=== PATIENT | male | born 1965 ===

== ENCOUNTER 2019-12-10 13:00 | Outpatient (REF) | payer MEDICARE, MEDICAID, SELFPAY | END 2019-12-10 13:01 | disposition home or self-care (01) | LOC: HO.LAB 13:00 | PROVIDERS: PCP Internal Medicine; Visit Provider Internal Medicine | DX: Z20.828 Contact with and (suspected) exposure to other viral communicable diseases (principal) | CPT/HCPCS: 87635 ==

== ENCOUNTER 2020-02-25 08:18 | Inpatient (IN) | payer MEDICARE, MEDICAID, SELFPAY ==
[2020-02-25] VITALS (10 sets, daily range): BP systolic 101–143; BP diastolic 62–92; PULSE 76–97; RESP 16–22; TEMP 36.7–36.9; O2SAT 96–99; BMI 34.9
--- NOTE | 2020-02-25 08:23 | PC.NURSE ---
call made for ekg upon pt arrival
--- NOTE | 2020-02-25 09:14 | ECG_ITS ---
Test Reason : CP Blood Pressure : / mmHG Vent. Rate : 087 BPM Atrial Rate : 087 BPM P-R Int : 140 ms QRS Dur : 096 ms QT Int : 420 ms P-R-T Axes : -05 045 019 degrees QTc Int : 505 ms Normal sinus rhythm Prolonged QT Abnormal ECG When compared to the previous EKG of QT has lengthened Referred By: Linda Knight Electronically Signed By:Richie Aldridge
--- NOTE | 2020-02-25 09:14 | XR_ITS ---
EXAMINATION: XR CHEST CLINICAL INFORMATION: Chest pain COMPARISON: 04/15/2017 and priors TECHNIQUE: 2 views of the chest were obtained. FINDINGS: ECG leads project over the thorax. Stable heart and mediastinum. No pulmonary edema. Clear lungs. No consolidation effusion or pneumothorax. Lung volumes improved compared with prior. Chronic bronchial wall thickening. Nonobstructive gas pattern. No acute osseous finding. Minor degenerative spine disease. XR/XR chest 2V IMPRESSION: Chronic bronchial wall thickening.
--- NOTE | 2020-02-25 09:17 | ED_ITS ---
HPI - Chest Pain General Chief Complaint: Chest Pain Stated Complaint: chest pain Time Seen by Provider: 02/25/20 08:55 Source: patient Mode of arrival: ambulatory Limitations: no limitations History of Present Illness HPI narrative: 55-year-old male with a past medical history of diabetes, hypertension, hyperlipidemia, anxiety here with complaints of left-sided chest tightness since 0400. Began at rest, woke him from his sleep. Constant since. Some associated anxiety, shortness of breath, nausea. Patient denies any diaphoresis, vomiting, dizziness. Does report some epigastric pain. No recent travel. No leg swelling or pain. No fevers, chills, body aches complaint: chest discomfort Onset (ago): day(s) Timing of current episode: constant Prior episodes: No Onset: during rest Pain location: left chest Pain radiation: none Severity: mild Quality: tightness Relieving factors: nothing Exacerbating factors: nothing Associated symptoms: dyspnea Treatment prior to arrival: none Related Data Allergies Allergy/AdvReac Type Severity Reaction Status Date / Time No Known Allergies Allergy Unverified 11/02/19 15:06 Review of Systems Review of Systems: Yes all other systems are reviewed and are negative Constitutional: Constitutional: Reports no additional constitutional complaints, Denies body ache(s), Denies chills, Denies fever(s), Denies headache (s) and Denies weakness Eyes: Eyes: Reports no additional eye complaints and Denies change in vision ENT: Reports system reviewed and no additional complaints, except as documented, Denies dizziness, Denies headache(s), Denies nasal congestion, Denies nasal discharge and Denies neck pain Cardiovascular: Cardiovascular: Reports no additional cardiovascular complaints, Reports chest pain, Denies leg edema and Reports dyspnea Respiratory: Respiratory: Reports no additional respiratory complaints, Denies cough and Reports dyspnea Gastrointestinal: Gastrointestinal: Reports no additional gastrointestinal complaints, Denies abdominal pain, Denies diarrhea, Denies nausea and Denies vomiting Genitourinary: Genitourinary: Denies urinary incontinence Musculoskeletal: Musculoskeletal: Reports no additional musculoskeletal complaints, Denies back pain, Denies arthralgias, Denies joint swelling, Denies neck pain, Denies numbness and Denies tingling Integumentary/Breasts: Skin/Breast: Reports system reviewed and no additional complaints, except as docu and Denies rash Neurologic: Reports system reviewed and no additional complaints, except as documented, Denies Abnormal speech present, Denies dizziness, Denies headac he(s), Denies numbness, Denies tingling and Denies weakness Psychiatric: Psychiatric: Reports anxiety PMFSH Past Medical History Attestation statement: The following information was validated with the patient. Source: old records reviewed and nursing notes reviewed Medical History (Updated 02/25/20 @ 13:46 by Nichelle Aguilar NP) Anxiety Diabetes High cholesterol HTN (hypertension) Surgical History (Updated 02/25/20 @ 14:54 by NISHI Poon) H/O hernia repair History of appendectomy Family History Family History (Updated 02/25/20 @ 14:55 by NISHI Poon) Mother Heart attack Social History Social History (Updated 02/25/20 @ 14:55 by NISHI Poon) Alcohol intake: current Alcohol intake frequency: a few times a week Smoking Status: Current every day smoker Packs Per Day: 1 Use of substances other than those prescribed or required for medical reasons: No Advance Directives: No Advance Directives Information Provided: No Physical Exam Vital Signs: Vital Signs: Last Vital Signs Temp 98.0 F 02/25/20 08:19 Pulse 84 02/25/20 14:00 Resp 16 02/25/20 14:00 BP 101/62 02/25/20 14:00 Pulse Ox 99 02/25/20 14:00 Body Mass Index 34.9 Const: General: cooperative, healthy appearing, comfortable and no acute distress Orientation/consciousness: patient oriented x3 Limitations: no limitations HENMT: Head: Yes normal to inspection Ears: hearing grossly normal bilaterally General nose exam: Normal external nose present Face and sinus: Yes normal facial exam Mouth: Normal oral and palatal mucosa present Throat: Yes posterior oropharynx normal Eyes: General: appearance normal, both eyes and all related structures Pupils: Equal, round and reactive pupils present Neck: Neck: Yes normal visual inspection Chest: Other: Left chest tender to palpate, worsened with deep breathing and movement Chest palpation & inspection: normal inspection of the chest Resp: Effort & Inspection: normal respiratory effort Auscultation: clear to auscultation bilaterally Cardio: Rate: regular rate Rhythm: regular rhythm Peripheral pulses: Peripheral pulses 2+ throughout GI: Inspection: Yes normal to inspection Palpation (GI): Soft to palpation and Tenderness to palpation present (GI) (Mild epigastric tenderness. No rebound or guarding) Auscultation: normal bowel sounds Back/Spine/Pelvis: Thoracic/Lumbar Spine: thoracic and lumbar spine normal to inspection Skin: General skin exam: no rashes or lesions noted Neuro: General: patient oriented x3, no focal motor deficits and normal sensation to monofilament Cranial nerves: Yes Equal, round and reactive pupils present Cognition (Neuro): normal cognition Speech: No Abnormal speech present Gait exam (Neuro): Normal gait present Motor exam (neuro): 5/5 motor strength present throughout Extrem: General: Yes normal to inspection, Yes no pedal edema and Yes no calf tenderness Course Course Course Narrative: 55-year-old male here with chest tightness since 0400 which is constant with some associated anxiety, nausea and shortness of breath. No other complaints. Has had some chronic epigastric pain which is unchanged from baseline. On exam pain is more musculoskeletal. Patient appears very anxious. Will check labs, EKG, chest x-ray. Will give dose of Ativan. Patient also having some mild epigastric tenderness which is likely secondary to GERD vs ACS. Will give GI cocktail and reassess. 1040- troponin elevated. Serial EKG repeated unchanged from previous. Continued symptoms of chest pain, epigastric pain. Will give aspirin 324 mg. Trial nitroglycerin to see if this affects the patient's pain. Added on a D- dimer to rule out underlying PE, inflammatory markers to r/o alivia/pericarditis. Message sent to cardiology to discuss. 1150-Cardiology called back. Will come in to see patient. 1250-patient seen at the bedside by Dr. Bryan His pain is resolved with 2 doses of nitroglycerin here in the emergency department. Bedside echo with good LV function. Plan for repeat troponin. If troponin is unchanged recommend admit for stress test in the morning. If troponin is increased plan for heparin IV and admission. 1325-2nd troponin shows increase from 673.1 to 955.8. Cardiology updated and recommended heparin infusion and admission. 1345-discussed with Olga ALMODOVAR who accepted admission MDM - Chest Pain MDM Narrative Medical decision making narrative: Gastritis, GERD, ACS, PE, musculoskeletal pain Medical Records Data Attestation: I reviewed the patient's medical records. Lab Data Attestation: I reviewed the patient's lab results. Result diagrams: 02/25/20 09:18 02/25/20 09:18 Labs: Lab Results 02/25/20 02/25/20 02/25/20 Range/Units 09:18 09:18 09:18 WBC 9.7 (4.8-10.8) X10*3/uL RBC 4.95 (4.60-5.80) X10*6/uL Hgb 14.5 (14.0-18.0) g/dl Hct 44.2 (42-52) % MCV 89.3 (80-98) fL MCH 29.3 (27.0-33.0) pg MCHC 32.8 (31.0-36.0) g/dl RDW 13.8 (11.0-16.0) % Plt Count 155 L (160-400) X10*3/uL MPV 10.7 (9.4-12.4) fL Immature Gran % (Auto) 0.2 (0.0-0.4) % Neut % (Auto) 67.8 (45-73) % Lymph % (Auto) 22.3 (20-40) % [place] % (Auto) 9.0 (2-11) % Eos % (Auto) 0.2 (0-4) % Baso % (Auto) 0.5 (0-2) % Lymph # (Auto) 2.2 (1.2-4.9) X10*3/uL [place] # (Auto) 0.9 (0.1-1.2) X10*3/uL Eos # (Auto) 0.0 (0.0-0.4) X10*3/uL Baso # (Auto) 0.1 (0.0-0.2) X10*3/uL Abs Immat Gran (auto) 0.02 (0.00-0.03) X10*3/uL Absolute Neuts (auto) 6.5 (2.0-8.3) X10*3/uL Absolute Nucleated RBC 0.000 (0.0-0.012) X10*3/uL Nucleated RBC % (auto) 0.0 (0.0-0.2) /100WBC ESR (0-15) MM/HR PT 13.3 H (10.8-13.0) SEC INR 1.1 (0.9-1.1) APTT 31.2 (24.1-38.0) SEC D-Dimer 215 NG/ML Sodium 138 (135-145) mmol/L Potassium 4.0 (3.3-5.1) mmol/l Chloride 103 (96-108) mmol/L Carbon Dioxide 19 L (22-29) mmol/L Anion Gap 20 (12-20) BUN 11 (9-16) mg/dL Creatinine 0.89 (0.5-1.4) mg/dL Estim Creat Clear Calc 108.5 Estimated GFR > 60 Random Glucose 177 H (60-115) mg/dL Calcium 9.1 (8.4-10.2) mg/dL Magnesium 1.9 (1.6-2.6) mg/dL Total Bilirubin 0.7 (0.0-1.0) mg/dL Direct Bilirubin 0.3 (0.0-0.5) mg/dL AST 77 H (5-37) U/L ALT 117 H (0-40) U/L Alkaline Phosphatase 70 (39-117) U/L Troponin I High Sens (<3.5-35.0) ng/L C-Reactive Protein 0.35 (< or = 0.50) mg/dL Total Protein 7.7 (6.5-8.0) g/dL Albumin 4.5 (3.5-5.0) g/dL Lipase (8-78) U/L COVID-19 ([facility]) (Negative) COVID-19 Clin Com 02/25/20 02/25/20 02/25/20 Range/Units 09:18 09:18 09:18 WBC (4.8-10.8) X10*3/uL RBC (4.60-5.80) X10*6/uL Hgb (14.0-18.0) g/dl Hct (42-52) % MCV (80-98) fL MCH (27.0-33.0) pg MCHC (31.0-36.0) g/dl RDW (11.0-16.0) % Plt Count (160-400) X10*3/uL MPV (9.4-12.4) fL Immature Gran % (Auto) (0.0-0.4) % Neut % (Auto) (45-73) % Lymph % (Auto) (20-40) % [place] % (Auto) (2-11) % Eos % (Auto) (0-4) % Baso % (Auto) (0-2) % Lymph # (Auto) (1.2-4.9) X10*3/uL [place] # (Auto) (0.1-1.2) X10*3/uL Eos # (Auto) (0.0-0.4) X10*3/uL Baso # (Auto) (0.0-0.2) X10*3/uL Abs Immat Gran (auto) (0.00-0.03) X10*3/uL Absolute Neuts (auto) (2.0-8.3) X10*3/uL Absolute Nucleated RBC (0.0-0.012) X10*3/uL Nucleated RBC % (auto) (0.0-0.2) /100WBC ESR 4 (0-15) MM/HR PT (10.8-13.0) SEC INR (0.9-1.1) APTT (24.1-38.0) SEC D-Dimer NG/ML Sodium (135-145) mmol/L Potassium (3.3-5.1) mmol/l Chloride (96-108) mmol/L Carbon Dioxide (22-29) mmol/L Anion Gap (12-20) BUN (9-16) mg/dL Creatinine (0.5-1.4) mg/dL Estim Creat Clear Calc Estimated GFR Random Glucose (60-115) mg/dL Calcium (8.4-10.2) mg/dL Magnesium (1.6-2.6) mg/dL Total Bilirubin (0.0-1.0) mg/dL Direct Bilirubin (0.0-0.5) mg/dL AST (5-37) U/L ALT (0-40) U/L Alkaline Phosphatase (39-117) U/L Troponin I High Sens 673.1 H (<3.5-35.0) ng/L C-Reactive Protein (< or = 0.50) mg/dL Total Protein (6.5-8.0) g/dL Albumin (3.5-5.0) g/dL Lipase 16 (8-78) U/L COVID-19 ([facility]ILIA) (Negative) COVID-19 Clin Com 02/25/20 02/25/20 Range/Units 11:32 12:37 WBC (4.8-10.8) X10*3/uL RBC (4.60-5.80) X10*6/uL Hgb (14.0-18.0) g/dl Hct (42-52) % MCV (80-98) fL MCH (27.0-33.0) pg MCHC (31.0-36.0) g/dl RDW (11.0-16.0) % Plt Count (160-400) X10*3/uL MPV (9.4-12.4) fL Immature Gran % (Auto) (0.0-0.4) % Neut % (Auto) (45-73) % Lymph % (Auto) (20-40) % [place] % (Auto) (2-11) % Eos % (Auto) (0-4) % Baso % (Auto) (0-2) % Lymph # (Auto) (1.2-4.9) X10*3/uL [place] # (Auto) (0.1-1.2) X10*3/uL Eos # (Auto) (0.0-0.4) X10*3/uL Baso # (Auto) (0.0-0.2) X10*3/uL Abs Immat Gran (auto) (0.00-0.03) X10*3/uL Absolute Neuts (auto) (2.0-8.3) X10*3/uL Absolute Nucleated RBC (0.0-0.012) X10*3/uL Nucleated RBC % (auto) (0.0-0.2) /100WBC ESR (0-15) MM/HR PT (10.8-13.0) SEC INR (0.9-1.1) APTT (24.1-38.0) SEC D-Dimer NG/ML Sodium (135-145) mmol/L Potassium (3.3-5.1) mmol/l Chloride (96-108) mmol/L Carbon Dioxide (22-29) mmol/L Anion Gap (12-20) BUN (9-16) mg/dL Creatinine (0.5-1.4) mg/dL Estim Creat Clear Calc Estimated GFR Random Glucose (60-115) mg/dL Calcium (8.4-10.2) mg/dL Magnesium (1.6-2.6) mg/dL Total Bilirubin (0.0-1.0) mg/dL Direct Bilirubin (0.0-0.5) mg/dL AST (5-37) U/L ALT (0-40) U/L Alkaline Phosphatase (39-117) U/L Troponin I High Sens 955.8 H (<3.5-35.0) ng/L C-Reactive Protein (< or = 0.50) mg/dL Total Protein (6.5-8.0) g/dL Albumin (3.5-5.0) g/dL Lipase (8-78) U/L COVID-19 ([facility]ILIA) Negative (Negative) COVID-19 Clin Com See Note Imaging Data Chest x-ray: Attestation: I personally reviewed and interpreted this imaging study as follows: Radiologist's impression: [place] [id number] XRay Report Signed Patient: Willis Peterson#: [id number] : 1965Acct:[id number] Age/Sex: 55 / MADM Date: 02/25/20 Loc: .ED Attending Dr: Ordering Physician: NICHELLE AGUILAR NP Date of Service: 02/25/20 Procedure(s): XR chest 2V Accession Number(s): [id number] cc: NICHELLE AGUILAR NP~ EXAMINATION: XR CHEST CLINICAL INFORMATION: Chest pain COMPARISON: 04/15/2017 and priors TECHNIQUE: 2 views of the chest were obtained. FINDINGS: ECG leads project over the thorax. Stable heart and mediastinum. No pulmonary edema. Clear lungs. No consolidation effusion or pneumothorax. Lung volumes improved compared with prior. Chronic bronchial wall thickening. Nonobstructive gas pattern. No acute osseous finding. Minor degenerative spine disease. XR/XR chest 2V IMPRESSION: Chronic bronchial wall thickening. ECG Data ECG #1: Attestation: I personally reviewed and interpreted this ECG as follows: ECG interpretation date: 02/25/20 ECG interpretation time: 09:34 Interpretation: Normal sinus rhythm with a rate of 87, normal NH, normal QRS, prolonged QTC 505. No ST changes EKG #2 1040-normal sinus rhythm with a rate of 84. Normal NH normal QRS prolonged QTC [address] changes Critical Care Time Critical Care Time Critical Care Time: Yes Total Critical Care Time: 30 Attestation: Discussion with cardiology, repeat labs, multiple re-assessments for chest pain Discharge Plan Discharge Clinical Impression: Non-ST elevation ID (NSTEMI) Patient Disposition: Admitted As Inpatient
[2020-02-25 09:27] LABS: Basophils Absolute Auto 0.1 X10*3/uL (0.0-0.2); Basophils Percent Auto 0.5 % (0-2); Eosinophils Percent Auto 0.2 % (0-4); Hematocrit 44.2 % (42-52); Hemoglobin 14.5 g/dl (14.0-18.0); Imm Gran Abs Auto 0.02 X10*3/uL (0.00-0.03); Imm Gran Pct Auto 0.2 % (0.0-0.4); Lymphocytes Absolute Auto 2.2 X10*3/uL (1.2-4.9); Lymphocytes Percent Auto 22.3 % (20-40); MANUAL DIFF FLAG NO; Mean Corpuscular HGB Conc 32.8 g/dl (31.0-36.0); Mean Corpuscular Hemoglobin 29.3 pg (27.0-33.0); Mean Corpuscular Volume 89.3 fL (80-98); Mean Platelet Volume 10.7 fL (9.4-12.4); Monocytes Absolute Auto 0.9 X10*3/uL (0.1-1.2); Neutrophils Absolute Auto 6.5 X10*3/uL (2.0-8.3); Neutrophils Percent Auto 67.8 % (45-73); Platelet Count 155 X10*3/uL (160-400); Red Blood Count 4.95 X10*6/uL (4.60-5.80); Red Cell Distribution Width 13.8 % (11.0-16.0); White Blood Count 9.7 X10*3/uL (4.8-10.8)
[2020-02-25 09:32] LABS: INTERNATIONAL NORM RATIO 1.1 (0.9-1.1); Prothrombin Time 13.3 SEC (10.8-13.0)
[2020-02-25 09:51] LABS: Lipase 16 U/L (8-78)
[2020-02-25 10:28] LABS: Alanine Aminotransferase 117 U/L (0-40); Albumin Level 4.5 g/dL (3.5-5.0); Alkaline Phosphatase 70 U/L (39-117); Anion Gap 20 (12-20); Aspartate Amino Transferase 77 U/L (5-37); Bilirubin Direct 0.3 mg/dL (0.0-0.5); Bilirubin Total 0.7 mg/dL (0.0-1.0); Blood Urea Nitrogen 11 mg/dL (9-16); Calcium 9.1 mg/dL (8.4-10.2); Carbon Dioxide 19 mmol/L (22-29); Chloride 103 mmol/L (96-108); Creatinine Clr Calc Pharmacy 108.5; Estimated Glomerular Filt Rate > 60; Glucose Random 177 mg/dL (60-115); Magnesium 1.9 mg/dL (1.6-2.6); Sodium 138 mmol/L (135-145); Total Protein 7.7 g/dL (6.5-8.0)
[2020-02-25] MEDS: Lidocaine HCl Viscous 2 % 15 ML SOLUTION MUCOUS MEM (10:30)
[2020-02-25] MEDS: Magnesium Hydrox/Alum Hydrox 30 ML ORAL.SUSP PO (10:30)
[2020-02-25 10:31] LABS: Troponin-I High Sensitivity 673.1 ng/L (<3.5-35.0)
[2020-02-25] MEDS: LORazepam 2 MG/ML VIAL 1 MG IVPUSH (10:31)
--- NOTE | 2020-02-25 10:37 | ECG_ITS ---
Test Reason : CHEST PAIN Blood Pressure : / mmHG Vent. Rate : 084 BPM Atrial Rate : 084 BPM P-R Int : 160 ms QRS Dur : 096 ms QT Int : 420 ms P-R-T Axes : 009 041 020 degrees QTc Int : 496 ms Normal sinus rhythm Prolonged QT Abnormal ECG When compared with ECG of 08-MAR-2017 17:41, No significant change was found Referred By: Linda Knight Electronically Signed By:Richie Aldridge
[2020-02-25 10:58] LABS: D Dimer 215 NG/ML
[2020-02-25 11:00] LABS: C Reactive Protein 0.35 mg/dL (< or = 0.50)
[2020-02-25] MEDS: Aspirin 81 MG TAB.CHEW 324 MG PO (11:18)
[2020-02-25] MEDS: Nitroglycerin 0.4 MG TAB.SUBL SUBLINGUAL ×2 (11:24→12:18)
--- NOTE | 2020-02-25 11:26 | CT_ITS ---
EXAMINATION: CT CHEST WITH CONTRAST CLINICAL INFORMATION: Rule out aortic dissection. Chest pain and abdominal pain. COMPARISON: None TECHNIQUE: Multidetector volumetric CT imaging of the chest and abdomen was obtained after the administration of 85 mL of Omnipaque 350 intravenous contrast without immediate adverse reactions. Axial MIP volume rendering provided. Sagittal and coronal reformatted images were obtained. This CT examination was performed using dose optimization techniques as appropriate, variously including the following: *Automated exposure control *Adjustment of mA and/or kV according to patient size (this includes techniques or standardized protocols for targeted exams where dose is matched to indication/reason for exam; i.e. extremities or head) *Use of iterative reconstruction technique DLP: 584.28 mGy-cm FINDINGS: LUNGS: The central airways are patent. No bronchial wall thickening. No bronchiectasis. No confluent parenchymal disease. No emphysematous changes appreciated. No suspicious lung nodules. MEDIASTINUM: No thoracic aortic aneurysm or dissection is appreciated. Heart normal size. Mild coronary artery calcification. No mediastinal or hilar lymphadenopathy. No pericardial effusion. PLEURA: There is no pleural effusion. No pleural mass or thickening. AXILLA: No lymphadenopathy. UPPER ABDOMEN: There is fatty infiltration of the liver. No intrahepatic bile duct dilatation. No focal hepatic masses identified. Gallbladder appears unremarkable. The spleen, pancreas, and adrenal glands appear unremarkable. There are a few small cysts seen within the kidneys bilaterally without evidence of hydronephrosis or focal renal masses. No abdominal aortic aneurysm or dissection is identified. The visceral vessels are patent without evidence of margin dissection. OSSEOUS STRUCTURES: No suspicious destructive bony lesion identified. There is a grade 2 spondylolisthesis L5-S1 with bilateral L5 pars defects. CT/CT chest w con IMPRESSION: No evidence of thoracic aortic aneurysm or dissection. No evidence of abdominal aortic aneurysm or dissection. Fatty infiltration of the liver.
[2020-02-25 11:32] LABS: Erythrocyte Sedimentation Rate 4 MM/HR (0-15)
[2020-02-25] MEDS: iohexoL 350 MG/ML 100 ML INFUS..BTL 85 ML IV (12:01)
[2020-02-25 12:05] LABS: COVID-19 Test Negative (Negative)
[2020-02-25 12:10] LABS: Partial Thromboplastin Time 31.2 SEC (24.1-38.0)
[2020-02-25 13:23] LABS: Troponin-I High Sensitivity 955.8 ng/L (<3.5-35.0)
[2020-02-25] MEDS: 0.9 % Sodium Chloride 500 ML 999 ML IV (14:42)
--- NOTE | 2020-02-25 14:50 | PM.IMHP ---
History of Present Illness Date of Service: 02/25/20 Chief Complaint: Chest pain This is a 55-year-old male who presents to the emergency department with chest pain. Patient states he was watching TV when he began having chest tightness around 12:30 this morning. This pain was located in the center of his chest and was associated with nausea and mild difficulty breathing. This pain was constant in nature, and not changed by increased inspiration. He denies any associated cough. The pain is somewhat reproducible on exam. Initially his pain was 10/10 in severity however this resolved with 2 sublingual nitro. His initial highly sensitive troponin was 673 and his repeat increased to 955. I would he was evaluated by the elevator service technician in the emergency department and had bedside echo. Cardiology recommended starting anticoagulation with heparin and admitting for further management of NSTEMI. Review of Systems Review of Systems: Yes all other systems are reviewed and are negative Cardiovascular: Cardiovascular: Denies chest pain Respiratory: Respiratory: Denies cough Gastrointestinal: Gastrointestinal: Denies abdominal pain PMFSH Medical History (Updated 02/25/20 @ 17:23 by Richie Aldridge MD) Anxiety Diabetes High cholesterol HTN (hypertension) Family History (Updated 02/25/20 @ 14:55 by NISHI Poon) Mother Heart attack Surgical History (Updated 02/25/20 @ 14:54 by NISHI Poon) H/O hernia repair History of appendectomy Social History (Updated 02/25/20 @ 14:55 by NISHI Poon) Alcohol intake: current Alcohol intake frequency: a few times a week Smoking Status: Current every day smoker Packs Per Day: 1 Use of substances other than those prescribed or required for medical reasons: No Advance Directives: No Advance Directives Information Provided: No Meds Allergies Allergy/AdvReac Type Severity Reaction Status Date / Time No Known Allergies Allergy Unverified 11/02/19 15:06 Physical Exam Vital Signs and Narrative: Vital Signs: Last Vital Signs Temp 98.0 F 02/25/20 08:19 Pulse 84 02/25/20 14:00 Resp 16 02/25/20 14:00 BP 101/62 02/25/20 14:00 Pulse Ox 99 02/25/20 14:00 Body Mass Index 34.9 Const: Nutritional Appearance: well nourished Orientation/consciousness: patient oriented x3 HENMT: Head: Yes normocephalic and Yes atraumatic Eyes: Sclerae: sclerae normal Chest: Chest palpation & inspection: normal inspection of the chest Resp: Effort & Inspection: normal respiratory effort and no respiratory distress Auscultation: clear to auscultation bilaterally Cardio: Rate: regular rate Rhythm: regular rhythm GI: Palpation (GI): Soft to palpation and nontender Skin: General skin exam: no rashes or lesions noted Neuro: General: patient oriented x3 Cranial nerves: Yes CN's II-XII intact bilaterally and Yes Bilaterally intact EOM present Extrem: General: Yes normal to inspection Results Labs CBC and Chem 7: 02/25/20 09:18 02/25/20 09:18 Labs: Laboratory Results - last 24 hr 02/25/20 02/25/20 02/25/20 09:18 09:18 09:18 MCV 89.3 MCH 29.3 MCHC 32.8 RDW 13.8 Plt Count 155 L MPV 10.7 Immature Gran % (Auto) 0.2 Neut % (Auto) 67.8 Lymph % (Auto) 22.3 [place] % (Auto) 9.0 Eos % (Auto) 0.2 Baso % (Auto) 0.5 Lymph # (Auto) 2.2 [place] # (Auto) 0.9 Eos # (Auto) 0.0 Baso # (Auto) 0.1 Abs Immat Gran (auto) 0.02 Absolute Neuts (auto) 6.5 Absolute Nucleated RBC 0.000 Nucleated RBC % (auto) 0.0 ESR PT 13.3 H INR 1.1 APTT 31.2 D-Dimer 215 Anion Gap 20 Estim Creat Clear Calc 108.5 Estimated GFR > 60 Random Glucose 177 H Calcium 9.1 Magnesium 1.9 Total Bilirubin 0.7 Direct Bilirubin 0.3 AST 77 H ALT 117 H Alkaline Phosphatase 70 Troponin I High Sens C-Reactive Protein 0.35 Total Protein 7.7 Albumin 4.5 Lipase COVID-19 ([facility]IA) COVID-19 Clin Com 02/25/20 02/25/20 02/25/20 09:18 09:18 09:18 MCV MCH MCHC RDW Plt Count MPV Immature Gran % (Auto) Neut % (Auto) Lymph % (Auto) [place] % (Auto) Eos % (Auto) Baso % (Auto) Lymph # (Auto) [place] # (Auto) Eos # (Auto) Baso # (Auto) Abs Immat Gran (auto) Absolute Neuts (auto) Absolute Nucleated RBC Nucleated RBC % (auto) ESR 4 PT INR APTT D-Dimer Anion Gap Estim Creat Clear Calc Estimated GFR Random Glucose Calcium Magnesium Total Bilirubin Direct Bilirubin AST ALT Alkaline Phosphatase Troponin I High Sens 673.1 H C-Reactive Protein Total Protein Albumin Lipase 16 COVID-19 (LILIA) COVID-19 Clin Com 02/25/20 02/25/20 11:32 12:37 MCV MCH MCHC RDW Plt Count MPV Immature Gran % (Auto) Neut % (Auto) Lymph % (Auto) [place] % (Auto) Eos % (Auto) Baso % (Auto) Lymph # (Auto) [place] # (Auto) Eos # (Auto) Baso # (Auto) Abs Immat Gran (auto) Absolute Neuts (auto) Absolute Nucleated RBC Nucleated RBC % (auto) ESR PT INR APTT D-Dimer Anion Gap Estim Creat Clear Calc Estimated GFR Random Glucose Calcium Magnesium Total Bilirubin Direct Bilirubin AST ALT Alkaline Phosphatase Troponin I High Sens 955.8 H C-Reactive Protein Total Protein Albumin Lipase COVID-19 (LILIA) Negative COVID-19 Clin Com See Note Imaging Radiologist's Impressions: Impressions Chest X-Ray 02/25/20 09:14 IMPRESSION: Chronic bronchial wall thickening. Chest CT 02/25/20 11:26 IMPRESSION: No evidence of thoracic aortic aneurysm or dissection. No evidence of abdominal aortic aneurysm or dissection. Fatty infiltration of the liver. Assessment and Plan (1) Non-ST elevation [place] (NSTEMI): Status: Acute This is a 55-year-old male with a history of diabetes hypertension dyslipidemia anxiety presents to the emergency department with chest pain found to have NSTEMI NSTEMI Anticoagulation with heparin Aspirin, statin Lipid profile Echocardiogram, cardiology consult Plan for stress test versus cardiac catheterization to be determined by Cardiology Diabetes SSI, POCs Tobacco dependence smoking cessation advised NRT Home medications for chronic conditions such as HTN, HLD, DM, will be continued once med rec is completed. DVT prophylaxis-heparin Code status-full code This case was discussed with Dr. Evans
[2020-02-25] MEDS: Heparin Sodium,Porcine 5,000 UNIT/ML VIAL 4000 UNIT IVPUSH (15:47)
[2020-02-25] MEDS: Heparin Sodium,Porcine/1/2NS 25,000 UNIT/250 ML IV.SOLN 14.61 UNIT IVCONT (15:48)
[2020-02-25] MEDS: Nicotine 14 MG PATCH.TD24 TRANSDERMA (15:58)
--- NOTE | 2020-02-25 15:58 | PC.NURSE ---
4000u heparin administered iv push per emar, per supervisor evaporator denis do not admin other 2 orders of iv push heparin.
--- NOTE | 2020-02-25 16:01 | P.EN_ITS ---
Event Note Date of Service: 02/25/20 Event Note: I interviewed and examined the patient. I discussed their present ation and management with the mid-level provider. I reviewed the history and physical and agree with the documentation, with the following additions and corrections: 55yo M with DM2, HTN, HLD, tobacco abuse, FHx of CAD [mother with CT @ age 59yo] p/w midsternal chest pressure assoc with dyspnea and nausea that began just pats midnight while watching TV Relieved by NTG but also somewhat provoked by palpation on his chest Currently denies pain hs-Tn-I 673->955 EKG TW flattening inferiorly plan admit to [facility], heparin gtt per Cardiology, statin, ASA, TTE, likely eventual transfer to [facility] for cath, tobacco cessation, correction-dose lispro
[2020-02-25] MEDS: 0.9 % Sodium Chloride Flush 3 ML SYRINGE IVFLUSH (17:10)
--- NOTE | 2020-02-25 17:21 | P.CONCA_ITS ---
History of Present Illness History of Present Illness Date of Service: 02/25/20 Requesting physician: Linda Knight Chief complaint: chest pain Narrative: 55-year-old gentleman with background history of tobacco abuse and family history of coronary artery disease who is presenting with chest discomfort. He said approximately 04:00 o'clock in the morning he woke up with pressure-like feeling in his chest. He has had this was continues pressure-like feeling and he also experienced some sharp chest discomfort. These symptoms he presented to [facility]. His initial troponin was positive. Subsequent troponin level was higher. He is heme nitroglycerin which improved his symptoms. He has no bleeding issues. He does have associated reflux dis ease and significant epigastric discomfort/burning. He said he had similar chest discomfort in the past but no testing was done in the past. Review of Systems Constitutional: Constitutional: Denies headache(s) and Denies weakness ENT: Denies dizziness and Denies headache(s) Musculoskeletal: Musculoskeletal: Denies numbness and Denies tingling Neurologic: Reports system reviewed and no additional complaints, except as documented, Denies dizziness, Denies headache(s), Denies numbness, Denies tingling and Denies weakness PMFSH Past Medical History Medical History (Updated 02/25/20 @ 17:23 by Richie Aldridge MD) Anxiety Diabetes High cholesterol HTN (hypertension) Family History Family History (Updated 02/25/20 @ 14:55 by NISHI Poon) Mother Heart attack Surgical History Surgical History (Updated 02/25/20 @ 14:54 by NISHI Poon) H/O hernia repair History of appendectomy Social History Social History (Updated 02/25/20 @ 14:55 by NISHI Poon) Alcohol intake: current Alcohol intake frequency: a few times a week Smoking Status: Current every day smoker Packs Per Day: 1 Use of substances other than those prescribed or required for medical reasons: No Advance Directives: No Advance Directives Information Provided: No Meds Allergies Allergy/AdvReac Type Severity Reaction Status Date / Time No Known Allergies Allergy Unverified 11/02/19 15:06 Physical Exam Vital Signs: Vital Signs: Last Vital Signs Temp 98.5 F 02/25/20 15:55 Pulse 86 01/10/21 16:14 Resp 22 H 02/25/20 16:14 BP 107/69 02/25/20 16:14 Pulse Ox 99 02/25/20 16:14 Body Mass Index 34.9 GENERAL APPEARANCE: in no acute distress, well developed, well nourished. HEENT: unremarkable. HEAD: normocephalic, atraumatic. NECK/THYROID: no carotid bruit, no jugular venous distention. SKIN: no suspicious lesions, warm and dry. HEART: no murmurs, regular rate and rhythm, S1, S2 normal. LUNGS: clear to auscultation bilaterally. ABDOMEN: normal, bowel sounds present, soft, nontender, nondistended. EXTREMITIES: no clubbing, cyanosis, or edema. PERIPHERAL PULSES: equal. NEUROLOGIC: nonfocal, alert and oriented. PSYCH: mood/affect full range. Results Labs and Meds Result diagrams: 02/25/20 09:18 02/25/20 09:18 Lab results: Laboratory Results - last 24 hr 02/25/20 02/25/20 02/25/20 09:18 09:18 09:18 WBC 9.7 RBC 4.95 Hgb 14.5 Hct 44.2 MCV 89.3 MCH 29.3 MCHC 32.8 RDW 13.8 Plt Count 155 L MPV 10.7 Immature Gran % (Auto) 0.2 Neut % (Auto) 67.8 Lymph % (Auto) 22.3 Bond % (Auto) 9.0 Eos % (Auto) 0.2 Baso % (Auto) 0.5 Lymph # (Auto) 2.2 Bond # (Auto) 0.9 Eos # (Auto) 0.0 Baso # (Auto) 0.1 Abs Immat Gran (auto) 0.02 Absolute Neuts (auto) 6.5 Absolute Nucleated RBC 0.000 Nucleated RBC % (auto) 0.0 ESR PT 13.3 H INR 1.1 APTT 31.2 D-Dimer 215 Sodium 138 Potassium 4.0 Chloride 103 Carbon Dioxide 19 L Anion Gap 20 BUN 11 Creatinine 0.89 Estim Creat Clear Calc 108.5 Estimated GFR > 60 Random Glucose 177 H Calcium 9.1 Magnesium 1.9 Total Bilirubin 0.7 Direct Bilirubin 0.3 AST 77 H ALT 117 H Alkaline Phosphatase 70 Troponin I High Sens C-Reactive Protein 0.35 Total Protein 7.7 Albumin 4.5 Lipase COVID-19 (LILIA) COVID-19 Clin Com 02/25/20 02/25/20 02/25/20 09:18 09:18 09:18 WBC RBC Hgb Hct MCV MCH MCHC RDW Plt Count MPV Immature Gran % (Auto) Neut % (Auto) Lymph % (Auto) Bond % (Auto) Eos % (Auto) Baso % (Auto) Lymph # (Auto) Bond # (Auto) Eos # (Auto) Baso # (Auto) Abs Immat Gran (auto) Absolute Neuts (auto) Absolute Nucleated RBC Nucleated RBC % (auto) ESR 4 PT INR APTT D-Dimer Sodium Potassium Chloride Carbon Dioxide Anion Gap BUN Creatinine Estim Creat Clear Calc Estimated GFR Random Glucose Calcium Magnesium Total Bilirubin Direct Bilirubin AST ALT Alkaline Phosphatase Troponin I High Sens 673.1 H C-Reactive Protein Total Protein Albumin Lipase 16 COVID-19 (LILIA) COVID-19 Clin Com 02/25/20 02/25/20 11:32 12:37 WBC RBC Hgb Hct MCV MCH MCHC RDW Plt Count MPV Immature Gran % (Auto) Neut % (Auto) Lymph % (Auto) Bond % (Auto) Eos % (Auto) Baso % (Auto) Lymph # (Auto) Bond # (Auto) Eos # (Auto) Baso # (Auto) Abs Immat Gran (auto) Absolute Neuts (auto) Absolute Nucleated RBC Nucleated RBC % (auto) ESR PT INR APTT D-Dimer Sodium Potassium Chloride Carbon Dioxide Anion Gap BUN Creatinine Estim Creat Clear Calc Estimated GFR Random Glucose Calcium Magnesium Total Bilirubin Direct Bilirubin AST ALT Alkaline Phosphatase Troponin I High Sens 955.8 H C-Reactive Protein Total Protein Albumin Lipase COVID-19 (LILIA) Negative COVID-19 Clin Com See Note Imaging Radiologist's impression: Impressions Chest X-Ray 02/25/20 09:14 IMPRESSION: Chronic bronchial wall thickening. Chest CT 02/25/20 11:26 IMPRESSION: No evidence of thoracic aortic aneurysm or dissection. No evidence of abdominal aortic aneurysm or dissection. Fatty infiltration of the liver. Assessment and Plan (1) Non-ST elevation [place] (NSTEMI): Status: Acute (2) HTN (hypertension): Status: Acute Pleasant 55-year-old gentleman here for chest discomfort and ruled in for non ST elevation myocardial function. His EKG is not showing any significant changes. I did a bedside echo on him in the ER because he was still complaining of 1/10 chest discomfort but his wall motion was normal. His pain has improved significantly with nitroglycerin. He has risk factors for coronary disease and has family history of myocardial infarction in her 50s. We will start him on heparin drip. We will check echocardiogram tomorrow. Potentially transfer him to [facility] tomorrow with plan to cath him on Wednesday. Adding low-dose metoprolol. Please start him on a proton pump inhibitor. Thank you for allowing me to participate in the care of your patient. Please feel free to contact me if you have any questions.
[2020-02-25 18:12] LABS: Glucose, Whole Blood 190 mg/dL (60-115)
[2020-02-25] MEDS: Omeprazole 40 MG CAPSULE.DR PO (19:04)
--- NOTE | 2020-02-25 19:21 | PC.NURSE ---
pt upright in bed on cellphone, reports resolution of cp. pt's glucose checked, pt refusing insulin coverage, hospitalist advised, awaiting plan of care.
[2020-02-25 19:23] LABS: Glucose, Whole Blood 223 mg/dL (60-115)
[2020-02-25] MEDS: Atorvastatin Calcium 80 MG TABLET PO (21:09)
[2020-02-25] MEDS: Metoprolol Tartrate 12.5 MG HALFTAB PO (21:09)
[2020-02-25] MEDS: hydrOXYzine HCL 25 MG TABLET PO (21:15)
[2020-02-25 21:16] LABS: Troponin-I High Sensitivity 767.6 ng/L (<3.5-35.0)
[2020-02-25 22:22] LABS: Hemoglobin 13.2 g/dl (14.0-18.0); Mean Corpuscular HGB Conc 32.8 g/dl (31.0-36.0); PLT CLUMP 1; Red Cell Distribution Width 13.7 % (11.0-16.0)
[2020-02-25 22:24] LABS: Hematocrit 40.2 % (42-52); Mean Corpuscular Hemoglobin 29.7 pg (27.0-33.0); Mean Corpuscular Volume 90.3 fL (80-98); Mean Platelet Volume 10.7 fL (9.4-12.4); Platelet Count 119 X10*3/uL (160-400); Red Blood Count 4.45 X10*6/uL (4.60-5.80); White Blood Count 6.3 X10*3/uL (4.8-10.8)
[2020-02-25 22:27] LABS: INTERNATIONAL NORM RATIO 1.1 (0.9-1.1)
[2020-02-25 22:30] LABS: PTT Heparin Drip 73.9 SEC (53-77.9)
[2020-02-26] VITALS (13 sets, daily range): BP systolic 96–126; BP diastolic 44–78; PULSE 72–82; RESP 14–20; O2SAT 95–99
--- NOTE | 2020-02-26 | ECG_ITS ---
Test Reason : REPEAT Blood Pressure : / mmHG Vent. Rate : 074 BPM Atrial Rate : 074 BPM P-R Int : 154 ms QRS Dur : 094 ms QT Int : 484 ms P-R-T Axes : 005 066 007 degrees QTc Int : 537 ms Normal sinus rhythm Prolonged QT Abnormal ECG When compared with ECG of 25-FEB-2020 10:40, No significant change was found Referred By: Josi Copeland Electronically Signed By:FROILAN RICKS MD
--- NOTE | 2020-02-26 00:34 | PC.NURSE ---
REPORT FROM ANA ROSA ROTH AT 23:00.
--- NOTE | 2020-02-26 04:05 | PC.NURSE ---
PT REPORTS HE IS PAIN FREE, BUT HAS BEEN ASKING FOR FOOD AND JUICE ALL NIGHT. ORDERS ARE BOTH FOR NPO AND DIABETIC DIET, WILL CHECK WITH HOSPITALIST IN MORNING ABOUT BREAKFAST. PT WAS GIVEN ICE WATER, MILK AND SANDWICH AT 1PM, PT INSISTED. PT NOT HAPPY WITH RN FOR RESTRICTING P.O. INTAKE.
[2020-02-26 06:26] LABS: PLT CLUMP 1
[2020-02-26 06:28] LABS: Hematocrit 39.4 % (42-52); Hemoglobin 12.9 g/dl (14.0-18.0); Mean Corpuscular HGB Conc 32.7 g/dl (31.0-36.0); Mean Corpuscular Hemoglobin 29.7 pg (27.0-33.0); Mean Corpuscular Volume 90.6 fL (80-98); Mean Platelet Volume 10.6 fL (9.4-12.4); Platelet Count 111 X10*3/uL (160-400); Red Blood Count 4.35 X10*6/uL (4.60-5.80); Red Cell Distribution Width 13.6 % (11.0-16.0); White Blood Count 5.9 X10*3/uL (4.8-10.8)
[2020-02-26 06:43] LABS: Prothrombin Time 12.3 SEC (10.8-13.0)
[2020-02-26 07:00] LABS: PTT Heparin Drip 88.1 SEC (53-77.9)
[2020-02-26] MEDS: Omeprazole 40 MG CAPSULE.DR PO (07:37)
[2020-02-26 07:41] LABS: Anion Gap 11 (12-20); Blood Urea Nitrogen 14 mg/dL (9-16); Calcium 8.3 mg/dL (8.4-10.2); Carbon Dioxide 24 mmol/L (22-29); Chloride 109 mmol/L (96-108); Cholesterol 162 mg/dL; Creatinine Clr Calc Pharmacy 117.7; Estimated Glomerular Filt Rate > 60; Glucose Random 154 mg/dL (60-115); HDL Cholesterol 37 mg/dL; LDL Cholesterol Calculated 102 mg/dl; Potassium 3.8 mmol/l (3.3-5.1); Sodium 140 mmol/L (135-145); Triglycerides 119 mg/dL
[2020-02-26] MEDS: Heparin Sodium,Porcine/1/2NS 25,000 UNIT/250 ML IV.SOLN 14.61 UNIT IVCONT (07:43)
[2020-02-26 07:49] LABS: Glucose, Whole Blood 149 mg/dL (60-115)
--- NOTE | 2020-02-26 07:53 | PC.NURSE ---
Pt resting on stretcher, denies any chest pain at this time. No visible distress. Heparin gtt adjusted per protocol, new dose 12/units/kg/h. POC 149 Speaking full sentences, no SOB. Maintaining clear liquid diet prior to stress test NSR on tele, rate 70s
[2020-02-26] MEDS: Aspirin Enteric Coated 81 MG TABLET.DR PO (08:53)
[2020-02-26] MEDS: Metoprolol Tartrate 12.5 MG HALFTAB PO (08:53)
[2020-02-26] MEDS: 0.9 % Sodium Chloride Flush 3 ML SYRINGE IVFLUSH (09:03)
--- NOTE | 2020-02-26 09:48 | PM.PNCARD ---
Subjective Subjective Date of Service: 02/26/20 Principal diagnosis: CP, NSTEMI Interval history: Cardiology follow up for NSTEMI. Seen at 0930. Today he reports reproducible pain left chest region worse with palpation and deep inspiration. This is different than pain that he had on hospital arrival. No sob, no palpitation. Aware of plan for transfer to [facility]. He is agreeable. Review of Systems Review of Systems as above Yes all other systems are reviewed and are negative Physical Exam Vital Signs: Last Vital Signs Temp 98.2 F 02/25/20 20:23 Pulse 78 02/26/20 08:53 Resp 16 02/26/20 07:52 BP 112/74 02/26/20 08:53 Pulse Ox 97 02/26/20 07:52 Body Mass Index 34.9 Const General: cooperative, healthy appearing, no acute distress, alert and awake Orientation/consciousness: patient oriented x3 Neck Neck: Yes normal visual inspection and Yes no JVD Resp Effort & Inspection: normal respiratory effort, able to speak in complete sentences and not labored Auscultation: clear to auscultation bilaterally, no crackles, no rales, no rhonchi and no wheezes Cardio Palpation: normal PMI Rate: regular rate Rhythm: regular rhythm Heart sounds: S1 normal heart sound present and S2 normal heart sound present Peripheral pulses: Peripheral pulses 2+ throughout GI Inspection: Yes normal to inspection Neuro General: patient oriented x3 Extrem General: Yes normal to inspection and No edema Results Labs and Meds Result diagrams: 02/26/20 06:13 02/26/20 06:13 Lab results: Laboratory Results - last 24 hr 02/25/20 02/25/20 02/25/20 09:18 09:18 09:18 WBC RBC Hgb Hct MCV MCH MCHC RDW Plt Count MPV Absolute Nucleated RBC Nucleated RBC % (auto) ESR PT INR APTT 31.2 PTT (Heparin Protocol) D-Dimer 215 Sodium 138 Potassium 4.0 Chloride 103 Carbon Dioxide 19 L Anion Gap 20 BUN 11 Creatinine 0.89 Estim Creat Clear Calc 108.5 Estimated GFR > 60 POC Glucose Random Glucose 177 H Calcium 9.1 Magnesium 1.9 Total Bilirubin 0.7 Direct Bilirubin 0.3 AST 77 H ALT 117 H Alkaline Phosphatase 70 Troponin I High Sens 673.1 H C-Reactive Protein 0.35 Total Protein 7.7 Albumin 4.5 Triglycerides Cholesterol LDL Cholesterol, Calc HDL Cholesterol Lipase COVID-19 (LILIA) COVID-19 Clin Com 02/25/20 02/25/20 02/25/20 09:18 09:18 11:32 WBC RBC Hgb Hct MCV MCH MCHC RDW Plt Count MPV Absolute Nucleated RBC Nucleated RBC % (auto) ESR 4 PT INR APTT PTT (Heparin Protocol) D-Dimer Sodium Potassium Chloride Carbon Dioxide Anion Gap BUN Creatinine Estim Creat Clear Calc Estimated GFR POC Glucose Random Glucose Calcium Magnesium Total Bilirubin Direct Bilirubin AST ALT Alkaline Phosphatase Troponin I High Sens C-Reactive Protein Total Protein Albumin Triglycerides Cholesterol LDL Cholesterol, Calc HDL Cholesterol Lipase 16 COVID-19 (LILIA) Negative COVID-19 Clin Com See Note 02/25/20 02/25/20 02/25/20 12:37 17:56 19:19 WBC RBC Hgb Hct MCV MCH MCHC RDW Plt Count MPV Absolute Nucleated RBC Nucleated RBC % (auto) ESR PT INR APTT PTT (Heparin Protocol) D-Dimer Sodium Potassium Chloride Carbon Dioxide Anion Gap BUN Creatinine Estim Creat Clear Calc Estimated GFR POC Glucose 190 H 223 H Random Glucose Calcium Magnesium Total Bilirubin Direct Bilirubin AST ALT Alkaline Phosphatase Troponin I High Sens 955.8 H C-Reactive Protein Total Protein Albumin Triglycerides Cholesterol LDL Cholesterol, Calc HDL Cholesterol Lipase COVID-19 (LILIA) COVID-19 Clin Com 02/25/20 02/25/20 02/25/20 20:36 22:17 22:17 WBC 6.3 RBC 4.45 L Hgb 13.2 L Hct 40.2 L MCV 90.3 MCH 29.7 MCHC 32.8 RDW 13.7 Plt Count 119 L MPV 10.7 Absolute Nucleated RBC 0.000 Nucleated RBC % (auto) 0.0 ESR PT 13.0 INR 1.1 APTT PTT (Heparin Protocol) 73.9 D-Dimer Sodium Potassium Chloride Carbon Dioxide Anion Gap BUN Creatinine Estim Creat Clear Calc Estimated GFR POC Glucose Random Glucose Calcium Magnesium Total Bilirubin Direct Bilirubin AST ALT Alkaline Phosphatase Troponin I High Sens 767.6 H C-Reactive Protein Total Protein Albumin Triglycerides Cholesterol LDL Cholesterol, Calc HDL Cholesterol Lipase COVID-19 (LILIA) COVID-19 Clin Com 02/26/20 02/26/20 02/26/20 06:13 06:13 06:13 WBC 5.9 RBC 4.35 L Hgb 12.9 L Hct 39.4 L MCV 90.6 MCH 29.7 MCHC 32.7 RDW 13.6 Plt Count 111 L MPV 10.6 Absolute Nucleated RBC 0.000 Nucleated RBC % (auto) 0.0 ESR PT 12.3 INR 1.0 APTT PTT (Heparin Protocol) D-Dimer Sodium 140 Potassium 3.8 Chloride 109 H Carbon Dioxide 24 Anion Gap 11 L BUN 14 Creatinine 0.82 Estim Creat Clear Calc 117.7 Estimated GFR > 60 POC Glucose Random Glucose 154 H Calcium 8.3 L D Magnesium Total Bilirubin Direct Bilirubin AST ALT Alkaline Phosphatase Troponin I High Sens C-Reactive Protein Total Protein Albumin Triglycerides 119 Cholesterol 162 LDL Cholesterol, Calc 102 HDL Cholesterol 37 Lipase COVID-19 (LILIA) COVID-19 Clin Com 02/26/20 02/26/20 06:13 07:33 WBC RBC Hgb Hct MCV MCH MCHC RDW Plt Count MPV Absolute Nucleated RBC Nucleated RBC % (auto) ESR PT INR APTT PTT (Heparin Protocol) 88.1 H D-Dimer Sodium Potassium Chloride Carbon Dioxide Anion Gap BUN Creatinine Estim Creat Clear Calc Estimated GFR POC Glucose 149 H Random Glucose Calcium Magnesium Total Bilirubin Direct Bilirubin AST ALT Alkaline Phosphatase Troponin I High Sens C-Reactive Protein Total Protein Albumin Triglycerides Cholesterol LDL Cholesterol, Calc HDL Cholesterol Lipase COVID-19 (LILIA) COVID-19 Clin Com Imaging Radiologist's impression: Impressions Chest CT 02/25/20 11:26 IMPRESSION: No evidence of thoracic aortic aneurysm or dissection. No evidence of abdominal aortic aneurysm or dissection. Fatty infiltration of the liver. Progress Note: A&P Assessment and plan (1) Non-ST elevation [place] (NSTEMI): Status: Acute Assessment and Plan: Report of CP that started while at rest, up to 10/10. Need with nitroglycerin in the emergency room. EKG without acute ST or T-wave abnormalities. Troponin level elevated up to 955. Consistent with NSTEMI. Bedside echo showed no wall motion abnormality. Has multiple cardiac risk factors including hypertension, hyperlipidemia, diabetes, smoking, family history. Complete echocardiogram ordered for today. No recurrent pain like what he had on arrival. He does report left chest wall tenderness to palpation and with deep inspiration. No clinical signs of heart failure. Continues on heparin drip for anticoagulation. Continues on aspirin, atorvastatin, low-dose metoprolol. Will transfer to [facility] with plan for cardiac catheterization tomorrow. Creatinine normal, no allergies noted. All the above reviewed with him and he is agreeable to this plan. Will plan for outpatient Cardiology follow-up in about 2 weeks, sooner if needed. (2) HTN (hypertension): Status: Acute Assessment and Plan: Controlled at present (3) High cholesterol: Status: Acute Assessment and Plan: Continue on atorvastatin 80 mg daily (4) Smoking: Status: Acute (5) Diabetes: Status: Acute Assessment and Plan: Followed by his PCP Fall Risk Details Current Medications: Current Medications Generic Name Dose Route Start Last Admin Trade Name Freq PRN Reason Stop Dose Admin Acetaminophen 650 mg 02/25/20 14:45 Acetaminophen 325 Mg Tablet PO Q6H PRN Pain, Mild (Pain Scale 1-3) Albuterol Sulfate 2 puff 02/25/20 20:31 Albuterol Sulfate 90 Mcg 8 Gm Inhaler INHALE Q4H PRN wheezing Aspirin 81 mg 02/26/20 09:00 02/26/20 08:53 Aspirin Enteric Coated 81 Mg Tablet.Dr PO 81 mg DAILY TIFFANI Administration Atorvastatin Calcium 80 mg 02/25/20 21:00 02/25/20 21:09 Atorvastatin Calcium 80 Mg Tablet PO 80 mg BEDTIME TIFFANI Administration Docusate Sodium 100 mg 02/25/20 14:45 Docusate Sodium 100 Mg Capsule PO DAILY PRN Constipation Heparin Sodium (Porcine) 8,346.08 unit 02/25/20 13:29 Heparin Sodium,Porcine 5,000 Unit/Ml Vial 80 unit/kg (8346.08 unit) IVPUSH BOLUS PRN 80 unit/kg - Heparin Protocol Heparin Sodium (Porcine) 4,173.04 unit 02/25/20 13:29 Heparin Sodium,Porcine 5,000 Unit/Ml Vial 40 unit/kg (4173.04 unit) IVPUSH BOLUS PRN HEPARINPRO Heparin Sodium (Porcine) 4,000 unit 02/25/20 13:29 02/25/20 15:47 Heparin Sodium,Porcine 5,000 Unit/Ml Vial IVPUSH 4,000 unit BOLUS PRN Administration 40 unit/kg - Heparin Protocol Hydroxyzine HCl 25 mg 02/25/20 20:31 02/25/20 21:15 Hydroxyzine Hcl 25 Mg Tablet PO 25 mg QID PRN Administration anxiety attack Heparin Sodium/Sodium Chloride 25,000 unit in 250 mls @ 0 mls/hr 02/25/20 13:30 02/26/20 07:43 IVCONT 14 units/kg/hr .Q0M TIFFANI 14.61 mls/hr Administration Protocol Per Protocol Insulin Human Lispro 0 unit 02/25/20 16:30 02/26/20 07:39 Insulin Lispro 100 Unit/Ml 3 Ml Vial SUBCUT Not Given QIDACHS [facility] Protocol Metoprolol Tartrate 12.5 mg 02/25/20 21:00 02/26/20 08:53 Metoprolol Tartrate 12.5 Mg Halftab PO 12.5 mg BID [facility] Administration Protocol Nicotine 14 mg 02/26/20 15:00 Nicotine 14 Mg Patch.Td24 TRANSDERMA DAILY@1500 [facility] Nitroglycerin 0.4 mg 02/25/20 10:37 02/25/20 12:18 Nitroglycerin 0.4 Mg Tab.Subl SUBLINGUAL 0.4 mg Q5MX3 PRN Administration cp Omeprazole 40 mg 02/25/20 17:30 02/26/20 07:37 Omeprazole 40 Mg Capsule.Dr PO 40 mg DAILY@0630 [facility] Administration Sodium Chloride 3 ml 02/25/20 16:00 02/26/20 09:03 0.9 % Sodium Chloride Flush 3 Ml Syringe IVFLUSH 3 ml QSHIFT [facility] Administration Time Spent With Patient Time: Total time spent is greater than 50% in coordination of care (as documented) at patient's floor/unit and/or counseling patient: 20 Time with patient: 15 - 24 minutes
--- NOTE | 2020-02-26 09:55 | HO.PM.IMPN ---
Subjective Subjective Date of Service: 02/26/20 Interval History: seen and examined this AM intermittent CP over night this AM some pain and does worsen at times with movement reports epigastric pain as well ROS General - no fevers or chills Cardiovascular - intermittent cp / epigastric pain Respiratory - no shortness of breath or cough Abdominal- no abdominal pain, nausea, vomiting, diarrhea Physical Exam Vital Signs: Vital Signs: Last Vital Signs Temp 98.2 F 02/25/20 20:23 Pulse 78 02/26/20 08:53 Resp 16 02/26/20 07:52 BP 112/74 02/26/20 08:53 Pulse Ox 97 02/26/20 07:52 Body Mass Index 34.9 Const: Other: General - no acute distress, appears comfortable Cardiovascular - regular rate and rhythm, S1-S2 Lungs - normal respiratory effort, clear to auscultation bilaterally, no wheezing Abdomen - soft, nontender, no rebound or guarding Extremities - no edema bilaterally Neuro - awake and alert, no focal deficits Objective Data Current Medications Generic Name Dose Route Start Last Admin Trade Name Daniq PRN Reason Stop Dose Admin Acetaminophen 650 mg 02/25/20 14:45 Acetaminophen 325 Mg Tablet PO Q6H PRN Pain, Mild (Pain Scale 1-3) Albuterol Sulfate 2 puff 02/25/20 20:31 Albuterol Sulfate 90 Mcg 8 Gm Inhaler INHALE Q4H PRN wheezing Aspirin 81 mg 02/26/20 09:00 02/26/20 08:53 Aspirin Enteric Coated 81 Mg Tablet.Dr PO 81 mg DAILY TIFFANI Administration Atorvastatin Calcium 80 mg 02/25/20 21:00 02/25/20 21:09 Atorvastatin Calcium 80 Mg Tablet PO 80 mg BEDTIME TIFFANI Administration Docusate Sodium 100 mg 02/25/20 14:45 Docusate Sodium 100 Mg Capsule PO DAILY PRN Constipation Heparin Sodium (Porcine) 8,346.08 unit 02/25/20 13:29 Heparin Sodium,Porcine 5,000 Unit/Ml Vial 80 unit/kg (8346.08 unit) IVPUSH BOLUS PRN 80 unit/kg - Heparin Protocol Heparin Sodium (Porcine) 4,173.04 unit 02/25/20 13:29 Heparin Sodium,Porcine 5,000 Unit/Ml Vial 40 unit/kg (4173.04 unit) IVPUSH BOLUS PRN HEPARINPRO Heparin Sodium (Porcine) 4,000 unit 02/25/20 13:29 02/25/20 15:47 Heparin Sodium,Porcine 5,000 Unit/Ml Vial IVPUSH 4,000 unit BOLUS PRN Administration 40 unit/kg - Heparin Protocol Hydroxyzine HCl 25 mg 02/25/20 20:31 02/25/20 21:15 Hydroxyzine Hcl 25 Mg Tablet PO 25 mg QID PRN Administration anxiety attack Heparin Sodium/Sodium Chloride 25,000 unit in 250 mls @ 0 mls/hr 02/25/20 13:30 02/26/20 07:43 IVCONT 14 units/kg/hr .Q0M TIFFANI 14.61 mls/hr Administration Protocol Per Protocol Insulin Human Lispro 0 unit 02/25/20 16:30 02/26/20 07:39 Insulin Lispro 100 Unit/Ml 3 Ml Vial SUBCUT Not Given QIDACHS [facility] Protocol Metoprolol Tartrate 12.5 mg 02/25/20 21:00 02/26/20 08:53 Metoprolol Tartrate 12.5 Mg Halftab PO 12.5 mg BID [facility] Administration Protocol Nicotine 14 mg 02/26/20 15:00 Nicotine 14 Mg Patch.Td24 TRANSDERMA DAILY@1500 [facility] Nitroglycerin 0.4 mg 02/25/20 10:37 02/25/20 12:18 Nitroglycerin 0.4 Mg Tab.Subl SUBLINGUAL 0.4 mg Q5MX3 PRN Administration cp Omeprazole 40 mg 02/25/20 17:30 02/26/20 07:37 Omeprazole 40 Mg Capsule.Dr PO 40 mg DAILY@0630 [facility] Administration Sodium Chloride 3 ml 02/25/20 16:00 02/26/20 09:03 0.9 % Sodium Chloride Flush 3 Ml Syringe IVFLUSH 3 ml QSHIFT [facility] Administration Labs CBC & Chem 7: 02/26/20 06:13 02/26/20 06:13 Assessment and Plan (1) Non-ST elevation [place] (NSTEMI): Status: Acute Assessment and Plan: This is a 55-year-old male with a history of diabetes hypertension dyslipidemia anxiety presents to the emergency department with chest pain found to have NSTEMI 1. NSTEMI iv heparin drip, asa, statin, bb, pain control formal echo today cardiology on board suspect, will need [facility] transfer for cath 2. Diabetes POC+ ISS QIDAC 3. Tobacco dependence smoking cessation advised NRT continue home medications once med. rec is completed Full Code DVT pptx, IV heparin
--- NOTE | 2020-02-26 10:16 | PC.NURSE ---
Per Chelsea from Cardiology, plan for pt to be transferred to [facility] today for cardiac cath tomorrow, awaiting call from [facility] for bed assgn. Addidional IV access obtained, 20g to right forearm.
[2020-02-26] MEDS: Nitroglycerin 0.4 MG TAB.SUBL SUBLINGUAL ×2 (11:38→15:54)
--- NOTE | 2020-02-26 11:54 | PC.NURSE ---
Increasing chest pain nitro given per order, no change at this time. sbp 96. Awaiting bed assgn for [facility]
[2020-02-26 12:58] LABS: Glucose, Whole Blood 242 mg/dL (60-115)
--- NOTE | 2020-02-26 13:27 | P.DS_ITS ---
DS: Providers Provider Date of Service: 02/26/20 Primary care physician: Kristine Valdivia MD Consults: 02/25/20 12:36 Consult to Cardiology Stat Consulting Provider: Richie Aldridge Reason for consultation: elevated troponin DS: Diagnosis Discharge Diagnosis (1) Non-ST elevation KS (NSTEMI): Status: Acute (2) HTN (hypertension): Status: Acute (3) High cholesterol: Status: Acute (4) Smoking: Status: Acute (5) Diabetes: Status: Acute DS: Medications Discharge Medications Home Medications: Home Medications Medication Instructions Recorded Confirmed albuterol sulfate 2 puff PO Q4H PRN 02/25/20 02/25/20 aspirin 1 tab PO DAILY 02/25/20 02/25/20 empagliflozin [Jardiance] 1 tab PO QAM 02/25/20 02/25/20 hydrochlorothiazide 1 tab PO DAILY 02/25/20 02/25/20 hydroxyzine HCl 1 tab PO QID PRN 02/25/20 02/25/20 losartan 1 tab PO DAILY 02/25/20 02/25/20 metformin 2 tab PO BID 02/25/20 02/25/20 sitagliptin [Januvia] 1 tab PO DAILY 02/25/20 02/25/20 DS: Summary Hospital Course Hospital Course: HPI: This is a 55-year-old male who presents to the emergency department with chest pain. Patient states he was watching TV when he began having chest tightness around 12:30 this morning. This pain was located in the center of his chest and was associated with nausea and mild difficulty breathing. This pain was constant in nature, and not changed by increased inspiration. He denies any associated cough. The pain is somewhat reproducible on exam. Initially his pain was 10/10 in severity however this resolved with 2 sublingual nitro. His initial highly sensitive troponin was 673 and his repeat increased to 955. I would he was evaluated by the extension supervisor in the emergency department and had bedside echo. Cardiology recommended starting anticoagulation with heparin and admitting for further management of NSTEMI. Hospital Course: Patient was started on medical treatment for NSTEMI. Patient was evaluated by Cardiology and underwent a bedside 2D echo which reportedly did not show any wall motion. He was continued on heparin drip and was evaluated by cardiology in the next morning decision was made to transfer him to [facility] for further management. Patient was informed and agreeable for transfer. Time Spent with Patient Time attestation: Total time spent providing and/or coordinating discharge services: Discharge coordination time: Greater than 30 minutes Physical Exam Vital Signs: Vital Signs: Last Vital Signs Temp 98.2 F 02/25/20 20:23 Pulse 73 02/26/20 13:15 Resp 14 02/26/20 13:15 BP 104/67 02/26/20 13:15 Pulse Ox 98 02/26/20 13:15 Body Mass Index 34.9 Const: Other: General - no acute distress, appears comfortable Cardiovascular - regular rate and rhythm, S1-S2 Lungs - normal respiratory effort, clear to auscultation bilaterally, no wheezing Abdomen - soft, nontender, no rebound or guarding Extremities - no edema bilaterally Neuro - awake and alert, no focal deficits DS: Data Data Completed and Pending Labs on day of discharge: Laboratory Tests 02/25/20 02/25/20 02/25/20 09:18 09:18 09:18 WBC 9.7 RBC 4.95 Hgb 14.5 Hct 44.2 MCV 89.3 MCH 29.3 MCHC 32.8 RDW 13.8 Plt Count 155 L MPV 10.7 Immature Gran % (Auto) 0.2 Neut % (Auto) 67.8 Lymph % (Auto) 22.3 [place] % (Auto) 9.0 Eos % (Auto) 0.2 Baso % (Auto) 0.5 Lymph # (Auto) 2.2 [place] # (Auto) 0.9 Eos # (Auto) 0.0 Baso # (Auto) 0.1 Abs Immat Gran (auto) 0.02 Absolute Neuts (auto) 6.5 Absolute Nucleated RBC 0.000 Nucleated RBC % (auto) 0.0 ESR PT 13.3 H INR 1.1 APTT 31.2 PTT (Heparin Protocol) D-Dimer 215 Sodium 138 Potassium 4.0 Chloride 103 Carbon Dioxide 19 L Anion Gap 20 BUN 11 Creatinine 0.89 Estim Creat Clear Calc 108.5 Estimated GFR > 60 POC Glucose Random Glucose 177 H Calcium 9.1 Magnesium 1.9 Total Bilirubin 0.7 Direct Bilirubin 0.3 AST 77 H ALT 117 H Alkaline Phosphatase 70 Troponin I High Sens C-Reactive Protein 0.35 Total Protein 7.7 Albumin 4.5 Triglycerides Cholesterol LDL Cholesterol, Calc HDL Cholesterol Lipase COVID-19 (LILIA) COVID-19 [employer] Com 02/25/20 02/25/20 02/25/20 09:18 09:18 09:18 WBC RBC Hgb Hct MCV MCH MCHC RDW Plt Count MPV Immature Gran % (Auto) Neut % (Auto) Lymph % (Auto) [place] % (Auto) Eos % (Auto) Baso % (Auto) Lymph # (Auto) [place] # (Auto) Eos # (Auto) Baso # (Auto) Abs Immat Gran (auto) Absolute Neuts (auto) Absolute Nucleated RBC Nucleated RBC % (auto) ESR 4 PT INR APTT PTT (Heparin Protocol) D-Dimer Sodium Potassium Chloride Carbon Dioxide Anion Gap BUN Creatinine Estim Creat Clear Calc Estimated GFR POC Glucose Random Glucose Calcium Magnesium Total Bilirubin Direct Bilirubin AST ALT Alkaline Phosphatase Troponin I High Sens 673.1 H C-Reactive Protein Total Protein Albumin Triglycerides Cholesterol LDL Cholesterol, Calc HDL Cholesterol Lipase 16 COVID-19 (LILIA) COVID-19 Universal Ad 02/25/20 02/25/20 02/25/20 11:32 12:37 17:56 WBC RBC Hgb Hct MCV MCH MCHC RDW Plt Count MPV Immature Gran % (Auto) Neut % (Auto) Lymph % (Auto) [place] % (Auto) Eos % (Auto) Baso % (Auto) Lymph # (Auto) [place] # (Auto) Eos # (Auto) Baso # (Auto) Abs Immat Gran (auto) Absolute Neuts (auto) Absolute Nucleated RBC Nucleated RBC % (auto) ESR PT INR APTT PTT (Heparin Protocol) D-Dimer Sodium Potassium Chloride Carbon Dioxide Anion Gap BUN Creatinine Estim Creat Clear Calc Estimated GFR POC Glucose 190 H Random Glucose Calcium Magnesium Total Bilirubin Direct Bilirubin AST ALT Alkaline Phosphatase Troponin I High Sens 955.8 H C-Reactive Protein Total Protein Albumin Triglycerides Cholesterol LDL Cholesterol, Calc HDL Cholesterol Lipase COVID-19 (LILIA) Negative COVIDEvolv See Note 02/25/20 02/25/20 02/25/20 19:19 20:36 22:17 WBC 6.3 RBC 4.45 L Hgb 13.2 L Hct 40.2 L MCV 90.3 MCH 29.7 MCHC 32.8 RDW 13.7 Plt Count 119 L MPV 10.7 Immature Gran % (Auto) Neut % (Auto) Lymph % (Auto) [place] % (Auto) Eos % (Auto) Baso % (Auto) Lymph # (Auto) [place] # (Auto) Eos # (Auto) Baso # (Auto) Abs Immat Gran (auto) Absolute Neuts (auto) Absolute Nucleated RBC 0.000 Nucleated RBC % (auto) 0.0 ESR PT INR APTT PTT (Heparin Protocol) D-Dimer Sodium Potassium Chloride Carbon Dioxide Anion Gap BUN Creatinine Estim Creat Clear Calc Estimated GFR POC Glucose 223 H Random Glucose Calcium Magnesium Total Bilirubin Direct Bilirubin AST ALT Alkaline Phosphatase Troponin I High Sens 767.6 H C-Reactive Protein Total Protein Albumin Triglycerides Cholesterol LDL Cholesterol, Calc HDL Cholesterol Lipase COVID-19 (LILIA) COVID-19 Universal Ad 02/25/20 02/26/20 02/26/20 22:17 06:13 06:13 WBC 5.9 RBC 4.35 L Hgb 12.9 L Hct 39.4 L MCV 90.6 MCH 29.7 MCHC 32.7 RDW 13.6 Plt Count 111 L MPV 10.6 Immature Gran % (Auto) Neut % (Auto) Lymph % (Auto) [place] % (Auto) Eos % (Auto) Baso % (Auto) Lymph # (Auto) [place] # (Auto) Eos # (Auto) Baso # (Auto) Abs Immat Gran (auto) Absolute Neuts (auto) Absolute Nucleated RBC 0.000 Nucleated RBC % (auto) 0.0 ESR PT 13.0 INR 1.1 APTT PTT (Heparin Protocol) 73.9 D-Dimer Sodium 140 Potassium 3.8 Chloride 109 H Carbon Dioxide 24 Anion Gap 11 L BUN 14 Creatinine 0.82 Estim Creat Clear Calc 117.7 Estimated GFR > 60 POC Glucose Random Glucose 154 H Calcium 8.3 L D Magnesium Total Bilirubin Direct Bilirubin AST ALT Alkaline Phosphatase Troponin I High Sens C-Reactive Protein Total Protein Albumin Triglycerides 119 Cholesterol 162 LDL Cholesterol, Calc 102 HDL Cholesterol 37 Lipase COVID-19 (LILIA) COVID-19 Universal Ad 02/26/20 02/26/20 02/26/20 06:13 06:13 07:33 WBC RBC Hgb Hct MCV MCH MCHC RDW Plt Count MPV Immature Gran % (Auto) Neut % (Auto) Lymph % (Auto) [place] % (Auto) Eos % (Auto) Baso % (Auto) Lymph # (Auto) [place] # (Auto) Eos # (Auto) Baso # (Auto) Abs Immat Gran (auto) Absolute Neuts (auto) Absolute Nucleated RBC Nucleated RBC % (auto) ESR PT 12.3 INR 1.0 APTT PTT (Heparin Protocol) 88.1 H D-Dimer Sodium Potassium Chloride Carbon Dioxide Anion Gap BUN Creatinine Estim Creat Clear Calc Estimated GFR POC Glucose 149 H Random Glucose Calcium Magnesium Total Bilirubin Direct Bilirubin AST ALT Alkaline Phosphatase Troponin I High Sens C-Reactive Protein Total Protein Albumin Triglycerides Cholesterol LDL Cholesterol, Calc HDL Cholesterol Lipase COVID-19 (LILIA) COVID-19 Clin Com 02/26/20 12:52 WBC RBC Hgb Hct MCV MCH MCHC RDW Plt Count MPV Immature Gran % (Auto) Neut % (Auto) Lymph % (Auto) [place] % (Auto) Eos % (Auto) Baso % (Auto) Lymph # (Auto) [place] # (Auto) Eos # (Auto) Baso # (Auto) Abs Immat Gran (auto) Absolute Neuts (auto) Absolute Nucleated RBC Nucleated RBC % (auto) ESR PT INR APTT PTT (Heparin Protocol) D-Dimer Sodium Potassium Chloride Carbon Dioxide Anion Gap BUN Creatinine Estim Creat Clear Calc Estimated GFR POC Glucose 242 H Random Glucose Calcium Magnesium Total Bilirubin Direct Bilirubin AST ALT Alkaline Phosphatase Troponin I High Sens C-Reactive Protein Total Protein Albumin Triglycerides Cholesterol LDL Cholesterol, Calc HDL Cholesterol Lipase COVID-19 (LILIA) COVID-19 Clin Com Discharge Plan Discharge Clinical Impression: Non-ST elevation KS (NSTEMI) Patient Disposition: Admitted As Inpatient
[2020-02-26 14:25] LABS: PTT Heparin Drip 101.8 SEC (53-77.9)
--- NOTE | 2020-02-26 14:40 | PC.NURSE ---
Heparin gtt held per protocol, vss
--- NOTE | 2020-02-26 16:14 | PC.NURSE ---
Heparin gtt restarted at 9units/kg/h per protocol. Pt reporting stronger 6/10 chest pain, nitro given with relief to pain level at 3/10, Dr Winn aware. No bed assgn from [facility], Dr Winn to reach out to cardiology. NSR on tele.
[2020-02-26 16:58] LABS: Glucose, Whole Blood 189 mg/dL (60-115)
--- NOTE | 2020-02-26 19:22 | PC.NURSE ---
Pt found ambulating to the bathroom with a agudelo/steady gait. Pt is CAOx4, speaking full sentences, denies pain at present time. VSS. Pt aware of plan to transfer to [facility], awaiting EMS. Continue to monitor.
--- NOTE | 2020-02-26 19:52 | PC.NURSE ---
CALL FROM [facility] PT TX LINE @ THIS TIME ROOM ASSIGNMENT MASS MUTUAL 5 ROOM 102 RN TO RN [phone] DR COTTO ACCEPTING TRANSFER
--- NOTE | 2020-02-26 20:37 | PC.NURSE ---
Order for PTT-HD placed for 2152, 6 hours after last PTT-HD resulted @ 0273. janitorial tech aware.
--- NOTE | 2020-02-26 21:06 | PC.NURSE ---
[facility] M5 unable to take report at this time. Plan to call back [phone], Gilda ROTH.
[2020-02-26] MEDS: hydrOXYzine HCL 25 MG TABLET PO (21:30)
--- NOTE | 2020-02-26 21:34 | PC.NURSE ---
Pt ambulating to the bathroom with a agudelo/steady gait. Pt reporting reproducible chest tenderness which he states has been constant since his arrival. EMS at bedside to transfer pt to [facility]. This RN again calling M5 but have been unable to give report on pt.
--- NOTE | 2020-02-26 21:35 | PC.NURSE ---
Pt requesting to be medicated for anxiety. Pt medicated with PRN Hydroxyzine per request.
== END 2020-02-26 23:00 | disposition short-term general hospital (02) | DRG 282 ==
LOC: HO.ED 13:46 → HO.IMC 02-26 13:38
PROVIDERS: Internal Medicine; Nurse Practitioner Family; Physician Assistant Medical; Admitting Provider Family Medicine; Emergency Provider Emergency Medicine; PCP Internal Medicine; Visit Provider Family Medicine
DX: I21.4 Non-ST elevation (NSTEMI) myocardial infarction (principal); E11.9 Type 2 diabetes mellitus without complications; I10 Essential (primary) hypertension; E78.5 Hyperlipidemia, unspecified; F17.210 Nicotine dependence, cigarettes, uncomplicated; Z20.828 Contact with and (suspected) exposure to other viral communicable diseases; Z71.6 Tobacco abuse counseling; Z79.82 Long term (current) use of aspirin; Z79.4 Long term (current) use of insulin; Z79.899 Other long term (current) drug therapy
CPT/HCPCS: 36415; 71046; 71260; 80048; 80061; 80076; 82947; 83690; 83735; 84484; 85025; 85027; 85379; 85610; 85652; 85730; 86140; 87635; 93005; 96365; 96375; 99285; 99291; J2060; Q9967

== ENCOUNTER → 2020-03-11 14:22 | Outpatient (BNVA) | payer MEDICARE, MEDICAID, SELFPAY | PROVIDERS: PCP Internal Medicine; Visit Provider Internal Medicine Cardiovascular Disease | DX: I10 Essential (primary) hypertension (principal); F17.200 Nicotine dependence, unspecified, uncomplicated; E78.00 Pure hypercholesterolemia, unspecified; I21.4 Non-ST elevation (NSTEMI) myocardial infarction; Z98.61 Coronary angioplasty status | CPT/HCPCS: 99212 ==

== ENCOUNTER → 2020-05-23 15:20 | Outpatient (BNVA) | payer OTHER, SELFPAY | PROVIDERS: PCP Internal Medicine; Visit Provider Internal Medicine Cardiovascular Disease | DX: I25.10 Atherosclerotic heart disease of native coronary artery without angina pectoris (principal); I10 Essential (primary) hypertension; Z98.61 Coronary angioplasty status | CPT/HCPCS: 99212 ==

== ENCOUNTER → 2021-02-06 13:59 | Outpatient (BNVA) | payer OTHER, SELFPAY | PROVIDERS: PCP Internal Medicine; Visit Provider Nurse Practitioner Family | DX: I25.10 Atherosclerotic heart disease of native coronary artery without angina pectoris (principal); I10 Essential (primary) hypertension; E78.00 Pure hypercholesterolemia, unspecified; E11.9 Type 2 diabetes mellitus without complications; Z98.61 Coronary angioplasty status; Z98.890 Other specified postprocedural states | CPT/HCPCS: 93005; 99212 ==

== ENCOUNTER 2021-02-27 14:09 | Emergency (ER) | payer OTHER, SELFPAY ==
[2021-02-27 15:29] VITALS: BP 130/86; PULSE 90; RESP 18; TEMP 36.8; O2SAT 96; BMI 32.3
--- NOTE | 2021-02-27 15:34 | ECG_ITS ---
Test Reason : l arm pain, hx of cardiac stent Blood Pressure : / mmHG Vent. Rate : 088 BPM Atrial Rate : 088 BPM P-R Int : 156 ms QRS Dur : 086 ms QT Int : 400 ms P-R-T Axes : -07 056 050 degrees QTc Int : 484 ms Normal sinus rhythm Prolonged QT Abnormal ECG When compared with ECG of 26-FEB-2020 11:59, Nonspecific T wave abnormality now evident in Lateral leads QT has shortened Referred By: Generic ED Physician Electronically Signed By:HENRI MAGAÑA
[2021-02-27 15:56] LABS: Glucose, Whole Blood 201 mg/dL (60-115)
--- NOTE | 2021-02-27 21:16 | ED.ALCOHOL ---
HPI - Alcohol General Chief Complaint: ETOH/Substance Use Stated Complaint: CRISIS Time Seen by Provider: 02/27/21 15:48 Source: patient Mode of arrival: ambulatory Limitations: no limitations History of Present Illness HPI narrative: Dropped off by son because he wants to get detox for alcohol and crack cocaine. complaint: alcohol intoxication Last drink: Hours (ago) Chronic alcohol use: Yes Previous visits for alcohol intoxication: Yes Recent trauma: No Associated symptoms: denies other symptoms Related Data Home Medications Medication Instructions Recorded Confirmed albuterol sulfate 90 mcg/actuation 2 puff PO Q4H PRN 02/25/20 02/06/21 aerosol inhaler aspirin 81 mg chewable tablet 1 tab PO DAILY 02/25/20 02/06/21 empagliflozin 10 mg tablet 1 tab PO QAM 02/25/20 02/06/21 (Jardiance) hydrochlorothiazide 25 mg tablet 1 tab PO DAILY 02/25/20 02/06/21 hydroxyzine HCl 25 mg tablet 1 tab PO QID PRN 02/25/20 02/06/21 losartan 100 mg tablet 1 tab PO DAILY 02/25/20 02/06/21 metformin 500 mg tablet,extended 2 tab PO BID 02/25/20 02/06/21 release 24 hr sitagliptin 50 mg tablet (Januvia) 1 tab PO DAILY 02/25/20 02/06/21 Previous Rx's Medication Instructions Recorded insulin lispro 100 unit/mL See Protocol SUBCUT QIDACHS 1 Days 02/26/20 subcutaneous solution (Humalog ml U-100 Insulin) nicotine 14 mg/24 hr daily 14 mg TRANSDERMAL DAILY@1500 1 02/26/20 transdermal patch Days ea omeprazole 40 mg capsule,delayed 40 mg PO DAILY@0630 #30 cap 02/26/20 release metoprolol succinate 50 mg 50 mg PO DAILY #90 tab 03/27/20 tablet,extended release 24 hr atorvastatin 80 mg tablet 80 mg PO BEDTIME 90 Days #90 tab 09/18/20 ticagrelor 90 mg tablet 90 mg PO BID #180 tab 01/15/21 Allergies Allergy/AdvReac Type Severity Reaction Status Date / Time No Known Allergies Allergy Verified 02/06/21 14:00 Review of Systems Constitutional: Constitutional: Reports no additional constitutional complaints Eyes: Eyes: Reports no additional eye complaints ENT: Denies dizziness Cardiovascular: Cardiovascular: Reports no additional cardiovascular complaints Respiratory: Respiratory: Reports as per HPI Gastrointestinal: Gastrointestinal: Reports no additional gastrointestinal complaints Musculoskeletal: Musculoskeletal: Reports no additional musculoskeletal complaints Integumentary/Breasts: Skin/Breast: Denies rash Neurologic: Reports system reviewed and no additional complaints, except as documented, Denies dizziness and Denies Sensory deficit (Neuro) Psychiatric: Psychiatric: Denies anxiety [facility] Past Medical History Medical History Anxiety Diabetes Family history of coronary arteriosclerosis High cholesterol HTN (hypertension) Smoking Surgical History H/O hernia repair History of appendectomy S/P cardiac catheterization Family History Family History Mother Heart attack Social History Social History Alcohol intake: current Alcohol intake frequency: a few times a week Cigarette Packs Per Day: 0.5 Cigarettes Per Day: 10 Advance Directives: No Advance Directives Information Provided: No Physical Exam Vital Signs: Vital Signs: Last Vital Signs Temp 98.2 F 02/27/21 15:29 Pulse 90 02/27/21 15:29 Resp 18 02/27/21 15:29 BP 130/86 02/27/21 15:29 Pulse Ox 96 02/27/21 15:29 BMI result Body Mass Index 32.3 Const: Other: tired appearing Nutritional Appearance: average body habitus Orientation/consciousness: oriented to person and patient oriented x3 Limitations: no limitations HENMT: Head: Yes normal to inspection Ears: external ears normal General nose exam: Normal external nose present Mouth: Normal oral and palatal mucosa present and oropharynx normal Throat: Yes posterior oropharynx normal Eyes: General: appearance normal, both eyes and all related structures Neck: Other: supple Neck: Yes normal visual inspection Chest: Chest palpation & inspection: normal inspection of the chest Resp: Auscultation: clear to auscultation bilaterally Cardio: Jugular venous distension: no JVD Rate: regular rate Rhythm: regular rhythm Heart sounds: S1 normal heart sound present and S2 normal heart sound present GI: Inspection: Yes normal to inspection Palpation (GI): Soft to palpation, nontender and No hepatosplenomegaly present Auscultation: normal bowel sounds : General: Yes no CVA tenderness Back/Spine/Pelvis: Back: no CVA tenderness Skin: General skin exam: no rashes or lesions noted Neuro: General: oriented to person and patient oriented x3 Cranial nerves: Yes CN's II-XII intact bilaterally Motor exam (neuro): 5/5 motor strength present throughout Sensory Exam: No Sensory deficit (Neuro) Extrem: General: Yes normal to inspection Psych: Other: flat affect MDM - Alcohol Lab Data Labs: Lab Results 02/27/21 Range/Units 15:51 POC Glucose 201 H (60-115) mg/dL ECG Data ECG #1: Attestation: I personally reviewed and interpreted this ECG as follows: Interpretation: sinus rate of [address] or twave changes Discharge Plan Discharge Clinical Impression: Substance use Prescriptions: No Action metoprolol succinate 50 mg tablet extended release 24 hr 50 mg PO DAILY Qty: 90 RF: 1 atorvastatin 80 mg tablet 80 mg PO BEDTIME 90 Days Qty: 90 RF: 3 ticagrelor 90 mg tablet 90 mg PO BID Qty: 180 RF: 1 aspirin 81 mg tablet,chewable 1 tab PO DAILY RF: 0 hydroxyzine HCl 25 mg tablet 1 tab PO QID PRN (Reason: anxiety attack) RF: 0 hydrochlorothiazide 25 mg tablet 1 tab PO DAILY RF: 0 Hold Instructions: Resume on 03/04/20. per [facility] providers albuterol sulfate 90 mcg/actuation HFA aerosol inhaler 2 puff PO Q4H PRN (Reason: wheezing) RF: 0 losartan 100 mg tablet 1 tab PO DAILY RF: 0 Hold Instructions: Resume on 03/04/20. hold pending [facility] providers metformin 500 mg tablet extended release 24 hr 2 tab PO BID RF: 0 Hold Instructions: Resume on 03/04/20. Hold pending instructions from [facility] providers Januvia 50 mg tablet 1 tab PO DAILY RF: 0 Hold Instructions: Resume on 03/04/20. Hold pending instructions from [facility] providers Jardiance 10 mg tablet 1 tab PO QAM RF: 0 Hold Instructions: Resume on 03/04/20. Hold pending instructions from [facility] providers nicotine 14 mg/24 hr Patch 24 Hour 14 mg transdermal DAILY@1500 1 Days RF: 0 omeprazole 40 mg Capsule,Delayed Release(Dr/Ec) 40 mg PO DAILY@0630 Qty: 30 RF: 0 insulin lispro [Humalog U-100 Insulin] 100 unit/mL Solution See Protocol unit subcut QIDACHS 1 Days RF: 0 Interventions: LWBS Worksheet Last Done: 02/27/21 18:59
[2021-02-27 23:56] LABS: MANUAL DIFF FLAG NO
[2021-02-27 23:57] LABS: Basophils Percent Auto 0.4 % (0-2); Eosinophils Absolute Auto 0.2 X10*3/uL (0.0-0.4); Eosinophils Percent Auto 2.5 % (0-4); Hematocrit 48.8 % (42.0-52.0); Hemoglobin 15.7 g/dl (14.0-18.0); Imm Gran Abs Auto 0.02 X10*3/uL (0.00-0.03); Imm Gran Pct Auto 0.3 % (0.0-0.4); Lymphocytes Absolute Auto 2.3 X10*3/uL (1.2-4.9); Lymphocytes Percent Auto 32.2 % (20-40); Mean Corpuscular HGB Conc 32.2 g/dl (31.0-36.0); Mean Corpuscular Hemoglobin 28.9 pg (27.0-33.0); Mean Corpuscular Volume 89.7 fL (80.0-98.0); Mean Platelet Volume 10.3 fL (9.4-12.4); Monocytes Absolute Auto 0.7 X10*3/uL (0.1-1.2); Monocytes Percent Auto 10.2 % (2-11); Neutrophils Absolute Auto 3.9 x10*3/uL (2.0-8.3); Neutrophils Percent Auto 54.4 % (45-73); Platelet Count 169 X10*3/uL (160-400); Red Blood Count 5.44 X10*6/uL (4.60-5.80); Red Cell Distribution Width 14.4 % (11.0-16.0); White Blood Count 7.2 X10*3/uL (4.8-10.8)
[2021-02-28 00:12] LABS: Ethanol < 10 mg/dL
[2021-02-28 00:14] LABS: Anion Gap 13 (12-20); Blood Urea Nitrogen 18 mg/dL (9-16); Calcium 9.4 mg/dL (8.4-10.2); Carbon Dioxide 27 mmol/L (22-29); Chloride 105 mmol/L (96-108); Creatinine Clr Calc Pharmacy 98.7; Estimated Glomerular Filt Rate > 60; Glucose Random 207 mg/dL (60-115); Potassium 3.9 mmol/L (3.3-5.1); Sodium 141 mmol/L (135-145)
[2021-02-28 00:16] LABS: Amphetamine Screen Urine Not Detected (Not Detect); Barbiturates, Urine Not Detected (Not Detect); Benzodiazepines Screen Urine POSITIVE (Not Detect); Cannabinoid Screen Urine POSITIVE (Not Detect); Cocaine Screen Urine POSITIVE (Not Detect); Fentanyl, urine Not Detected (Not Detect); Opiate Screen Urine Not Detected (Not Detect); Phencyclidine Screen Urine Not Detected (Not Detect)
[2021-02-28 00:21] LABS: Troponin-I High Sensitivity 8.8 ng/L (<3.5-35.0)
[2021-02-28 00:22] LABS: COVID-19 Test Negative (Negative); IDNOW Serial# 9DD0AD1C
[2021-02-28 00:31] VITALS: BP 114/77; PULSE 86; RESP 12; O2SAT 98
[2021-02-28 05:35] VITALS: BP 120/70; PULSE 88; RESP 14; TEMP 36.9; O2SAT 98
[2021-02-28 07:10] VITALS: BP 119/78; PULSE 75; RESP 12; TEMP 36.8; O2SAT 96
[2021-02-28 07:20] LABS: Glucose, Whole Blood 153 mg/dL (60-115)
--- NOTE | 2021-02-28 10:10 | MHC.RECOVSUP ---
Recovery Support note: Patient is a 56 year old Ghanaian speaking male who presented to [facility] ED seeking detox. Patient reports he was previously at [facility] and left AMA and would like to get back into treatment. Patient reports he has been drinking over the past two days however states not much in regards to quantity. Patient denies withdrawal symptoms and reports being tired. This proposal writer referred patient to [facility] ATS. They report patient is able to return to the facility however it is unclear at this time if any beds will be available today. Discussed case with patient's RN. This proposal writer awaits follow up from [facility].
--- NOTE | 2021-02-28 13:10 | PC.NURSE ---
[facility] SET UP OPERATOR VERTICAL UPDATED PATIENT ON PLAN. PT IS ON DETOX WAITLIST. PLAN IS FOR DC HOME AND [facility] WILL CALL IF BED BECOMES AVAILABLE. PT AWARE AND AGREEABLE TO PLAN. ALERT AND ORIENTED X 3. SKIN WARM AND DRY. RESP UNLABORED. DENIES N/V. NO C/O PAIN. DENIES SI/HI.
--- NOTE | 2021-02-28 13:14 | MHC.RECOVSUP ---
Recovery support note: Patient completed intake with [facility] and is on the waitlist. ATS bedsearch exhausted, no available beds at this time. [facility] reports that there was a review on the patient's file and upon review it was determined that he cannot return for 2-3 weeks. This song writer informed patient. Patient provided with list of ATS facilities and instructions to follow up with [facility] and [facility]. [facility] if [facility] bed becomes [facility]. Patient continues to deny withdrawal symptoms. Discussed case with patient's ED provider and credit charge authorizer
== END 2021-02-28 13:14 | disposition home or self-care (01) ==
PROVIDERS: Emergency Provider Emergency Medicine
DX: F10.920 Alcohol use, unspecified with intoxication, uncomplicated (principal); Y90.0 Blood alcohol level of less than 20 mg/100 ml; F12.90 Cannabis use, unspecified, uncomplicated; F14.90 Cocaine use, unspecified, uncomplicated; F19.90 Other psychoactive substance use, unspecified, uncomplicated; Z20.822 Contact with and (suspected) exposure to COVID-19; E11.9 Type 2 diabetes mellitus without complications; E78.5 Hyperlipidemia, unspecified; I10 Essential (primary) hypertension; F17.200 Nicotine dependence, unspecified, uncomplicated; Z79.82 Long term (current) use of aspirin; Z79.4 Long term (current) use of insulin; Z79.02 Long term (current) use of antithrombotics/antiplatelets; Z79.899 Other long term (current) drug therapy
CPT/HCPCS: 36415; 80048; 80307; 82077; 82947; 84484; 85025; 87635; 93005; 99284

== ENCOUNTER 2021-10-31 14:21 | Emergency (ER) | payer OTHER, SELFPAY | END 2021-10-31 17:18 | disposition left against medical advice (07) | PROVIDERS: Emergency Provider Emergency Medicine | DX: S61.219A Laceration without foreign body of unspecified finger without damage to nail, initial encounter (principal); X58.XXXA Exposure to other specified factors, initial encounter; Y93.9 Activity, unspecified; Y92.9 Unspecified place or not applicable; Y99.9 Unspecified external cause status ==

== ENCOUNTER 2021-12-08 03:20 | Emergency (ER) | payer MEDICARE, MEDICAID, SELFPAY ==
[2021-12-08 03:34] VITALS: BP 150/95; PULSE 99; RESP 20; TEMP 36.5; O2SAT 96; BMI 31.3
[2021-12-08 03:54] LABS: Glucose, Whole Blood 322 mg/dL (60-115)
[2021-12-08 04:06] LABS: COVID-19 Test Negative (Negative)
[2021-12-08 04:11] LABS: Basophils Absolute Auto 0.1 X10*3/uL (0.0-0.2); Basophils Percent Auto 0.6 % (0-2); Eosinophils Absolute Auto 0.1 X10*3/uL (0.0-0.4); Eosinophils Percent Auto 0.8 % (0-4); Hematocrit 43.5 % (42.0-52.0); Hemoglobin 14.5 g/dl (14.0-18.0); Imm Gran Abs Auto 0.03 X10*3/uL (0.00-0.03); Imm Gran Pct Auto 0.3 % (0.0-0.4); Lymphocytes Absolute Auto 1.8 X10*3/uL (1.2-4.9); Lymphocytes Percent Auto 20.5 % (20-40); MANUAL DIFF FLAG NO; Mean Corpuscular HGB Conc 33.3 g/dl (31.0-36.0); Mean Corpuscular Hemoglobin 28.9 pg (27.0-33.0); Mean Corpuscular Volume 86.7 fL (80.0-98.0); Mean Platelet Volume 10.4 fL (9.4-12.4); Monocytes Absolute Auto 0.6 X10*3/uL (0.1-1.2); Monocytes Percent Auto 7.1 % (2-11); Neutrophils Absolute Auto 6.1 x10*3/uL (2.0-8.3); Neutrophils Percent Auto 70.7 % (45-73); Platelet Count 161 X10*3/uL (160-400); Red Blood Count 5.02 X10*6/uL (4.60-5.80); Red Cell Distribution Width 13.2 % (11.0-16.0); White Blood Count 8.6 X10*3/uL (4.8-10.8)
[2021-12-08 04:20] LABS: Acetone, serum QL Negative (Negative)
--- NOTE | 2021-12-08 04:20 | ED.PSYCH ---
HPI - Psych General Chief Complaint: Psychiatric Symptoms Stated Complaint: SI, drug usage, depression Time Seen by Provider: 12/08/21 04:08 Source: patient Mode of arrival: ambulatory History of Present Illness HPI Narrative: 56-year-old male with significant past medical history of CAD with 2 stents and currently on Brilinta, diabetes, hypertension who presents with complaints of being soda press that he is considering harming himself but does not have a current plan at this time. Patient states that he is struggling with polysubstance use and is unable to recall when the last time is that he took his diabetic medication. He otherwise denies any shortness of breath, chest pain/palpitations, fevers, chills, GI or symptoms. Related Data Home Medications Medication Instructions Recorded Confirmed albuterol sulfate 90 mcg/actuation 2 puff inhalation Q4H PRN wheezing 12/08/21 12/08/21 aerosol inhaler atorvastatin 10 mg tablet 1 tab PO DAILY 12/08/21 12/08/21 dulaglutide 3 mg/0.5 mL 0.5 ml subcut QWEEK 12/08/21 12/08/21 subcutaneous pen injector (Trulicity) hydroxyzine HCl 25 mg tablet 1 tab PO QID PRN anxiety 12/08/21 12/08/21 losartan 25 mg tablet 1 tab PO DAILY 12/08/21 12/08/21 metformin 500 mg tablet,extended 1 tab PO BID 12/08/21 12/08/21 release 24 hr pantoprazole 20 mg tablet,delayed 1 tab PO DAILY 12/08/21 12/08/21 release quetiapine 25 mg tablet 2 tab PO TID PRN anxiety 12/08/21 12/08/21 simvastatin 20 mg tablet 1 tab PO QPM 12/08/21 12/08/21 ticagrelor 90 mg tablet (Brilinta) 1 tab PO BID 12/08/21 12/08/21 trazodone 50 mg tablet 1 tab PO BEDTIME PRN insomnia 12/08/21 12/08/21 Previous Rx's Medication Instructions Recorded nicotine 14 mg/24 hr daily 14 mg transdermal DAILY@1500 1 day 02/26/20 transdermal patch Allergies Allergy/AdvReac Type Severity Reaction Status Date / Time No Known Allergies Allergy Verified 02/06/21 14:00 Review of Systems Review of Systems: Pertinent positives and negatives as stated in HPI 10 point review of systems is otherwise negative. [facility] Past Medical History Source: nursing notes reviewed Medical History Anxiety Diabetes Family history of coronary arteriosclerosis High cholesterol HTN (hypertension) Smoking Surgical History H/O hernia repair History of appendectomy S/P cardiac catheterization Family History Family History Mother Heart attack Social History Social History Alcohol intake: current Alcohol intake frequency: a few times a week Cigarette Packs Per Day: 0.5 Cigarettes Per Day: 10 Advance Directives: No Advance Directives Information Provided: No Physical Exam Vital Signs: Vital Signs: Last Vital Signs Temp 97.7 F 12/08/21 03:34 Pulse 99 12/08/21 03:34 Resp 20 12/08/21 03:34 BP 150/95 H 12/08/21 03:34 Pulse Ox 96 12/08/21 03:34 O2 Del Method 12/08/21 03:34 BMI result Body Mass Index 31.3 VITAL SIGNS: Reviewed. GENERAL: Well developed, well nourished, in no acute distress. HEAD: Normocephalic/atraumatic EYES: PERRLA, EOMI EARS: Ext canals without abnormality OROPHARYNX: no oral lesions noted, posterior pharynx clear LUNGS: Normal breath sounds. No adventitious sounds or accessory muscle use. SpO2<96> CARDIOVASCULAR: Regular rate and rhythm without noted murmurs, no JVD or lower extremity edema. ABDOMEN: Soft, non-tender, non-distended with bowel sounds. MUSCULOSKELETAL: No tenderness, deformities, or effusions noted on gross inspection. EXTREMITIES: No cyanosis, clubbing or edema. SKIN: Inspection of the skin reveals no rashes NEUROLOGIC: Alert and oriented x 4. Strength and sensation to light touch were grossly intact x 4, cranial nerves 2-12 are grossly intact.. Course Course Course Narrative: 56-year-old male with history and clinical presentation polysubstance use and depression which is causing him to feel like he wants to harm his self but he does not have a plan. Patient suffers from polysubstance use and on review of all investigations he is otherwise medically cleared for further evaluation by the behavioral team. Reevaluation(s) Reevaluation #1: Patient placed in physician observation because the patient needed more time for evaluation by both the care team as well as the behavioral team.. At the time observation was started the patient's vital signs were stable, patient is alert and oriented, neuro: Nonfocal, CV RRR, lungs clear Time: 04:23 MDM - Psych Lab Data Result diagrams: 12/08/21 04:03 12/08/21 04:03 Labs: Lab Results 12/08/21 12/08/21 12/08/21 Range/Units 03:45 03:49 04:03 WBC 8.6 (4.8-10.8) X10*3/uL RBC 5.02 (4.60-5.80) X10*6/uL Hgb 14.5 (14.0-18.0) g/dl Hct 43.5 (42.0-52.0) % MCV 86.7 (80.0-98.0) fL MCH 28.9 (27.0-33.0) pg MCHC 33.3 (31.0-36.0) g/dl RDW 13.2 (11.0-16.0) % Plt Count 161 (160-400) X10*3/uL MPV 10.4 (9.4-12.4) fL Immature Gran % (Auto) 0.3 (0.0-0.4) % Neut % (Auto) 70.7 (45-73) % Lymph % (Auto) 20.5 (20-40) % [place] % (Auto) 7.1 (2-11) % Eos % (Auto) 0.8 (0-4) % Baso % (Auto) 0.6 (0-2) % Lymph # (Auto) 1.8 (1.2-4.9) X10*3/uL [place] # (Auto) 0.6 (0.1-1.2) X10*3/uL Eos # (Auto) 0.1 (0.0-0.4) X10*3/uL Baso # (Auto) 0.1 (0.0-0.2) X10*3/uL Abs Immat Gran (auto) 0.03 (0.00-0.03) X10*3/uL Absolute Neuts (auto) 6.1 (2.0-8.3) x10*3/uL Absolute Nucleated RBC 0.000 (0.0-0.012) X10*3/uL Nucleated RBC % (auto) 0.0 (0.0-0.2) /100WBC POC Glucose 322 H (60-115) mg/dL COVID-19 (LILIA) Negative (Negative) COVID-19 Clin Com See Note Discharge Plan Discharge Clinical Impression: Suicidal ideation, Polysubstance use disorder, Diabetes, CAD (coronary artery disease), HTN (hypertension), Depression Patient Disposition: Still a Patient Prescriptions: No Action nicotine 14 mg/24 hr Patch 24 Hour 14 mg transdermal DAILY@1500 1 Days 0RF quetiapine 25 mg tablet 2 tab PO TID PRN (Reason: anxiety) trazodone 50 mg tablet 1 tab PO BEDTIME PRN (Reason: insomnia) atorvastatin 10 mg tablet 1 tab PO DAILY pantoprazole 20 mg tablet,delayed release (DR/EC) 1 tab PO DAILY simvastatin 20 mg tablet 1 tab PO QPM losartan 25 mg tablet 1 tab PO DAILY hydroxyzine HCl 25 mg tablet 1 tab PO QID PRN (Reason: anxiety) albuterol sulfate 90 mcg/actuation HFA aerosol inhaler 2 puff INHALATION Q4H PRN (Reason: wheezing) metformin 500 mg tablet extended release 24 hr 1 tab PO BID Brilinta 90 mg tablet 1 tab PO BID Trulicity 3 mg/0.5 mL pen injector 0.5 ml subcut QWEEK
[2021-12-08 04:27] LABS: Ethanol < 10 mg/dL
[2021-12-08 04:28] LABS: INTERNATIONAL NORM RATIO 1.1 (0.9-1.1); Prothrombin Time 12.2 SEC (10.0-13.1)
[2021-12-08 04:31] LABS: Alanine Aminotransferase 120 U/L (0-40); Albumin Level 4.4 g/dL (3.5-5.0); Alkaline Phosphatase 92 U/L (39-117); Anion Gap 18 (12-20); Aspartate Amino Transferase 59 U/L (5-37); Bilirubin Total 0.5 mg/dL (0.0-1.0); Blood Urea Nitrogen 14 mg/dL (9-16); Calcium 9.5 mg/dL (8.4-10.2); Carbon Dioxide 23 mmol/L (22-29); Chloride 100 mmol/L (96-108); Creatinine Clr Calc Pharmacy 86.9; Estimated Glomerular Filt Rate > 60; Glucose Random 370 mg/dL (60-115); Sodium 137 mmol/L (135-145); Total Protein 7.3 g/dL (6.5-8.0)
[2021-12-08] MEDS: Insulin Lispro 100 UNIT/ML 3 ML VIAL SUBCUT ×2 (04:48→13:42)
--- NOTE | 2021-12-08 06:48 | PC.NURSE ---
Patient slept through the night, no distress observed/reported, medication rec completed and approved, POC 370 @ 0403 covered with 5 units of Humalog, behavior non concerning, BHN referral completed/confirmed/pending ETA @ 2 pm, VSS, will continue to monitor.
[2021-12-08 07:21] LABS: Glucose, Whole Blood 276 mg/dL (60-115)
[2021-12-08 07:39] LABS: Appearance Urine Clear; Color Urine Yellow; Glucose Urine UA >=1000 mg/dL (Negative); Leukocyte Esterase Urine Negative (Negative); Nitrite Urine Negative (Negative); PH 5.5 (5.0-9.0); Specific Gravity - Urine >= 1.030 (1.005-1.025); UMIC TRIGGER UACC YES; Urine Blood Negative (Negative); Urine Ketones Trace mg/dL (Negative); Urine Protein Negative (Neg-Trace)
[2021-12-08 07:46] LABS: Amphetamine Screen Urine Not Detected (Not Detect); Barbiturates, Urine Not Detected (Not Detect); Benzodiazepines Screen Urine Not Detected (Not Detect); Cannabinoid Screen Urine Not Detected (Not Detect); Cocaine Screen Urine POSITIVE (Not Detect); Fentanyl, urine Not Detected (Not Detect); Opiate Screen Urine Not Detected (Not Detect); Phencyclidine Screen Urine Not Detected (Not Detect)
[2021-12-08 07:53] LABS: Bacteria Urine None Seen (None Seen); Hyaline Casts Urine 0-2 /LPF (0-2); RBC Urine 0-2 /HPF (0-2); Squamous Epithelial Cell Urine 0-2 /HPF (0-2); WBC Urine 0-5 /HPF (0-5)
[2021-12-08 08:23] VITALS: BP 122/77; PULSE 80; RESP 20; TEMP 36.9; O2SAT 93
[2021-12-08] MEDS: metFORMIN HCl ER 500 MG TAB.ER.24H PO (09:25)
[2021-12-08] MEDS: Losartan Potassium 25 MG TABLET PO (09:25)
[2021-12-08] MEDS: Ticagrelor 90 MG TABLET PO (09:25)
[2021-12-08] MEDS: Atorvastatin Calcium 10 MG TABLET PO (09:26)
[2021-12-08] MEDS: Omeprazole 20 MG CAPSULE.DR PO (09:26)
[2021-12-08] MEDS: QUEtiapine Fumarate 50 MG TABLET PO (12:20)
--- NOTE | 2021-12-08 12:36 | MHC.RECOVRN ---
This card writer hand met w/ pt, pt alert, walking around unit. Pt requesting detox. Pt reports daily CRACK/BASHIR use, states I use as much as I could get daily . Pt reports daily ETOH use, 12 beers daily. Pt reports drank 6 beers before coming to hospital. Pt reports went to detox approximately one year ago at [facility]. Pt reports no history of ETOH induced seizures. CIWA=1, pt reporting mild anxiety. This card writer hand spoke w/ RN, aware of detox bedsearch.
--- NOTE | 2021-12-08 12:51 | MHC.CARE ---
Patient is a 56 year-old Northern Irish speaking, man who self-presented to [facility] early this morning with report of depression and seeking help for addiction. He is unknown to [facility], has not been hospitalized here for psychiatric reasons. Today CARE Team met with patient in BH 4, he was alert and oriented, did not exhibit any symptoms of psychosis, denied suicidal or homicidal ideation. He said that his anxiety and depression is related to substance use as he has unsuccessful in recovery. Stated that he does want help and is ready to stop using drugs and alcohol. Patient referred to the Recovery Team for possible detox placement.
[2021-12-08 13:24] LABS: Glucose, Whole Blood 347 mg/dL (60-115)
[2021-12-08 14:48] LABS: Glucose, Whole Blood 265 mg/dL (60-115)
--- NOTE | 2021-12-08 15:16 | PC.NURSE ---
pt asked a female pt who was pacing around to come into his room to hangout with him. informed pt that this was not acceptable and that other pts are not allowed in his room.
[2021-12-08] MEDS: Nicotine 14 MG PATCH.TD24 TRANSDERMA (16:23)
[2021-12-08 18:40] LABS: Glucose, Whole Blood 286 mg/dL (60-115)
--- NOTE | 2021-12-08 21:05 | MHC.RECOVSUP ---
? Reason for consult:Both o? Current location:[facility]? o? Identified substance use concern:? -? Seeking ATS (detox) -? Support ? Intervention: o? ATS bed search started/completed/in process o? Harm reduction discussion ? Plan: o? Bed search completed to [facility] ? Additional information:RC successfully got pt into a lyft to [facility] in [place].
== END 2021-12-08 20:06 | disposition home or self-care (01) ==
PROVIDERS: Emergency Provider Student in an Organized Health Care Education/Training Program
DX: R45.851 Suicidal ideations (principal); F19.10 Other psychoactive substance abuse, uncomplicated; Z20.822 Contact with and (suspected) exposure to COVID-19; F41.9 Anxiety disorder, unspecified; I10 Essential (primary) hypertension; E11.9 Type 2 diabetes mellitus without complications; E78.00 Pure hypercholesterolemia, unspecified; F17.210 Nicotine dependence, cigarettes, uncomplicated; Z98.61 Coronary angioplasty status; Z79.899 Other long term (current) drug therapy; Z79.02 Long term (current) use of antithrombotics/antiplatelets; Z79.84 Long term (current) use of oral hypoglycemic drugs
CPT/HCPCS: 36415; 80053; 80307; 81001; 82009; 82077; 82947; 85025; 85610; 87635; 99284

== ENCOUNTER 2022-01-02 | Emergency (ER) | payer OTHER, SELFPAY ==
[2022-01-02 00:25] VITALS: BP 117/72; PULSE 72; RESP 20; TEMP 36.3; O2SAT 94; BMI 31.9
--- NOTE | 2022-01-02 00:35 | ECG_ITS ---
Test Reason : cp Blood Pressure : / mmHG Vent. Rate : 103 BPM Atrial Rate : 103 BPM P-R Int : 154 ms QRS Dur : 084 ms QT Int : 374 ms P-R-T Axes : 047 057 055 degrees QTc Int : 489 ms Sinus tachycardia Nonspecific T wave abnormality Lateral leads Possible Left atrial enlargement Abnormal ECG When compared with ECG of 27-FEB-2021 15:44, No significant change was found Referred By: Generic ED Physician Electronically Signed By:BLANCA FLORES MD
--- NOTE | 2022-01-02 01:30 | ED.PSYCH ---
HPI - Psych General Chief Complaint: Psychiatric Symptoms Stated Complaint: Depression/Cant sleep Time Seen by Provider: 01/02/22 00:42 Source: patient Mode of arrival: ambulatory Limitations: no limitations History of Present Illness HPI Narrative: Patient comes to the emergency room complaining of suicidal ideation. Patient reports increasing depression and anxiety over the last 2 days. Patient lost his apartment and now is homeless. Patient has been sleeping in his car for the last 2 days. Currently denies suicidal homicidal ideation. Patient reports drinking beer, using drugs, patient interested in detox Related Data Home Medications Medication Instructions Recorded Confirmed albuterol sulfate 90 mcg/actuation 2 puff inhalation Q4H PRN wheezing 12/08/21 12/08/21 aerosol inhaler atorvastatin 10 mg tablet 1 tab PO DAILY 12/08/21 12/08/21 dulaglutide 3 mg/0.5 mL 0.5 ml subcut QWEEK 12/08/21 12/08/21 subcutaneous pen injector (Trulicity) hydroxyzine HCl 25 mg tablet 1 tab PO QID PRN anxiety 12/08/21 01/02/22 losartan 25 mg tablet 1 tab PO DAILY 12/08/21 12/08/21 metformin 500 mg tablet,extended 1 tab PO BID 12/08/21 12/08/21 release 24 hr pantoprazole 20 mg tablet,delayed 1 tab PO DAILY 12/08/21 01/02/22 release quetiapine 25 mg tablet 2 tab PO TID PRN anxiety 12/08/21 12/08/21 simvastatin 20 mg tablet 1 tab PO QPM 12/08/21 01/02/22 ticagrelor 90 mg tablet (Brilinta) 1 tab PO BID 12/08/21 12/08/21 trazodone 50 mg tablet 1 tab PO BEDTIME PRN insomnia 12/08/21 01/02/22 Previous Rx's Medication Instructions Recorded nicotine 14 mg/24 hr daily 14 mg transdermal DAILY@1500 1 day 02/26/20 transdermal patch albuterol sulfate 90 mcg/actuation 2 puff inhalation Q6H PRN wheezing 12/08/21 aerosol inhaler #8.5 grams atorvastatin 10 mg tablet 10 mg PO DAILY #14 tabs 12/08/21 dulaglutide 3 mg/0.5 mL 3 mg (0.5 mL) subcut QWEEK #2 mL 10/24/22 subcutaneous pen injector (Trulicity) losartan 25 mg tablet 25 mg PO DAILY #14 tabs 12/08/21 metformin 500 mg tablet,extended 500 mg PO DAILY #14 tabs 12/08/21 release 24hr omeprazole magnesium 20 mg 20 mg PO DAILY #14 tabs 12/08/21 tablet,delayed release (Prilosec OTC) quetiapine 50 mg tablet (Seroquel) 50 mg PO TID PRN anxiety #30 tabs 12/08/21 ticagrelor 90 mg tablet (Brilinta) 90 mg PO Q12H #30 tabs 12/08/21 Allergies Allergy/AdvReac Type Severity Reaction Status Date / Time No Known Allergies Allergy Verified 01/02/22 00:24 Review of Systems Review of Systems: Constitutional : No Weight loss, No Fever, No Chills, No Night Sweats, No Fatigue, No Malaise ENT/Mouth : No Hearing loss, No Ear Pain, No Nasal Congestion, No Sinus Pain, No Hoarseness, No sore throat, No Rhinorrhea, No Swallowing Difficulty Eyes: No Eye Pain, No Swelling, No Redness, No Foreign Body, No Discharge, No Vision Changes Cardiovascular : No Chest Pain, No SOB, No Dyspnea on Exertion, No Orthopnea, No Edema, No Palpitations Respiratory : No Cough, No Sputum, No Wheezing, No Smoke Exposure, No Dyspnea Gastrointestinal : No Nausea, No Vomiting, No Diarrhea, No Constipation, No abdominal Pain, No Hematochezia, No Melena Genitourinary : no irregular bleeding, No Dysuria, No Urinary Frequency, No Hematuria, No Urinary Incontinence, No Urgency, No Flank Pain, No Urinary Flow Changes, No Hesitancy Musculoskeletal : No joint pain, No Myalgias, No Joint Swelling Skin : No Skin Lesions, No rash Neuro : No Weakness, No Numbness, No Paresthesias, No Loss of Consciousness, No Dizziness, No Headache Psych : Worsening anxiety and depression, no SI or HI, admits to using drugs and is interested in stopping using drugs/detox Heme/Lymph: No Bruising, No Bleeding,No Lymphadenopathy Endocrine : No Polyuria, No Polydipsia, No Temperature Intolerance PMFSH Past Medical History Medical History Anxiety Diabetes Family history of coronary arteriosclerosis High cholesterol HTN (hypertension) Smoking Surgical History H/O hernia repair History of appendectomy S/P cardiac catheterization Family History Family History Mother Heart attack Social History Social History Alcohol intake: current Alcohol intake frequency: a few times a week Cigarette Packs Per Day: 0.5 Cigarettes Per Day: 10 Advance Directives: No Advance Directives Information Provided: Yes Physical Exam Vital Signs: Vital Signs: Last Vital Signs Temp 97.4 F 01/02/22 00:25 Pulse 72 01/02/22 00:25 Resp 20 01/02/22 00:25 BP 117/72 01/02/22 00:25 Pulse Ox 94 01/02/22 00:25 O2 Del Method 01/02/22 00:25 BMI result Body Mass Index 31.9 Const: Other: Appearance: Alert. Oriented X3. No acute distress. Eyes: Pupils equal, round and reactive to light. ENT: Pharynx normal. Neck: Normal inspection. Neck supple. No lymph nodes noted. No crepitus CVS: Normal heart rate and rhythm. Pulses normal. Normal S1 and S2 Respiratory: No respiratory distress. Breath sounds normal. No Wheezing. No rales Abdomen: Soft and nontender. No rigidity. No distention. Skin: Skin warm and dry. Normal skin color. Normal skin turgor. Extremities: No lower extremity edema. No Lacerations. No Rash Neuro: Oriented X 3. No motor deficit. No sensory deficit. Moving all extremities. No slurred speech. CN 2 through 12 grossly intact Psych: calm, cooperative, flat affect Course Course Course Narrative: Patient's labs including urine and U tox are pending. Behavioral Health network consult pending Physician ulceration started at 01:33. Discharge Plan Discharge Clinical Impression: Anxiety and depression Patient Disposition: Still a Patient Prescriptions: No Action nicotine 14 mg/24 hr Patch 24 Hour 14 mg transdermal DAILY@1500 1 Days 0RF quetiapine 25 mg tablet 2 tab PO TID PRN (Reason: anxiety) trazodone 50 mg tablet 1 tab PO BEDTIME PRN (Reason: insomnia) atorvastatin 10 mg tablet 1 tab PO DAILY pantoprazole 20 mg tablet,delayed release (DR/EC) 1 tab PO DAILY simvastatin 20 mg tablet 1 tab PO QPM losartan 25 mg tablet 1 tab PO DAILY hydroxyzine HCl 25 mg tablet 1 tab PO QID PRN (Reason: anxiety) albuterol sulfate 90 mcg/actuation HFA aerosol inhaler 2 puff INHALATION Q4H PRN (Reason: wheezing) metformin 500 mg tablet extended release 24 hr 1 tab PO BID Brilinta 90 mg tablet 1 tab PO BID Trulicity 3 mg/0.5 mL pen injector 0.5 ml subcut QWEEK Brilinta 90 mg tablet 90 mg PO Q12H Qty: 30 0RF omeprazole magnesium [Prilosec OTC] 20 mg tablet,delayed release (DR/EC) 20 mg PO DAILY Qty: 14 0RF quetiapine [Seroquel] 50 mg tablet 50 mg PO TID PRN (Reason: anxiety) Qty: 30 0RF metformin 500 mg tablet extended release 24hr 500 mg PO DAILY Qty: 14 0RF losartan 25 mg tablet 25 mg PO DAILY Qty: 14 0RF atorvastatin 10 mg tablet 10 mg PO DAILY Qty: 14 0RF albuterol sulfate 90 mcg/actuation HFA aerosol inhaler 2 puff inhalation Q6H PRN (Reason: wheezing) Qty: 8.5 0RF Trulicity 3 mg/0.5 mL pen injector 3 mg subcut QWEEK Qty: 2 0RF
[2022-01-02 01:38] LABS: MANUAL DIFF FLAG NO
[2022-01-02 01:42] LABS: Basophils Absolute Auto 0.1 X10*3/uL (0.0-0.2); Basophils Percent Auto 0.5 % (0-2); Eosinophils Absolute Auto 0.1 X10*3/uL (0.0-0.4); Eosinophils Percent Auto 0.7 % (0-4); Hematocrit 44.8 % (42.0-52.0); Hemoglobin 15.1 g/dl (14.0-18.0); Imm Gran Abs Auto 0.04 X10*3/uL (0.00-0.03); Imm Gran Pct Auto 0.4 % (0.0-0.4); Lymphocytes Absolute Auto 2.7 X10*3/uL (1.2-4.9); Lymphocytes Percent Auto 26.1 % (20-40); Mean Corpuscular HGB Conc 33.7 g/dl (31.0-36.0); Mean Corpuscular Volume 86.2 fL (80.0-98.0); Mean Platelet Volume 10.2 fL (9.4-12.4); Monocytes Absolute Auto 0.9 X10*3/uL (0.1-1.2); Monocytes Percent Auto 8.8 % (2-11); Neutrophils Absolute Auto 6.6 x10*3/uL (2.0-8.3); Neutrophils Percent Auto 63.5 % (45-73); Platelet Count 150 X10*3/uL (160-400); Red Cell Distribution Width 13.2 % (11.0-16.0); White Blood Count 10.4 X10*3/uL (4.8-10.8)
[2022-01-02 01:54] LABS: COVID-19 Test Negative (Negative); IDNOW Serial# BCCEAD1C
[2022-01-02 02:07] LABS: Anion Gap 17 (12-20); Blood Urea Nitrogen 16 mg/dL (9-16); Calcium 9.2 mg/dL (8.4-10.2); Carbon Dioxide 25 mmol/L (22-29); Chloride 96 mmol/L (96-108); Estimated Glomerular Filt Rate 55; Ethanol < 10 mg/dL; Glucose Random 395 mg/dL (60-115); Potassium 3.9 mmol/L (3.3-5.1); Sodium 134 mmol/L (135-145)
[2022-01-02 02:28] LABS: Amphetamine Screen Urine Not Detected (Not Detect); Barbiturates, Urine Not Detected (Not Detect); Benzodiazepines Screen Urine Not Detected (Not Detect); Cannabinoid Screen Urine POSITIVE (Not Detect); Cocaine Screen Urine POSITIVE (Not Detect); Fentanyl, urine Not Detected (Not Detect); Opiate Screen Urine Not Detected (Not Detect); Phencyclidine Screen Urine Not Detected (Not Detect)
--- NOTE | 2022-01-02 08:56 | MHC.CARE ---
Patient is a 56 year-old Chilean speaking, man who self-presented to [facility] early this morning with an initial complaint of SI, depression and seeking help for addiction. CARE Team met with pt for a risk assessment. Upon approach, pt verbalized his safety and is no longer experiencing SI. Pt reported to be seeking detoxification treatment due to his daily crack cocaine use and daily alcohol use. Pt states he uses crack daily ?as much as I can get my hands on? with no specified amount. Pt also states he drinks alcohol daily, approximately a 12 pack of beer per day.? Pt states, ?I don?t have a life anymore, I want to get clean.? Pt isn?t currently endorsing SI/HI/AVH. Pt has hx of presenting to the ED for similar presentations including polysubstance use and depression. Pt is advocating for recovery team services including detox.
--- NOTE | 2022-01-02 09:06 | MHC.RECOVRN ---
ATS referral sent to [facility].
[2022-01-02 09:32] LABS: Glucose, Whole Blood 297 mg/dL (60-115)
--- NOTE | 2022-01-02 10:20 | MHC.RECOVRN ---
Addendum entered by Mackenzie Angeles 01/02/22 10:34: [facility] to [facility] 12[facility]. Will be transported via Lyft. Original Note: Pt completing phone intake with [facility].
[2022-01-02] MEDS: metFORMIN HCl ER 500 MG TAB.ER.24H PO (10:47)
[2022-01-02 12:18] VITALS: BP 97/59; PULSE 92; RESP 18; TEMP 36.6; O2SAT 94
== END 2022-01-02 12:20 | disposition home or self-care (01) ==
PROVIDERS: Emergency Medicine; Emergency Provider Emergency Medicine Emergency Medical Services
DX: F33.1 Major depressive disorder, recurrent, moderate (principal); R45.851 Suicidal ideations; F41.1 Generalized anxiety disorder; R07.89 Other chest pain; F43.0 Acute stress reaction; Z20.822 Contact with and (suspected) exposure to COVID-19; Z79.899 Other long term (current) drug therapy
CPT/HCPCS: 36415; 80048; 80307; 82077; 82947; 85025; 87635; 93005; 99284

== ENCOUNTER 2022-05-30 19:38 | Emergency (ER) | payer OTHER, SELFPAY ==
--- NOTE | ~2022-05-30 | XR_ITS ---
EXAMINATION: XR SHOULDER, LEFT CLINICAL INFORMATION: Pain COMPARISON: None available. TECHNIQUE: AP external rotation, Grashey, scapular Y, and axillary views of the left shoulder. FINDINGS: Small calcification in the region of the insertion of the superior rotator cuff on the humeral head. Findings suggest calcific tendinosis. Mild degeneration in the inferior glenohumeral articulation. There is no evidence for an acute fracture or dislocation. XR/XR shoulder LT min 2V IMPRESSION: No acute finding. Findings suggest calcific tendinosis of the superior rotator cuff. Consider MRI if clinically indicated.
[2022-05-30 19:45] VITALS: BP 137/95; PULSE 84; RESP 16; TEMP 36.6; O2SAT 96; BMI 33.4
--- NOTE | 2022-05-30 19:45 | ED_ITS ---
HPI - Extremity Problem General Chief complaint: Extremity Injury, Upper <NISHI Callahan Last Filed: 05/30/22 19:45> Stated complaint: left shoulder pain <NISHI Callahan Last Filed: 05/30/22 19:45> Time Seen by Provider: 05/30/22 20:17 <NISHI Callahan Last Filed: 05/30/22 19:45> Source: patient <NISHI Delacruz Last Filed: 05/31/22 00:19> Mode of arrival: ambulatory <INSHI Delacruz Last Filed: 05/31/22 00:19> Limitations: no limitations <NISHI Delacruz Last Filed: 05/31/22 00:19> History of Present Illness HPI Narrative: Patient is a 57 year old assigned male at with a history of DM presenting to the emergency department today with left shoulder pain. Patient states that he has had left shoulder pain for over a week. Patient states that the left arm is difficult to lift and the pain is at the shoulder. Patient denies any dizziness, lightheadedness, abdominal pain, nausea, vomiting, fever, chills, blurry vision, double vision, loss of vision, chest pain, difficulty breathing, shortness of breath, back pain, night sweats, pain with urination, increased urinary frequency, increased urinary urgency, blood in his urine or stool, syncope or a near syncopal episode, recent trauma or falls, bowel incont inence, bladder incontinence, bowel retention, bladder retention, or any other complaints at this time. <NISHI Delacruz Last Filed: 05/31/22 00:19> MD Complaint: extremity pain <NISHI Delacruz Last Filed: 05/31/22 00:19> Onset (ago): week(s) (1) <NISHI Delacruz Last Filed: 05/31/22 00:19> Location: left and upper extremity <NISHI Delacruz Last Filed: 05/31/22 00:19> Radiation: none <NISHI Delacruz Last Filed: 05/31/22 00:19> Relieving factors: nothing <NISHI Delacruz Last Filed: 05/31/22 00:19> Exacerbating factors: nothing <NISHI Delacruz - Last Filed: 05/31/22 00:19> Associated symptoms: denies other symptoms <NISHI Delacruz - Last Filed: 05/31/22 00:19> Related Data Home medications: Home Medications Medication Instructions Recorded Confirmed hydroxyzine HCl 25 mg tablet 1 tab PO QID PRN anxiety 12/08/21 01/02/22 metformin 500 mg tablet,extended 1 tab PO BID 12/08/21 01/02/22 release 24 hr pantoprazole 20 mg tablet,delayed 1 tab PO DAILY 12/08/21 01/02/22 release quetiapine 25 mg tablet 2 tab PO TID PRN anxiety 12/08/21 01/02/22 simvastatin 20 mg tablet 1 tab PO QPM 12/08/21 01/02/22 ticagrelor 90 mg tablet (Brilinta) 1 tab PO BID 12/08/21 01/02/22 trazodone 50 mg tablet 1 tab PO BEDTIME PRN insomnia 12/08/21 01/02/22 Previous Rx's Medication Instructions Recorded nicotine 14 mg/24 hr daily 14 mg transdermal DAILY@1500 1 day 02/26/20 transdermal patch albuterol sulfate 90 mcg/actuation 2 puff inhalation Q6H PRN wheezing 12/08/21 aerosol inhaler #8.5 grams atorvastatin 10 mg tablet 10 mg PO DAILY #14 tabs 12/08/21 dulaglutide 3 mg/0.5 mL 3 mg (0.5 mL) subcut QWEEK #2 mL 12/08/21 subcutaneous pen injector (Trulicity) losartan 25 mg tablet 25 mg PO DAILY #14 tabs 12/08/21 prednisone 20 mg tablet 20 mg PO DAILY 7 days #7 tabs 05/30/22 <NISHI Callahan - Last Filed: 05/30/22 19:45> Allergies/Adverse reactions: Allergies Allergy/AdvReac Type Severity Reaction Status Date / Time No Known Allergies Allergy Verified 01/02/22 00:24 <NISHI Callahan - Last Filed: 05/30/22 19:45> Review of Systems Constitutional: Constitutional: Reports no additional constitutional complaints, Denies chills, Denies fever(s) and Denies night sweats <NISHI Delacruz - Last Filed: 05/31/22 00:19> Eyes: Eyes: Reports no additional eye complaints, Denies blurry vision, Denies change in vision, Denies diplopia, Denies eye discharge, Denies loss of vision and Denies eye pain <NISHI Delacruz Last Filed: 05/31/22 00:19> ENT: Denies dizziness <NISHI Delacruz Last Filed: 05/31/22 00:19> Cardiovascular: Cardiovascular: Reports no additional cardiovascular complaints, Denies chest pain, Denies lightheadedness, Denies Loss of Consciousness and Denies dyspnea <NISHI Delacruz Last Filed: 05/31/22 00:19> Respiratory: Respiratory: Reports no additional respiratory complaints and Denies dyspnea <NISHI Delacruz Last Filed: 05/31/22 00:19> Gastrointestinal: Gastrointestinal: Reports no additional gastrointestinal complaints, Denies abdominal pain, Denies melena, Denies hematochezia, Denies change in bowel habits and Denies change in stool character <NISHI Delacruz Last Filed: 05/31/22 00:19> Genitourinary: Genitourinary: Reports no additional male genitourinary complaints, Denies hematuria, Denies oliguria, Denies difficulty urinating, Denies dysuria, Denies urinary frequency, Denies urinary hesitancy, Denies urinary incontinence and Denies urinary urgency <NISHI Delacruz Last Filed: 05/31/22 00:19> Musculoskeletal: Musculoskeletal: Reports no additional musculoskeletal complaints, Denies numbness and Denies tingling <NISHI Delacruz Last Filed: 05/31/22 00:19> Comments: left shoulder pain <NISHI Delacruz Last Filed: 05/31/22 00:19> Neurologic: Denies dizziness, Denies loss of vision, Denies numbness and Denies tingling <NISHI Delacruz Last Filed: 05/31/22 00:19> Psychiatric: Psychiatric: Reports no additional psychiatric complaints <NISHI Delacruz Last Filed: 05/31/22 00:19> Endocrine: Endocrine: Reports no additional endocrine complaints <NISHI Delacruz Last Filed: 05/31/22 00:19> Hematologic/Lymphatic: Hematologic/Lymphatic: Reports no additional hematologic/lymphatic complaints <NISHI Delacruz - Last Filed: 05/31/22 00:19> Allergic/Immunologic: Allergic/Immunologic: Reports no additional allergic/immunologic complaints <NISHI Delacruz - Last Filed: 05/31/22 00:19> [facility] Past Medical History Attestation statement: The following information was validated with the patient. <NISHI Delacruz - Last Filed: 05/31/22 00:19> Source: old records reviewed and nursing notes reviewed <NISHI Delacruz - Last Filed: 05/31/22 00:19> Medical History: Medical History Anxiety Diabetes Family history of coronary arteriosclerosis High cholesterol HTN (hypertension) Smoking <NISHI Callahan - Last Filed: 05/30/22 19:45> Surgical History: Surgical History H/O hernia repair History of appendectomy S/P cardiac catheterization <NISHI Callahan - Last Filed: 05/30/22 19:45> Family History Family History: Family History Mother Heart attack <NISHI Callahan - Last Filed: 05/30/22 19:45> Social History Social History: Social History Alcohol intake: current Alcohol intake frequency: a few times a week Cigarette Packs Per Day: 0.5 Cigarettes Per Day: 10 Advance Directives: No Advance Directives Information Provided: No <NISHI Callahan - Last Filed: 05/30/22 19:45> Physical Exam Vital Signs: Vital Signs: Last Vital Signs Temp 98.4 F 05/30/22 20:33 Pulse 78 05/30/22 20:33 Resp 16 05/30/22 20:33 BP 126/82 05/30/22 20:33 Pulse Ox 98 05/30/22 20:33 O2 Del Method Room Air 05/30/22 20:33 BMI result Body Mass Index 33.4 <NISHI Callahan - Last Filed: 05/30/22 19:45> Vital Signs: Last Vital Signs Temp 98.4 F 05/30/22 20:33 Pulse 78 05/30/22 20:33 Resp 16 05/30/22 20:33 BP 126/82 05/30/22 20:33 Pulse Ox 98 05/30/22 20:33 O2 Del Method Room Air 05/30/22 20:33 BMI result Body Mass Index 33.4 <NISHI Delacruz - Last Filed: 05/31/22 00:19> Const: General: cooperative, no acute distress, alert and awake <NISHI Delacruz - Last Filed: 05/31/22 00:19> Nutritional Appearance: well nourished <NISHI Delacruz - Last Filed: 05/31/22 00:19> Orientation/consciousness: patient oriented x3 <NISHI Delacruz - Last Filed: 05/31/22 00:19> Limitations: no limitations <NISHI Delacruz Last Filed: 05/31/22 00:19> HEENT: Head: Yes normal to inspection and Yes atraumatic <NISHI Delacruz - Last Filed: 05/31/22 00:19> Ears: hearing grossly normal bilaterally and external ears normal <NISHI Delacruz - Last Filed: 05/31/22 00:19> General nose exam: Normal external nose present, no nasal discharge noted and no epistaxis <NISHI Delacruz - Last Filed: 05/31/22 00:19> Face and sinus: Yes normal facial exam, No abrasion and No laceration <NISHI Delacruz Last Filed: 05/31/22 00:19> Mouth: Normal oral and palatal mucosa present, no drooling and no muffled voice <NISHI Delacruz Last Filed: 05/31/22 00:19> Eyes: General: appearance normal, both eyes and all related structures <NISHI Delacruz - Last Filed: 05/31/22 00:19> Periorbital: periorbital findings normal <NISHI Delacruz - Last Filed: 05/31/22 00:19> Eyelids: Yes eyelids normal <NISHI Delacruz Last Filed: 05/31/22 00:19> Conjunctivae: conjunctivae normal <NISHI Delacruz - Last Filed: 05/31/22 00:19> Pupils: Equal, round and reactive pupils present <Myrna PhippsNISHI - Last Filed: 05/31/22 00:19> EOM: EOMs intact bilaterally <Myrna PhippsNISHI - Last Filed: 05/31/22 00:19> Neck: Neck: Yes normal visual inspection, Yes full ROM and Yes no lymphadenopathy <Myrna PhippsNISHI - Last Filed: 05/31/22 00:19> Chest: Chest palpation & inspection: normal inspection of the chest <Myrna Phipps PR - Last Filed: 05/31/22 00:19> Resp: Effort & Inspection: normal respiratory effort and able to speak in com plete sentences <Myrna Phipps PR - Last Filed: 05/31/22 00:19> GI: Inspection: Yes normal to inspection <Myrna PhippsNISHI - Last Filed: 05/31/22 00:19> Neuro: General: patient oriented x3 and moves all extremities <Myrna Rojaslexie PR - Last Filed: 05/31/22 00:19> Cranial nerves: Yes Equal, round and reactive pupils present <Myrna Phipps PR - Last Filed: 05/31/22 00:19> Cognition (Neuro): normal cognition <Myrna Phipps PR - Last Filed: 05/31/22 00:19> Motor exam (neuro): 5/5 motor strength present throughout <Myrna Phipps PR - Last Filed: 05/31/22 00:19> Sensory Exam: Normal double simultaneous stimulation for sensation <Myrna Rojaslexie PR - Last Filed: 05/31/22 00:19> Coordination: [id number] test normal <Myrna Phipps PR - Last Filed: 05/31/22 00:19> Extrem: Other: limited ROM of the left shoulder secondary to pain <Myrna Phipps PR - Last Filed: 05/31/22 00:19> General: Yes normal to inspection and Yes capillary refill normal <Myrna PhippsNISHI - Last Filed: 05/31/22 00:19> Psych: Appearance: grossly normal <Myrna RojasNISHI owen - Last Filed: 05/31/22 00:19> Mental Status: mental status grossly normal <Myrnajulianna Rojaslexie PR - Last Filed: 05/31/22 00:19> Affect: normal affect <NISHI Delacruz Last Filed: 05/31/22 00:19> Attitude: cooperative <NISHI Delacruz Last Filed: 05/31/22 00:19> Thought process: Normal thought process present <NISHI Delacruz Last Filed: 05/31/22 00:19> Thought content: Normal thought content present <NISHI Delacruz Last Filed: 05/31/22 00:19> Insight: Good insight present (Psych) <NISHI Delacruz Last Filed: 05/31/22 00:19> Course Course Course Narrative: rme triage- Patient complains of worsening left shoulder pain over the last week with no injury X-rays are ordered and will be evaluated in the department <NISHI Callahan - Last Filed: 05/30/22 19:45> Medical Decision Making Medical Decision Making MDM Narrative: Patient is a 57 year old assigned male at with a history of DM presenting to the emergency department today with left shoulder pain. Patient's physical exam showed limited ROM of the left shoulder secondary to pain. Patient's left shoulder x-ray showed no acute process. I explained my physical exam findings as well as all test results to the patient. I answered all questions asked by the patient. I stressed the importance of the patient taking his medication as prescribed. I stressed the importance of the patient following up with his primary care provider and an orthopedic provider. I stressed the importance of the patient returning to the emergency department immediately if his symptoms were to worsen or if he were to develop any dizziness, shortness of breath, difficulty breathing, chest pain, blurry vision, loss of vision, nausea, vomiting, abdominal pain, fever, chills, back pain, or any other complaints. Patient verbalized agreement and understanding with this treatment plan and discharge. <NISHI Delacruz Last Filed: 05/31/22 00:19> Differential Diagnosis Differential Diagnoses: The differential diagnosis associated with the presentation includes <NISHI Delacruz Last Filed: 05/31/22 00:19> rotator cuff injury, left shoulder pain <NISHI Delacruz Last Filed: 05/31/22 00:19> Independent Interpretation I performed an independent interpretation of an: Plain X-Ray <NISHI Delacruz Last Filed: 05/31/22 00:19> Interpretation: My interpretation is in agreement with the radiologist's impression of this imaging study. -- EXAMINATION: XR SHOULDER, LEFT CLINICAL INFORMATION: Pain? COMPARISON: None available.? TECHNIQUE: AP external rotation, Grashey, scapular Y, and axillary views of the left shoulder. FINDINGS: Small calcification in the region of the insertion of the superior rotator cuff on the humeral head. Findings suggest calcific tendinosis. Mild degeneration in the inferior glenohumeral articulation. There is no evidence for an acute fracture or dislocation. XR/XR shoulder LT min 2V IMPRESSION: No acute finding. Findings suggest calcific tendinosis of the superior rotator cuff.? Consider MRI if clinically indicated. Dictated By: Rick Machuca MD Signed By: Electronically signed by Rick Machuca MD 05/30/222012 <NISHI Delacruz - Last Filed: 05/31/22 00:19> Discharge Plan Discharge Clinical Impression: Rotator cuff injury <NISHI Callahan Last Filed: 05/30/22 19:45> Patient Disposition: Home, Self-Care <NISHI Callahan Last Filed: 05/30/22 19:45> Instructions: Rotator Cuff Injury (ED), Rotator Cuff Injury Exercises (DC) <NISHI Callahan Last Filed: 05/30/22 19:45> Additional Instructions: Follow up with your primary care provider and an orthopedic provider. Return to the emergency department immediately if your symptoms worsen or if you develop any dizziness, shortness of breath, difficulty breathing, chest pain, blurry vision, loss of vision, nausea, vomiting, abdominal pain, fever, chills, back pain, or any other complaints. <NISHI Callahan - Last Filed: 05/30/22 19:45> Prescriptions: New prednisone 20 mg tablet 20 mg PO DAILY 7 Days Qty: 7 0RF No Action nicotine 14 mg/24 hr Patch 24 Hour 14 mg transdermal DAILY@1500 1 Days 0RF quetiapine 25 mg tablet 2 tab PO TID PRN (Reason: anxiety) trazodone 50 mg tablet 1 tab PO BEDTIME PRN (Reason: insomnia) pantoprazole 20 mg tablet,delayed release (DR/EC) 1 tab PO DAILY simvastatin 20 mg tablet 1 tab PO QPM hydroxyzine HCl 25 mg tablet 1 tab PO QID PRN (Reason: anxiety) metformin 500 mg tablet extended release 24 hr 1 tab PO BID Brilinta 90 mg tablet 1 tab PO BID losartan 25 mg tablet 25 mg PO DAILY Qty: 14 0RF atorvastatin 10 mg tablet 10 mg PO DAILY Qty: 14 0RF albuterol sulfate 90 mcg/actuation HFA aerosol inhaler 2 puff inhalation Q6H PRN (Reason: wheezing) Qty: 8.5 0RF Trulicity 3 mg/0.5 mL pen injector 3 mg subcut QWEEK Qty: 2 0RF <NISHI Callahan - Last Filed: 05/30/22 19:45> [place]: [facility] [place] [facility] [place] (Call to establish and follow up with a primary care provider. If you already have a primary care provider, please follow up with them.) [facility] [place] [facility] [place]Provider Group] (Call to establish and follow up with a primary care provider. If you already have a primary care provider, please follow up with them.) [facility] [place] [facility]Provider Group] (Call to establish and follow up with a primary care provider. If you already have a primary care provider, please follow up with them.) [facility] [place] [facility] [Provider Group] (Call to establish and follow up with an orthopedic provider. ) <NISHI Callahan - Last Filed: 05/30/22 19:45> Interventions: ED Discharge Assessment Last Done: 05/30/22 20:48 <NISHI Callahan - Last Filed: 05/30/22 19:45> Discharge Date/Time: 05/30/22 20:50 <NISHI Callahan - Last Filed: 05/30/22 19:45> Print Language: Congolese <NISHI Callahan - Last Filed: 05/30/22 19:45>
[2022-05-30 20:33] VITALS: BP 126/82; PULSE 78; RESP 16; TEMP 36.9; O2SAT 98
== END 2022-05-30 20:50 | disposition home or self-care (01) ==
PROVIDERS: Emergency Provider Emergency Medicine; PCP Internal Medicine
DX: S46.002A Unspecified injury of muscle(s) and tendon(s) of the rotator cuff of left shoulder, initial encounter (principal); X58.XXXA Exposure to other specified factors, initial encounter; E11.9 Type 2 diabetes mellitus without complications; I10 Essential (primary) hypertension; E78.5 Hyperlipidemia, unspecified; F17.200 Nicotine dependence, unspecified, uncomplicated; Z79.84 Long term (current) use of oral hypoglycemic drugs; Z79.02 Long term (current) use of antithrombotics/antiplatelets; Z79.899 Other long term (current) drug therapy; Z79.85 Long-term (current) use of injectable non-insulin antidiabetic drugs; Y93.9 Activity, unspecified; Y92.9 Unspecified place or not applicable; Y99.9 Unspecified external cause status
CPT/HCPCS: 73030; 99283

== ENCOUNTER 2022-06-26 08:09 | Outpatient (REF) | payer OTHER, SELFPAY ==
[2022-06-26 08:28] LABS: MANUAL DIFF FLAG NO
[2022-06-26 08:48] LABS: Basophils Absolute Auto 0.1 X10*3/uL (0.0-0.2); Basophils Percent Auto 0.8 % (0-2); Eosinophils Absolute Auto 0.2 X10*3/uL (0.0-0.4); Eosinophils Percent Auto 2.9 % (0-4); Hemoglobin 16.1 g/dl (14.0-18.0); Imm Gran Abs Auto 0.03 X10*3/uL (0.00-0.03); Imm Gran Pct Auto 0.4 % (0.0-0.4); Lymphocytes Absolute Auto 2.8 X10*3/uL (1.2-4.9); Lymphocytes Percent Auto 34.4 % (20-40); Mean Corpuscular HGB Conc 32.9 g/dl (31.0-36.0); Mean Corpuscular Hemoglobin 28.8 pg (27.0-33.0); Mean Corpuscular Volume 87.5 fL (80.0-98.0); Mean Platelet Volume 10.1 fL (9.4-12.4); Monocytes Absolute Auto 0.7 X10*3/uL (0.1-1.2); Monocytes Percent Auto 8.5 % (2-11); Neutrophils Absolute Auto 4.2 x10*3/uL (2.0-8.3); Platelet Count 171 X10*3/uL (160-400); Red Cell Distribution Width 13.5 % (11.0-16.0)
[2022-06-26 09:01] LABS: Estimated Average Glucose 197 mg/dL; Hemoglobin A1c % 8.5 %
[2022-06-26 09:18] LABS: Alanine Aminotransferase 61 U/L (0-40); Albumin Level 4.3 g/dL (3.5-5.0); Alkaline Phosphatase 72 U/L (39-117); Anion Gap 12 (12-20); Aspartate Amino Transferase 35 U/L (5-37); Bilirubin Total 0.9 mg/dL (0.0-1.0); Blood Urea Nitrogen 16 mg/dL (9-16); Calcium 9.2 mg/dL (8.4-10.2); Carbon Dioxide 27 mmol/L (22-29); Chloride 105 mmol/L (96-108); Cholesterol 152 mg/dL; Estimated Glomerular Filt Rate > 60; Glucose Random 155 mg/dL (60-115); HDL Cholesterol 40 mg/dL; LDL Cholesterol Calculated 88 mg/dl; Potassium 4.3 mmol/L (3.3-5.1); Sodium 140 mmol/L (135-145); Triglycerides 121 mg/dL
[2022-06-26 09:31] LABS: PSA,Total (Free>4and<10) 0.56 ng/mL (0.00-4.00); TSH reflex Free T4 3.07 uIU/mL (0.32-4.0)
== END 2022-06-26 08:10 | disposition home or self-care (01) ==
LOC: HO.LAB 08:09
PROVIDERS: PCP Nurse Practitioner Family; Visit Provider Nurse Practitioner Family
DX: Z13.0 Encounter for screening for diseases of the blood and blood-forming organs and certain disorders involving the immune mechanism (principal); Z13.220 Encounter for screening for lipoid disorders; Z13.29 Encounter for screening for other suspected endocrine disorder; Z12.5 Encounter for screening for malignant neoplasm of prostate; E11.9 Type 2 diabetes mellitus without complications
CPT/HCPCS: 36415; 80053; 80061; 83036; 84153; 84443; 85025

== ENCOUNTER 2022-07-06 16:40 | Emergency (ER) | payer OTHER, SELFPAY ==
--- NOTE | ~2022-07-06 | XR_ITS ---
EXAMINATION: XR CHEST CLINICAL INFORMATION: Chest pain COMPARISON: Chest radiograph 02/25/2020 TECHNIQUE: 2 views of the chest were obtained. FINDINGS: No significant abnormality is noted involving the heart, lungs, mediastinum, bony thorax or soft tissues. XR/XR chest 2V IMPRESSION: Unremarkable examination.
--- NOTE | 2022-07-06 16:42 | ECG_ITS ---
Test Reason : chest pain Blood Pressure : / mmHG Vent. Rate : 086 BPM Atrial Rate : 086 BPM P-R Int : 170 ms QRS Dur : 094 ms QT Int : 372 ms P-R-T Axes : 005 034 024 degrees QTc Int : 445 ms Normal sinus rhythm Normal ECG When compared with ECG of 02-JAN-2022 00:34, No significant change was found Referred By: Generic ED Physician Electronically Signed By:HENRI MAGAÑA
--- NOTE | 2022-07-06 17:16 | ED_ITS ---
HPI - Chest Pain General Chief Complaint: Chest Pain Stated Complaint: chest pain Time Seen by Provider: 07/06/22 20:34 Source: patient Mode of arrival: ambulatory History of Present Illness HPI narrative: 57-year-old male who presents with left-sided chest pain that occurred while he was sitting in his recliner this morning he denies any associated headache/dizziness/nausea/diaphoresis and denies any radiation. Patient is highly concerned given the fact he has had a prior [place] and states that he is strictly on aspirin at this time but is also noted to have diabetes as well. Patient has left rotator cuff injury as well. Patient states that the pain lasted until he got here to the emergency room. He is currently asymptomatic. Related Data Home Medications Medication Instructions Recorded Confirmed hydroxyzine HCl 25 mg tablet 1 tab PO QID PRN anxiety 12/08/21 06/24/22 pantoprazole 20 mg tablet,delayed 1 tab PO DAILY 12/08/21 06/24/22 release simvastatin 20 mg tablet 1 tab PO QPM 12/08/21 06/24/22 aspirin 81 mg tablet,delayed 81 mg PO DAILY 06/24/22 06/24/22 release empagliflozin 10 mg tablet 10 mg PO DAILY 06/24/22 06/24/22 (Jardiance) Previous Rx's Medication Instructions Recorded albuterol sulfate 90 mcg/actuation 2 puff inhalation Q6H PRN wheezing 12/08/21 aerosol inhaler #8.5 grams dulaglutide 3 mg/0.5 mL 3 mg (0.5 mL) subcut QWEEK #2 mL 12/08/21 subcutaneous pen injector (Trulicity) losartan 25 mg tablet 25 mg PO DAILY #14 tabs 12/08/21 clotrimazole 1 % topical cream 1 appl topical BID #30 grams 06/24/22 metformin 1,000 mg tablet 1,000 mg PO BIDWMEAL #60 tabs 06/30/22 Allergies Allergy/AdvReac Type Severity Reaction Status Date / Time doxycycline Allergy Unknown Unknown Verified 06/24/22 10:59 Review of Systems Review of Systems: Pertinent positives and negatives as stated in HPI PMFSH Past Medical History Source: nursing notes reviewed Medical History Anxiety Diabetes Family history of coronary arteriosclerosis High cholesterol HTN (hypertension) Smoking Surgical History H/O hernia repair H/O lateral meniscus repair of left knee H/O vascular surgery History of appendectomy S/P cardiac catheterization Family History Family History Mother Heart attack Diabetes Social History Social History Household Members: Significant Other Housing: House Alcohol intake: never Patient Tobacco Use Status: Current everyday Tobacco user Tobacco use type: Cigarette Cigarette Packs Per Day: 0.5 Cigarettes Per Day: 10 Smoked in Last 30 Days: Yes e-Cigarette/Vaping Use: Never Used Use of substances other than those prescribed or required for medical reasons: No Advance Directives: No Advance Directives Information Provided: Yes service: No Current occupational status: employed Physical Exam Vital Signs: Vital Signs: Last Vital Signs Temp 98.4 F 07/06/22 20:40 Pulse 79 07/06/22 20:40 Resp 18 07/06/22 17:17 BP 148/98 H 07/06/22 20:40 Pulse Ox 97 07/06/22 20:40 O2 Del Method Room Air 07/06/22 20:40 BMI result Body Mass Index 33.4 VITAL SIGNS: Reviewed. GENERAL: Well developed, well nourished, in no acute distress. HEAD: Normocephalic/atraumatic EYES: PERRLA, EOMI EARS: Ext canals without abnormality LUNGS: Normal breath sounds. No adventitious sounds or accessory muscle use. SpO2<97> CARDIOVASCULAR: Regular rate and rhythm without noted murmurs, no JVD or lower e xtremity edema. ABDOMEN: Soft, non-tender, non-distended with bowel sounds. MUSCULOSKELETAL: No tenderness, deformities, or effusions noted on gross inspection. EXTREMITIES: No cyanosis, clubbing or edema. SKIN: Inspection of the skin reveals no rashes NEUROLOGIC: Alert and oriented x 4. Strength and sensation to light touch were grossly intact x 4. Course Course Course Narrative: This is a rapid medical exam. deferred additional HPI, ROS, PE to primary provider. 56-year-old male with significant past medical history of CAD with 2 stents, diabetes, hypertension?here with complaints of several days of intermittent chest pain. Will need labs, EKG, CXR VSS Medical Decision Making Medical Decision Making MDM Narrative: 57-year-old male who appears well, risk factors are significant although this is inconsistent with unstable angina, patient does reports significant stress will conduct serial troponins evaluate other lab work. If negative, will refer to Cardiology with recommendations for stress testing. HEART Score: 4 I reviewed all investigations, serial troponins are negative and EKG without acute changes when compared to prior on 01/02/2022. Will discharge patient and provide referral for follow-up with cardiology. Differential Diagnosis Please see the discussion above Lab Data Please see the discussion above 07/06/22 17:51 07/06/22 17:51 Labs: Lab Results 07/06/22 07/06/22 07/06/22 Range/Units 17:51 17:51 17:51 WBC 7.5 (4.8-10.8) X10*3/uL RBC 5.57 (4.60-5.80) X10*6/uL Hgb 16.1 (14.0-18.0) g/dl Hct 49.0 (42.0-52.0) % MCV 88.0 (80.0-98.0) fL MCH 28.9 (27.0-33.0) pg MCHC 32.9 (31.0-36.0) g/dl RDW 13.2 (11.0-16.0) % Plt Count 164 (160-400) X10*3/uL MPV 10.3 (9.4-12.4) fL Immature Gran % (Auto) 0.3 (0.0-0.4) % Neut % (Auto) 59.0 (45-73) % Lymph % (Auto) 29.4 (20-40) % [place] % (Auto) 8.9 (2-11) % Eos % (Auto) 1.7 (0-4) % Baso % (Auto) 0.7 (0-2) % Lymph # (Auto) 2.2 (1.2-4.9) X10*3/uL [place] # (Auto) 0.7 (0.1-1.2) X10*3/uL Eos # (Auto) 0.1 (0.0-0.4) X10*3/uL Baso # (Auto) 0.1 (0.0-0.2) X10*3/uL Abs Immat Gran (auto) 0.02 (0.00-0.03) X10*3/uL Absolute Neuts (auto) 4.5 (2.0-8.3) x10*3/uL Absolute Nucleated RBC 0.000 (0.0-0.012) X10*3/uL Nucleated RBC % (auto) 0.0 (0.0-0.2) /100WBC PT 12.2 (10.0-13.1) SEC INR 1.1 (0.9-1.1) Sodium 140 (135-145) mmol/L Potassium 4.3 (3.3-5.1) mmol/L Chloride 106 (96-108) mmol/L Carbon Dioxide 25 (22-29) mmol/L Anion Gap 13 (12-20) BUN 15 (9-16) mg/dL Creatinine 0.87 (0.5-1.4) mg/dL Estim Creat Clear Calc 105.9 Estimated GFR > 60 Random Glucose 132 H (60-115) mg/dL Calcium 9.4 (8.4-10.2) mg/dL Total Bilirubin 0.6 (0.0-1.0) mg/dL Direct Bilirubin 0.2 (0.0-0.5) mg/dL AST 37 (5-37) U/L ALT 51 H (0-40) U/L Alkaline Phosphatase 73 (39-117) U/L Troponin I High Sens (<3.5-35.0) ng/L Total Protein 7.2 (6.5-8.0) g/dL Albumin 4.4 (3.5-5.0) g/dL 07/06/22 07/06/22 Range/Units 17:51 20:54 WBC (4.8-10.8) X10*3/uL RBC (4.60-5.80) X10*6/uL Hgb (14.0-18.0) g/dl Hct (42.0-52.0) % MCV (80.0-98.0) fL MCH (27.0-33.0) pg MCHC (31.0-36.0) g/dl RDW (11.0-16.0) % Plt Count (160-400) X10*3/uL MPV (9.4-12.4) fL Immature Gran % (Auto) (0.0-0.4) % Neut % (Auto) (45-73) % Lymph % (Auto) (20-40) % [place] % (Auto) (2-11) % Eos % (Auto) (0-4) % Baso % (Auto) (0-2) % Lymph # (Auto) (1.2-4.9) X10*3/uL [place] # (Auto) (0.1-1.2) X10*3/uL Eos # (Auto) (0.0-0.4) X10*3/uL Baso # (Auto) (0.0-0.2) X10*3/uL Abs Immat Gran (auto) (0.00-0.03) X10*3/uL Absolute Neuts (auto) (2.0-8.3) x10*3/uL Absolute Nucleated RBC (0.0-0.012) X10*3/uL Nucleated RBC % (auto) (0.0-0.2) /100WBC PT (10.0-13.1) SEC INR (0.9-1.1) Sodium (135-145) mmol/L Potassium (3.3-5.1) mmol/L Chloride (96-108) mmol/L Carbon Dioxide (22-29) mmol/L Anion Gap (12-20) BUN (9-16) mg/dL Creatinine (0.5-1.4) mg/dL Estim Creat Clear Calc Estimated GFR Random Glucose (60-115) mg/dL Calcium (8.4-10.2) mg/dL Total Bilirubin (0.0-1.0) mg/dL Direct Bilirubin (0.0-0.5) mg/dL AST (5-37) U/L ALT (0-40) U/L Alkaline Phosphatase (39-117) U/L Troponin I High Sens < 2.7 < 2.7 (<3.5-35.0) ng/L Total Protein (6.5-8.0) g/dL Albumin (3.5-5.0) g/dL Independent Interpretation I performed an independent interpretation of an: EKG Interpretation: Normal sinus rhythm, HR-86, no STEMI, MT/QRS/QTC is within normal limits, no acute changes when compared to EKG from 12/2021 Radiology Impression Radiologist Impression: My interpretation is in agreement with radiology's impression External Record Review External record reviewed: Prior outpatient labs Chronic Conditions Patient?s care impacted by: Diabetes and Hypertension Discharge Plan Discharge Clinical Impression: Chest pain Patient Disposition: Home, Self-Care Instructions: Chest Pain (ED) Additional Instructions: 1. Resume all home medications as prescribed. 2. You have been given a referral to follow-up with cardiology and should call t he office in the morning to set up an appointment for re-evaluation further outpatient management. Return to the ER for any worsening symptoms. Prescriptions: No Action metformin 1,000 mg tablet 1,000 mg PO BIDWMEAL Qty: 60 3RF pantoprazole 20 mg tablet,delayed release (DR/EC) 1 tab PO DAILY simvastatin 20 mg tablet 1 tab PO QPM hydroxyzine HCl 25 mg tablet 1 tab PO QID PRN (Reason: anxiety) losartan 25 mg tablet 25 mg PO DAILY Qty: 14 0RF albuterol sulfate 90 mcg/actuation HFA aerosol inhaler 2 puff inhalation Q6H PRN (Reason: wheezing) Qty: 8.5 0RF Trulicity 3 mg/0.5 mL pen injector 3 mg subcut QWEEK Qty: 2 0RF Jardiance 10 mg tablet 10 mg PO DAILY aspirin 81 mg tablet,delayed release (DR/EC) 81 mg PO DAILY clotrimazole 1 % cream 1 appl topical BID Qty: 30 0RF Rx Instructions: apply twice daily for 14 days Referrals: Walt Hayes MD [Physician] -
[2022-07-06 17:17] VITALS: BP 164/99; PULSE 85; RESP 18; TEMP 36.8; O2SAT 97; BMI 33.4
[2022-07-06 17:57] LABS: MANUAL DIFF FLAG NO
[2022-07-06 18:03] LABS: Basophils Absolute Auto 0.1 X10*3/uL (0.0-0.2); Basophils Percent Auto 0.7 % (0-2); Eosinophils Absolute Auto 0.1 X10*3/uL (0.0-0.4); Eosinophils Percent Auto 1.7 % (0-4); Hemoglobin 16.1 g/dl (14.0-18.0); Imm Gran Abs Auto 0.02 X10*3/uL (0.00-0.03); Imm Gran Pct Auto 0.3 % (0.0-0.4); Lymphocytes Absolute Auto 2.2 X10*3/uL (1.2-4.9); Lymphocytes Percent Auto 29.4 % (20-40); Mean Corpuscular HGB Conc 32.9 g/dl (31.0-36.0); Mean Corpuscular Hemoglobin 28.9 pg (27.0-33.0); Mean Platelet Volume 10.3 fL (9.4-12.4); Monocytes Absolute Auto 0.7 X10*3/uL (0.1-1.2); Monocytes Percent Auto 8.9 % (2-11); Neutrophils Absolute Auto 4.5 x10*3/uL (2.0-8.3); Platelet Count 164 X10*3/uL (160-400); Red Blood Count 5.57 X10*6/uL (4.60-5.80); Red Cell Distribution Width 13.2 % (11.0-16.0); White Blood Count 7.5 X10*3/uL (4.8-10.8)
[2022-07-06 18:04] LABS: INTERNATIONAL NORM RATIO 1.1 (0.9-1.1); Prothrombin Time 12.2 SEC (10.0-13.1)
[2022-07-06 18:20] LABS: Alanine Aminotransferase 51 U/L (0-40); Albumin Level 4.4 g/dL (3.5-5.0); Alkaline Phosphatase 73 U/L (39-117); Anion Gap 13 (12-20); Aspartate Amino Transferase 37 U/L (5-37); Bilirubin Direct 0.2 mg/dL (0.0-0.5); Bilirubin Total 0.6 mg/dL (0.0-1.0); Blood Urea Nitrogen 15 mg/dL (9-16); Calcium 9.4 mg/dL (8.4-10.2); Carbon Dioxide 25 mmol/L (22-29); Chloride 106 mmol/L (96-108); Creatinine Clr Calc Pharmacy 105.9; Estimated Glomerular Filt Rate > 60; Glucose Random 132 mg/dL (60-115); Potassium 4.3 mmol/L (3.3-5.1); Sodium 140 mmol/L (135-145); Total Protein 7.2 g/dL (6.5-8.0)
[2022-07-06 18:29] LABS: Troponin-I High Sensitivity < 2.7 ng/L (<3.5-35.0)
[2022-07-06 20:40] VITALS: BP 148/98; PULSE 79; TEMP 36.9; O2SAT 97
--- NOTE | 2022-07-06 20:47 | MHC.EDTECH ---
This Tech assumed care of this Patient upon arrival. Vital signs done and patient placed on case monitor
[2022-07-06 21:05] VITALS: PULSE 81
[2022-07-06 21:29] LABS: Troponin-I High Sensitivity < 2.7 ng/L (<3.5-35.0)
[2022-07-06 21:37] LABS: Lipase 24 U/L (8-78)
== END 2022-07-06 21:46 | disposition home or self-care (01) ==
PROVIDERS: Nurse Practitioner Family; Emergency Provider Student in an Organized Health Care Education/Training Program
DX: R07.9 Chest pain, unspecified (principal); E11.9 Type 2 diabetes mellitus without complications; I10 Essential (primary) hypertension; E78.5 Hyperlipidemia, unspecified; F17.210 Nicotine dependence, cigarettes, uncomplicated; Z79.02 Long term (current) use of antithrombotics/antiplatelets; Z79.82 Long term (current) use of aspirin; Z79.899 Other long term (current) drug therapy; Z79.85 Long-term (current) use of injectable non-insulin antidiabetic drugs; Z79.84 Long term (current) use of oral hypoglycemic drugs
CPT/HCPCS: 36415; 71046; 80048; 80076; 83690; 84484; 85025; 85610; 93005; 99283; 99285

== ENCOUNTER → 2022-07-15 13:42 | Outpatient (BNVA) | payer OTHER, SELFPAY | PROVIDERS: PCP Internal Medicine; Visit Provider Internal Medicine Cardiovascular Disease | DX: R07.9 Chest pain, unspecified (principal); F17.210 Nicotine dependence, cigarettes, uncomplicated; I25.2 Old myocardial infarction; Z98.61 Coronary angioplasty status | CPT/HCPCS: 93005; 99212 ==

== ENCOUNTER → 2022-07-31 13:32 | Outpatient (BNVA) | payer OTHER, SELFPAY | PROVIDERS: PCP Internal Medicine; Visit Provider Physician Assistant | DX: M75.102 Unspecified rotator cuff tear or rupture of left shoulder, not specified as traumatic (principal); E11.9 Type 2 diabetes mellitus without complications | CPT/HCPCS: 20610; 99202; J1020 ==

== ENCOUNTER → 2022-08-07 08:11 | Outpatient (REF) | payer OTHER, SELFPAY ==
--- NOTE | ~2022-08-07 | NM_ITS ---
Exercise Myocardial perfusion study Indication: Chest pain with prior CAD to evaluate for ischemia Technique: The patient was brought in for an exercise perfusion study on 08/07/2022. Patient performed exercise as per Ketan protocol and was injected 35 mCi of sestamibi was given intravenously one target HR was achieved. Images were obtained using the SPECT gamma camera interlaced with the gating device. Images were obtained in supine position. Resting perfusion study was performed on 08/10/2022. Patient was administered 35 mCi of sestamibi intravenously at rest. Images were then obtained in supine position. Images obtained with and without CT attenuation total DLP 121 mGy-cm. Images were processed with the software and compared side to side in short axis, horizontal long axis and vertical long axis views. Findings: The stress perfusion study showed non attenuated images show moderately reduced uptake in the basal and mid inferior wall and mildly reduced uptake and inferoseptal of the LV myocardium. Remainder of the LV myocardium is normally perfused... Attenuated corrected images show mildly reduced uptake in the inferior wall of the LV myocardium. The gated study shows low normal LV systolic function with calculated LVEF of 51%. LV cavity is highly dilated in size. The gated study shows reduced wall thickening and contraction of basal and mid inferior wall segments. There is no transient ischemic dilation. Resting study shows non attenuated showed stress perfusion study. Gating at rest reveals basal and mid inferior wall motion abnormality with ejection fraction at 51%. The findings are consistent with no reversible defect suggestive of ischemia. Likely nontransmural infarct of the basal and mid anterior wall. NM/NM cardiolite stress test Impression: 1. Nontransmural infarct of the basal and mid inferior with no evidence of reversible ischemia 2. Gated LVEF is 51% 3. Transient ischemic dilatation not present Stress EKG is negative for ischemia
--- NOTE | 2022-08-07 08:32 | CA_ITS ---
Acquisition Time: 2022-08-07 08:44:04 Total Exercise Time: 00:08:21 Test Indications: CP Medications: SEE H Protocol: SUJATHA Max HR: 142 BPM 87% of Pred: 162 BPM Max BP: 150/074 mmHG Max Work Load: 10.1 METS Exercise stress test with exercise 8 min 21 sec of Sujatha protocol, achieving 87% MPHR, with mild sob, no chest discomfort, with isolated PACs and PVCs, with normotensive response to exercise, without EKG changes meeting criteria for ischemia. Nuclear images pending. Test reviewed with Dr Hayes Referred By: Richie Aldridge Overread By: JORGE RODRIGUEZ
== END ==
LOC: HO.CARD 08:11
PROVIDERS: Visit Provider Internal Medicine Cardiovascular Disease
DX: R07.9 Chest pain, unspecified (principal); Z98.61 Coronary angioplasty status
CPT/HCPCS: 78452; 93017; A9500

== ENCOUNTER 2022-09-09 09:11 | Outpatient (AMB) | payer OTHER, SELFPAY ==
--- OUTSIDE RECORDS SUMMARY | 2022-09-09 09:12 | XMS_ITS | Continuity of Care Document ---
Author Name Unknown Organization [facility] Address [address] [place] [address]- Care Team Providers Care Building Analyst/Supervisor Name Role Phone Kristine Valdivia MD Primary Care Physician [phone] Encounter [facility] Date(s): 03/16/22 - 04/15/22 [facility] [address]- Attending Physician: Admtr, Ar8 Allergies, Adverse Reactions, Alerts Substance Reaction Severity Status doxycycline rash Active Immunizations Given and Recorded Vaccine Date Status Refusal Reason SARS-CoV-2 mRNA (lsarizr-zryf-hewsv) vax 03/18/21 Given pneumococcal 23-valent vaccine 03/18/21 Given pneumococcal 23-valent vaccine 1 05/26/11 Given SARS-CoV-2 (COVID-19) mRNA-1273 vaccine 05/31/20 R ecorded SARS-CoV-2 (COVID-19) mRNA-1273 vaccine 05/03/20 R ecorded influenza virus vaccine, inactivated 04/14/17 Give n tetanus/diphtheria/pertussis, acel(Tdap) 01/16/14 Given tetanus-diphtheria toxoids (Td) 2 04/30/08 Given tetanus-diphtheria toxoids (Td) 05/19/96 Given 1Admin Note: VIS 11/20/08 GIVEN 2Admin Note: VIS 07/25/93 GIVEN Medications albuterol CFC free 90 mcg/inh inhalation aerosol 2, puffs, Inhalation, Every 4 hours, PRN, # 42.5 Gm, Refills 5, Tot. Refills 5, Soft Stop, :56:00 EDT, Route to Pharmacy Electronically, [id number], [facility] 3, 175, cm, 12/02/21 19:43:00 EDT, Height,... Start Date: 12/03/21 Status: Ordered ammonium lactate 12% topical cream 1 application, Topically, 2 times a day, apply and rub in well to soles of feet, # 280 Gm, 5 Refills, Maintenance, 03/16/22 14:40:00 EST, Cream, [facility], Partial fill upon patient request if the prescription is for a schedule II... Start Date: 03/16/22 Status: Ordered aspirin 81 mg oral tablet, chewable 1 tablet, By Mouth, Daily, for 90 days, CHEW., # 90 tablet, 3 Refills, Physician Stop 03/11/23 14:39:00 EST, 03/16/22 14:39:00 EST, [facility], 175, cm, 03/16/22 14:06:00 EST, Height, 72, kg, 11/26/21 18:42:00 EDT, Dry Weight Start Date: 03/16/22 Stop Date: 03/11/23 Status: Ordered atorvastatin 10 mg oral tablet 1 tablet = 10 mg, By Mouth, Daily, # 90 tablet, 3 Refills, Maintenance, 03/16/22 14:39:00 EST, [facility], Partial fill upon patient request if the prescription is for a schedule II opioid drug., 175, cm, 03/16/22 14:06:00 EST, Hei... Start Date: 03/16/22 Status: Ordered Freestyle Lite Lancets See Instructions, # 180 each, Refills 3, Tot. Refills 3, Maintenance, use as directed for Type 2 Diabetes Mellitus. Checking POC 1-2 times daily (fasting and two hours [id number]-[id number]-[id number] meal of day), 03/18/21 12:40:00 EST, Supply, 171, cm, ... Start Date: 03/18/21 Status: Ordered Freestyle Lite Test Strips See Instructions, # 180 each, Refills 3, Tot. Refills 3, Maintenance, use as directed for Type 2 Diabetes Mellitus. Checking POC 1-2 times daily (fasting and two hours pfnu-qbbwwxqg-sbxjycx meal of day), 03/18/21 12:38:00 EST, 3 month supply if cover... Start Date: 03/18/21 Stop Date: 07/16/21 Status: Ordered Jardiance 10 mg oral tablet 1 tablet, By Mouth, Daily in AM, for 90 days, # 90 tablet, 3 Refills, Physician Stop 03/11/23 14:39:00 EST, 03/16/22 14:39:00 EST, [facility], 175, cm, 03/16/22 14:06:00 EST, Height, 72, kg, 11/26/21 18:42:00 EDT, Dry Weight Start Date: 03/16/22 Stop Date: 03/11/23 Status: Ordered losartan 25 mg oral tablet 1 tablet, By Mouth, Daily, for 90 days, # 90 tablet, 3 Refills, Physician Stop 03/11/23 14:39:00 EST, 03/16/22 14:39:00 EST, [facility], 175, cm, 03/16/22 14:06:00 EST, Height, 72, kg, 11/26/21 18:42:00 EDT, Dry Weight Start Date: 03/16/22 Stop Date: 03/11/23 Status: Ordered metFORMIN 500 mg oral tablet, extended release 1 tablet = 500 mg, By Mouth, 2 times a day, for 90 days, # 180 tablet, 3 Refills, Hard Stop 11/28/22 8:56:00 EDT, 12/03/21 8:56:00 EDT, [facility] 3, 175, cm, 12/02/21 19:43:00 EDT, Height, 72, kg, 11/26/21 18:42:00 EDT, Dry Weight Start Date: 12/03/21 Stop Date: 11/28/22 Status: Ordered metoprolol 50 mg oral tablet, extended release 50 mg, 1, tablet, By Mouth, Daily, # 90 tablet, Refills 3, Tot. Refills 3, Maintenance, 03/16/22 14:39:00 EST, Route to Pharmacy Electronically, [facility], Partial fill upon patient request if the prescription is for a schedule II... Start Date: 03/16/22 Status: Ordered pantoprazole 20 mg oral delayed release tablet = 20 mg, By Mouth, Daily, # 90 each, 3 Refills, Maintenance, 11/28/22 8:56:00 EDT, EC Tablet, 175, cm, 03/16/22 14:06:00 EST, Height, 72, kg, 11/26/21 18:42:00 EDT, Dry Weight Start Date: 11/28/22 Status: Ordered Trulicity Pen 3 mg/0.5 mL subcutaneous solution 0.5 mL = 3 mg, Subcutaneous Injection, Every week, for 90 days, rotate injection sites. 3 month supply if covered by insurance, # 6.5 mL, 3 Refills, Hard Stop 12/17/22 16:20:00 EDT, 12/22/21 16:20:00EST, Solution, [facility], Part... Start Date: 12/22/21 Stop Date: 12/17/22 Status: Ordered Trulicity Pen 3 mg/0.5 mL subcutaneous solution 0.5 mL = 3 mg, Subcutaneous Injection, Every week, rotate injection sites. 3 month supply if covered by insurance, # 6.5 mL, 3 Refills, Maintenance, 12/17/22 16:20:00 EDT, Solution, [facility], Partial fill upon patient request if... Start Date: 12/17/22 Status: Ordered Problem List Condition Confirmation Course Effective Dates Status H ealth Status Informant Appendectomy with drainage 1 Confirmed 06/03/08 Active Asthma (PFTS confirm) Confirmed 12/25/16 Active Serrated adenoma of colon 2 Confirmed 05/15/13 Active Depression-moderate major-recurrent 3 Confirmed 11/14/13 Active Nummular dermatitis (lower leg) Confirmed 12/25/15 Active Elevated LFTs 4 Confirmed 02/17/06 Active Gastroesophageal reflux disease 5, 6 Confirmed Active Genital HSV Confirmed Active Hyperlipidemia 7 Confirmed 2006 Active Hypertension Confirmed 05/02/21 Active Impaired glucose tolerance in obese 8 Confirmed 09/08/08 Active Episodic mood disorder Confirmed 09/14/13 Active NSTEMI (non-ST elevated myocardial infarction) Confirmed 02/28/20 Active Non-alcoholic fatty liver disease Confirmed 01/09/19 Active Obesity Confirmed 09/02/08 Active JIE (moderate, 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 therapist Shravan Chester 4Hepatitis serology 2009-negative hep C, hep a and b immune 5EGD: 06/2017: normal 6NO hiatal hernia, but cannot find appropropriate listing in problem list 7Treatment started with statin 09/2009 8FBS 105, A1C 6.4 Social History Social History Type Response Smoking Status 10 or more cigarette s (1/2 pack or more)/day in last 30 days; Other: .5 ppd x 30 years; entered on: 05/28/20 Sex Note * Event Display: Cardiology Office Note, Non-BH Authored Date: * Event Display: Non BH Cardiovascular Results Authored Date: * Kristine Valdivia MD: REVIEW Event Display: Non BH Lab Results Authored Date: * Kristine Valdivia MD: REVIEW Event Display: Non BH Lab Results Authored Date: * Kristine Valdivia MD: REVIEW Event Display: Non BH Lab Results Authored Date: * Kristine Valdivia MD: REVIEW Event Display: Non BH Lab Results Authored Date: Patient Care team information Care Team Personnel Name: Basilia Holland RN Position: [facility] RN Member Role: Primary Care Nurse Name: Kristine Valdivia MD Position: [facility] Primary Care Physician Member Role: PCP Address: Address: [address] [place] [address]- Name: Maddison Avila RN Position: S RN Member Role: Primary Care Nurse Name: Mackenzie Salinas RN Position: S RN Member Role: Primary Care Nurse Name: Holley Negron RN Position: S RN Member Role: Primary Care Nurse Name: Vandana Ly RN Position: S RN Member Role: Primary Care Nurse Care Team Related Persons Name: CARLOS FLOYD Address: home [address] [place] [id number] Name: IAN WHITE Address: [address] [address] Name: JE KIRKPATRICK Name: EVE GOMEZ Address: home [address] [place] [id number]
--- OUTSIDE RECORDS SUMMARY | 2022-09-09 09:12 | XMS_ITS | Continuity of Care Document ---
Author Name Unknown Organization [facility] Address Unknown Care Team Providers Care Ticket Taker [place] Name Role Phone Kristine Valdivia MD Primary Care Physician [phone] Encounter [facility] [place] Date(s): 12/11/20 - 01/10/21 [facility] Attending Physician: AdmtrArron Allergies, Adverse Reactions, Alerts Substance Reaction Severity Status doxycycline rash Active Immunizations Given and Recorded Vaccine Date Status Refusal Reason SARS-CoV-2 (COVID-19) mRNA-1273 vaccine 05/31/20 R ecorded SARS-CoV-2 (COVID-19) mRNA-1273 vaccine 05/03/20 R ecorded influenza virus vaccine, inactivated 04/14/17 Give n tetanus/diphtheria/pertussis, acel(Tdap) 01/16/14 Given pneumococcal 23-valent vaccine 1 05/26/11 Given tetanus-diphtheria toxoids (Td) 2 04/30/08 Given tetanus-diphtheria toxoids (Td) 05/19/96 Given 1Admin Note: VIS 11/20/08 GIVEN 2Admin Note: VIS 07/25/93 GIVEN Medications albuterol CFC free 90 mcg/inh inhalation aerosol 2, puffs, Inhalation, Every 4 hours, PRN, # 42.5 Gm, Refills 5, Tot. Refills 5, Soft Stop, 02/21/2013:20:00 EST, Route to Pharmacy Electronically, [id number], [facility] #[id number], 175.26, cm, 01/09/19 14:57:00 EST, H... Start Date: 02/21/19 Status: Ordered aspirin 81 mg oral tablet, chewable 1 tablet, By Mouth, Daily, CHEW., # 90 tablet, 3 Refills, [facility] #[id number], 173, cm, 10/09/20 16:52:00 EDT, Height, 103.45, kg, 03/20/20 17:23:00 EST, Dry Weight Start Date: 01/07/21 Status: Ordered atorvastatin 40 mg oral tablet 1 tablet = 40 mg, By Mouth, Daily at bedtime, # 30 tablet, 0 Refills, Maintenance, 02/28/20 9:38:00EST, Tablet, [facility] #[id number], Partial fill upon patient request if the prescription is for a schedule II opioid drug., 173, cm, 02/28/20 7:... Start Date: 02/28/20 Status: Ordered clotrimazole 1% topical cream 1 application, Topically, 2 times a day, apply to rash on penis, # 30 Gm, 1 Refills, Maintenance, 10/09/20 17:27:00 EDT, Cream, [facility] #[id number], Partial fill upon patient request if the prescription is for a schedule II opioid drug., 1 erasmo... Start Date: 10/09/20 Status: Ordered hydrOXYzine hydrochloride 25 mg oral tablet 1 tablet, By Mouth, 4 times a day, PRN NEEDED FOR ACUTE ANXIETY, MAY CAUSE DROWSINESS, # 25 tablet, 1 Refills, Acute, 07/08/20 10:46:00 EDT, [facility] #[id number], 173, cm, 05/28/20 10:07:00EDT, Height, 103.45, kg, 03/20/20 17:23:00 EST, Dry... Start Date: 07/08/20 Status: Ordered Jardiance 10 mg oral tablet 1 tablet, By Mouth, Daily in AM, # 90 tablet, 0 Refills, [facility] #[id number], 173, cm, 10/09/20 16:52:00 EDT, Height, 103.45, kg, 03/20/20 17:23:00 EST, Dry Weight Start Date: 01/07/21 Status: Ordered metFORMIN 500 mg oral tablet, extended release 1 tablet = 500 mg, By Mouth, 2 times a day, # 180 tablet, 3 Refills, Maintenance, 05/16/20 13:07:00EDT, [facility] #[id number], 173, cm, 04/19/20 10:59:00 EST, Height, 103.45, kg, 03/20/20 17:23:00 EST, Dry Weight Start Date: 05/16/20 Stop Date: 07/06/21 Status: Ordered metoprolol 50 mg oral tablet, extended release 50 mg, 1, tablet, By Mouth, Daily, # 90 tablet, Refills 3, Tot. Refills 3, Maintenance, 03/27/20 13:28:00 EST, Route to Pharmacy Electronically, [facility] #[id number], Partial fill upon patientrequest if the prescription is for a schedule II op... Start Date: 03/27/20 Status: Ordered nicotine 21 mg/24 hr transdermal film, extended release 1 patch, Topically, Daily, plan to change to 14 mg patch after 2 months, # 30 patch, 1 Refills, Maintenance, 10/10/20 9:30:00 EDT, Patch, [facility] #[id number], Partial fill upon patient request if the prescription is for a schedule II opioid dr... Start Date: 10/10/20 Status: Ordered pantoprazole 20 mg oral delayed release tablet = 20 mg, By Mouth, Daily, # 90 tablet, 3 Refills, Maintenance, 03/29/20 9:39:00 EST, EC Tablet, 173, cm, 03/20/20 17:23:00 EST, Height, 103.45, kg, 03/20/20 17:23:00 EST, Dry Weight Start Date: 03/29/20 Stop Date: 03/24/21 Status: Ordered ticagrelor 90 mg oral tablet 1 tablet = 90 mg, By Mouth, 2 times a day, # 180 tablet, 1 Refills, Maintenance, 03/27/20 14:18:00 EST, Tablet, [facility] #[id number], Partial fill upon patient request if the prescription is for a schedule II opioid drug., 173, cm, 03/20/20 17:... Start Date: 03/27/20 Stop Date: 09/23/20 Status: Ordered Trulicity Pen 1.5 mg/0.5 mL subcutaneous solution 0.5 mL = 1.5 mg, Subcutaneous Injection, Every week, rotate injection sites. 3 month supply-to begin after completing 4 weeks of 0.75 mg dose, # 6 mL, 3 Refills, Maintenance, 10/10/20 9:31:00 EDT, [place], [facility] #[id number], Partial fill up... Start Date: 10/10/20 Status: Ordered Problem List Condition Effective Dates Status Health Status Inform ant Appendectomy with drainage(C onfirmed) 1 06/03/08 Active Asthma (PFTS confirm)(Confirmed) 12/25/16 Active Serrated adenoma of colon(Confirmed) 2 05/15/13 Active Depression-moderate major-recurrent(Confirmed) 3 11/14/13 Active Nummular dermatitis (lower leg)(Confirmed) 12/25/15 Active Elevated LFTs(Confirmed) 4 02/17/06 Active Gastroesophageal reflux disease(Confirmed) 5, 6 Active Genital HSV(Confirmed) Active Hyperlipidemia(Confirmed) 2006 Active Impaired glucose tolerance i n obese(Confirmed) 8 09/08/08 Active Episodic mood disorder(Confirmed) 09/14/13 Active NSTEMI (non-ST elevated myoc ardial infarction)(Confirmed) 02/28/20 Active Non-alcoholic fatty liver disease(Confirmed) 01/09/19 Active Obesity(Confirmed) 09/02/08 Active JIE (moderate, 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 therapist Shravan Chester 4Hepatitis serology 2008-negative hep C, hep a and b immune [...]
--- OUTSIDE RECORDS SUMMARY | 2022-09-09 09:12 | XMS_ITS | Continuity of Care Document ---
Author Name Unknown Organization [facility] Address Unknown Care Team Providers Care Fieldwork Coordinator Name Role Phone Kristine Valdivia MD Primary Care Physician [phone] [place] [facility] [place] 03/[place]21 - 05/11/21 [facility] Attending Physician: Kristine Valdivia MD Admitting Physician: Kristine Valdivia MD Allergies, Adverse Reactions, Alerts Substance Reaction Severity Status doxycycline rash Active Immunizations Given and Recorded Vaccine Date Status Refusal Reason SARS-CoV-2 mRNA (pxwiofz-pvjx-tgvus) vax 03/18/21 Given pneumococcal 23-valent vaccine 03/18/21 [...] Stop, 02/21/2013:20:00 EST, Route to Pharmacy Electronically, [id number], [facility] #[id number], 175.26, cm, 01/09/19 14:57:00 EST, H... Start Date: 02/21/19 Status: Ordered ammonium lactate 12% topical cream 1 application, Topically, 2 times a day, apply and rub in well to soles of feet, # 280 Gm, 5 Refills, Maintenance, 03/18/21 12:42:00 EST, Cream, [facility] #[id number], Partial fill upon patientrequest if the prescription is for a schedule II op... Start Date: 03/18/21 Status: Ordered aspirin 81 mg oral tablet, chewable 1 tablet, By Mouth, Daily, CHEW., # 90 tablet, 3 Refills, 03/18/21 12:33:00 EST, [facility] #[id number], 171, cm, 03/18/21 11:26:00 EST, Height, 95.6, kg, 03/05/21 17:48:00 EST, Dry Weight Start Date: 03/18/21 Status: Ordered atorvastatin 40 mg oral tablet 1 tablet, By Mouth, Daily at bedtime, # 90 tablet, 3 Refills, [facility] #[id number], 171, cm,03/18/21 11:26:00 EST, Height, 95.6, kg, 03/05/21 17:48:00 EST, Dry Weight Start Date: 03/19/21 Status: Ordered clotrimazole 1% topical cream 1 application, Topically, 2 times a day, apply to rash on penis, # 30 Gm, 1 Refills, Maintenance, 03/18/21 12:43:00 EST, Cream, [facility] #[id number], Partial fill upon patient request if the prescription is for a schedule II opioid drug., 1 erasmo... Start Date: 03/18/21 Status: Ordered Freestyle Lite Lancets See Instructions, # 180 each, Refills 3, Tot. Refills 3, Maintenance, use as directed for Type 2 Diabetes Mellitus. Checking POC 1-2 times daily (fasting and two hours chaf-roedrpdp-xkvjblw meal of day), 03/18/21 12:40:00 EST, Supply, 171, cm, ... Start Date: 03/18/21 Status: Ordered Freestyle Lite Test Strips See Instructions, # 180 each, Refills 3, Tot. Refills 3, Maintenance, use as directed for Type 2 Diabetes Mellitus. Checking POC 1-2 times daily (fasting and two hours mqgc-ryopakvr-hqxsesu meal of day), 03/18/21 12:38:00 EST, 3 month supply if cover... Start Date: 03/18/21 Stop Date: 07/16/21 Status: Ordered hydrOXYzine hydrochloride 25 mg oral tablet 1 tablet, By Mouth, 4 times a day, PRN NEEDED FOR ACUTE ANXIETY, MAY CAUSE DROWSINESS, # 25 tablet, 1 Refills, [email or web address] #[id number], 171, cm, 03/05/21 17:48:00 EST, Height, 95.6, kg, 03/05/21 17:48:00 EST, Dry Weight Start Date: 03/17/21 Status: Ordered Jardiance 10 mg oral tablet 1 tablet, By Mouth, Daily in AM, # 90 tablet, 0 Refills, 03/18/21 12:33:00 EST, [facility] #[id number], 171, cm, 03/18/21 11:26:00 EST, Height, 95.6, kg, 03/05/21 17:48:00 EST, Dry Weight Start Date: 03/18/21 Status: Ordered losartan 25 mg oral tablet 25 mg, 1, tablet, By Mouth, Daily, # 90 tablet, Refills 0, Tot. Refills 0, Maintenance, 03/20/21 14:40:00 EST, Route to Pharmacy Electronically, [facility] #[id number], Partial fill upon patientrequest if the prescription is for a schedule II op... Start Date: 03/20/21 Status: Ordered metFORMIN 500 mg oral tablet, extended release 1 tablet = 500 mg, By Mouth, 2 times a day, for 90 days, # 180 tablet, 3 Refills, Hard Stop 07/06/21 17:27:34 EDT, 05/16/20 13:07:00 EDT, [email or web address] #[id number], 173, cm, 04/19/20 10:59:00 EST, Height, 103.45, kg, 03/20/20 17:23:00 EST, Dry Weight Start Date: 05/16/20 Stop Date: 07/06/21 Status: Ordered metFORMIN 500 mg oral tablet, extended release 1 tablet = 500 mg, By Mouth, 2 times a day, # 180 tablet, 3 Refills, Maintenance, 07/06/21 17:27:00EDT, [email or web address] #[id number], 171, cm, 03/18/21 11:26:00 EST, Height, 95.6, kg, 03/05/21 17:48:00 EST, Dry Weight Start Date: 07/06/21 Stop Date: 07/01/22 Status: Ordered metoprolol 50 mg oral tablet, extended release 50 mg, 1, tablet, By Mouth, Daily, # 90 tablet, Refills 3, Tot. Refills 3, Maintenance, 03/18/21 12:33:00 EST, Route to Pharmacy Electronically, [email or web address] #[id number], Partial fill upon patientrequest if the prescription is for a schedule II op... Start Date: 03/18/21 Status: Ordered nicotine 21 mg/24 hr transdermal film, extended release 1 patch, Topically, Daily, plan to change to 14 mg patch after 2 months, # 30 patch, 1 Refills, Maintenance, 05/08/21 14:59:00 EDT, Patch, [facility] #[id number], Partial fill upon patient request if the prescription is for a schedule II opioid d... Start Date: 05/08/21 Status: Ordered pantoprazole 20 mg oral delayed release tablet = 20 mg, By Mouth, Daily, # 90 tablet, 3 Refills, Maintenance, 03/24/21 9:39:00 EST, EC Tablet, 171, cm, 03/18/21 11:26:00 EST, Height, 95.6, kg, 03/05/21 17:48:00 EST, Dry Weight Start Date: 03/24/21 Stop Date: 03/19/22 Status: Ordered ticagrelor 90 mg oral tablet 1 tablet = 90 mg, By Mouth, 2 times a day, # 180 tablet, 3 Refills, Maintenance, 03/18/21 12:33:00 EST, Tablet, [email or web address] #[id number], Partial fill upon patient request if the prescription is for a schedule II opioid drug., 171, cm, 03/18/21 11:... Start Date: 03/18/21 Stop Date: 03/13/22 Status: Ordered Trulicity Pen 3 mg/0.5 mL subcutaneous solution 0.5 mL = 3 mg, Subcutaneous Injection, Every week, rotate injection sites. 3 month supply if covered by insurance, # 6.5 mL, 3 Refills, Maintenance, 03/18/21 12:34:00 EST, Solution, [facility] #[id number], Partial fill upon patient request if the... Start Date: 03/18/21 Stop Date: 03/13/22 Status: Ordered Problem List Condition Effective Dates Status Health Status Inform ant Appendectomy with drainage(C onfirmed) 1 06/03/08 Active Asthma (PFTS confirm)(Confirmed) 12/25/16 Active Serrated adenoma of colon(Confirmed) 2 05/15/13 Active Depression-moderate major-recurrent(Confirmed) 3 11/14/13 Active Nummular dermatitis (lower leg)(Confirmed) 12/25/15 Active Elevated LFTs(Confirmed) 4 02/17/06 Active Gastroesophageal reflux disease(Confirmed) 5, 6 Active Genital HSV(Confirmed) Active Hyperlipidemia(Confirmed) 2006 Active Hypertension(Confirmed) 05/02/21 Active Impaired glucose tolerance i n obese(Confirmed) 8 09/08/08 Active Episodic mood disorder(Confirmed) 09/14/13 Active NSTEMI (non-ST elevated myoc ardial infarction)(Confirmed) 02/28/20 Active Non-alcoholic fatty liver disease(Confirmed) 01/09/19 Active Obese class I(Confirmed) Active Obesity(Confirmed) 09/02/08 Active JIE (moderate, 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 therapist Shravan [...]
[2022-09-09 09:13] VITALS: BP 122/84; PULSE 89; BMI 33.6
--- NOTE | 2022-09-09 09:13 | MHC.OFFVIS ---
Intake Vital Signs 09/09/22 09:13 Height 5 ft 8 in Weight 221 lb BMI 33.6 BP 122/84 Blood Pressure Location Lt brachial Position Sitting Pulse 89 Pulse Source Pulse Oximeter Intake Visit Reasons: 2 mth s/p stress Intake Note: 2 month follow up after stress test. Optimization Engineer Required: No Accompanied by: Self / Same As Patient Allergies doxycycline Allergy (Unknown, Verified 09/09/22 09:14) Unknown Medication List - Last Reconciled 09/09/22 by Richie Aldridge MD albuterol sulfate 90 mcg/actuation 2 puffs inhalation Q6H PRN aspirin 1 tab PO DAILY atorvastatin 20 mg PO DAILY clotrimazole 1% 1 appl topical BID dulaglutide (Trulicity) 3 mg (0.5 mL) subcut QWEEK empagliflozin (Jardiance) 10 mg PO DAILY hydroxyzine HCl 1 tab PO QID PRN losartan 50 mg PO DAILY metformin 1,000 mg PO BIDWMEAL pantoprazole 1 tab PO DAILY simvastatin 1 tab PO QPM HPI HPI Comments History of Present Illness Details Pleasant 57-year-old gentleman who is here for follow-up. He was taken for cardiac catheterization in 2020 for NSTEMI. He had mild disease in the LAD circumflex artery and severe proximal and mid RCA stenosis which was treated with drug-eluting stents. He did fine after that. He is an active smoker. On July 06 he was in the emergency department with chest discomfort. He said he had central chest tightness lasting for 15 minutes at rest. With these symptoms he came to emergency department. He was ruled out and discharged home. He is saying since then he has not had any significant discomfort in his chest. He is not physically active but does stretching exercises for his shoulders due to rotator cuff injury in the past. Does not exercise on treadmill or do any regular workup. He is smoking 10 cigarettes per day. 09/09/22: Returns for follow-up who your joint resume her been exercising regularly. He has no exertional symptoms. He underwent stress testing where he was able to exercise to 10.1 metabolic equivalents without any EKG changes or chest discomfort. Interestingly his nuclear perfusion imaging showed a nontransmural infarct of the basal and mid inferior wall with no reversible ischemia and gated LVEF was 51%. He has been doing well and has no exertional symptoms. He had chest tightness originally when he presented with NSTEMI in 2020. [facility] Medical History Anxiety Diabetes Family history of coronary arteriosclerosis High cholesterol HTN (hypertension) Smoking Surgical History H/O hernia repair H/O lateral meniscus repair of left knee H/O vascular surgery History of appendectomy S/P cardiac catheterization Family History Mother Heart attack Diabetes Social History Household Members: Significant Other Housing: House Alcohol intake: never Patient Tobacco Use Status: Current everyday Tobacco user Tobacco use type: Cigarette Cigarette Packs Per Day: 0.5 Cigarettes Per Day: 10 Years Smoked: 30 +/- e-Cigarette/Vaping Use: Never Used service: No Current occupational status: employed Review of Systems Const Denies weakness ENT Denies dizziness Card Denies chest pain, Denies chest pain with activity, Denies syncope, Denies rapid heart rate, Denies pedal edema, Denies edema, Denies leg edema, Denies lightheadedness, Denies palpitations, Denies dyspnea, Denies dyspnea on exertion and Denies orthopnea Resp Denies cough, Denies dyspnea and Denies dyspnea on exertion GI Denies hematochezia and Denies change in stool character Musc Denies abnormal gait, Denies muscle cramps, Denies muscle weakness, Denies numbness, Denies radiating pain into limb and Denies tingling Neuro Denies abnormal gait, Denies dizziness, Denies syncope, Denies numbness, Denies tingling and Denies weakness Endo Denies palpitations Physical Exam Vital Signs: Last Vital Signs Pulse 89 09/09/22 09:13 BP 122/84 09/09/22 09:13 BMI result Body Mass Index 33.6 GENERAL APPEARANCE: in no acute distress, pleasant. NECK: no carotid bruit, no jugular venous distention. SKIN: no suspicious lesions, warm and dry. HEART: no murmurs, regular rate and rhythm. LUNGS: clear to auscultation bilaterally. ABDOMEN: soft, nontender. EXTREMITIES: no edema. PERIPHERAL PULSES: equal. NEUROLOGIC: No gross deficits, AAO X 3 Assessment & Plan Assessment & Plan (1) Stable angina: Code(s): I20.8 - Other forms of angina pectoris (2) HTN (hypertension): Code(s): I10 - Essential (primary) hypertension (3) High cholesterol: Code(s): E78.00 - Pure hypercholesterolemia, unspecified Plan Pleasant 57-year-old gentleman here for follow-up. He has known history of coronary disease with previous RCA PCI in 2020. He had 1 episode of chest discomfort while he was under stress. He ruled out in the hospital and was discharged home. Subsequent to that he had exercise stress test where he was able to exercise for 10.1 metabolic equivalents without any EKG changes or chest discomfort. Nuclear perfusion imaging showed nontransmural infarct involving the basal to mid inferior wall. Gated LVEF was 51%. He has not had any echocardiography in the last 2 years. We will arrange an echocardiogram to assess wall motion and ejection fraction. Clinically he appears to be stable. He has been exercising regularly at a gym and has no exertional chest discomfort. I have advised him to stay active and continue the same medications for now. His last LDL was 88. Started is less than 70. As he is exercising regularly now I repeated LDL can be done in 6-8 weeks and if it is not improving then atorvastatin can be increased to 40 mg. If he developed any exertional symptoms and he will reach out to us and in that case we will consider further workup otherwise he is stable right now and should continue to stay active. Thank you for allowing me to participate in the care of your patient. Please feel free to contact me if you have any questions. Orders: Orders CA echo transthoracic complete Today I20.8 - Other forms of angina pectoris Coding Level of Care Code Est Pt Level 4 (57635) Diagnoses Stable angina I20.8 HTN (hypertension) I10 High cholesterol E78.00
--- OUTSIDE RECORDS SUMMARY | 2022-09-09 09:13 | XMS_ITS | Continuity of Care Document ---
Author Name Unknown Organization [facility] Address Unknown Care Team Providers Care Patient Service Representative Name Role Phone Kristine Valdivia MD Primary Care Physician Encounter [facility] [place] Date(s): 03/20/21 - 04/19/21 [facility] Allergies, Adverse Reactions, Alerts Substance Reaction Severity Status doxycycline rash Active Immunizations Given and Recorded Vaccine Date Status Refusal Reason SARS-CoV-2 mRNA (ecfynds-czwb-wrsud) vax 03/18/21 Given pneumococcal 23-valent vaccine 03/18/21 [...] Stop, 02/21/2013:20:00 EST, Route to Pharmacy Electronically, [id number], [facility] #[id number], 175.26, cm, 01/09/19 14:57:00 EST, H... Start Date: 02/21/19 Status: Ordered ammonium lactate 12% topical cream 1 application, Topically, 2 times a day, apply and rub in well to soles of feet, # 280 Gm, 5 Refills, Maintenance, 03/18/21 12:42:00 EST, Cream, [facility] #[id number], Partial fill upon patientrequest if the prescription is for a schedule II op... Start Date: 03/18/21 Status: Ordered aspirin 81 mg oral tablet, chewable 1 tablet, By Mouth, Daily, CHEW., # 90 tablet, 3 Refills, 03/18/21 12:33:00 EST, [facility] #[id number], 171, cm, 03/18/21 11:26:00 EST, Height, 95.6, kg, 03/05/21 17:48:00 EST, Dry Weight Start Date: 03/18/21 Status: Ordered atorvastatin 40 mg oral tablet 1 tablet, By Mouth, Daily at bedtime, # 90 tablet, 3 Refills, [facility] #[id number], 171, cm,03/18/21 11:26:00 EST, Height, 95.6, kg, 03/05/21 17:48:00 EST, Dry Weight Start Date: 03/19/21 Status: Ordered clotrimazole 1% topical cream 1 application, Topically, 2 times a day, apply to rash on penis, # 30 Gm, 1 Refills, Maintenance, 03/18/21 12:43:00 EST, Cream, [facility] #[id number], Partial fill upon patient request if the prescription is for a schedule II opioid drug., 1 erasmo... Start Date: 03/18/21 Status: Ordered Freestyle Lite Lancets See Instructions, # 180 each, Refills 3, Tot. Refills 3, Maintenance, use as directed for Type 2 Diabetes Mellitus. Checking POC 1-2 times daily (fasting and two hours jdto-rfhkskca-mjjlqwo meal of day), 03/18/21 12:40:00 EST, Supply, 171, cm, ... Start Date: 03/18/21 Status: Ordered Freestyle Lite Test Strips See Instructions, # 180 each, Refills 3, Tot. Refills 3, Maintenance, use as directed for Type 2 Diabetes Mellitus. Checking POC 1-2 times daily (fasting and two hours tfbk-hbvnyyhr-plqpnya meal of day), 03/18/21 12:38:00 EST, 3 month supply if cover... Start Date: 03/18/21 Stop Date: 07/16/21 Status: Ordered hydrOXYzine hydrochloride 25 mg oral tablet 1 tablet, By Mouth, 4 times a day, PRN NEEDED FOR ACUTE ANXIETY, MAY CAUSE DROWSINESS, # 25 tablet, 1 Refills, [facility] #[id number], 171, cm, 03/05/21 17:48:00 EST, Height, 95.6, kg, 03/05/21 17:48:00 EST, Dry Weight Start Date: 03/17/21 Status: Ordered Jardiance 10 mg oral tablet 1 tablet, By Mouth, Daily in AM, # 90 tablet, 0 Refills, 03/18/21 12:33:00 EST, [facility] #[id number], 171, cm, 03/18/21 11:26:00 EST, Height, 95.6, kg, 03/05/21 17:48:00 EST, Dry Weight Start Date: 03/18/21 Status: Ordered losartan 25 mg oral tablet 25 mg, 1, tablet, By Mouth, Daily, # 90 tablet, Refills 0, Tot. Refills 0, Maintenance, 03/20/21 14:40:00 EST, Route to Pharmacy Electronically, [facility] #[id number], Partial fill upon patientrequest if the prescription is for a schedule II op... Start Date: 03/20/21 Status: Ordered metFORMIN 500 mg oral tablet, extended release 1 tablet = 500 mg, By Mouth, 2 times a day, for 90 days, # 180 tablet, 3 Refills, Hard Stop 07/06/21 17:27:34 EDT, 05/16/20 13:07:00 EDT, [facility] #[id number], 173, cm, 04/19/20 10:59:00 EST, Height, 103.45, kg, 03/20/20 17:23:00 EST, Dry Weight Start Date: 05/16/20 Stop Date: 07/06/21 Status: Ordered metFORMIN 500 mg oral tablet, extended release 1 tablet = 500 mg, By Mouth, 2 times a day, # 180 tablet, 3 Refills, Maintenance, 07/06/21 17:27:00EDT, [facility] #[id number], 171, cm, 03/18/21 11:26:00 EST, Height, 95.6, kg, 03/05/21 17:48:00 EST, Dry Weight Start Date: 07/06/21 Stop Date: 07/01/22 Status: Ordered metoprolol 50 mg oral tablet, extended release 50 mg, 1, tablet, By Mouth, Daily, # 90 tablet, Refills 3, Tot. Refills 3, Maintenance, 03/18/21 12:33:00 EST, Route to Pharmacy Electronically, [facility] #[id number], Partial fill upon patientrequest if the prescription is for a schedule II op... Start Date: 03/18/21 Status: Ordered nicotine 21 mg/24 hr transdermal film, extended release 1 patch, Topically, Daily, plan to change to 14 mg patch after 2 months, # 30 patch, 1 Refills, Maintenance, 10/10/20 9:30:00 EDT, Patch, [facility] #[id number], Partial fill upon patient request if the prescription is for a schedule II opioid drMack. Start Date: 10/10/20 Status: Ordered pantoprazole 20 [...] 3 Refills, Maintenance, 03/18/21 12:33:00 EST, Tablet, [facility] #[id number], Partial fill upon patient request if the [...] 03/18/21 12:34:00 EST, Solution, [facility] #[id number], Partial fill upon patient request if the... 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 therapist Shravan [...]
--- OUTSIDE RECORDS SUMMARY | 2022-09-09 09:13 | XMS_ITS | Continuity of Care Document ---
Author Name Unknown Organization [facility] Address [address] [place] [address]- Care Team Providers Care Research Chemical Engineer Name Role Phone Kristine Valdivia MD Primary Care Physician Encounter [facility] [place] Date(s): 12/09/18 - 04/08/[address] [address]- [facility] Attending Physician: Sylvia Ybarra MD Admitting Physician: Sylvia Ybarra MD Referring Physician: Kristine Valdivia MD Allergies, Adverse Reactions, Alerts Substance Reaction Severity Status doxycycline rash Active Immunizations Given and Recorded Vaccine Date Status Refusal Reason influenza virus vaccine, inactivated 04/14/17 Give n tetanus/diphtheria/pertussis, acel(Tdap) 01/16/14 Given pneumococcal 23-valent vaccine 1 05/26/11 Given tetanus-diphtheria toxoids (Td) 2 04/30/08 Given tetanus-diphtheria toxoids (Td) 05/19/96 Given 1Admin Note: VIS 11/20/08 GIVEN 2Admin Note: VIS 07/25/93 GIVEN Medications Aerochamber See Instructions, # 1 units, Maintenance, Dx: asthma/reactive airways. For use with MDI, 10/23/16 12:03:53, Compound Start Date: 10/23/16 Status: Ordered albuterol CFC free 90 mcg/inh inhalation aerosol 2, puffs, Inhalation, Every 4 hours, PRN, # 42.5 Gm, Refills 5, Tot. Refills 5, Soft Stop, 02/21/2013:20:00 EST, Route to Pharmacy Electronically, [id number], [facility] #[id number], 175.26, cm, 01/09/19 14:57:00 EST, H... Start Date: 02/21/19 Status: Ordered Alcohol Pads See Instructions, # 1 box, Refills 11, Tot. Refills 11, Maintenance, use as directed for Type 2 Diabetes Mellitus., 05/08/15 17:37:09, Compound Start Date: 05/08/15 Stop Date: 05/02/16 Status: Ordered aspirin 81 mg oral tablet, chewable 81 mg, 1, tablet, By Mouth, Daily, # 90 tablet, Refills 3, Tot. Refills 3, Maintenance, 01/10/19 12:32:20 EST, Route to Pharmacy Electronically, [id number], [facility] #[id number] Start Date: 01/10/19 Status: Ordered Flovent HFA 220 mcg/inh inhalation aerosol 1 puffs, Inhalation, 2 times a day, use with spacer chamber rinse mouth and throat after use. Not for immediate relief of symptoms, # 12 Gm, 2 Refills, Maintenance, 01/19/19 12:26:32 EST, Aerosol, 175.26, cm, 01/09/19 14:57:44 EST, Height, 104.3, kg,... Start Date: 01/19/19 Status: Ordered Freestyle Lite Lancets See Instructions, # 30 each, Refills 11, Tot. Refills 11, Maintenance, use as directed for Type 2 Diabetes Mellitus. E11, 08/20/17 12:43:39 EDT, Compound Start Date: 08/20/17 Stop Date: 09/19/17 Status: Ordered Freestyle Lite Monitor See Instructions, # 1 units, Refills 1, Tot. Refills 1, Maintenance, dx. E11. type 2 dm, 07/24/16 12:54:34, Compound Start Date: 07/24/16 Status: Ordered Freestyle Lite Test Strips See Instructions, # 30 each, Refills 5, Tot. Refills 5, Maintenance, type 2 DM. E11.9, Check FBS daily. Bring record of readings to next visit. CAll if FBS consistently above 120, 09/20/18 15:22:08 EDT, Compound Start Date: 09/20/18 Status: Ordered Home Blood Pressure Monitor See Instructions, # 1 each, Maintenance, Dx: hypertension: I10. Goal SBP <130 and DBP <90, 07/12/15 8:28:24, Compound Start Date: 07/12/15 Status: Ordered Januvia 50 mg oral tablet 1 tablet = 50 mg, By Mouth, Daily, # 30 tablet, 2 Refills, Maintenance, 01/09/19 17:16:18 EST, Tablet Start Date: 01/09/19 Stop Date: 04/09/19 Status: Ordered losartan 100 mg oral tablet 1 tablet = 100 mg, By Mouth, Daily, # 30 tablet, 5 Refills, Maintenance, 04/07/19 21:41:00 EST, Tablet, [facility] #[id number], dose increase. Stop 50 mg dose, 175.26, cm, 01/09/19 14:57:00 EST,Height, 104.3, kg, 10/21/18 10:49:00 EDT, Dry Weight Start Date: 04/07/19 Status: Ordered metFORMIN 500 mg oral tablet, extended release 2 tablet = 1,000 mg, By Mouth, 2 times a day, # 360 tablet, 11 Refills, Maintenance, 01/20/19 15:25:46 EST, 175.26, cm, 01/09/19 14:57:44 EST, Height, 104.3, kg, 10/21/18 10:49:43 EDT, Dry Weight Start Date: 01/20/19 Status: Ordered nicotine 21 mg-14 mg-7 mg transdermal film, extended release 1 each, Topically, Daily, May dispense as follows: 21 mg for 6 weeks 14 mg for 2 week 7 mg for 2 weeks, # 1 kit, 0 Refills, Maintenance, 07/26/18 16:32:59 EDT, 1 each Topically Daily,Instr:May dispense as follows: 21 mg for 6 weeks; 14 mg for 2 wee... Start Date: 07/26/18 Status: Ordered omeprazole 20 mg oral enteric coated capsule 1 capsule = 20 mg, By Mouth, 2 times a day, before breakfast and dinner, # 60 capsule, 2 Refills, Maintenance, 11/15/17 16:11:49 EDT, EC Capsule Start Date: 11/15/17 Stop Date: 02/13/18 Status: Ordered Viagra 50 mg oral tablet 1 tablet = 50 mg, By Mouth, Daily, 1 hour before sexual activity, # 5 tablet, 5 Refills, Maintenance, 10/26/18 12:09:54 EDT, Tablet, even if not covered by insurance,please let pt know what would cost to buy Start Date: 10/26/18 Status: Ordered Problem List Condition Effective Dates [...] 09/08/08 Active Episodic mood disorder(Confirmed) 09/14/13 Active Non-alcoholic fatty liver disease(Confirmed) 01/09/19 Active Obesity(Confirmed) 09/02/08 Active JIE (moderate, 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 therapist Shravan Chester 4Hepatitis serology 2008-negative hep C, hep a and b immune 5EGD: 06/2017: normal 6NO hiatal hernia, but cannot find appropropriate listing in problem list 7Treatment started with statin 09/2009 8FBS 105, A1C 6.4 Social History Social History Type Response Smoking Status Current every day sm oker; Type: Cigarettes; Previous treatment: Counseling; Previous treatment: Medications; Previous treatment: Nicotine replacement; Interested in cessation: No; Other: 1 pack a day; entered on: 02/01/17 Sex
--- OUTSIDE RECORDS SUMMARY | 2022-09-09 09:13 | XMS_ITS | Continuity of Care Document ---
Author Name Unknown Organization [facility] Address [address] [place] [address]- Care Team Providers Care Switchboard Installer Name Role Phone Not on Staff, PCP Primary Care Physician Unavail able Encounter [facility] [place] Date(s): 12/18/21 - 12/18/[address] [address]- Encounter Diagnosis Diabetes mellitus(Final) - 12/18/21 Discharge Disposition: A-D/C Home Attending Physician: Rodolfo Perez MD Admitting Physician: Rodolfo Perez MD Referring Physician: Not on Staff, Referring MD Allergies, Adverse Reactions, Alerts Substance Reaction Severity Status doxycycline rash Active Immunizations Given and Recorded Vaccine Date Status Refusal Reason SARS-CoV-2 mRNA (vdmpsku-iruy-oneon) vax 03/18/21 Given pneumococcal 23-valent vaccine 03/18/21 [...] Stop, :56:00 EDT, Route to Pharmacy Electronically, [id number], [facility], 175, cm, 12/02/21 19:43:00 EDT, Height,... Start Date: 12/03/21 Status: Ordered ammonium lactate 12% topical cream 1 application, Topically, 2 times a day, apply and rub in well to soles of feet, # 280 Gm, 5 Refills, Maintenance, 03/18/21 12:42:00 EST, [id number], Partial fill upon patientrequest if the prescription is for a schedule II op... Start Date: 03/18/21 Status: Ordered aspirin 81 mg oral tablet, chewable 1 tablet, By Mouth, Daily, CHEW., # 90 tablet, 3 Refills, 12/03/21 8:56:00 EDT, [facility], 175, cm, 12/02/21 19:43:00 EDT, Height, 72, kg, 11/26/21 18:42:00 EDT, Dry Weight Start Date: 12/03/21 Status: Ordered atorvastatin 10 mg oral tablet 1 tablet = 10 mg, By Mouth, Daily, # 30 tablet, 0 Refills, Maintenance, 12/03/21 8:54:00 EDT, [facility], Partial fill upon patient request if the prescription is for a schedule II opioid drug., 175, cm, 12/02/21 19:43:00 EDT, Height, 72... Start Date: 12/03/21 Status: Ordered clotrimazole 1% topical cream 1 application, Topically, 2 times a day, apply to rash on penis, # 30 Gm, 1 Refills, Maintenance, 03/18/21 12:43:00 EST, Cream, [facility] #[id number], Partial fill upon patient request if the prescription is for a schedule II opioid drug., 1 erasmo... Start Date: 03/18/21 Status: Ordered Freestyle Lite Lancets See Instructions, # 180 each, Refills 3, Tot. Refills 3, Maintenance, use as directed for Type 2 Diabetes Mellitus. Checking POC 1-2 times daily (fasting and two hours kafo-qtnjciaj-tnxugid meal of day), 03/18/21 12:40:00 EST, Supply, 171, cm, ... Start Date: 03/18/21 Status: Ordered Freestyle Lite Test Strips See Instructions, # 180 each, Refills 3, Tot. Refills 3, Maintenance, use as directed for Type 2 Diabetes Mellitus. Checking POC 1-2 times daily (fasting and two hours wimt-zjsirmlp-zkwviar meal of day), 03/18/21 12:38:00 EST, 3 month supply if cover... Start Date: 03/18/21 Stop Date: 07/16/21 Status: Ordered Jardiance 10 mg oral tablet 1 tablet, By Mouth, Daily in AM, # 90 tablet, 3 Refills, [facility] #[id number], 171, cm, 05/02/21 8:35:00 EDT, Height, 95.6, kg, 03/05/21 17:48:00 EST, Dry Weight Start Date: 06/06/21 Status: Ordered losartan 25 mg oral tablet 1 tablet, By Mouth, Daily, # 90 tablet, 0 Refills, 12/03/21 8:56:00 EDT, [facility], 175, cm, 12/02/21 19:43:00 EDT, Height, 72, kg, 11/26/21 18:42:00 EDT, Dry Weight Start Date: 12/03/21 Status: Ordered metFORMIN 500 mg oral tablet, extended release 1 tablet = 500 mg, By Mouth, 2 times a day, # 180 tablet, 3 Refills, Maintenance, 12/03/21 8:56:00 EDT, [facility], 175, cm, 12/02/21 19:43:00 EDT, Height, 72, kg, 11/26/21 18:42:00 EDT, Dry Weight Start Date: 12/03/21 Stop Date: 11/28/22 Status: Ordered metoprolol 50 mg oral tablet, extended release 50 mg, 1, tablet, By Mouth, Daily, # 90 tablet, Refills 3, Tot. Refills 3, Maintenance, 03/18/21 12:33:00 EST, Route to Pharmacy Electronically, [facility] #[id number], Partial fill upon patientrequest if the prescription is for a schedule II op... Start Date: 03/18/21 Status: Ordered nicotine 21 mg/24 hr transdermal film, extended release 1 patch, Topically, Daily, plan to change to 14 mg patch after 2 months, # 30 patch, 1 Refills, Maintenance, 12/03/21 8:56:00 EDT, Patch, [facility], Partial fill upon patient request if the prescription is for a schedule II opioid drug.... Start Date: 12/03/21 Status: Ordered pantoprazole 20 mg oral delayed release tablet = 20 mg, By Mouth, Daily, # 90 tablet, 3 Refills, Maintenance, 12/03/21 8:56:00 EDT, EC Tablet, 175, cm, 12/02/21 19:43:00 EDT, Height, 72, kg, 11/26/21 18:42:00 EDT, Dry Weight Start Date: 12/03/21 Stop Date: 11/28/22 Status: Ordered SEROquel 25 mg oral tablet 50 mg, 2, tablet, By Mouth, 3 times a day, PRN, # 42 tablet, Refills 0, Tot. Refills 0, Maintenance, Anxiety, 12/03/21 8:55:00 EDT, Route to Pharmacy Electronically, [facility], Partialfill upon patient request if the prescription is fo... Start Date: 12/03/21 Stop Date: 12/10/21 Status: Ordered ticagrelor 90 mg oral tablet 1 tablet = 90 mg, By Mouth, 2 times a day, # 180 tablet, 3 Refills, Maintenance, 03/18/21 12:33:00 EST, Tablet, [facility] #[id number], Partial fill upon patient request if the prescription is for a schedule II opioid drug., 171, cm, 03/18/21 11:... Start Date: 03/18/21 Stop Date: 03/13/22 Status: Ordered traZODone 50 mg oral tablet 50 mg, 1, tablet, By Mouth, Daily at bedtime, PRN, # 21 tablet, Refills 0, Tot. Refills 0, Maintenance, Insomnia, 12/03/21 8:55:00 EDT, Route to Pharmacy Electronically, [facility], Partial fill upon patient request if the prescription i... Start Date: 12/03/21 Stop Date: 12/24/21 Status: Ordered Trulicity Pen 3 mg/0.5 mL subcutaneous solution 0.5 mL = 3 mg, Subcutaneous Injection, Every week, rotate injection sites. 3 month supply if covered by insurance, # 6.5 mL, 3 Refills, Maintenance, 03/18/21 12:34:00 EST, Solution, [facility] #[id number], Partial fill upon patient request if the... 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 therapist Shravan Chester 4Hepatitis serology 2008-negative hep C, hep a and b immune 5EGD: 06/2017: normal 6NO hiatal hernia, but cannot find appropropriate listing in problem list 7Treatment started with statin 09/2009 8FBS 105, A1C 6.4 Vital Signs Most recent to oldest [Reference Range]: 1 2 3 Oxygen Saturation [94-100 %] 98 % (12/18/21 7:27 PM) 95 % (12/18/21 6:17 PM) 96 % (12/18/21 4:13 PM) Pulse Rate [55-90 bpm] 77 bpm (12/18/21 7:27 PM) 86 bpm (12/18/21 6:17 PM) 88 bpm (12/18/21 4:13 PM) Blood Pressure [90-138/55-84 mm Hg] 144/87mm Hg *H* (12/18/21 7:27 PM) 160/98mm Hg *H* (12/18/21 6:17 PM) 135/90mm Hg (12/18/21 4:13 PM) Respiratory Rate [16-30 br/min] 18 br/min (12/18/21 7:27 PM) 16 br/min (12/18/21 6:17 PM) 16 br/min (12/18/21 4:13 PM) Temperature [96.8-100.4 DegF] 98.2 DegF (12/18/21 7:27 PM) 98.5 DegF (12/18/21 4:13 PM) 98.8 DegF (12/18/21 3:56 PM) Mode of Delivery (Oxygen) Room air (12/18/21 7:27 PM) Room air (12/18/21 6:17 PM) Room air (12/18/21 4:13 PM) Blood pressure sites Arm, left (12/18/21 6:17 PM) Arm, right (12/18/21 4:13 PM) Arm, right (12/18/21 3:56 PM) Temperature Route Oral (12/18/21 7:27 PM) Oral (12/18/21 3:56 PM) Social History Social History Type Response Smoking Status 10 or more cigarette s (1/2 pack or more)/day in last 30 days; Other: .5 ppd x 30 years; entered on: 05/28/20 Sex Patient Care team information Personnel Name: Not on Staff, PCP
--- OUTSIDE RECORDS SUMMARY | 2022-09-09 09:13 | XMS_ITS | Continuity of Care Document ---
Author Name Unknown Organization [facility] Address [address] [place] [address]- Care Team Providers Care Cmv Driver Name Role Phone Kristine Valdivia MD Primary Care Physician Encounter [facility] Date(s): 03/20/20 - 04/19/20 [facility]/[address] [address]- Attending Physician: Admtr, Ar8 Allergies, Adverse Reactions, [...] Stop, 02/21/2013:20:00 EST, Route to Pharmacy Electronically, [id number], [facility] #[id number], 175.26, cm, 01/09/19 14:57:00 EST, H... Start Date: 02/21/19 Status: Ordered aspirin 81 mg oral tablet, chewable 81 mg, 1, tablet, By Mouth, Daily, # 90 tablet, Refills 3, Tot. Refills 3, Maintenance, 12/29/19 10:51:00 EST, Route to Pharmacy Electronically, [facility] #[id number], 175.26, cm, 12/29/19 10:13:00 EST, Height, 104.3, kg, 10/21/18 10:49:00 EDT,... Start Date: 12/29/19 Status: Ordered atorvastatin 40 mg oral tablet 1 tablet = 40 mg, By Mouth, Daily at bedtime, # 30 tablet, 0 Refills, Maintenance, 02/28/20 9:38:00EST, Tablet, [facility] #[id number], Partial fill upon patient request if the prescription is for a schedule II opioid drug., 173, cm, 02/28/20 7:... Start Date: 02/28/20 Status: Ordered clotrimazole 1% topical cream 1 application, Topically, 2 times a day, # 30 Gm, 1 Refills, Maintenance, 02/13/20 17:16:00 EST, Cream, [facility] #[id number], Partial fill upon patient request if the prescription is for a schedule II opioid drug., 1 application Topically 2 rajiv... Start Date: 02/13/20 Status: Ordered empagliflozin 10 mg oral tablet 1 tablet = 10 mg, By Mouth, Daily in AM, Please go to any [facility] lab and have fasting bloodwork done within the next 3-4 weeks., # 90 tablet, 1 Refills, Maintenance, 12/29/19 10:48:00 EST, Tablet, [facility] #[id number], Partial fill... Start Date: 12/29/19 Stop Date: 06/26/20 Status: Ordered hydrOXYzine hydrochloride 25 mg oral tablet 1 tablet = 25 mg, By Mouth, 4 times a day, PRN for acute anxiety, may cause drowsiness, # 25 tablet, 1 Refills, Maintenance, 01/08/20 11:44:00 EST, Tablet, [facility] #[id number], Partial fill upon patient request, 175.26, cm, 12/29/19 10:13:00 E... Start Date: 01/08/20 Status: Ordered Januvia 50 mg oral tablet 1 tablet = 50 mg, By Mouth, Daily, # 90 tablet, 3 Refills, Maintenance, 12/29/19 10:52:00 EST, Tablet, [facility] #[id number], 175.26, cm, 12/29/19 10:13:00 EST, Height, 104.3, kg, 10/21/18 10:49:00 EDT, Dry Weight Start Date: 12/29/19 Status: Ordered metoprolol 50 mg oral tablet, extended release 50 mg, 1, tablet, By Mouth, Daily, # 90 tablet, Refills 3, Tot. Refills 3, Maintenance, 03/27/20 13:28:00 EST, Route to Pharmacy Electronically, [facility] #[id number], Partial fill upon patientrequest if the prescription is for a schedule II op... Start Date: 03/27/20 Status: Ordered pantoprazole 20 mg oral delayed [...] By Mouth, 2 times a day, # 60 tablet, 0 Refills, Maintenance, 02/28/20 9:39:00 EST, Tablet, [facility] #[id number], Partial fill upon patient request if the prescription is fora schedule II opioid drug., 173, cm, 02/28/20 7:44:... Start Date: 02/28/20 Status: Ordered ticagrelor 90 mg oral tablet 1 tablet = 90 mg, By Mouth, 2 times a day, # 180 tablet, 1 Refills, Maintenance, 03/27/20 14:18:00 EST, Tablet, [facility] #[id number], Partial fill upon patient request if the prescription is for a schedule II opioid drug., 173, cm, 03/20/20 17:... Start Date: 03/27/20 Stop Date: 09/23/20 Status: Ordered Problem List Condition Effective Dates Status Health Status Inform ant Appendectomy with drainage(C onfirmed) 1 06/03/08 Active Asthma (PFTS confirm)(Confirmed) 11/10/17 Active Serrated adenoma of colon(Confirmed) 2 05/15/13 [...] (moderate, supine domina nt (327.23)(Confirmed) 09/15/13 Active *[id number]-[facility] Partn Luana [place](Confirmed) Active Right knee meniscal tear(Confirmed) 12/17/14 Active Tobacco abuse(Confirmed) 02/17/82 Active DM (diabetes mellitus), type 2, A1C 6.5(Confirmed) 05/17/13 Active 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 therapist Shravan [...]
--- OUTSIDE RECORDS SUMMARY | 2022-09-09 09:13 | XMS_ITS | Continuity of Care Document ---
Author Name Unknown Organization [facility] Address [address] [place] [address]- Care Team Providers Care Manager Credit Name Role Phone Kristine Valdivia MD Primary Care Physician Encounter [facility] [place] Date(s): 03/20/19 - 03/30/19 [facility] [place] [address]- [facility] Attending Physician: Admtr, Ar8 Allergies, Adverse Reactions, [...] Stop, 02/21/2013:20:00 EST, Route to Pharmacy Electronically, [id number], [facility] #[id number], 175.26, cm, 01/09/19 14:57:00 EST, H... Start [...] 01/10/19 12:32:20 EST, Route to Pharmacy Electronically, [id number], [facility] #[id number] Start Date: 01/10/19 Status: Ordered Flovent HFA [...] mg, By Mouth, Daily, # 30 tablet, 11 Refills, Maintenance, 02/16/18 17:07:28 EST, Tablet, dose increase. 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 therapist Shravan [...]
--- OUTSIDE RECORDS SUMMARY | 2022-09-09 09:13 | XMS_ITS | Continuity of Care Document ---
Author Name Unknown Organization [facility] Address [address] [place] [address]- Care Team Providers Care Cardboard Cutter Name Role Phone Shea JIMÉNEZ, Kristine Marie Primary Care Physician Encounter [facility] Date(s): 08/27/20 - 09/26/20 [facility]/[address] [address]- Allergies, Adverse Reactions, Alerts Substance Reaction Severity [...] Stop, 02/21/2013:20:00 EST, Route to Pharmacy Electronically, [id number], [facility][id number], 175.26, cm, 01/09/19 14:57:00 EST, H... Start Date: 02/21/19 Status: Ordered aspirin 81 mg oral tablet, chewable 81 mg, 1, tablet, By Mouth, Daily, # 90 tablet, Refills 3, Tot. Refills 3, Maintenance, 12/29/19 10:51:00 EST, Route to Pharmacy Electronically, [facility] #[id number], 175.26, cm, 12/29/19 10:13:00 EST, Height, 104.3, kg, 10/21/18 10:49:00 EDT,... Start Date: 12/29/19 Status: Ordered atorvastatin 40 mg oral tablet 1 tablet = 40 mg, By Mouth, Daily at bedtime, # 30 tablet, 0 Refills, Maintenance, 02/28/20 9:38:00EST, Tablet, [facility] #[id number], Partial fill upon patient request if the prescription is for a schedule II opioid drug., 173, cm, 02/28/20 7:... Start Date: 02/28/20 Status: Ordered clotrimazole 1% topical cream 1 application, Topically, 2 times a day, # 30 Gm, 1 Refills, Maintenance, 02/13/20 17:16:00 EST, Cream, [facility] #[id number], Partial fill upon patient request if the prescription is for a schedule II opioid drug., 1 application Topically 2 rajiv... Start Date: 02/13/20 Status: Ordered empagliflozin 10 mg oral tablet 1 tablet = 10 mg, By Mouth, Daily in AM, # 90 tablet, 0 Refills, Maintenance, 09/24/20 10:48:00 EDT, Tablet, [facility] #[id number], Partial fill upon patient request, 173, cm, 05/28/20 10:07:00EDT, Height, 103.45, kg, 03/20/20 17:23:00 EST, Dry... Start Date: 09/24/20 Stop Date: 12/23/20 Status: Ordered hydrOXYzine hydrochloride 25 mg oral tablet 1 tablet, By Mouth, 4 times a day, PRN NEEDED FOR ACUTE ANXIETY, MAY CAUSE DROWSINESS, # 25 tablet, 1 Refills, Acute, 07/08/20 10:46:00 EDT, [facility] #[id number], 173, cm, 05/28/20 10:07:00EDT, Height, 103.45, kg, 03/20/20 17:23:00 EST, Dry... Start Date: 07/08/20 Status: Ordered Januvia 50 mg oral tablet 1 tablet = 50 mg, By Mouth, Daily, # 90 tablet, 3 Refills, Maintenance, 12/29/19 10:52:00 EST, Tablet, [facility] #[id number], 175.26, cm, 12/29/19 10:13:00 EST, Height, 104.3, kg, 10/21/18 10:49:00 EDT, Dry Weight Start Date: 12/29/19 Status: Ordered metFORMIN 500 mg oral tablet, extended release See Instructions, 1 tablet By Mouth 2 times a day for one week then increase to 2 tablets 2 times aday, # 360 each, 3 Refills, Maintenance, 05/16/20 13:07:00 EDT, [facility] #[id number], 173, cm, 04/19/20 10:59:00 EST, Height, 103.45, kg, 03/20... Start Date: 05/16/20 Status: Ordered metoprolol 50 mg oral tablet, extended release 50 mg, 1, tablet, By Mouth, Daily, # 90 tablet, Refills 3, Tot. Refills 3, Maintenance, 03/27/20 13:28:00 EST, Route to Pharmacy Electronically, [facility] #[id number], Partial fill upon patientrequest if the prescription [...] 0 Refills, Maintenance, 02/28/20 9:39:00 EST, Tablet, [facility] #[id number], Partial fill upon patient request if the prescription is fora schedule II opioid drug., 173, cm, 02/28/20 7:44:... 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 therapist Shravan [...]
--- OUTSIDE RECORDS SUMMARY | 2022-09-09 09:13 | XMS_ITS | Continuity of Care Document ---
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 Refills 1, [facility] #[id number] Start Date: 01/13/19 Status: Ordered Alcohol Pads See Instructions, # 1 box, Refills 11, Tot. Refills 11, Maintenance, use as directed for Type 2 Diabetes Mellitus., 05/08/15 17:37:09, Compound Start Date: 05/08/15 Stop Date: 05/02/16 Status: Ordered aspirin 81 mg oral tablet, chewable 81 mg, 1, tablet, By Mouth, Daily, # 90 tablet, Refills 3, Tot. 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 2repeat colonoscopy in 2019 3[facility]. therapist [...]
--- OUTSIDE RECORDS SUMMARY | 2022-09-09 09:13 | XMS_ITS | Continuity of Care Document ---
Author Name Unknown Organization [facility] Address [address] [place] [address] [address] [place] [address]- Care Team Providers Care Pot Fluxer Name Role Phone Kristine Valdivia MD Primary Care Physician Encounter [facility] [place] Date(s): 05/07/20 - 05/14/[address] [place] [address]- Encounter Diagnosis Xiphoid prominence(Discharge Diagnosis) - 05/07/20 Attending Physician: Cuate Perez Referring Physician: Kristine Valdivia MD Allergies, Adverse [...] Stop, 02/21/2013:20:00 EST, Route to Pharmacy Electronically, [id number], [facility] #[id number], 175.26, cm, 01/09/19 14:57:00 EST, H... Start Date: 02/21/19 Status: Ordered aspirin 81 mg oral tablet, chewable 81 mg, 1, tablet, By Mouth, Daily, # 90 tablet, Refills 3, Tot. Refills 3, Maintenance, 12/29/19 10:51:00 EST, Route to Pharmacy Electronically, [facility] #[id number], 175.26, cm, 12/29/19 10:13:00 EST, Height, 104.3, kg, 10/21/18 10:49:00 EDT,... Start Date: 12/29/19 Status: Ordered atorvastatin 40 mg oral tablet 1 tablet = 40 mg, By Mouth, Daily at bedtime, # 30 tablet, 0 Refills, Maintenance, 02/28/20 9:38:00EST, Tablet, [facility] #[id number], Partial fill upon patient request if the prescription is for a schedule II opioid drug., 173, cm, 02/28/20 7:... Start Date: 02/28/20 Status: Ordered clotrimazole 1% topical cream 1 application, Topically, 2 times a day, # 30 Gm, 1 Refills, Maintenance, 02/13/20 17:16:00 EST, Cream, [facility] #[id number], Partial fill upon patient request if the prescription is for a schedule II opioid drug., 1 application Topically 2 rajiv... Start Date: 02/13/20 Status: Ordered empagliflozin 10 mg oral tablet 1 tablet = 10 mg, By Mouth, Daily in AM, Please go to any [facility] Reference lab and have fasting bloodwork done within the next 3-4 weeks., # 90 tablet, 1 Refills, Maintenance, 12/29/19 10:48:00 EST, Tablet, [facility] #[id number], Partial fill... Start Date: 12/29/19 Stop Date: 06/26/20 Status: Ordered hydrOXYzine hydrochloride 25 mg oral tablet 1 tablet = 25 mg, By Mouth, 4 times a day, PRN for acute anxiety, may cause drowsiness, # 25 tablet, 1 Refills, Maintenance, 01/08/20 11:44:00 EST, Tablet, [facility] #[id number], Partial fill upon patient request, 175.26, cm, 12/29/19 10:13:00 E... Start Date: 01/08/20 Status: Ordered Januvia 50 mg oral tablet 1 tablet = 50 mg, By Mouth, Daily, # 90 tablet, 3 Refills, Maintenance, 12/29/19 10:52:00 EST, Tablet, [facility] #[id number], 175.26, cm, 12/29/19 10:13:00 EST, Height, 104.3, kg, 10/21/18 10:49:00 EDT, Dry Weight Start Date: 12/29/19 Status: Ordered metoprolol 50 mg oral tablet, extended release 50 mg, 1, tablet, By Mouth, Daily, # 90 tablet, Refills 3, Tot. Refills 3, Maintenance, 03/27/20 13:28:00 EST, Route to Pharmacy Electronically, [facility] #[id number], Partial fill upon patientrequest if the prescription [...] 0 Refills, Maintenance, 02/28/20 9:39:00 EST, Tablet, [facility] #[id number], Partial fill upon patient request if the prescription is fora schedule II opioid drug., 173, cm, 02/28/20 7:44:... Start Date: 02/28/20 Status: Ordered ticagrelor 90 mg oral tablet 1 tablet = 90 mg, By Mouth, 2 times a day, # 180 tablet, 1 Refills, Maintenance, 03/27/20 14:18:00 EST, Tablet, [facility] #[id number], Partial fill upon patient request if the prescription is for a schedule II opioid drug., 173, cm, 03/20/20 17:... 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
--- OUTSIDE RECORDS SUMMARY | 2022-09-09 09:13 | XMS_ITS | Continuity of Care Document ---
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 Name Role Phone Kristine Valdivia MD Primary Care Physician [phone] [place] [facility] 06/27/20 [facility] [address] [place] [address], [address] [place], [place] [address] Attending Physician: Admtr, Arron Admitting Physician: Admtr, Ar8 Referring Physician: Admtr, Ar8 Allergies, Adverse Reactions, Alerts [...] Stop, 02/21/2013:20:00 EST, Route to Pharmacy Electronically, [id number], [facility] #[id number], 175.26, cm, 01/09/19 14:57:00 EST, H... Start Date: 02/21/19 Status: Ordered aspirin 81 mg oral tablet, chewable 81 mg, 1, tablet, By Mouth, Daily, # 90 tablet, Refills 3, Tot. Refills 3, Maintenance, 12/29/19 10:51:00 EST, Route to Pharmacy Electronically, [facility] #[id number], 175.26, cm, 12/29/19 10:13:00 EST, Height, 104.3, kg, 10/21/18 10:49:00 EDT,... Start Date: 12/29/19 Status: Ordered atorvastatin 40 mg oral tablet 1 tablet = 40 mg, By Mouth, Daily at bedtime, # 30 tablet, 0 Refills, Maintenance, 02/28/20 9:38:00EST, Tablet, [facility] #[id number], Partial fill upon patient request if the prescription is for a schedule II opioid drug., 173, cm, 02/28/20 7:... Start Date: 02/28/20 Status: Ordered clotrimazole 1% topical cream 1 application, Topically, 2 times a day, # 30 Gm, 1 Refills, Maintenance, 02/13/20 17:16:00 EST, Cream, [facility] #[id number], Partial fill upon patient request if the prescription is for a schedule II opioid drug., 1 application Topically 2 rajiv... Start Date: 02/13/20 Status: Ordered empagliflozin 10 mg oral tablet 1 tablet = 10 mg, By Mouth, Daily in AM, for 90 days, # 90 tablet, 0 Refills, Hard Stop 09/24/20 10:48:00 EDT, 06/26/20 10:48:00 EDT, Tablet, [facility] #[id number], Partial fill upon patient request, 173, cm, 05/28/20 10:07:00 EDT, Height, 103.4... Start Date: 06/26/20 Stop Date: 09/24/20 Status: Ordered empagliflozin 10 mg oral tablet 1 tablet = 10 mg, By Mouth, Daily in AM, # 90 tablet, 0 Refills, Maintenance, 09/24/20 10:48:00 EDT, Tablet, [facility] #[id number], Partial fill upon patient request, 173, cm, 05/28/20 10:07:00EDT, Height, 103.45, kg, 03/20/20 17:23:00 EST, Dry... Start Date: 09/24/20 Stop Date: 12/23/20 Status: Ordered hydrOXYzine hydrochloride 25 mg oral tablet 1 tablet = 25 mg, By Mouth, 4 times a day, PRN for acute anxiety, may cause drowsiness, # 25 tablet, 1 Refills, Maintenance, 01/08/20 11:44:00 EST, Tablet, [facility] #[id number], Partial fill upon patient request, 175.26, cm, 12/29/19 10:13:00 E... Start Date: 01/08/20 Status: Ordered Januvia 50 mg oral tablet 1 tablet = 50 mg, By Mouth, Daily, # 90 tablet, 3 Refills, Maintenance, 12/29/19 10:52:00 EST, Tablet, [facility] #[id number], 175.26, cm, 12/29/19 10:13:00 EST, Height, 104.3, kg, 10/21/18 10:49:00 EDT, Dry Weight Start Date: 12/29/19 Status: Ordered metFORMIN 500 mg oral tablet, extended release See Instructions, 1 tablet By Mouth 2 times a day for one week then increase to 2 tablets 2 times aday, # 360 each, 3 Refills, Maintenance, 05/16/20 13:07:00 EDT, [facility] #[id number], 173, cm, 04/19/20 10:59:00 EST, Height, 103.45, kg, 03... Start Date: 05/16/20 Status: Ordered metoprolol 50 mg oral tablet, extended release 50 mg, 1, tablet, By Mouth, Daily, # 90 tablet, Refills 3, Tot. Refills 3, Maintenance, 03/27/20 13:28:00 EST, Route to Pharmacy Electronically, [facility] #[id number], Partial fill upon patientrequest if the prescription is for a schedule II op... Start Date: 03/27/20 Status: Ordered pantoprazole 20 mg oral delayed release tablet = 20 mg, By Mouth, Daily, # 90 tablet, 3 Refills, Maintenance, 03/29/20 9:39:00 EST, [facility] Tablet, 173, cm, 03/20/20 17:23:00 EST, Height, 103.45, kg, 02/03/21 17:23:00 EST, Dry Weight Start Date: 03/29/20 Stop Date: 03/24/21 Status: Ordered ticagrelor 90 mg oral tablet 1 tablet = 90 mg, By Mouth, 2 times a day, # 60 tablet, 0 Refills, Maintenance, 02/28/20 9:39:00 EST, Tablet, [facility] #[id number], Partial fill upon patient request if the prescription is fora schedule II opioid drug., 173, cm, 02/28/20 7:44:... 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 therapist [...]
--- OUTSIDE RECORDS SUMMARY | 2022-09-09 09:13 | XMS_ITS | Continuity of Care Document ---
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 Name Role Phone Kristine Valdivia MD Primary Care Physician [phone] Encounter [facility] Date(s): 05/07/22 - 06/06/22 [facility] [address]- [place] Allergies, Adverse Reactions, Alerts Substance Reaction Severity Status doxycycline rash Active Immunizations Given and Recorded Vaccine Date Status Refusal Reason SARS-CoV-2 mRNA (aawijup-wkvs-qhyqd) vax 03/18/21 Given pneumococcal 23-valent vaccine 03/18/21 [...] Stop, :56:00 EDT, Route to Pharmacy Electronically, [id number], [facility], 175, cm, 12/02/21 19:43:00 EDT, Height,... Start Date: 12/03/21 Status: Ordered ammonium lactate 12% topical cream 1 application, Topically, 2 times a day, apply and rub in well to soles of feet, # 280 Gm, 5 Refills, Maintenance, 03/16/22 14:40:00 EST, Cream, [facility], Partial fill upon patient request if the prescription is for a schedule II... Start Date: 03/16/22 Status: Ordered aspirin 81 mg oral tablet, chewable 1 tablet, By Mouth, Daily, for 90 days, CHEW., # 90 tablet, 3 Refills, Physician Stop 03/11/23 14:39:00 EST, 03/16/22 14:39:00 EST, [facility], 175, cm, 03/16/22 14:06:00 EST, Height, 72, kg, 11/26/21 18:42:00 EDT, Dry Weight Start Date: 03/16/22 Stop Date: 03/11/23 Status: Ordered atorvastatin 10 mg oral tablet 1 tablet = 10 mg, By Mouth, Daily, # 90 tablet, 3 Refills, Maintenance, 03/16/22 14:39:00 EST, [facility], Partial fill upon patient request if the prescription is for a schedule II opioid drug., 175, cm, 03/16/22 14:06:00 EST, Hei... Start Date: 03/16/22 Status: Ordered Freestyle Lite Lancets See Instructions, # 180 each, Refills 3, Tot. Refills 3, Maintenance, use as directed for Type 2 Diabetes Mellitus. Checking POC 1-2 times daily (fasting and two hours jwcq-bsweiujv-flxtunk meal of day), 03/18/21 12:40:00 EST, Supply, 171, cm, ... Start Date: 03/18/21 Status: Ordered Freestyle Lite Test Strips See Instructions, # 180 each, Refills 3, Tot. Refills 3, Maintenance, use as directed for Type 2 Diabetes Mellitus. Checking POC 1-2 times daily (fasting and two hours gnry-pulugsym-hgyurqx meal of day), 03/18/21 12:38:00 EST, 3 month supply if cover... Start Date: 03/18/21 Stop Date: 07/16/21 Status: Ordered Jardiance 10 mg oral tablet 1 tablet, By Mouth, Daily in AM, for 90 days, # 90 tablet, 3 Refills, Physician Stop 03/11/23 14:39:00 EST, 03/16/22 14:39:00 EST, [facility], 175, cm, 03/16/22 14:06:00 EST, Height, 72, kg, 11/26/21 18:42:00 EDT, Dry Weight Start Date: 03/16/22 Stop Date: 03/11/23 Status: Ordered losartan 25 mg oral tablet 1 tablet, By Mouth, Daily, for 90 days, # 90 tablet, 3 Refills, Physician Stop 03/11/23 14:39:00 EST, 03/16/22 14:39:00 EST, [facility], 175, cm, 03/16/22 14:06:00 EST, Height, 72, kg, 11/26/21 18:42:00 EDT, Dry Weight Start Date: 03/16/22 Stop Date: 03/11/23 Status: Ordered metFORMIN 500 mg oral tablet, extended release 1 tablet = 500 mg, By Mouth, 2 times a day, for 90 days, # 180 tablet, 3 Refills, Hard Stop 11/28/22 8:56:00 EDT, 12/03/21 8:56:00 EDT, [facility], 175, cm, 12/02/21 19:43:00 EDT, Height, 72, kg, 11/26/21 18:42:00 EDT, Dry Weight Start Date: 12/03/21 Stop Date: 11/28/22 Status: Ordered metoprolol 50 mg oral tablet, extended release 50 mg, 1, tablet, By Mouth, Daily, # 90 tablet, Refills 3, Tot. Refills 3, Maintenance, 03/16/22 14:39:00 EST, Route to Pharmacy Electronically, [facility], Partial fill upon patient request if [...] Stop 12/17/22 16:20:00 EDT, 12/22/21 16:20:00EST, Solution, [facility], Part... Start Date: 12/22/21 Stop Date: 12/17/22 Status: Ordered Trulicity Pen 3 mg/0.5 mL subcutaneous solution 0.5 mL = 3 mg, Subcutaneous Injection, Every week, rotate injection sites. 3 month supply if covered by insurance, # 6.5 mL, 3 Refills, Maintenance, 12/17/22 16:20:00 EDT, [facility] Partial fill upon patient request if... 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 therapist [...] on: 05/28/20 Sex Patient Care team information Care Team Personnel Name: Basilia Holland RN Position: S RN Member Role: Primary Care Nurse Name: Kristine Valdivia MD Position: [facility] Primary Care Physician Member Role: PCP Address: Address: [address] [place] [address] Name: Maddison Avila RN Position: S RN Member Role: Primary Care Nurse Name: Mackenzie Salinas RN Position: [facility] RN Member Role: Primary Care Nurse Name: Vandana Ly RN Position: [facility] RN Member Role: Primary Care Nurse Care Team Related Persons Name: CARLOS FLOYD Address: [address] [place] [address] Name: IAN WHITE Address: [address] [place] [address] Name: JE KIRKPATRICK Name: EVE GOMEZ Address: home [address] [place] [id number]
--- OUTSIDE RECORDS SUMMARY | 2022-09-09 09:13 | XMS_ITS | Continuity of Care Document ---
Author Name Unknown Organization [facility] Address [address] [place] [address] [address] [place] [address]- Care Team Providers Care Tip Length Checker Name Role Phone Kristine Valdivia MD Primary Care Physician Encounter [facility] [place] Date(s): 05/07/20 - 06/06/[address] [place], [place] [address] Attending Physician: AdmtrArron Admitting Physician: AdmtrArron Referring Physician: Admtr, Ar8 Allergies, Adverse Reactions, [...] Stop, 02/21/2013:20:00 EST, Route to Pharmacy Electronically, [id number], [facility] #[id number], 175.26, cm, 01/09/19 14:57:00 EST, H... Start Date: 02/21/19 Status: Ordered aspirin 81 mg oral tablet, chewable 81 mg, 1, tablet, By Mouth, Daily, # 90 tablet, Refills 3, Tot. Refills 3, Maintenance, 12/29/19 10:51:00 EST, Route to Pharmacy Electronically, [facility] #[id number], 175.26, cm, 12/29/19 10:13:00 EST, Height, 104.3, kg, 10/21/18 10:49:00 EDT,... Start Date: 12/29/19 Status: Ordered atorvastatin 40 mg oral tablet 1 tablet = 40 mg, By Mouth, Daily at bedtime, # 30 tablet, 0 Refills, Maintenance, 02/28/20 9:38:00EST, Tablet, [facility] #[id number], Partial fill upon patient request if the prescription is for a schedule II opioid drug., 173, cm, 02/28/20 7:... Start Date: 02/28/20 Status: Ordered clotrimazole 1% topical cream 1 application, Topically, 2 times a day, # 30 Gm, 1 Refills, Maintenance, 02/13/20 17:16:00 EST, Cream, [facility] #[id number], Partial fill upon patient request if the prescription is for a schedule II opioid drug., 1 application Topically 2 rajiv... Start Date: 02/13/20 Status: Ordered empagliflozin 10 mg oral tablet 1 tablet = 10 mg, By Mouth, Daily in AM, Please go to any [facility] Reference lab and have fasting bloodwork done within the next 3-4 weeks., # 90 tablet, 1 Refills, Maintenance, 12/29/19 10:48:00 EST, Tablet, [facility] #[id number], Partial fill... Start Date: 12/29/19 Stop Date: 06/26/20 Status: Ordered hydrOXYzine hydrochloride 25 mg oral tablet 1 tablet = 25 mg, By Mouth, 4 times a day, PRN for acute anxiety, may cause drowsiness, # 25 tablet, 1 Refills, Maintenance, 01/08/20 11:44:00 EST, Tablet, [facility] #[id number], Partial fill upon patient request, 175.26, cm, 12/29/19 10:13:00 E... Start Date: 01/08/20 Status: Ordered Januvia 50 mg oral tablet 1 tablet = 50 mg, By Mouth, Daily, # 90 tablet, 3 Refills, Maintenance, 12/29/19 10:52:00 EST, Tablet, [facility] #[id number], 175.26, cm, 12/29/19 10:13:00 EST, Height, 104.3, kg, 10/21/18 10:49:00 EDT, Dry Weight Start Date: 12/29/19 Status: Ordered metFORMIN 500 mg oral tablet, extended release See Instructions, 1 tablet By Mouth 2 times a day for one week then increase to 2 tablets 2 times aday, # 360 each, 3 Refills, Maintenance, 05/16/20 13:07:00 EDT, [facility] #[id number], 173, cm, 04/19/20 10:59:00 EST, Height, 103.45, kg, 03/20... Start Date: 05/16/20 Status: Ordered metoprolol 50 mg oral tablet, extended release 50 mg, 1, tablet, By Mouth, Daily, # 90 tablet, Refills 3, Tot. Refills 3, Maintenance, 03/27/20 13:28:00 EST, Route to Pharmacy Electronically, [facility] #[id number], Partial fill upon patientrequest if the prescription [...] 0 Refills, Maintenance, 02/28/20 9:39:00 EST, Tablet, [facility] #[id number], Partial fill upon patient request if the prescription is fora schedule II opioid drug., 173, cm, 02/28/20 7:44:... 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 therapist [...]
--- OUTSIDE RECORDS SUMMARY | 2022-09-09 09:13 | XMS_ITS | Continuity of Care Document ---
Author Name Unknown Organization [facility] Address [address] [place] [address]- Care Team Providers Care Inventory Assistant Name Role Phone Shea JIMÉNEZ, Kristine Marie Primary Care Physician Encounter [facility] Date(s): 03/27/20 - 04/26/20 [facility]/[address] [address]- Allergies, Adverse Reactions, Alerts Substance Reaction Severity [...] Stop, 02/21/2013:20:00 EST, Route to Pharmacy Electronically, [id number], [facility] #[id number], 175.26, cm, 01/09/19 14:57:00 EST, H... Start Date: 02/21/19 Status: Ordered aspirin 81 mg oral tablet, chewable 81 mg, 1, tablet, By Mouth, Daily, # 90 tablet, Refills 3, Tot. Refills 3, Maintenance, 12/29/19 10:51:00 EST, Route to Pharmacy Electronically, [facility] #[id number], 175.26, cm, 12/29/19 10:13:00 EST, Height, 104.3, kg, 10/21/18 10:49:00 EDT,... Start Date: 12/29/19 Status: Ordered atorvastatin 40 mg oral tablet 1 tablet = 40 mg, By Mouth, Daily at bedtime, # 30 tablet, 0 Refills, Maintenance, 02/28/20 9:38:00EST, Tablet, [facility] #[id number], Partial fill upon patient request if the prescription is for a schedule II opioid drug., 173, cm, 02/28/20 7:... Start Date: 02/28/20 Status: Ordered clotrimazole 1% topical cream 1 application, Topically, 2 times a day, # 30 Gm, 1 Refills, Maintenance, 02/13/20 17:16:00 EST, Cream, [facility] #[id number], Partial fill upon patient request if the prescription is for a schedule II opioid drug., 1 application Topically 2 rajiv... Start Date: 02/13/20 Status: Ordered empagliflozin 10 mg oral tablet 1 tablet = 10 mg, By Mouth, Daily in AM, Please go to any [facility] Reference lab and have fasting bloodwork done within the next 3-4 weeks., # 90 tablet, 1 Refills, Maintenance, 12/29/19 10:48:00 EST, Tablet, [facility] #[id number], Partial fill... Start Date: 12/29/19 Stop Date: 06/26/20 Status: Ordered hydrOXYzine hydrochloride 25 mg oral tablet 1 tablet = 25 mg, By Mouth, 4 times a day, PRN for acute anxiety, may cause drowsiness, # 25 tablet, 1 Refills, Maintenance, 01/08/20 11:44:00 EST, Tablet, [facility] #[id number], Partial fill upon patient request, 175.26, cm, 12/29/19 10:13:00 E... Start Date: 01/08/20 Status: Ordered Januvia 50 mg oral tablet 1 tablet = 50 mg, By Mouth, Daily, # 90 tablet, 3 Refills, Maintenance, 12/29/19 10:52:00 EST, Tablet, [facility] #[id number], 175.26, cm, 12/29/19 10:13:00 EST, Height, 104.3, kg, 10/21/18 10:49:00 EDT, Dry Weight Start Date: 12/29/19 Status: Ordered metoprolol 50 mg oral tablet, extended release 50 mg, 1, tablet, By Mouth, Daily, # 90 tablet, Refills 3, Tot. Refills 3, Maintenance, 03/27/20 13:28:00 EST, Route to Pharmacy Electronically, [facility] #[id number], Partial fill upon patientrequest if the prescription [...] 0 Refills, Maintenance, 02/28/20 9:39:00 EST, Tablet, [facility] #[id number], Partial fill upon patient request if the prescription is fora schedule II opioid drug., 173, cm, 02/28/20 7:44:... 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 therapist Shravan [...]
--- OUTSIDE RECORDS SUMMARY | 2022-09-09 09:13 | XMS_ITS | Continuity of Care Document ---
Author Name Unknown Organization [facility] Address [address] [place] [address] [address] [place] [address]- Care Team Providers Care Military Pilot Name Role Phone Kristine Valdivia MD Primary Care Physician Encounter [facility] [place] Date(s): 04/19/20 - 04/26/[address] [place] [address]- Encounter Diagnosis Epigastric mass(Discharge Diagnosis) - 04/19/20 Attending Physician: Cuate Perez Referring Physician: Kristine [...] Stop, 02/21/2013:20:00 EST, Route to Pharmacy Electronically, [id number], [facility] #[id number], 175.26, cm, 01/09/19 14:57:00 EST, H... Start Date: 02/21/19 Status: Ordered aspirin 81 mg oral tablet, chewable 81 mg, 1, tablet, By Mouth, Daily, # 90 tablet, Refills 3, Tot. Refills 3, Maintenance, 12/29/19 10:51:00 EST, Route to Pharmacy Electronically, [facility] #[id number], 175.26, cm, 12/29/19 10:13:00 EST, Height, 104.3, kg, 10/21/18 10:49:00 EDT,... Start Date: 12/29/19 Status: Ordered atorvastatin 40 mg oral tablet 1 tablet = 40 mg, By Mouth, Daily at bedtime, # 30 tablet, 0 Refills, Maintenance, 02/28/20 9:38:00EST, Tablet, [facility] #[id number], Partial fill upon patient request if the prescription is for a schedule II opioid drug., 173, cm, 02/28/20 7:... Start Date: 02/28/20 Status: Ordered clotrimazole 1% topical cream 1 application, Topically, 2 times a day, # 30 Gm, 1 Refills, Maintenance, 02/13/20 17:16:00 EST, Cream, [facility] #[id number], Partial fill upon patient request if the prescription is for a schedule II opioid drug., 1 application Topically 2 rajiv... Start Date: 02/13/20 Status: Ordered empagliflozin 10 mg oral tablet 1 tablet = 10 mg, By Mouth, Daily in AM, Please go to any [facility] Reference lab and have fasting bloodwork done within the next 3-4 weeks., # 90 tablet, 1 Refills, Maintenance, 12/29/19 10:48:00 EST, Tablet, [facility] #[id number], Partial fill... Start Date: 12/29/19 Stop Date: 06/26/20 Status: Ordered hydrOXYzine hydrochloride 25 mg oral tablet 1 tablet = 25 mg, By Mouth, 4 times a day, PRN for acute anxiety, may cause drowsiness, # 25 tablet, 1 Refills, Maintenance, 01/08/20 11:44:00 EST, Tablet, [facility] #[id number], Partial fill upon patient request, 175.26, cm, 12/29/19 10:13:00 E... Start Date: 01/08/20 Status: Ordered Januvia 50 mg oral tablet 1 tablet = 50 mg, By Mouth, Daily, # 90 tablet, 3 Refills, Maintenance, 12/29/19 10:52:00 EST, Tablet, [facility] #[id number], 175.26, cm, 12/29/19 10:13:00 EST, Height, 104.3, kg, 10/21/18 10:49:00 EDT, Dry Weight Start Date: 12/29/19 Status: Ordered metoprolol 50 mg oral tablet, extended release 50 mg, 1, tablet, By Mouth, Daily, # 90 tablet, Refills 3, Tot. Refills 3, Maintenance, 03/27/20 13:28:00 EST, Route to Pharmacy Electronically, [facility] #[id number], Partial fill upon patientrequest if the prescription [...] 0 Refills, Maintenance, 02/28/20 9:39:00 EST, Tablet, [facility] #[id number], Partial fill upon patient request if the prescription is fora schedule II opioid drug., 173, cm, 02/28/20 7:44:... 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 therapist Shravan Chester 4Hepatitis serology 2008-negative hep C, hep a and b immune 5EGD: 06/2017: normal 6NO hiatal hernia, but cannot find appropropriate listing in problem list 7Treatment started with statin 09/2009 8FBS 105, A1C 6.4 Diagnosis Diagnosis Type Effective Dates Health Status Cl inical Service Informant Epigastric mass Discharge Diagnosis 04/19/20 Procedures Procedure Date Related Diagnosis Body Site Status Placement of stent in cardiac conduit 02/2020 Completed Stripping of varicose vein o f lower limb 2003 Completed Operative procedure on left knee Completed Vital Signs Most recent to oldest [Reference Range]: 1 Height 173 cm (04/19/20 10:59 AM) Weight 102.7 kg (04/19/20 10:59 AM) Pulse Rate [55-90 bpm] 73 bpm (04/19/20 10:59 AM) Body Mass Index [18.5-24.99] 34.31 *>HHI* (04/19/20 10:59 AM) Blood Pressure [90-138/55-84 mm Hg] 137/ 82mm Hg (04/19/20 10:59 AM) Respiratory Rate [16-30 br/min] 18 br/mi n (04/19/20 10:59 AM) Temperature [96.8-100.4 DegF] 97.4 DegF (04/19/20 10:59 AM) Blood pressure sites Arm, left (04/19/20 10:59 AM) Temperature Route Temporal (04/19/20 10:59 AM) Weight Obtained Via Standing scale (04/19/20 10:59 AM) Social History Social History Type Response Smoking Status Current every day brando spence; Type: Cigarettes; Previous treatment: Counseling; Previous treatment: Medications; Previous treatment: Nicotine replacement; Interested in cessation: No; Other: 1 pack a day; entered on: 02/01/17 Sex
--- OUTSIDE RECORDS SUMMARY | 2022-09-09 09:13 | XMS_ITS | Continuity of Care Document ---
Author Name Unknown Organization [facility] Address [address] [place] [address]- Care Team Providers Care Technology Training Associate Name Role Phone Kristine Valdivia MD Primary Care Physician Encounter [facility] [place] Date(s): 05/16/20 - 06/15/20 [facility]/[address] [address]- Allergies, Adverse Reactions, Alerts Substance Reaction Severity [...] Stop, 02/21/2013:20:00 EST, Route to Pharmacy Electronically, [id number], [facility] #[id number], 175.26, cm, 01/09/19 14:57:00 EST, H... Start Date: 02/21/19 Status: Ordered aspirin 81 mg oral tablet, chewable 81 mg, 1, tablet, By Mouth, Daily, # 90 tablet, Refills 3, Tot. Refills 3, Maintenance, 12/29/19 10:51:00 EST, Route to Pharmacy Electronically, [facility] #[id number], 175.26, cm, 12/29/19 10:13:00 EST, Height, 104.3, kg, 10/21/18 10:49:00 EDT,... Start Date: 12/29/19 Status: Ordered atorvastatin 40 mg oral tablet 1 tablet = 40 mg, By Mouth, Daily at bedtime, # 30 tablet, 0 Refills, Maintenance, 02/28/20 9:38:00EST, Tablet, [facility] #[id number], Partial fill upon patient request if the prescription is for a schedule II opioid drug., 173, cm, 02/28/20 7:... Start Date: 02/28/20 Status: Ordered clotrimazole 1% topical cream 1 application, Topically, 2 times a day, # 30 Gm, 1 Refills, Maintenance, 02/13/20 17:16:00 EST, Cream, [facility] #[id number], Partial fill upon patient request if the prescription is for a schedule II opioid drug., 1 application Topically 2 rajiv... Start Date: 02/13/20 Status: Ordered empagliflozin 10 mg oral tablet 1 tablet = 10 mg, By Mouth, Daily in AM, Please go to any [facility] Reference lab and have fasting bloodwork done within the next 3-4 weeks., # 90 tablet, 1 Refills, Maintenance, 12/29/19 10:48:00 EST, Tablet, [facility] #[id number], Partial fill... Start Date: 12/29/19 Stop Date: 06/26/20 Status: Ordered hydrOXYzine hydrochloride 25 mg oral tablet 1 tablet = 25 mg, By Mouth, 4 times a day, PRN for acute anxiety, may cause drowsiness, # 25 tablet, 1 Refills, Maintenance, 01/08/20 11:44:00 EST, Tablet, [facility] #[id number], Partial fill upon patient request, 175.26, cm, 12/29/19 10:13:00 E... Start Date: 01/08/20 Status: Ordered Januvia 50 mg oral tablet 1 tablet = 50 mg, By Mouth, Daily, # 90 tablet, 3 Refills, Maintenance, 12/29/19 10:52:00 EST, Tablet, [facility] #[id number], 175.26, cm, 12/29/19 10:13:00 EST, Height, 104.3, kg, 10/21/18 10:49:00 EDT, Dry Weight Start Date: 12/29/19 Status: Ordered metFORMIN 500 mg oral tablet, extended release See Instructions, 1 tablet By Mouth 2 times a day for one week then increase to 2 tablets 2 times aday, # 360 each, 3 Refills, Maintenance, 05/16/20 13:07:00 EDT, [facility] #[id number], 173, cm, 04/19/20 10:59:00 EST, Height, 103.45, kg, 03/20... Start Date: 05/16/20 Status: Ordered metoprolol 50 mg oral tablet, extended release 50 mg, 1, tablet, By Mouth, Daily, # 90 tablet, Refills 3, Tot. Refills 3, Maintenance, 03/27/20 13:28:00 EST, Route to Pharmacy Electronically, [facility] #[id number], Partial fill upon patientrequest if the prescription [...] 0 Refills, Maintenance, 02/28/20 9:39:00 EST, Tablet, [facility] #[id number], Partial fill upon patient request if the prescription is fora schedule II opioid drug., 173, cm, 02/28/20 7:44:... 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 therapist Shravan [...]
--- OUTSIDE RECORDS SUMMARY | 2022-09-09 09:13 | XMS_ITS | Continuity of Care Document ---
Author Name Unknown Organization [facility] Address [address] [place] [address]- Care Team Providers Care Fire Prevention Forester Name Role Phone Kristine Valdivia MD Primary Care Physician [place] [facility] [place]/01/21 - 03/05/[address] [address]- Encounter Diagnosis Acute depression(Final) - 03/02/21 [facility] Attending Physician: Chasity Simeon MD Admitting Physician: Chasity Simeon MD Referring Physician: Not on Staff, Referring [...] Stop, 02/21/2013:20:00 EST, Route to Pharmacy Electronically, [id number], [facility] #[id number], 175.26, cm, 01/09/19 14:57:00 EST, H... Start Date: 02/21/19 Status: Ordered aspirin 81 mg oral tablet, chewable 1 tablet, By Mouth, Daily, CHEW., # 90 tablet, 3 Refills, [facility] #[id number], 173, cm, 10/09/20 16:52:00 EDT, Height, 103.45, kg, 03/20/20 17:23:00 EST, Dry Weight Start Date: 01/07/21 Status: Ordered atorvastatin 40 mg oral tablet 1 tablet = 40 mg, By Mouth, Daily at bedtime, # 30 tablet, 0 Refills, Maintenance, 02/28/20 9:38:00EST, Tablet, [facility] #[id number], Partial fill upon patient request if the prescription is for a schedule II opioid drug., 173, cm, 02/28/20 7:... Start Date: 02/28/20 Status: Ordered clotrimazole 1% topical cream 1 application, Topically, 2 times a day, apply to rash on penis, # 30 Gm, 1 Refills, Maintenance, 10/09/20 17:27:00 EDT, Cream, [facility] #[id number], Partial fill upon patient request if the prescription is for a schedule II opioid drug., 1 erasmo... Start Date: 10/09/20 Status: Ordered hydrOXYzine hydrochloride 25 mg oral tablet 1 tablet, By Mouth, 4 times a day, PRN NEEDED FOR ACUTE ANXIETY, MAY CAUSE DROWSINESS, # 25 tablet, 1 Refills, Acute, 07/08/20 10:46:00 EDT, [facility] #[id number], 173, cm, 05/28/20 10:07:00EDT, Height, 103.45, kg, 03/20/20 17:23:00 EST, Dry... Start Date: 07/08/20 Status: Ordered Jardiance 10 mg oral tablet 1 tablet, By Mouth, Daily in AM, # 90 tablet, 0 Refills, [facility] #[id number], 173, cm, 10/09/20 16:52:00 EDT, Height, 103.45, kg, 03/20/20 17:23:00 EST, Dry Weight Start Date: 01/07/21 Status: Ordered metFORMIN 500 mg oral tablet, extended release 1 tablet = 500 mg, By Mouth, 2 times a day, # 180 tablet, 3 Refills, Maintenance, 05/16/20 13:07:00EDT, [facility] #[id number], 173, cm, 04/19/20 10:59:00 EST, Height, 103.45, kg, 03/20/20 17:23:00 EST, Dry Weight Start Date: 05/16/20 Stop Date: 07/06/21 Status: Ordered metoprolol 50 mg oral tablet, extended release 50 mg, 1, tablet, By Mouth, Daily, # 90 tablet, Refills 3, Tot. Refills 3, Maintenance, 03/27/20 13:28:00 EST, Route to Pharmacy Electronically, [facility] #[id number], Partial fill upon patientrequest if the prescription is for a schedule II op... Start Date: 03/27/20 Status: Ordered metoprolol 50 mg oral tablet, extended release 50 mg, XL Tablet, By Mouth, 03/05/21 9:00:00 EST Start Date: 03/05/21 Stop Date: 03/05/21 Status: Completed nicotine 21 mg/24 hr transdermal film, extended release 1 patch, Topically, Daily, plan to change to 14 mg patch after 2 months, # 30 patch, 1 Refills, Maintenance, 10/10/20 9:30:00 EDT, Patch, [facility] #[id number], Partial fill upon patient request if the [...] 1 Refills, Maintenance, 03/27/20 14:18:00 EST, Tablet, [facility] #[id number], Partial fill upon patient request if the [...] mL, 3 Refills, Maintenance, 10/10/20 9:31:00 EDT, Solution, [facility] #[id number], Partial fill up... 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 therapist Shravan Chester 4Hepatitis serology 2008-negative hep C, hep a and b immune 5EGD: 06/2017: normal 6NO hiatal hernia, but cannot find appropropriate listing in problem list 7Treatment started with statin 09/2009 8FBS 105, A1C 6.4 Vital Signs Most recent to oldest [Reference Range]: 1 2 3 Height 171 cm (03/05/21 5:48 PM) 171 cm (03/04/21 8:05 PM) 171 cm (03/04/21 6:32 AM) Weight 95.6 kg (03/05/21 5:48 PM) 95.6 kg (03/04/21 8:05 PM) 95.6 kg (03/04/21 6:32 AM) Oxygen Saturation [94-100 %] 98 % (03/05/21 5:48 PM) 98 % (03/05/21 8:59 AM) 98 % (03/05/21 6:23 AM) Pulse Rate [55-90 bpm] 68 bpm (03/05/21 5:48 PM) 78 bpm (03/05/21 8:59 AM) 78 bpm (03/05/21 8:55 AM) Body Mass Index [18.5-24.99] 32.69 *>HHI* (03/04/21 8:05 PM) 32.69 *>HHI* (03/04/21 6:32 AM) 32.69 *>HHI* (03/04/21 1:03 AM) Blood Pressure [90-138/55-84 mm Hg] 151/72mm Hg *H* (03/05/21 5:48 PM) 129/71mm Hg (03/05/21 8:59 AM) 129/71mm Hg (03/05/21 8:55 AM) Respiratory Rate [16-30 br/min] 20 br/min (03/05/21 5:48 PM) 18 br/min (03/05/21 8:59 AM) 18 br/min (03/05/21 6:23 AM) Temperature [96.8-100.4 DegF] 98.1 DegF (03/05/21 8:59 AM) 97.8 DegF (03/05/21 6:23 AM) 98.7 DegF (03/04/21 8:05 PM) Mode of Delivery (Oxygen) Room air (03/05/21 5:48 PM) Room air (03/05/21 8:59 AM) Room air (03/05/21 6:23 AM) Blood pressure sites Arm, left (03/05/21 5:48 PM) Arm, right (03/05/21 6:23 AM) Arm, right (03/04/21 8:05 PM) Temperature Route Oral (03/05/21 8:59 AM) Oral (03/05/21 6:23 AM) Oral (03/04/21 8:05 PM) Dry Weight 95.6 kg (03/05/21 5:48 PM) 95.6 kg (03/04/21 8:05 PM) 95.6 kg (03/04/21 6:32 AM) Social History Social History Type Response Smoking Status 10 or more cigarette s (1/2 pack or more)/day in last 30 days; Other: .5 ppd x 30 years; entered on: 05/28/20 Sex
--- OUTSIDE RECORDS SUMMARY | 2022-09-09 09:13 | XMS_ITS | Continuity of Care Document ---
Author Name Unknown Organization [facility] ter Address [address] [place] [id number]- Care Team Providers Care Court Bailiff Or Sheriff Name Role Phone Not on Staff, PCP Primary Care Physician Unavail able Encounter [facility] Date(s): 11/21/21 - 11/21/[address] [address]- Discharge Disposition: A-D/C Walkout Attending Physician: Not on Staff, Attending MD Admitting Physician: Not on Staff, Admitting MD Referring Physician: Not on Staff, Referring MD Allergies, Adverse Reactions, Alerts Substance Reaction Severity Status doxycycline rash Active Immunizations Given and Recorded Vaccine Date Status Refusal Reason SARS-CoV-2 mRNA (zwkcibc-byww-fzoit) vax 03/18/21 Given pneumococcal 23-valent vaccine 03/18/21 [...] Stop, 02/21/2013:20:00 EST, Route to Pharmacy Electronically, [id number], [facility] #[id number], 175.26, cm, 01/09/19 14:57:00 EST, H... Start Date: 02/21/19 Status: Ordered ammonium lactate 12% topical cream 1 application, Topically, 2 times a day, apply and rub in well to soles of feet, # 280 Gm, 5 Refills, Maintenance, 03/18/21 12:42:00 EST, Cream, [facility] #[id number], Partial fill upon patientrequest if the prescription is for a schedule II op... Start Date: 03/18/21 Status: Ordered aspirin 81 mg oral tablet, chewable 1 tablet, By Mouth, Daily, CHEW., # 90 tablet, 3 Refills, 03/18/21 12:33:00 EST, [facility] #[id number], 171, cm, 03/18/21 11:26:00 EST, Height, 95.6, kg, 03/05/21 17:48:00 EST, Dry Weight Start Date: 03/18/21 Status: Ordered atorvastatin 40 mg oral tablet 1 tablet, By Mouth, Daily at bedtime, # 90 tablet, 3 Refills, [facility] #[id number], 171, cm,03/18/21 11:26:00 EST, Height, 95.6, kg, 03/05/21 17:48:00 EST, Dry Weight Start Date: 03/19/21 Status: Ordered clotrimazole 1% topical cream 1 application, Topically, 2 times a day, apply to rash on penis, # 30 Gm, 1 Refills, Maintenance, 03/18/21 12:43:00 EST, Cream, [facility] #[id number], Partial fill upon patient request if the prescription is for a schedule II opioid drug., 1 erasmo... Start Date: 03/18/21 Status: Ordered Freestyle Lite Lancets See Instructions, # 180 each, Refills 3, Tot. Refills 3, Maintenance, use as directed for Type 2 Diabetes Mellitus. Checking POC 1-2 times daily (fasting and two hours zckg-tpqaibdu-hnxxwhz meal of day), 03/18/21 12:40:00 EST, Supply, 171, cm, ... Start Date: 03/18/21 Status: Ordered Freestyle Lite Test Strips See Instructions, # 180 each, Refills 3, Tot. Refills 3, Maintenance, use as directed for Type 2 Diabetes Mellitus. Checking POC 1-2 times daily (fasting and two hours zyny-waalgdfi-ifpmmtc meal of day), 03/18/21 12:38:00 EST, 3 month supply if cover... Start Date: 03/18/21 Stop Date: 07/16/21 Status: Ordered hydrOXYzine hydrochloride 25 mg oral tablet 1 tablet, By Mouth, 4 times a day, PRN NEEDED FOR ACUTE ANXIETY, MAY CAUSE DROWSINESS, # 25 tablet, 1 Refills, [facility] #[id number], 171, cm, 03/05/21 17:48:00 EST, Height, 95.6, kg, 03/05/21 17:48:00 EST, Dry Weight Start Date: 03/17/21 Status: Ordered Jardiance 10 mg oral tablet 1 tablet, By Mouth, Daily in AM, # 90 tablet, 3 Refills, [facility] #[id number], 171, cm, 05/02/21 8:35:00 EDT, Height, 95.6, kg, 03/05/21 17:48:00 EST, Dry Weight Start Date: 06/06/21 Status: Ordered losartan 25 mg oral tablet 1 tablet, By Mouth, Daily, # 90 tablet, 0 Refills, [facility] #[id number], 171, cm, 05/02/21 8:35:00 EDT, Height, 95.6, kg, 03/05/21 17:48:00 EST, Dry Weight Start Date: 06/06/21 Status: Ordered metFORMIN 500 mg oral tablet, extended release 1 tablet = 500 mg, By Mouth, 2 times a day, # 180 tablet, 3 Refills, Maintenance, 07/06/21 17:27:00EDT, [facility] #[id number], 171, cm, 03/18/21 11:26:00 EST, Height, 95.6, kg, 03/05/21 17:48:00 EST, Dry Weight Start Date: 07/06/21 Stop Date: 07/01/22 Status: Ordered metoprolol 50 mg oral tablet, extended release 50 mg, 1, tablet, By Mouth, Daily, # 90 tablet, Refills 3, Tot. Refills 3, Maintenance, 03/18/21 12:33:00 EST, Route to Pharmacy Electronically, [facility] #[id number], Partial fill upon patientrequest if the prescription is for a schedule II op... Start Date: 03/18/21 Status: Ordered nicotine 21 mg/24 hr transdermal film, extended release 1 patch, Topically, Daily, plan to change to 14 mg patch after 2 months, # 30 patch, 1 Refills, Maintenance, 05/08/21 14:59:00 EDT, Patch, [facility] #[id number], Partial fill upon patient request if the [...] 3 Refills, Maintenance, 03/18/21 12:33:00 EST, Tablet, [facility] #[id number], Partial fill upon patient request if the prescription is for a schedule II opioid drug., 171, cm, 03/18/21 11:... Start Date: 03/18/21 Stop Date: 03/13/22 Status: Ordered Trulicity Pen 3 mg/0.5 mL subcutaneous solution 0.5 mL = 3 mg, Subcutaneous Injection, Every week, rotate injection sites. 3 month supply if covered by insurance, # 6.5 mL, 3 Refills, Maintenance, 03/18/21 12:34:00 EST, Solution, [facility] #[id number], Partial fill upon patient request if the... 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 therapist Shravan Chester 4Hepatitis serology 2008-negative hep C, hep a and b immune 5EGD: 06/2017: normal 6NO hiatal hernia, but cannot find appropropriate listing in problem list 7Treatment started with statin 09/2009 8FBS 105, A1C 6.4 Vital Signs Most recent to oldest [Reference Range]: 1 2 3 Weight 94 kg (11/21/21 4:32 PM) 94 kg (11/21/21 10:30 AM) Oxygen Saturation [94-100 %] 99 % (11/21/21 3:26 PM) 97 % (11/21/21 12:53 PM) 100 % (11/21/21 10:30 AM) Pulse Rate [55-90 bpm] 53 bpm *L* (11/21/21 3:26 PM) 98 bpm *H* (11/21/21 12:53 PM) 85 bpm (11/21/21 10:30 AM) Blood Pressure [90-138/55-84 mm Hg] 137/74mm Hg (11/21/21 3:26 PM) 123/79mm Hg (11/21/21 12:53 PM) 133/82mm Hg (11/21/21 10:30 AM) Respiratory Rate [16-30 br/min] 18 br/min (11/21/21 3:26 PM) 18 br/min (11/21/21 12:53 PM) 18 br/min (11/21/21 10:30 AM) Temperature [96.8-100.4 DegF] 99.5 DegF (11/21/21 3:26 PM) 99.0 DegF (11/21/21 12:53 PM) 98.4 DegF (11/21/21 10:30 AM) Mode of Delivery (Oxygen) Room air (11/21/21 3:26 PM) Room air (11/21/21 12:53 PM) Room air (11/21/21 10:30 AM) Blood pressure sites Arm, left (11/21/21 3:26 PM) Arm, right (11/21/21 12:53 PM) Temperature Route Oral (11/21/21 3:26 PM) Oral (11/21/21 12:53 PM) Oral (11/21/21 10:30 AM) Dry Weight 94 kg (11/21/21 4:32 PM) 94 kg (11/21/21 10:30 AM) Social History Social History Type Response Smoking Status 10 or more cigarette s (1/2 pack or more)/day in last 30 days; Other: .5 ppd x 30 years; entered on: 05/28/20 Sex Patient Care team information Personnel Name: Not on Staff, PCP
--- OUTSIDE RECORDS SUMMARY | 2022-09-09 09:13 | XMS_ITS | Continuity of Care Document ---
Author Name Unknown Organization [facility] ter Address [address] [place] [id number]- Care Team Providers Care Drafting Instructor Name Role Phone Kristine Valdivia MD Primary Care Physician Encounter [facility] [place](s): 05/05/21 - 05/06/[address] [address]- Discharge Disposition: A-D/C Walkout Attending Physician: Not on Staff, Attending MD Admitting Physician: Not on Staff, Admitting MD Referring Physician: Not on Staff, Referring MD Allergies, Adverse Reactions, Alerts Substance Reaction Severity Status doxycycline rash Active Immunizations Given and Recorded Vaccine Date Status Refusal Reason SARS-CoV-2 mRNA (npimxho-bwkq-egbmq) vax 03/18/21 Given pneumococcal 23-valent vaccine 03/18/21 [...] Stop, 02/21/2013:20:00 EST, Route to Pharmacy Electronically, [id number], [facility] #[id number], 175.26, cm, 01/09/19 14:57:00 EST, H... Start Date: 02/21/19 Status: Ordered ammonium lactate 12% topical cream 1 application, Topically, 2 times a day, apply and rub in well to soles of feet, # 280 Gm, 5 Refills, Maintenance, 03/18/21 12:42:00 EST, Cream, [facility] #[id number], Partial fill upon patientrequest if the prescription is for a schedule II op... Start Date: 03/18/21 Status: Ordered aspirin 81 mg oral tablet, chewable 1 tablet, By Mouth, Daily, CHEW., # 90 tablet, 3 Refills, 03/18/21 12:33:00 EST, [facility] #[id number], 171, cm, 03/18/21 11:26:00 EST, Height, 95.6, kg, 03/05/21 17:48:00 EST, Dry Weight Start Date: 03/18/21 Status: Ordered atorvastatin 40 mg oral tablet 1 tablet, By Mouth, Daily at bedtime, # 90 tablet, 3 Refills, [facility] #[id number], 171, cm,03/18/21 11:26:00 EST, Height, 95.6, kg, 03/05/21 17:48:00 EST, Dry Weight Start Date: 03/19/21 Status: Ordered clotrimazole 1% topical cream 1 application, Topically, 2 times a day, apply to rash on penis, # 30 Gm, 1 Refills, Maintenance, 03/18/21 12:43:00 EST, Cream, [facility] #[id number], Partial fill upon patient request if the prescription is for a schedule II opioid drug., 1 erasmo... Start Date: 03/18/21 Status: Ordered Freestyle Lite Lancets See Instructions, # 180 each, Refills 3, Tot. Refills 3, Maintenance, use as directed for Type 2 Diabetes Mellitus. Checking POC 1-2 times daily (fasting and two hours xick-izpuhexl-wmhtodc meal of day), 03/18/21 12:40:00 EST, Supply, 171, cm, ... Start Date: 03/18/21 Status: Ordered Freestyle Lite Test Strips See Instructions, # 180 each, Refills 3, Tot. Refills 3, Maintenance, use as directed for Type 2 Diabetes Mellitus. Checking POC 1-2 times daily (fasting and two hours hnvm-vdquzbst-wfgoeuh meal of day), 03/18/21 12:38:00 EST, 3 month supply if cover... Start Date: 03/18/21 Stop Date: 07/16/21 Status: Ordered hydrOXYzine hydrochloride 25 mg oral tablet 1 tablet, By Mouth, 4 times a day, PRN NEEDED FOR ACUTE ANXIETY, MAY CAUSE DROWSINESS, # 25 tablet, 1 Refills, [facility] #[id number], 171, cm, 03/05/21 17:48:00 EST, Height, 95.6, kg, 03/05/21 17:48:00 EST, Dry Weight Start Date: 03/17/21 Status: Ordered Jardiance 10 mg oral tablet 1 tablet, By Mouth, Daily in AM, # 90 tablet, 0 Refills, 03/18/21 12:33:00 EST, [facility] #[id number], 171, cm, 03/18/21 11:26:00 EST, Height, 95.6, kg, 03/05/21 17:48:00 EST, Dry Weight Start Date: 03/18/21 Status: Ordered losartan 25 mg oral tablet 25 mg, 1, tablet, By Mouth, Daily, # 90 tablet, Refills 0, Tot. Refills 0, Maintenance, 03/20/21 14:40:00 EST, Route to Pharmacy Electronically, [facility] #[id number], Partial fill upon patientrequest if the prescription is for a schedule II op... Start Date: 03/20/21 Status: Ordered metFORMIN 500 mg oral tablet, extended release 1 tablet = 500 mg, By Mouth, 2 times a day, for 90 days, # 180 tablet, 3 Refills, Hard Stop 07/06/21 17:27:34 EDT, 05/16/20 13:07:00 EDT, [facility] #[id number], 173, cm, 04/19/20 10:59:00 EST, Height, 103.45, kg, 03/20/20 17:23:00 EST, Dry Weight Start Date: 05/16/20 Stop Date: 07/06/21 Status: Ordered metFORMIN 500 mg oral tablet, extended release 1 tablet = 500 mg, By Mouth, 2 times a day, # 180 tablet, 3 Refills, Maintenance, 07/06/21 17:27:00EDT, [facility] #[id number], 171, cm, 03/18/21 11:26:00 EST, Height, 95.6, kg, 03/05/21 17:48:00 EST, Dry Weight Start Date: 07/06/21 Stop Date: 07/01/22 Status: Ordered metoprolol 50 mg oral tablet, extended release 50 mg, 1, tablet, By Mouth, Daily, # 90 tablet, Refills 3, Tot. Refills 3, Maintenance, 03/18/21 12:33:00 EST, Route to Pharmacy Electronically, [facility] #[id number], Partial fill upon patientrequest if the prescription is for a schedule II op... Start Date: 03/18/21 Status: Ordered nicotine 21 mg/24 hr transdermal film, extended release 1 patch, Topically, Daily, plan to change to 14 mg patch after 2 months, # 30 patch, 1 Refills, Maintenance, 10/10/20 9:30:00 EDT, Patch, [facility] #[id number], Partial fill upon patient request if the [...] 3 Refills, Maintenance, 03/18/21 12:33:00 EST, Tablet, [facility] #[id number], Partial fill upon patient request if the prescription is for a schedule II opioid drug., 171, cm, 03/18/21 11:... Start Date: 03/18/21 Stop Date: 03/13/22 Status: Ordered Trulicity Pen 3 mg/0.5 mL subcutaneous solution 0.5 mL = 3 mg, Subcutaneous Injection, Every week, rotate injection sites. 3 month supply if covered by insurance, # 6.5 mL, 3 Refills, Maintenance, 03/18/21 12:34:00 EST, Solution, [facility] #[id number], Partial fill upon patient request if the... 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 therapist Shravan Chester 4Hepatitis serology 2009-negative hep C, hep a and b immune 5EGD: 06/2017: normal 6NO hiatal hernia, but cannot find appropropriate listing in problem list 7Treatment started with statin 09/2009 8FBS 105, A1C 6.4 Results Radiology Reports * Exam Date Time Procedure Performing Provider Status 05/05/21 9:46 PM Chest 2 Views Frontal and Lat Rebeca Roberts; Auth (Verified) Notes: (Chest 2 Views Frontal and Lat) Reason For Exam: Chest Pain;Other: RESULT: Chest 2 Views Frontal and Lat Chest 2 Views Frontal and Lat Hx of Present Illness: Pt is amb to triage reporting chest tightness and diarrhea that started today. No SOB. No cough. No fevers. No N V. Pt reporting some lightheadedness. History of WI last year with 2 stents.; Reason: Other:; Chest Pain; Clinical Question(s): Other: COMPARISON: 05/28/2020 FINDINGS: LINES AND TUBES: None. LUNGS AND PLEURA: Slight increased density seen in the right lower lung field may represent atelectasis. Pneumonia not excluded. No pleural effusion. No pneumothorax. HEART, MEDIASTINUM AND GAB: Heart is normal in size. Normal upper mediastinal and hilar contour. BONES AND SOFT TISSUES: No acute abnormality. IMPRESSION: Slight increased density right lower lung field most likely superimposition and volume loss/atelectasis. Pneumonia not excluded. WSN: [id number] Ordering Physician: Kalin Farfan MD Dictated By: Wolfgang Cárdenas MD Dictated Date/Time: 05/05/21 10:08 p Reviewed By: Wolfgang Cárdenas MD Signed By: Wolfgang Cárdenas MD Signed Date/Time: 05/05/21 10:08 pm Transcribed By: TAMMY Transcribed Date/Time: 05/05/21 10:05 pm Vital Signs Most recent to oldest [Reference Range]: 1 2 3 Oxygen Saturation [94-100 %] 97 % (05/06/21 2:34 AM) 97 % (05/06/21 12:21 AM) 97 % (05/05/21 10:06 PM) Pulse Rate [55-90 bpm] 92 bpm *H* (05/06/21 2:34 AM) 101 bpm *H* (05/06/21 12:21 AM) 92 bpm *H* (05/05/21 10:06 PM) Blood Pressure [90-138/55-84 mm Hg] 142/87mm Hg *H* (05/06/21 2:34 AM) 148/100mm Hg *H* (05/06/21 12:21 AM) 144/97mm Hg *H* (05/05/21 10:06 PM) Respiratory Rate [16-30 br/min] 18 br/min (05/05/21 10:06 PM) 16 br/min (05/05/21 8:22 PM) Temperature [96.8-100.4 DegF] 98.0 DegF (05/06/21 2:34 AM) 98.1 DegF (05/06/21 12:21 AM) 98.4 DegF (05/05/21 10:06 PM) Mode of Delivery (Oxygen) Room air (05/06/21 2:34 AM) Room air (05/06/21 12:21 AM) Room air (05/05/21 10:06 PM) Blood pressure sites Arm, left (05/06/21 2:34 AM) Arm, left (05/06/21 12:21 AM) Arm, right (05/05/21 10:06 PM) Temperature Route Oral (05/06/21 2:34 AM) Oral (05/06/21 12:21 AM) Oral (05/05/21 10:06 PM) Social History Social History Type Response Smoking Status 10 or more cigarette s (1/2 pack or more)/day in last 30 days; Other: .5 ppd x 30 years; entered on: 05/28/20 Sex
--- OUTSIDE RECORDS SUMMARY | 2022-09-09 09:13 | XMS_ITS | Continuity of Care Document ---
Author Name Unknown Organization [facility] Address [address] [place] [id number]- Care Team Providers Care Document Coordinator Name Role Phone Kristine Valdivia MD Primary Care Physician Encounter [facility] [place] Date(s): 08/06/22 - 09/05/22 [facility] [address] [place] [address]- Attending Physician: Arron Vergara Admitting Physician: AdmtrArron Referring Physician: Admtr, Ar8 Allergies, Adverse Reactions, Alerts Substance Reaction Severity Status doxycycline rash Active Immunizations Given and Recorded Vaccine Date Status Refusal Reason SARS-CoV-2 mRNA (flqfosk-adgu-ebsdy) vax 03/18/21 Given pneumococcal 23-valent vaccine 03/18/21 [...] GIVEN Medications Aerochamber See Instructions, # 1 each, Maintenance, asthma: dx for use with MDI, 07/27/22 8:57:00 EDT, Supply,175, cm, 07/22/22 17:27:00 EDT, Height, 72, kg, 11/26/21 18:42:00 EDT, Dry Weight Start Date: 07/27/22 Status: Ordered ammonium lactate 12% topical cream 1 application, Topically, 2 times a day, apply and rub in well to soles of feet, # 280 Gm, 5 Refills, Maintenance, 03/16/22 14:40:00 EST, Cream, [facility], Partial fill upon patient request if the prescription is for a schedule II... Start Date: 03/16/22 Status: Ordered aspirin 81 mg oral tablet, chewable 1 tablet, By Mouth, Daily, for 90 days, CHEW., # 90 tablet, 3 Refills, Physician Stop 03/11/23 14:39:00 EST, 03/16/22 14:39:00 EST, [facility], 175, cm, 03/16/22 14:06:00 EST, Height, 72, kg, 11/26/21 18:42:00 EDT, Dry Weight Start Date: 03/16/22 Stop Date: 03/11/23 Status: Ordered atorvastatin 20 mg oral tablet 1 tablet = 20 mg, By Mouth, Daily, Stop simvastatin. Go for labs (to any [facility] reference lab) for fasting cholesterol and liver tests 4 weeks after restarting atorvastatin, # 90 tablet, 1 Refills,Maintenance, 07/22/22 18:33:00 EDT, Tablet, [facility]... Start Date: 07/22/22 Status: Ordered Jardiance 10 mg oral tablet 1 tablet, By Mouth, Daily in AM, for 90 days, # 90 tablet, 1 Refills, Physician Stop 12/23/22 11:29:00 EST, 06/26/22 11:29:00 ED[id number], 175, cm, 03/16/22 14:06:00 EST, Height,72, kg, 11/26/21 18:42:00 EDT, Dry Weight Start Date: 06/26/22 Stop Date: 12/23/22 Status: Ordered losartan 50 mg oral tablet 1 tablet = 50 mg, By Mouth, Daily, dose increase from 25 to 50 mg as of 08/07/22, # 90 tablet, 3 Refills, Maintenance, 08/07/22 10:56:00 EDT, Tablet, [facility], Partial fill upon patient request if the prescription is for a schedul... Start Date: 08/07/22 Status: Ordered metFORMIN 500 mg oral tablet, extended release 2 tablet = 1,000 mg, By Mouth, 2 times a day, for 90 days, # 360 tablet, 1 Refills, Hard Stop 01/18/23 18:36:00 EST, 07/22/22 18:36:00 EDT, [facility] #[id number], 175, cm, 07/22/22 17:27:00 EDT, Height, 72, kg, 11/26/21 18:42:00 EDT, Dry Weight Start Date: 07/22/22 Stop Date: 01/18/23 Status: Ordered metoprolol 50 mg oral tablet, extended release 50 mg, 1, tablet, By Mouth, Daily, # 90 tablet, Refills 3, Tot. Refills 3, Maintenance, 03/16/22 14:39:00 EST, Route to Pharmacy Electronically, [facility], Partial fill upon patient request if the prescription is for a schedule II... Start Date: 03/16/22 Status: Ordered One Touch Ultra 2 Glucose Meter See Instructions, # 1 each, Maintenance, Dx: Diabetes type 2. E11.22. Testing once daily, fasting. 3 months supply, 08/12/22 11:30:00 EDT, Supply, 175, cm, 08/07/22 10:34:00 EDT, Height, 72, kg, 11/26/21 18:42:00 EDT, Dry Weight Start Date: 08/12/22 Status: Ordered One Touch Ultra Test Strips See Instructions, # 90 each, Refills 3, Tot. Refills 3, Maintenance, Dx: Diabetes type 2. E11.22. Testing once daily, fasting. 3 months supply, 08/12/22 11:31:00 EDT, Supply, 175, cm, 08/07/22 10:34:00 EDT, Height, 72, kg, 11/26/21 18:42:00 EDT, Dry W... Start Date: 08/12/22 Status: Ordered One Touch UltraSoft Lancets See Instructions, # 90 each, Refills 3, Tot. Refills 3, Maintenance, Dx: Diabetes type 2. E11.22. Testing once daily, fasting. 3 months supply, 08/12/22 11:30:00 EDT, Supply, 175, cm, 08/07/22 10:34:00 EDT, Height, 72, kg, 11/26/21 18:42:00 EDT, Dry W... Start Date: 08/12/22 Status: Ordered pantoprazole 20 mg oral delayed release tablet = 20 mg, By Mouth, Daily, # 90 each, 0 Refills, Maintenance, 06/26/22 11:30:00 EDT, [facility] Tablet, 175,cm, 03/16/22 14:06:00 EST, Height, 72, kg, 11/26/21 18:42:00 EDT, Dry Weight Start Date: 06/26/22 Status: Ordered PEG-3350 with Electrolytes (Eqv-NuLYTELY) oral powder for reconstitution See Instructions, as directed, # 1 each, 0 Refills, Maintenance, 08/06/22 9:57:00 EDT, [facility], ok to sub for any gallon prep, as directed, 175, cm, 08/06/22 9:20:00 EDT, Height, 72, kg, 11/26/21 18:42:00 EDT, Dry Weight Start Date: 08/06/22 Status: Ordered Trulicity Pen 3 mg/0.5 mL subcutaneous solution 0.5 mL = 3 mg, Subcutaneous Injection, Every week, rotate injection sites. 3 month supply if covered by insurance, # 6.5 mL, 3 Refills, Maintenance, 07/22/22 18:34:00 EDT, Solution, [facility] #[id number], Partial fill upon patient request if the... Start Date: 07/22/22 Status: Ordered Ventolin HFA 108 mcg/inh inhalation aerosol with adapter 1 puffs, Inhalation, Every 4 hours, PRN for wheezing, use with spacer chamber, # 8.5 Gm, 2 Refills,Maintenance, 07/27/22 8:56:00 EDT, Aerosol, [facility] #[id number], Partial fill upon patient request if the prescription is for a schedule II opi... 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 therapist Shravan [...] Team Personnel Name: Basilia Holland RN Position: [facility] RN Member Role: Primary Care Nurse Name: Kristine Valdivia MD Position: [facility] Physician - Primary Care Member Role: PCP Address: Address: [address] [place] [address]- Name: Maddison Avila RN Position: S RN Member Role: Primary Care Nurse Name: Mackenzie Salinas RN Position: S RN Member Role: Primary Care Nurse Name: Vandana Ly RN Position: S RN Member Role: Primary Care Nurse Care Team Related Persons Name: CARLOS FLOYD Address: home [address] [place] [id number] Name: IAN WHITE Address: home [address] [place] [id number] Name: JE KIRKPATRICK Name: EVE GOMEZ Address: home [address] [place] [id number]
--- OUTSIDE RECORDS SUMMARY | 2022-09-09 09:13 | XMS_ITS | Continuity of Care Document ---
Author Name Unknown Organization [facility] Address [address] [place] [address]- Care Team Providers Care Commercial Door Installer Name Role Phone Kristine Valdivia MD Primary Care Physician [phone] [place] [facility] [place]09[place] - 03/19/19 [facility] [address] [address]- [facility] Attending Physician: Admtr, Arron Admitting Physician: AdmtrArron Referring Physician: Admtr, Ar8 [...] Stop, 02/21/2013:20:00 EST, Route to Pharmacy Electronically, [id number], [facility] #[id number], 175.26, cm, 01/09/19 14:57:00 EST, H... 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 therapist Shravan [...]
--- OUTSIDE RECORDS SUMMARY | 2022-09-09 09:13 | XMS_ITS | Continuity of Care Document ---
Author Name Unknown Organization [facility] Address Unknown Care Team Providers Care Payroll Processor Name Role Phone Kristine Valdivia MD Primary Care Physician [phone] En[place] [facility] [place](s): 11/08/20 - 12/08/20 [facility] Allergies, Adverse Reactions, Alerts Substance Reaction Severity [...] Stop, 02/21/2013:20:00 EST, Route to Pharmacy Electronically, [id number], [facility] #[id number], 175.26, cm, 01/09/19 14:57:00 EST, H... Start Date: 02/21/19 Status: Ordered aspirin 81 mg oral tablet, chewable 81 mg, 1, tablet, By Mouth, Daily, # 90 tablet, Refills 3, Tot. Refills 3, Maintenance, 12/29/19 10:51:00 EST, Route to Pharmacy Electronically, [facility] #[id number], 175.26, cm, 12/29/19 10:13:00 EST, Height, 104.3, kg, 10/21/18 10:49:00 EDT,... Start Date: 12/29/19 Status: Ordered atorvastatin 40 mg oral tablet 1 tablet = 40 mg, By Mouth, Daily at bedtime, # 30 tablet, 0 Refills, Maintenance, 02/28/20 9:38:00EST, Tablet, [facility] #[id number], Partial fill upon patient request if the prescription is for a schedule II opioid drug., 173, cm, 02/28/20 7:... Start Date: 02/28/20 Status: Ordered clotrimazole 1% topical cream 1 application, Topically, 2 times a day, apply to rash on penis, # 30 Gm, 1 Refills, Maintenance, 10/09/20 17:27:00 EDT, Cream, [facility] #[id number], Partial fill upon patient request if the prescription is for a schedule II opioid drug., 1 erasmo... Start Date: 10/09/20 Status: Ordered hydrOXYzine hydrochloride 25 mg oral tablet 1 tablet, By Mouth, 4 times a day, PRN NEEDED FOR ACUTE ANXIETY, MAY CAUSE DROWSINESS, # 25 tablet, 1 Refills, Acute, 07/08/20 10:46:00 EDT, [facility] #[id number], 173, cm, 05/28/20 10:07:00EDT, Height, 103.45, kg, 03/20/20 17:23:00 EST, Dry... Start Date: 07/08/20 Status: Ordered Jardiance 10 mg oral tablet 1 tablet, By Mouth, Daily in AM, # 90 tablet, 0 Refills, [facility] #[id number], 173, cm, 10/09/20 16:52:00 EDT, Height, 103.45, kg, 03/20/20 17:23:00 EST, Dry Weight Start Date: 10/14/20 Status: Ordered metFORMIN 500 mg oral tablet, extended release 1 tablet = 500 mg, By Mouth, 2 times a day, # 180 tablet, 3 Refills, Maintenance, 05/16/20 13:07:00EDT, [facility] #[id number], 173, cm, 04/19/20 10:59:00 EST, Height, 103.45, kg, 03/20/20 17:23:00 EST, Dry Weight Start Date: 05/16/20 Stop Date: 07/06/21 Status: Ordered metoprolol 50 mg oral tablet, extended release 50 mg, 1, tablet, By Mouth, Daily, # 90 tablet, Refills 3, Tot. Refills 3, Maintenance, 03/27/20 13:28:00 EST, Route to Pharmacy Electronically, [facility] #[id number], Partial fill upon patientrequest if the prescription is for a schedule II op... Start Date: 03/27/20 Status: Ordered nicotine 21 mg/24 hr transdermal film, extended release 1 patch, Topically, Daily, plan to change to 14 mg patch after 2 months, # 30 patch, 1 Refills, Maintenance, 10/10/20 9:30:00 EDT, Patch, [facility] #[id number], Partial fill upon patient request if the [...] 1 Refills, Maintenance, 03/27/20 14:18:00 EST, Tablet, [facility] #[id number], Partial fill upon patient request if the [...] 3 Refills, Maintenance, 10/10/20 9:31:00 EDT, [place], [facility] #[id number], Partial fill up... 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
--- OUTSIDE RECORDS SUMMARY | 2022-09-09 09:13 | XMS_ITS | Continuity of Care Document ---
Author Name Unknown Organization [facility] Address [address] [place] [address]- Care Team Providers Care Operating Room Assistant Name Role Phone Shea JIMÉNEZ, Kristine Marie Primary Care Physician Encounter [facility] Date(s): 03/26/20 - 04/25/20 [facility]/[address] [address]- Allergies, Adverse Reactions, Alerts Substance Reaction Severity [...] Stop, 02/21/2013:20:00 EST, Route to Pharmacy Electronically, [id number], [facility] #[id number], 175.26, cm, 01/09/19 14:57:00 EST, H... Start Date: 02/21/19 Status: Ordered aspirin 81 mg oral tablet, chewable 81 mg, 1, tablet, By Mouth, Daily, # 90 tablet, Refills 3, Tot. Refills 3, Maintenance, 12/29/19 10:51:00 EST, Route to Pharmacy Electronically, [facility] #[id number], 175.26, cm, 12/29/19 10:13:00 EST, Height, 104.3, kg, 10/21/18 10:49:00 EDT,... Start Date: 12/29/19 Status: Ordered atorvastatin 40 mg oral tablet 1 tablet = 40 mg, By Mouth, Daily at bedtime, # 30 tablet, 0 Refills, Maintenance, 02/28/20 9:38:00EST, Tablet, [facility] #[id number], Partial fill upon patient request if the prescription is for a schedule II opioid drug., 173, cm, 02/28/20 7:... Start Date: 02/28/20 Status: Ordered clotrimazole 1% topical cream 1 application, Topically, 2 times a day, # 30 Gm, 1 Refills, Maintenance, 02/13/20 17:16:00 EST, Cream, [facility] #[id number], Partial fill upon patient request if the prescription is for a schedule II opioid drug., 1 application Topically 2 rajiv... Start Date: 02/13/20 Status: Ordered empagliflozin 10 mg oral tablet 1 tablet = 10 mg, By Mouth, Daily in AM, Please go to any [facility] Reference lab and have fasting bloodwork done within the next 3-4 weeks., # 90 tablet, 1 Refills, Maintenance, 12/29/19 10:48:00 EST, Tablet, [facility] #[id number], Partial fill... Start Date: 12/29/19 Stop Date: 06/26/20 Status: Ordered hydrOXYzine hydrochloride 25 mg oral tablet 1 tablet = 25 mg, By Mouth, 4 times a day, PRN for acute anxiety, may cause drowsiness, # 25 tablet, 1 Refills, Maintenance, 01/08/20 11:44:00 EST, Tablet, [facility] #[id number], Partial fill upon patient request, 175.26, cm, 12/29/19 10:13:00 E... Start Date: 01/08/20 Status: Ordered Januvia 50 mg oral tablet 1 tablet = 50 mg, By Mouth, Daily, # 90 tablet, 3 Refills, Maintenance, 12/29/19 10:52:00 EST, Tablet, [facility] #[id number], 175.26, cm, 12/29/19 10:13:00 EST, Height, 104.3, kg, 10/21/18 10:49:00 EDT, Dry Weight Start Date: 12/29/19 Status: Ordered metoprolol 50 mg oral tablet, extended release 50 mg, 1, tablet, By Mouth, Daily, # 90 tablet, Refills 3, Tot. Refills 3, Maintenance, 03/27/20 13:28:00 EST, Route to Pharmacy Electronically, [facility] #[id number], Partial fill upon patientrequest if the prescription [...] 0 Refills, Maintenance, 02/28/20 9:39:00 EST, Tablet, [facility] #[id number], Partial fill upon patient request if the prescription is fora schedule II opioid drug., 173, cm, 02/28/20 7:44:... 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 therapist Shravan [...]
--- OUTSIDE RECORDS SUMMARY | 2022-09-09 09:13 | XMS_ITS | Continuity of Care Document ---
Author Name Unknown Organization [facility] Address [address] [place] [address]- Care Team Providers Care Hand Mixer Name Role Phone Kristine Valdivia MD Primary Care Physician [place] [facility] [place] 02/28/[address] [address]- Discharge Disposition: A-D/C Home Attending Physician: Hector Metzger MD Admitting Physician: Brooke Deluna MD Referring Physician: Brooke Deluna MD Allergies, Adverse Reactions, Alerts Substance Reaction [...] Stop, 02/21/2013:20:00 EST, Route to Pharmacy Electronically, [id number], [facility] #[id number], 175.26, cm, 01/09/19 14:57:00 EST, H... Start Date: 02/21/19 Status: Ordered aspirin 81 mg oral tablet, chewable 81 mg, 1, tablet, By Mouth, Daily, # 90 tablet, Refills 3, Tot. Refills 3, Maintenance, 12/29/19 10:51:00 EST, Route to Pharmacy Electronically, [facility] #[id number], 175.26, cm, 12/29/19 10:13:00 EST, Height, 104.3, kg, 10/21/18 10:49:00 EDT,... Start Date: 12/29/19 Status: Ordered atorvastatin 40 mg oral tablet 1 tablet = 40 mg, By Mouth, Daily at bedtime, # 30 tablet, 0 Refills, Maintenance, 02/28/20 9:38:00EST, Tablet, [facility] #[id number], Partial fill upon patient request if the prescription is for a schedule II opioid drug., 173, cm, 02/28/20 7:... Start Date: 02/28/20 Status: Ordered clotrimazole 1% topical cream 1 application, Topically, 2 times a day, # 30 Gm, 1 Refills, Maintenance, 02/13/20 17:16:00 EST, Cream, [facility] #[id number], Partial fill upon patient request if the prescription is for a schedule II opioid drug., 1 application Topically 2 rajiv... Start Date: 02/13/20 Status: Ordered empagliflozin 10 mg oral tablet 1 tablet = 10 mg, By Mouth, Daily in AM, Please go to any [facility] Reference lab and have fasting bloodwork done within the next 3-4 weeks., # 90 tablet, 1 Refills, Maintenance, 12/29/19 10:48:00 EST, Tablet, [facility] #[id number], Partial fill... Start Date: 12/29/19 Stop Date: 06/26/20 Status: Ordered hydrOXYzine hydrochloride 25 mg oral tablet 1 tablet = 25 mg, By Mouth, 4 times a day, PRN for acute anxiety, may cause drowsiness, # 25 tablet, 1 Refills, Maintenance, 01/08/20 11:44:00 EST, Tablet, [facility] #[id number], Partial fill upon patient request, 175.26, cm, 12/29/19 10:13:00 E... Start Date: 01/08/20 Status: Ordered Januvia 50 mg oral tablet 1 tablet = 50 mg, By Mouth, Daily, # 90 tablet, 3 Refills, Maintenance, 12/29/19 10:52:00 EST, Tablet, [facility] #[id number], 175.26, cm, 12/29/19 10:13:00 EST, Height, 104.3, kg, 10/21/18 10:49:00 EDT, Dry Weight Start Date: 12/29/19 Status: Ordered metFORMIN 500 mg oral tablet, extended release 2 tablet = 1,000 mg, By Mouth, 2 times a day, # 360 tablet, 3 Refills, Maintenance, 12/29/19 10:52:00 EST, [facility] #[id number], 175.26, cm, 12/29/19 10:13:00 EST, Height, 104.3, kg, 10/21/18 10:49:00 EDT, Dry Weight Start Date: 12/29/19 Status: Ordered metoprolol 25 mg oral tablet 25 mg, Tablet, By Mouth, 02/28/20 9:00:00 EST Start Date: 02/28/20 Stop Date: 02/28/20 Status: Completed metoprolol 50 mg oral tablet, extended release 50 mg, 1, tablet, By Mouth, Daily, # 30 tablet, Refills 0, Tot. Refills 0, Maintenance, 02/28/20 9:42:00 EST, Route to Pharmacy Electronically, [facility] #[id number], Partial fill upon patient request if the prescription is for a schedule II opi... Start Date: 02/28/20 Status: Ordered pantoprazole 20 mg oral delayed release tablet = 20 mg, By Mouth, Daily, # 30 tablet, 0 Refills, Maintenance, 02/28/20 9:39:00 EST, [facility], 173, cm, 02/28/20 7:44:00 EST, Height, 105.3, kg, 02/26/20 22:11:00 EST, Dry Weight Start Date: 02/28/20 Stop Date: 03/29/20 Status: Ordered ticagrelor 90 mg oral tablet 1 tablet = 90 mg, By Mouth, 2 times a day, # 60 tablet, 0 Refills, Maintenance, 02/28/20 9:39:00 EST, Tablet, [facility] #[id number], Partial fill upon patient request if the prescription is fora schedule II opioid drug., 173, cm, 02/28/20 7:44:... 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 therapist Shravan [place] 4Hepatitis serology 2008-negative hep C, hep a and b immune 5EGD: 06/2017: normal 6NO hiatal hernia, but cannot find appropropriate listing in problem list 7Treatment started with statin 09/2009 8FBS 105, A1C 6.4 Vital Signs Most recent to oldest [Reference Range]: 1 2 3 Height 173 cm (02/28/20 7:44 AM) 173 cm (02/28/20 2:19 AM) 173 cm (02/27/20 7:51 PM) Weight 105.1 kg (02/28/20 2:19 AM) 105.2 kg (02/27/20 10:59 AM) 105.2 kg (02/27/20 3:59 AM) Oxygen Saturation [94-100 %] 96 % (02/28/20 7:44 AM) 97 % (02/28/20 2:19 AM) 98 % (02/27/20 7:51 PM) Pulse Rate [55-90 bpm] 75 bpm (02/28/20 8:16 AM) 75 bpm (02/28/20 7:44 AM) 80 bpm (02/28/20 2:19 AM) Body Mass Index [18.5-24.99] 35.12 *>HHI* (02/28/20 2:19 AM) 35.15 *>HHI* (02/27/20 3:59 AM) 35.18 *>HHI* (02/26/20 10:11 PM) Blood Pressure [90-138/55-84 mm Hg] 135/82mm Hg (02/28/20 8:16 AM) 135/82mm Hg (02/28/20 7:44 AM) 117/75mm Hg (02/28/20 2:19 AM) Respiratory Rate [16-30 br/min] 18 br/min (02/28/20 7:44 AM) 18 br/min (02/28/20 3:27 AM) 18 br/min (02/28/20 2:19 AM) Temperature [96.8-100.4 DegF] 97.6 DegF (02/28/20 7:44 AM) 97.4 DegF (02/28/20 2:19 AM) 97.7 DegF (02/27/20 7:51 PM) Mode of Delivery (Oxygen) Room air (02/28/20 7:44 AM) Room air (02/28/20 2:19 AM) Room air (02/27/20 7:51 PM) Blood pressure sites Arm, left (02/28/20 7:44 AM) Arm, right (02/28/20 2:19 AM) Arm, left (02/27/20 7:51 PM) Temperature Route Oral (02/28/20 7:44 AM) Oral (02/28/20 2:19 AM) Oral (02/27/20 7:51 PM) Dry Weight 105.3 kg (02/26/20 10:11 PM) Weight Obtained Via Bed scale (02/28/20 2:19 AM) Bed scale (02/27/20 3:59 AM) Social History Social History Type Response Smoking Status Current every day brando spence; Type: Cigarettes; Previous treatment: Counseling; Previous treatment: Medications; Previous treatment: Nicotine replacement; Interested in cessation: No; Other: 1 pack a day; entered on: 02/01/17 Sex
--- OUTSIDE RECORDS SUMMARY | 2022-09-09 09:13 | XMS_ITS | Continuity of Care Document ---
Author Name Unknown Organization [facility] Address [address] [place] [address] [address] [place] [address]- Care Team Providers Care Trim Sawyer Name Role Phone Kristine Valdivia MD Primary Care Physician Encounter [facility] Date(s): 03/28/20 - 04/27/[address] [place], [place] [address] Allergies, Adverse Reactions, Alerts Substance Reaction Severity [...] Stop, 02/21/2013:20:00 EST, Route to Pharmacy Electronically, [id number], [facility] #[id number], 175.26, cm, 01/09/19 14:57:00 EST, H... Start Date: 02/21/19 Status: Ordered aspirin 81 mg oral tablet, chewable 81 mg, 1, tablet, By Mouth, Daily, # 90 tablet, Refills 3, Tot. Refills 3, Maintenance, 12/29/19 10:51:00 EST, Route to Pharmacy Electronically, [facility] #[id number], 175.26, cm, 12/29/19 10:13:00 EST, Height, 104.3, kg, 10/21/18 10:49:00 EDT,... Start Date: 12/29/19 Status: Ordered atorvastatin 40 mg oral tablet 1 tablet = 40 mg, By Mouth, Daily at bedtime, # 30 tablet, 0 Refills, Maintenance, 02/28/20 9:38:00EST, Tablet, [facility] #[id number], Partial fill upon patient request if the prescription is for a schedule II opioid drug., 173, cm, 02/28/20 7:... Start Date: 02/28/20 Status: Ordered clotrimazole 1% topical cream 1 application, Topically, 2 times a day, # 30 Gm, 1 Refills, Maintenance, 02/13/20 17:16:00 EST, Cream, [facility] #[id number], Partial fill upon patient request if the prescription is for a schedule II opioid drug., 1 application Topically 2 rajiv... Start Date: 02/13/20 Status: Ordered empagliflozin 10 mg oral tablet 1 tablet = 10 mg, By Mouth, Daily in AM, Please go to any [facility] Reference lab and have fasting bloodwork done within the next 3-4 weeks., # 90 tablet, 1 Refills, Maintenance, 12/29/19 10:48:00 EST, Tablet, [facility] #[id number], Partial fill... Start Date: 12/29/19 Stop Date: 06/26/20 Status: Ordered hydrOXYzine hydrochloride 25 mg oral tablet 1 tablet = 25 mg, By Mouth, 4 times a day, PRN for acute anxiety, may cause drowsiness, # 25 tablet, 1 Refills, Maintenance, 01/08/20 11:44:00 EST, Tablet, [facility] #[id number], Partial fill upon patient request, 175.26, cm, 12/29/19 10:13:00 E... Start Date: 01/08/20 Status: Ordered Januvia 50 mg oral tablet 1 tablet = 50 mg, By Mouth, Daily, # 90 tablet, 3 Refills, Maintenance, 12/29/19 10:52:00 EST, Tablet, [facility] #[id number], 175.26, cm, 12/29/19 10:13:00 EST, Height, 104.3, kg, 10/21/18 10:49:00 EDT, Dry Weight Start Date: 12/29/19 Status: Ordered metoprolol 50 mg oral tablet, extended release 50 mg, 1, tablet, By Mouth, Daily, # 90 tablet, Refills 3, Tot. Refills 3, Maintenance, 03/27/20 13:28:00 EST, Route to Pharmacy Electronically, [facility] #[id number], Partial fill upon patientrequest if the prescription [...] 0 Refills, Maintenance, 02/28/20 9:39:00 EST, Tablet, [facility] #[id number], Partial fill upon patient request if the prescription is fora schedule II opioid drug., 173, cm, 02/28/20 7:44:... 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 therapist [...]
--- OUTSIDE RECORDS SUMMARY | 2022-09-09 09:14 | XMS_ITS | Continuity of Care Document ---
Author Name Unknown Organization [facility] Address [address] [place] [address]- Care Team Providers Care Medical Records Coder Name Role Phone Shea JIMÉNEZ, Kristine Marie Primary Care Physician [phone] Encounter [facility] Date(s): 03/26/20 - 04/25/20 [facility]/[address] [address]- Allergies, Adverse Reactions, Alerts Substance Reaction Severity [...] Stop, 02/21/2013:20:00 EST, Route to Pharmacy Electronically, [id number], [facility] #[id number], 175.26, cm, 01/09/19 14:57:00 EST, H... Start Date: 02/21/19 Status: Ordered aspirin 81 mg oral tablet, chewable 81 mg, 1, tablet, By Mouth, Daily, # 90 tablet, Refills 3, Tot. Refills 3, Maintenance, 12/29/19 10:51:00 EST, Route to Pharmacy Electronically, [facility] #[id number], 175.26, cm, 12/29/19 10:13:00 EST, Height, 104.3, kg, 10/21/18 10:49:00 EDT,... Start Date: 12/29/19 Status: Ordered atorvastatin 40 mg oral tablet 1 tablet = 40 mg, By Mouth, Daily at bedtime, # 30 tablet, 0 Refills, Maintenance, 02/28/20 9:38:00EST, Tablet, [facility] #[id number], Partial fill upon patient request if the prescription is for a schedule II opioid drug., 173, cm, 02/28/20 7:... Start Date: 02/28/20 Status: Ordered clotrimazole 1% topical cream 1 application, Topically, 2 times a day, # 30 Gm, 1 Refills, Maintenance, 02/13/20 17:16:00 EST, Cream, [facility] #[id number], Partial fill upon patient request if the prescription is for a schedule II opioid drug., 1 application Topically 2 rajiv... Start Date: 02/13/20 Status: Ordered empagliflozin 10 mg oral tablet 1 tablet = 10 mg, By Mouth, Daily in AM, Please go to any [facility] Reference lab and have fasting bloodwork done within the next 3-4 weeks., # 90 tablet, 1 Refills, Maintenance, 12/29/19 10:48:00 EST, Tablet, [facility] #[id number], Partial fill... Start Date: 12/29/19 Stop Date: 06/26/20 Status: Ordered hydrOXYzine hydrochloride 25 mg oral tablet 1 tablet = 25 mg, By Mouth, 4 times a day, PRN for acute anxiety, may cause drowsiness, # 25 tablet, 1 Refills, Maintenance, 01/08/20 11:44:00 EST, Tablet, [facility] #[id number], Partial fill upon patient request, 175.26, cm, 12/29/19 10:13:00 E... Start Date: 01/08/20 Status: Ordered Januvia 50 mg oral tablet 1 tablet = 50 mg, By Mouth, Daily, # 90 tablet, 3 Refills, Maintenance, 12/29/19 10:52:00 EST, Tablet, [facility] #[id number], 175.26, cm, 12/29/19 10:13:00 EST, Height, 104.3, kg, 10/21/18 10:49:00 EDT, Dry Weight Start Date: 12/29/19 Status: Ordered metoprolol 50 mg oral tablet, extended release 50 mg, 1, tablet, By Mouth, Daily, # 90 tablet, Refills 3, Tot. Refills 3, Maintenance, 03/27/20 13:28:00 EST, Route to Pharmacy Electronically, [facility] #[id number], Partial fill upon patientrequest if the prescription [...] 0 Refills, Maintenance, 02/28/20 9:39:00 EST, Tablet, [facility] #[id number], Partial fill upon patient request if the prescription is fora schedule II opioid drug., 173, cm, 02/28/20 7:44:... 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 [...]
--- OUTSIDE RECORDS SUMMARY | 2022-09-09 09:14 | XMS_ITS | Continuity of Care Document ---
Author Name Unknown Organization [facility] Address [address] [place] [address]- Care Team Providers Care Charger Name Role Phone Kristine Valdivia MD Primary Care Phys[id number] Date(s): 01/22/22 - 04/15/22 [facility] [address]- Attending Physician: Kristine Valdivia MD Admitting Physician: Kristine Valdivia MD Referring Physician: Kristine Valdivia MD Allergies, Adverse Reactions, Alerts Substance Reaction Severity Status doxycycline rash Active Immunizations Given and Recorded Vaccine Date Status Refusal Reason SARS-CoV-2 mRNA ([id number]) vax 03/18/21 Given pneumococcal 23-valent vaccine 03/18/21 [...] Stop, :56:00 EDT, Route to Pharmacy Electronically, [id number], [facility], 175, cm, 12/02/21 19:43:00 EDT, Height,... Start Date: 12/03/21 Status: Ordered ammonium lactate 12% topical cream 1 application, Topically, 2 times a day, apply and rub in well to soles of feet, # 280 Gm, 5 Refills, Maintenance, 03/16/22 14:40:00 EST, Cream, [facility], Partial fill upon patient request if the prescription is for a schedule II... Start Date: 03/16/22 Status: Ordered aspirin 81 mg oral tablet, chewable 1 tablet, By Mouth, Daily, for 90 days, CHEW., # 90 tablet, 3 Refills, Physician Stop 03/11/23 14:39:00 EST, 03/16/22 14:39:00 EST, [facility], 175, cm, 03/16/22 14:06:00 EST, Height, 72, kg, 11/26/21 18:42:00 EDT, Dry Weight Start Date: 03/16/22 Stop Date: 03/11/23 Status: Ordered atorvastatin 10 mg oral tablet 1 tablet = 10 mg, By Mouth, Daily, # 90 tablet, 3 Refills, Maintenance, 03/16/22 14:39:00 EST, [facility], Partial fill upon patient request if the prescription is for a schedule II opioid drug., 175, cm, 03/16/22 14:06:00 EST, Hei... Start Date: 03/16/22 Status: Ordered Freestyle Lite Lancets See Instructions, # 180 each, Refills 3, Tot. Refills 3, Maintenance, use as directed for Type 2 Diabetes Mellitus. Checking POC 1-2 times daily (fasting and two hours [id number] meal of day), 03/18/21 12:40:00 EST, Supply, 171, cm, ... Start Date: 03/18/21 Status: Ordered Freestyle Lite Test Strips See Instructions, # 180 each, Refills 3, Tot. Refills 3, Maintenance, use as directed for Type 2 Diabetes Mellitus. Checking POC 1-2 times daily (fasting and two hours [id number] meal of day), 03/18/21 12:38:00 EST, 3 month supply if cover... Start Date: 03/18/21 Stop Date: 07/16/21 Status: Ordered Jardiance 10 mg oral tablet 1 tablet, By Mouth, Daily in AM, for 90 days, # 90 tablet, 3 Refills, Physician Stop 03/11/23 14:39:00 EST, 03/16/22 14:39:00 EST, [facility], 175, cm, 03/16/22 14:06:00 EST, Height, 72, kg, 11/26/21 18:42:00 EDT, Dry Weight Start Date: 03/16/22 Stop Date: 03/11/23 Status: Ordered losartan 25 mg oral tablet 1 tablet, By Mouth, Daily, for 90 days, # 90 tablet, 3 Refills, Physician Stop 03/11/23 14:39:00 EST, 03/16/22 14:39:00 EST, [facility], 175, cm, 03/16/22 14:06:00 EST, Height, 72, kg, 11/26/21 18:42:00 EDT, Dry Weight Start Date: 03/16/22 Stop Date: 03/11/23 Status: Ordered metFORMIN 500 mg oral tablet, extended release 1 tablet = 500 mg, By Mouth, 2 times a day, for 90 days, # 180 tablet, 3 Refills, Hard Stop 11/28/22 8:56:00 EDT, 12/03/21 8:56:00 [facility], [facility], 12/02/21 19:43:00 EDT, Height, 72, kg, 11/26/21 18:42:00 EDT, Dry Weight Start Date: 12/03/21 Stop Date: 11/28/22 Status: Ordered metoprolol 50 mg oral tablet, extended release 50 mg, 1, tablet, By Mouth, Daily, # 90 tablet, Refills 3, Tot. Refills 3, Maintenance, 03/16/22 14:39:00 EST, Route to Pharmacy Electronically, [facility], Partial fill upon patient request if [...] Stop 12/17/22 16:20:00 EDT, 12/22/21 16:20:00EST, Solution, [facility], Part... Start Date: 12/22/21 Stop Date: 12/17/22 Status: Ordered Trulicity Pen 3 mg/0.5 mL subcutaneous solution 0.5 mL = 3 mg, Subcutaneous Injection, Every week, rotate injection sites. 3 month supply if covered by insurance, # 6.5 mL, 3 Refills, Maintenance, 12/17/22 16:20:00 EDT, Solution, [facility] [place], Partial fill upon patient request if... 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 therapist [...] Team Personnel Name: Basilia Holland RN Position: [facility] RN Member Role: Primary Care Nurse Name: Kristine Valdivia MD Position: [facility] Primary Care Physician Member Role: PCP Address: Address: [address] [place] [address]- Name: Maddison Avila RN Position: [facility] RN Member Role: Primary Care Nurse Name: Mackenzie Salinas RN Position: [facility] RN Member Role: Primary Care Nurse Name: Holley Negron RN Position: [facility] RN Member Role: Primary Care Nurse Name: Vandana Ly RN Position: [facility] RN Member Role: Primary Care Nurse Care Team Related Persons Name: CARLOS FLOYD Address: home [address] [place] [address] Name: IAN WHITE Address: [address] [place] [address] Name: JE KIRKPATRICK Name: EVE GOMEZ Address: home [address] [place] [address]
--- OUTSIDE RECORDS SUMMARY | 2022-09-09 09:14 | XMS_ITS | Continuity of Care Document ---
Author Name Unknown Organization [facility] ter Address [address] [place] [address]- Care Team Providers Care Cobol Developer Name Role Phone Not on Staff, PCP Primary Care Physician Unavail able Encounter [facility] Date(s): 12/17/21 - 12/17/[address] [address]- Encounter Diagnosis Hyperglycemia(Final) - 12/17/21 Discharge Disposition: A-D/C Home Attending Physician: Anil Patel MD Admitting Physician: Anil Patel MD Referring Physician: Anil Patel MD Allergies, Adverse Reactions, Alerts Substance Reaction Severity Status doxycycline rash Active Immunizations Given and Recorded Vaccine Date Status Refusal Reason SARS-CoV-2 mRNA (hxktjxc-eytm-fxvfi) vax 03/18/21 Given pneumococcal 23-valent vaccine 03/18/21 [...] Stop, :56:00 EDT, Route to Pharmacy Electronically, [id number], [facility], 175, cm, 12/02/21 19:43:00 EDT, Height,... Start Date: 12/03/21 Status: Ordered ammonium lactate 12% topical cream 1 application, Topically, 2 times a day, apply and rub in well to soles of feet, # 280 Gm, 5 Refills, Maintenance, 03/18/21 12:42:00 EST, [id number], Partial fill upon patientrequest if the prescription is for a schedule II op... Start Date: 03/18/21 Status: Ordered aspirin 81 mg oral tablet, chewable 1 tablet, By Mouth, Daily, CHEW., # 90 tablet, 3 Refills, 12/03/21 8:56:00 EDT, [facility], 175, cm, 12/02/21 19:43:00 EDT, Height, 72, kg, 11/26/21 18:42:00 EDT, Dry Weight Start Date: 12/03/21 Status: Ordered atorvastatin 10 mg oral tablet 1 tablet = 10 mg, By Mouth, Daily, # 30 tablet, 0 Refills, Maintenance, 12/03/21 8:54:00 EDT, [facility], Partial fill upon patient request if the prescription is for a schedule II opioid drug., 175, cm, 12/02/21 19:43:00 EDT, Height, 72... Start Date: 12/03/21 Status: Ordered clotrimazole 1% topical cream 1 application, Topically, 2 times a day, apply to rash on penis, # 30 Gm, 1 Refills, Maintenance, 03/18/21 12:43:00 EST, Cream, [email or web address][id number], Partial fill upon patient request if the prescription is for a schedule II opioid drug., 1 erasmo... Start Date: 03/18/21 Status: Ordered Freestyle Lite Lancets See Instructions, # 180 each, Refills 3, Tot. Refills 3, Maintenance, use as directed for Type 2 Diabetes Mellitus. Checking POC 1-2 times daily (fasting and two hours snjx-zskrdpml-klmcaej meal of day), 03/18/21 12:40:00 EST, Supply, 171, cm, ... Start Date: 03/18/21 Status: Ordered Freestyle Lite Test Strips See Instructions, # 180 each, Refills 3, Tot. Refills 3, Maintenance, use as directed for Type 2 Diabetes Mellitus. Checking POC 1-2 times daily (fasting and two hours xtfp-duphmbrp-mnvfycv meal of day), 03/18/21 12:38:00 EST, 3 month supply if cover... Start Date: 03/18/21 Stop Date: 07/16/21 Status: Ordered Jardiance 10 mg oral tablet 1 tablet, By Mouth, Daily in AM, # 90 tablet, 3 Refills, [facility] #[id number], 171, cm, 05/02/21 8:35:00 EDT, Height, 95.6, kg, 03/05/21 17:48:00 EST, Dry Weight Start Date: 06/06/21 Status: Ordered losartan 25 mg oral tablet 1 tablet, By Mouth, Daily, # 90 tablet, 0 Refills, 12/03/21 8:56:00 EDT, [facility], 175, cm, 12/02/21 19:43:00 EDT, Height, 72, kg, 11/26/21 18:42:00 EDT, Dry Weight Start Date: 12/03/21 Status: Ordered metFORMIN 500 mg oral tablet, extended release 1 tablet = 500 mg, By Mouth, 2 times a day, # 180 tablet, 3 Refills, Maintenance, 12/03/21 8:56:00 EDT, [facility], 175, cm, 12/02/21 19:43:00 EDT, Height, 72, kg, 11/26/21 18:42:00 EDT, Dry Weight Start Date: 12/03/21 Stop Date: 11/28/22 Status: Ordered metoprolol 50 mg oral tablet, extended release 50 mg, 1, tablet, By Mouth, Daily, # 90 tablet, Refills 3, Tot. Refills 3, Maintenance, 03/18/21 12:33:00 EST, Route to Pharmacy Electronically, [facility][id number], Partial fill upon patientrequest if the prescription is for a schedule II op... Start Date: 03/18/21 Status: Ordered nicotine 21 mg/24 hr transdermal film, extended release 1 patch, Topically, Daily, plan to change to 14 mg patch after 2 months, # 30 patch, 1 Refills, Maintenance, 12/03/21 8:56:00 EDT, Patch, [facility], Partial fill upon patient [...] 12/03/21 8:55:00 EDT, Route to Pharmacy Electronically, [facility], Partialfill upon patient request if the prescription is fo... Start Date: 12/03/21 Stop Date: 12/10/21 Status: Ordered ticagrelor 90 mg oral tablet 1 tablet = 90 mg, By Mouth, 2 times a day, # 180 tablet, 3 Refills, Maintenance, 03/18/21 12:33:00 EST, Tablet, [email or web address][id number], Partial fill upon patient request if the prescription is for a schedule II opioid drug., 171, cm, 03/18/21 11:... Start Date: 03/18/21 Stop Date: 03/13/22 Status: Ordered traZODone 50 mg oral tablet 50 mg, 1, tablet, By Mouth, Daily at bedtime, PRN, # 21 tablet, Refills 0, Tot. Refills 0, Maintenance, Insomnia, 12/03/21 8:55:00 EDT, Route to Pharmacy Electronically, [facility], Partial fill upon patient request if the prescription i... Start Date: 12/03/21 Stop Date: 12/24/21 Status: Ordered Trulicity Pen 3 mg/0.5 mL subcutaneous solution 0.5 mL = 3 mg, Subcutaneous Injection, Every week, rotate injection sites. 3 month supply if covered by insurance, # 6.5 mL, 3 Refills, Maintenance, 03/18/21 12:34:00 EST, Solution, [email or web address][id number], Partial fill upon patient request if the... 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 2repeat colonoscopy in 2019 3[facility] therapist Shravan Chester 4Hepatitis serology 2008-negative hep C, hep a and b immune 5EGD: 06/2017: normal 6NO hiatal hernia, but cannot find appropropriate listing in problem list 7Treatment started with statin 09/2009 8FBS 105, A1C 6.4 Results Radiology Reports * Exam Date Time Procedure Performing Provider Status 12/17/21 3:27 PM Chest 2 Views Frontal and Lat Sayra Munoz; Auth (Verified) Notes: (Chest 2 Views Frontal and Lat) Reason For Exam: Shortness of Breath, Fever;Other: RESULT: Chest 2 Views Frontal and Lat Chest 2 Views Frontal and Lat Hx of Present Illness: Pt. comes in as a recess from [facility] while in shower got a foot cramp amd fell to the ground seizing for 5 mins, HTN, tachcardic, and hyperglycemic. POC 361. Pt. has unknown last cocaine use.; Reason: Other:; Shortness of Breath, Fever; Clinical Question(s): Pneumonia COMPARISON: Chest radiograph from 05/05/2021. FINDINGS: LINES AND TUBES: None. LUNGS AND PLEURA: Clear lungs. No pleural effusion. No pneumothorax. IMPRESSION: No acute abnormality. I have personally reviewed the images and I agree with this report. WSN: [id number] Ordering Physician: Octavia Ho Dictated By: Karson Hamlin MD Dictated Date/Time: 12/17/21 3:39 pm Reviewed By: Sinan Beyer MD Signed By: Sinan Beyer MD Signed Date/Time: 12/17/21 3:44 pm Transcribed By: TAMMY Transcribed Date/Time: 12/17/21 3:32 pm Vital Signs Most recent to oldest [Reference Range]: 1 2 3 Oxygen Saturation [94-100 %] 97 % (12/17/21 9:24 PM) 97 % (12/17/21 7:10 PM) 97 % (12/17/21 6:51 PM) Pulse Rate [55-90 bpm] 72 bpm (12/17/21 9:24 PM) 96 bpm *H* (12/17/21 7:10 PM) 87 bpm (12/17/21 6:51 PM) Blood Pressure [90-138/55-84 mm Hg] 157/97mm Hg *H* (12/17/21 9:24 PM) 148/97mm Hg *H* (12/17/21 7:10 PM) 150/105mm Hg *H* (12/17/21 6:51 PM) Respiratory Rate [16-30 br/min] 18 br/min (12/17/21 9:24 PM) 17 br/min (12/17/21 7:10 PM) 16 br/min (12/17/21 6:51 PM) Temperature [96.8-100.4 DegF] 98.2 DegF (12/17/21 9:24 PM) 98.4 DegF (12/17/21 7:10 PM) 98.4 DegF (12/17/21 5:40 PM) Mode of Delivery (Oxygen) Room air (12/17/21 9:24 PM) Room air (12/17/21 7:10 PM) Room air (12/17/21 5:40 PM) Blood pressure sites Arm, left (12/17/21 9:24 PM) Arm, left (12/17/21 7:10 PM) Arm, left (12/17/21 6:51 PM) Temperature Route Oral (12/17/21 9:24 PM) Oral (12/17/21 5:40 PM) Oral (12/17/21 3:03 PM) Social History Social History Type Response Smoking Status 10 or more cigarette s (1/2 pack or more)/day in last 30 days; Other: .5 ppd x 30 years; entered on: 05/28/20 Sex Note * [facility] , CIS S: TRANSCRIBE Kayleen JIMÉNEZ, Sinan P: VERIFY Boubacar JIMÉNEZ, Karson Whitney: SIGN Event Display: Result: Authored Date: Chest 2 Views Frontal and Lat Hx of Present Illness: Pt. comes in as a recess from [facility] while in shower got a foot cramp amd fell to the ground seizing for 5 mins, HTN, tachcardic, and hyperglycemic. POC 361. Pt. has unknown last cocaine use.; Reason: Other:; Shortness of Breath, Fever; Clinical Question(s): Pneumonia COMPARISON: Chest radiograph from 05/05/2021. FINDINGS: LINES AND TUBES: None. LUNGS AND PLEURA: Clear lungs. No pleural effusion. No pneumothorax. IMPRESSION: No acute abnormality. I have personally reviewed the images and I agree with this report. WSN: [id number] Ordering Physician: Octavia Ho Dictated By: Karson Hamlin MD Dictated Date/Time: 12/17/21 3:39 pm Reviewed By: Sinna Beyer MD Signed By: Sinan Beyer MD Signed Date/Time: 12/17/21 3:44 pm Transcribed By: TAMMY Transcribed Date/Time: 12/17/21 3:32 pm Patient Care team information Personnel Name: Not on Staff, PCP
--- OUTSIDE RECORDS SUMMARY | 2022-09-09 09:14 | XMS_ITS | Continuity of Care Document ---
Author Name Unknown Organization [facility] Address [address] [place] [address], [address] [place] [address]- Care Team Providers Care Outside Cutter Hand Name Role Phone Kristine Valdivia MD Primary Care Physician [phone] Encounter [facility] Date(s): 05/28/20 - 06/04/20 [facility] [address] [place] [address], [address] [place], [place] [address] Attending Physician: Tatayna Mcknight MD Referring Physician: Cuate Perez Allergies, Adverse Reactions, Alerts Substance Reaction Severity [...] Stop, 02/21/2013:20:00 EST, Route to Pharmacy Electronically, [id number], [facility] #[id number], 175.26, cm, 01/09/19 14:57:00 EST, H... Start Date: 02/21/19 Status: Ordered aspirin 81 mg oral tablet, chewable 81 mg, 1, tablet, By Mouth, Daily, # 90 tablet, Refills 3, Tot. Refills 3, Maintenance, 12/29/19 10:51:00 EST, Route to Pharmacy Electronically, [facility] #[id number], 175.26, cm, 12/29/19 10:13:00 EST, Height, 104.3, kg, 10/21/18 10:49:00 EDT,... Start Date: 12/29/19 Status: Ordered atorvastatin 40 mg oral tablet 1 tablet = 40 mg, By Mouth, Daily at bedtime, # 30 tablet, 0 Refills, Maintenance, 02/28/20 9:38:00EST, Tablet, [facility] #[id number], Partial fill upon patient request if the prescription is for a schedule II opioid drug., 173, cm, 02/28/20 7:... Start Date: 02/28/20 Status: Ordered clotrimazole 1% topical cream 1 application, Topically, 2 times a day, # 30 Gm, 1 Refills, Maintenance, 02/13/20 17:16:00 EST, Cream, [facility] #[id number], Partial fill upon patient request if the prescription is for a schedule II opioid drug., 1 application Topically 2 rajiv... Start Date: 02/13/20 Status: Ordered empagliflozin 10 mg oral tablet 1 tablet = 10 mg, By Mouth, Daily in AM, Please go to any [facility] Reference lab and have fasting bloodwork done within the next 3-4 weeks., # 90 tablet, 1 Refills, Maintenance, 12/29/19 10:48:00 EST, Tablet, [facility] #[id number], Partial fill... Start Date: 12/29/19 Stop Date: 06/26/20 Status: Ordered hydrOXYzine hydrochloride 25 mg oral tablet 1 tablet = 25 mg, By Mouth, 4 times a day, PRN for acute anxiety, may cause drowsiness, # 25 tablet, 1 Refills, Maintenance, 01/08/20 11:44:00 EST, Tablet, [facility] #[id number], Partial fill upon patient request, 175.26, cm, 12/29/19 10:13:00 E... Start Date: 01/08/20 Status: Ordered Januvia 50 mg oral tablet 1 tablet = 50 mg, By Mouth, Daily, # 90 tablet, 3 Refills, Maintenance, 12/29/19 10:52:00 EST, Tablet, [facility] #[id number], 175.26, cm, 12/29/19 10:13:00 EST, Height, 104.3, kg, 10/21/18 10:49:00 EDT, Dry Weight Start Date: 12/29/19 Status: Ordered metFORMIN 500 mg oral tablet, extended release See Instructions, 1 tablet By Mouth 2 times a day for one week then increase to 2 tablets 2 times aday, # 360 each, 3 Refills, Maintenance, 05/16/20 13:07:00 EDT, [facility] #[id number], 173, cm, 04/19/20 10:59:00 EST, Height, 103.45, kg, 03/20... Start Date: 05/16/20 Status: Ordered metoprolol 50 mg oral tablet, extended release 50 mg, 1, tablet, By Mouth, Daily, # 90 tablet, Refills 3, Tot. Refills 3, Maintenance, 03/27/20 13:28:00 EST, Route to Pharmacy Electronically, [facility] #[id number], Partial fill upon patientrequest if the prescription [...] 0 Refills, Maintenance, 02/28/20 9:39:00 EST, Tablet, [facility] #[id number], Partial fill upon patient request if the prescription is fora schedule II opioid drug., 173, cm, 02/28/20 7:44:... 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 therapist Shravan Chester 4Hepatitis serology 2008-negative hep C, hep a and b immune 5EGD: 06/2017: normal 6NO hiatal hernia, but cannot find appropropriate listing in problem list 7Treatment started with statin 09/2009 8FBS 105, A1C 6.4 Vital Signs Most recent to oldest [Reference Range]: 1 Height 173 cm (05/28/20 10:07 AM) Weight 104.5 kg (05/28/20 10:07 AM) Oxygen Saturation [94-100 %] 97 % (05/28/20 10:07 AM) Pulse Rate [55-90 bpm] 80 bpm (05/28/20 10:07 AM) Body Mass Index [18.5-24.99] 34.92 *>HHI* (05/28/20 10:07 AM) Blood Pressure [90-138/55-84 mm Hg] 112/ 66mm Hg (05/28/20 10:07 AM) Temperature [96.8-100.4 DegF] 97.8 DegF (05/28/20 10:07 AM) Mode of Delivery (Oxygen) Room air (05/28/20 10:07 AM) Blood pressure sites Arm, right (05/28/20 10:07 AM) Temperature Route Temporal (05/28/20 10:07 AM) Weight Obtained Via Standing scale (05/28/20 10:07 AM) Social History Social History Type Response Smoking Status 10 or more cigarette s (1/2 pack or more)/day in last 30 days; Other: .5 ppd x 30 years; entered on: 05/28/20 Sex
--- OUTSIDE RECORDS SUMMARY | 2022-09-09 09:14 | XMS_ITS | Continuity of Care Document ---
Author Name Unknown Organization [facility] Address Unknown Care Team Providers Care Broker Assistant Name Role Phone Kristine Valdivia MD Primary Care Physician [phone] Encounter [facility] Date(s): 09/02/20 - 10/02/20 [facility] Allergies, Adverse Reactions, Alerts Substance Reaction [...] Stop, 02/21/2013:20:00 EST, Route to Pharmacy Electronically, [id number], [facility] #[id number], 175.26, cm, 01/09/19 14:57:00 EST, H... Start Date: 02/21/19 Status: Ordered aspirin 81 mg oral tablet, chewable 81 mg, 1, tablet, By Mouth, Daily, # 90 tablet, Refills 3, Tot. Refills 3, Maintenance, 12/29/19 10:51:00 EST, Route to Pharmacy Electronically, [facility] #[id number], 175.26, cm, 12/29/19 10:13:00 EST, Height, 104.3, kg, 10/21/18 10:49:00 EDT,... Start Date: 12/29/19 Status: Ordered atorvastatin 40 mg oral tablet 1 tablet = 40 mg, By Mouth, Daily at bedtime, # 30 tablet, 0 Refills, Maintenance, 02/28/20 9:38:00EST, Tablet, [facility] #[id number], Partial fill upon patient request if the prescription is for a schedule II opioid drug., 173, cm, 02/28/20 7:... Start Date: 02/28/20 Status: Ordered clotrimazole 1% topical cream 1 application, Topically, 2 times a day, # 30 Gm, 1 Refills, Maintenance, 02/13/20 17:16:00 EST, Cream, [facility] #[id number], Partial fill upon patient request if the prescription is for a schedule II opioid drug., 1 application Topically 2 rajiv... Start Date: 02/13/20 Status: Ordered empagliflozin 10 mg oral tablet 1 tablet = 10 mg, By Mouth, Daily in AM, # 90 tablet, 0 Refills, Maintenance, 09/24/20 10:48:00 EDT, Tablet, [facility] #[id number], Partial fill upon patient request, 173, cm, 05/28/20 10:07:00EDT, Height, 103.45, kg, 03/20/20 17:23:00 EST, Dry... Start Date: 09/24/20 Stop Date: 12/23/20 Status: Ordered hydrOXYzine hydrochloride 25 mg oral tablet 1 tablet, By Mouth, 4 times a day, PRN NEEDED FOR ACUTE ANXIETY, MAY CAUSE DROWSINESS, # 25 tablet, 1 Refills, Acute, 07/08/20 10:46:00 EDT, [facility] #[id number], 173, cm, 05/28/20 10:07:00EDT, Height, 103.45, kg, 03/20/20 17:23:00 EST, Dry... Start Date: 07/08/20 Status: Ordered Januvia 50 mg oral tablet 1 tablet = 50 mg, By Mouth, Daily, # 90 tablet, 3 Refills, Maintenance, 12/29/19 10:52:00 EST, Tablet, [facility] #[id number], 175.26, cm, 12/29/19 10:13:00 EST, Height, 104.3, kg, 10/21/18 10:49:00 EDT, Dry Weight Start Date: 12/29/19 Status: Ordered metFORMIN 500 mg oral tablet, extended release See Instructions, 1 tablet By Mouth 2 times a day for one week then increase to 2 tablets 2 times aday, # 360 each, 3 Refills, Maintenance, 05/16/20 13:07:00 EDT, [facility] #[id number], 173, cm, 04/19/20 10:59:00 EST, Height, 103.45, kg, 03/20... Start Date: 05/16/20 Status: Ordered metoprolol 50 mg oral tablet, extended release 50 mg, 1, tablet, By Mouth, Daily, # 90 tablet, Refills 3, Tot. Refills 3, Maintenance, 03/27/20 13:28:00 EST, Route to Pharmacy Electronically, [facility] #[id number], Partial fill upon patientrequest if the prescription [...] 0 Refills, Maintenance, 02/28/20 9:39:00 EST, Tablet, [facility] #56384, Partial fill upon patient request if the prescription is fora schedule II opioid drug., 173, cm, 02/28/20 7:44:... 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 therapist Shravan [...]
--- OUTSIDE RECORDS SUMMARY | 2022-09-09 09:14 | XMS_ITS | Continuity of Care Document ---
Author Name Unknown Organization [facility] Address [address] [place] [address]- Care Team Providers Care Care Director Name Role Phone Shea JIMÉNEZ, Kristine Marie Primary Care Physician Encounter [facility] Date(s): 03/12/20 - 04/11/20 [facility]/[address] [address]- Allergies, Adverse Reactions, Alerts Substance Reaction Severity [...] Stop, 02/21/2013:20:00 EST, Route to Pharmacy Electronically, [id number], [facility] #[id number], 175.26, cm, 01/09/19 14:57:00 EST, H... Start Date: 02/21/19 Status: Ordered aspirin 81 mg oral tablet, chewable 81 mg, 1, tablet, By Mouth, Daily, # 90 tablet, Refills 3, Tot. Refills 3, Maintenance, 12/29/19 10:51:00 EST, Route to Pharmacy Electronically, [facility] #[id number], 175.26, cm, 12/29/19 10:13:00 EST, Height, 104.3, kg, 10/21/18 10:49:00 EDT,... Start Date: 12/29/19 Status: Ordered atorvastatin 40 mg oral tablet 1 tablet = 40 mg, By Mouth, Daily at bedtime, # 30 tablet, 0 Refills, Maintenance, 02/28/20 9:38:00EST, Tablet, [facility] #[id number], Partial fill upon patient request if the prescription is for a schedule II opioid drug., 173, cm, 02/28/20 7:... Start Date: 02/28/20 Status: Ordered clotrimazole 1% topical cream 1 application, Topically, 2 times a day, # 30 Gm, 1 Refills, Maintenance, 02/13/20 17:16:00 EST, Cream, [facility] #[id number], Partial fill upon patient request if the prescription is for a schedule II opioid drug., 1 application Topically 2 rajiv... Start Date: 02/13/20 Status: Ordered empagliflozin 10 mg oral tablet 1 tablet = 10 mg, By Mouth, Daily in AM, Please go to any [facility] Reference lab and have fasting bloodwork done within the next 3-4 weeks., # 90 tablet, 1 Refills, Maintenance, 12/29/19 10:48:00 EST, Tablet, [facility] #[id number], Partial fill... Start Date: 12/29/19 Stop Date: 06/26/20 Status: Ordered hydrOXYzine hydrochloride 25 mg oral tablet 1 tablet = 25 mg, By Mouth, 4 times a day, PRN for acute anxiety, may cause drowsiness, # 25 tablet, 1 Refills, Maintenance, 01/08/20 11:44:00 EST, Tablet, [facility] #[id number], Partial fill upon patient request, 175.26, cm, 12/29/19 10:13:00 E... Start Date: 01/08/20 Status: Ordered Januvia 50 mg oral tablet 1 tablet = 50 mg, By Mouth, Daily, # 90 tablet, 3 Refills, Maintenance, 12/29/19 10:52:00 EST, Tablet, [facility] #[id number], 175.26, cm, 12/29/19 10:13:00 EST, Height, 104.3, kg, 10/21/18 10:49:00 EDT, Dry Weight Start Date: 12/29/19 Status: Ordered metoprolol 50 mg oral tablet, extended release 50 mg, 1, tablet, By Mouth, Daily, # 90 tablet, Refills 3, Tot. Refills 3, Maintenance, 03/27/20 13:28:00 EST, Route to Pharmacy Electronically, [facility] #[id number], Partial fill upon patientrequest if the prescription [...] 0 Refills, Maintenance, 02/28/20 9:39:00 EST, Tablet, [facility] #[id number], Partial fill upon patient request if the prescription is fora schedule II opioid drug., 173, cm, 02/28/20 7:44:... 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 therapist [...]
--- OUTSIDE RECORDS SUMMARY | 2022-09-09 09:14 | XMS_ITS | Continuity of Care Document ---
Author Name Unknown Organization [facility] Address [address] [place] [address]- Care Team Providers Care Chemical Etch Operator Name Role Phone Shea JIMÉNEZ, Kristine Marie Primary Care Physician Encounter [facility] Date(s): 02/12/20 - 03/13/20 [facility]/[address] [address]- Allergies, Adverse Reactions, Alerts Substance Reaction Severity [...] Stop, 02/21/2013:20:00 EST, Route to Pharmacy Electronically, [id number], [facility] #[id number], 175.26, cm, 01/09/19 14:57:00 EST, H... Start Date: 02/21/19 Status: Ordered aspirin 81 mg oral tablet, chewable 81 mg, 1, tablet, By Mouth, Daily, # 90 tablet, Refills 3, Tot. Refills 3, Maintenance, 12/29/19 10:51:00 EST, Route to Pharmacy Electronically, [facility] #[id number], 175.26, cm, 12/29/19 10:13:00 EST, Height, 104.3, kg, 10/21/18 10:49:00 EDT,... Start Date: 12/29/19 Status: Ordered atorvastatin 40 mg oral tablet 1 tablet = 40 mg, By Mouth, Daily at bedtime, # 30 tablet, 0 Refills, Maintenance, 02/28/20 9:38:00EST, Tablet, [facility] #[id number], Partial fill upon patient request if the prescription is for a schedule II opioid drug., 173, cm, 02/28/20 7:... Start Date: 02/28/20 Status: Ordered clotrimazole 1% topical cream 1 application, Topically, 2 times a day, # 30 Gm, 1 Refills, Maintenance, 02/13/20 17:16:00 EST, Cream, [facility] #[id number], Partial fill upon patient request if the prescription is for a schedule II opioid drug., 1 application Topically 2 rajiv... Start Date: 02/13/20 Status: Ordered empagliflozin 10 mg oral tablet 1 tablet = 10 mg, By Mouth, Daily in AM, Please go to any [facility] lab and have fasting bloodwork done within the next 3-4 weeks., # 90 tablet, 1 Refills, Maintenance, 12/29/19 10:48:00 EST, Tablet, [facility][id number], Partial fill... Start Date: 12/29/19 Stop Date: 06/26/20 Status: Ordered hydrOXYzine hydrochloride 25 mg oral tablet 1 tablet = 25 mg, By Mouth, 4 times a day, PRN for acute anxiety, may cause drowsiness, # 25 tablet, 1 Refills, Maintenance, 01/08/20 11:44:00 EST, Tablet, [facility] #[id number], Partial fill upon patient request, 175.26, cm, 12/29/19 10:13:00 E... Start Date: 01/08/20 Status: Ordered Januvia 50 mg oral tablet 1 tablet = 50 mg, By Mouth, Daily, # 90 tablet, 3 Refills, Maintenance, 12/29/19 10:52:00 EST, Tablet, [facility] #[id number], 175.26, cm, 12/29/19 10:13:00 EST, Height, 104.3, kg, 10/21/18 10:49:00 EDT, Dry Weight Start Date: 12/29/19 Status: Ordered metoprolol 50 mg oral tablet, extended release 50 mg, 1, tablet, By Mouth, Daily, # 30 tablet, Refills 0, Tot. Refills 0, Maintenance, 02/28/20 9:42:00 EST, Route to Pharmacy Electronically, [facility] #[id number], Partial fill upon patient request if the [...] 0 Refills, Maintenance, 02/28/20 9:39:00 EST, Tablet, [facility] #[id number], Partial fill upon patient request if the prescription is fora schedule II opioid drug., 173, cm, 02/28/20 7:44:... 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
--- OUTSIDE RECORDS SUMMARY | 2022-09-09 09:14 | XMS_ITS | Continuity of Care Document ---
Author Name Unknown Organization [facility] Address [address] [place] [address]- Care Team Providers Care Schedule Planning Manager Name Role Phone Kristine Valdivia MD Primary Care Physician [phone] Encounter [facility] Date(s): 05/22/22 - 06/21/22 [facility] [address]- [place] Allergies, Adverse Reactions, Alerts Substance Reaction Severity Status doxycycline rash Active Immunizations Given and Recorded Vaccine Date Status Refusal Reason SARS-CoV-2 mRNA (xvlwnmp-gowz-vcjrl) vax 03/18/21 Given pneumococcal 23-valent vaccine 03/18/21 [...] Stop, :56:00 EDT, Route to Pharmacy Electronically, [id number], [facility], 175, cm, 12/02/21 19:43:00 EDT, Height,... Start Date: 12/03/21 Status: Ordered ammonium lactate 12% topical cream 1 application, Topically, 2 times a day, apply and rub in well to soles of feet, # 280 Gm, 5 Refills, Maintenance, 03/16/22 14:40:00 EST, Cream, [facility], Partial fill upon patient request if the prescription is for a schedule II... Start Date: 03/16/22 Status: Ordered aspirin 81 mg oral tablet, chewable 1 tablet, By Mouth, Daily, for 90 days, CHEW., # 90 tablet, 3 Refills, Physician Stop 03/11/23 14:39:00 EST, 03/16/22 14:39:00 EST, [facility], 175, cm, 03/16/22 14:06:00 EST, Height, 72, kg, 11/26/21 18:42:00 EDT, Dry Weight Start Date: 03/16/22 Stop Date: 03/11/23 Status: Ordered atorvastatin 10 mg oral tablet 1 tablet = 10 mg, By Mouth, Daily, # 90 tablet, 3 Refills, Maintenance, 03/16/22 14:39:00 EST, [facility], Partial fill upon patient request if the prescription is for a schedule II opioid drug., 175, cm, 03/16/22 14:06:00 EST, Hei... Start Date: 03/16/22 Status: Ordered Freestyle Lite Lancets See Instructions, # 180 each, Refills 3, Tot. Refills 3, Maintenance, use as directed for Type 2 Diabetes Mellitus. Checking POC 1-2 times daily (fasting and two hours defh-jupakjgo-yzjobxg meal of day), 03/18/21 12:40:00 EST, Supply, 171, cm, ... Start Date: 03/18/21 Status: Ordered Freestyle Lite Test Strips See Instructions, # 180 each, Refills 3, Tot. Refills 3, Maintenance, use as directed for Type 2 Diabetes Mellitus. Checking POC 1-2 times daily (fasting and two hours klcw-bvokhwvp-onzgcsh meal of day), 03/18/21 12:38:00 EST, 3 month supply if cover... Start Date: 03/18/21 Stop Date: 07/16/21 Status: Ordered Jardiance 10 mg oral tablet 1 tablet, By Mouth, Daily in AM, for 90 days, # 90 tablet, 3 Refills, Physician Stop 03/11/23 14:39:00 EST, 03/16/22 14:39:00 EST, [facility], 175, cm, 03/16/22 14:06:00 EST, Height, 72, kg, 11/26/21 18:42:00 EDT, Dry Weight Start Date: 03/16/22 Stop Date: 03/11/23 Status: Ordered losartan 25 mg oral tablet 1 tablet, By Mouth, Daily, for 90 days, # 90 tablet, 3 Refills, Physician Stop 03/11/23 14:39:00 EST, 03/16/22 14:39:00 EST, [facility], 175, cm, 03/16/22 14:06:00 EST, Height, 72, kg, 11/26/21 18:42:00 EDT, Dry Weight Start Date: 03/16/22 Stop Date: 03/11/23 Status: Ordered metFORMIN 500 mg oral tablet, extended release 1 tablet = 500 mg, By Mouth, 2 times a day, for 90 days, # 180 tablet, 3 Refills, Hard Stop 11/28/22 8:56:00 EDT, 12/03/21 8:56:00 EDT, [facility] 3, 175, cm, 12/02/21 19:43:00 EDT, Height, 72, kg, 11/26/21 18:42:00 EDT, Dry Weight Start Date: 12/03/21 Stop Date: 11/28/22 Status: Ordered metoprolol 50 mg oral tablet, extended release 50 mg, 1, tablet, By Mouth, Daily, # 90 tablet, Refills 3, Tot. Refills 3, Maintenance, 03/16/22 14:39:00 EST, Route to Pharmacy Electronically, [facility], Partial fill upon patient request if [...] Stop 12/17/22 16:20:00 EDT, 12/22/21 16:20:00EST, Solution, [facility], Part... Start Date: 12/22/21 Stop Date: 12/17/22 Status: Ordered Trulicity Pen 3 mg/0.5 mL subcutaneous solution 0.5 mL = 3 mg, Subcutaneous Injection, Every week, rotate injection sites. 3 month supply if covered by insurance, # 6.5 mL, 3 Refills, Maintenance, 12/17/22 16:20:00 EDT, Solution, [facility], Partial fill upon patient request if... 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 [...] Care Nurse Name: Kristine Valdivia MD Position: [facility] Primary Care Physician Member Role: PCP Address: Address: [address] [place] [address] Name: Maddison Avila RN Position: S RN Member Role: Primary Care Nurse Name: Mackenzie Salinas RN Position: [facility] RN Member Role: Primary Care Nurse Name: Vandana Ly RN Position: [facility] RN Member Role: Primary Care Nurse Care Team Related Persons Name: CARLOS FLOYD Address: [address] [place] [address] Name: IAN WHITE Address: [address] [place] [address] Name: JE KIRKPATRICK Name: EVE GOMEZ Address: home [address] [place] [id number]
--- OUTSIDE RECORDS SUMMARY | 2022-09-09 09:14 | XMS_ITS | Continuity of Care Document ---
Author Name Unknown Organization [facility] Address [address] [place] [address]- Care Team Providers Care Paper Bag Machine Operator Name Role Phone Kristine Valdivia MD Primary Care Physician Encounter [facility] Date(s): 03/18/22 - 04/17/22 [facility] [address] [place] [id number] Attending Physician: Admtr, Arron Admitting Physician: Admtr, Arron Referring Physician: Admtr, Ar8 Allergies, Adverse Reactions, Alerts Substance Reaction Severity Status doxycycline rash Active Immunizations Given and Recorded Vaccine Date Status Refusal Reason SARS-CoV-2 mRNA (obpkdbf-upyy-jadbc) vax 03/18/21 Given pneumococcal 23-valent vaccine 03/18/21 [...] Stop, :56:00 EDT, Route to Pharmacy Electronically, [id number], [facility], 175, cm, 12/02/21 19:43:00 EDT, Height,... Start Date: 12/03/21 Status: Ordered ammonium lactate 12% topical cream 1 application, Topically, 2 times a day, apply and rub in well to soles of feet, # 280 Gm, 5 Refills, Maintenance, 03/16/22 14:40:00 EST, Cream, [facility], Partial fill upon patient request if the prescription is for a schedule II... Start Date: 03/16/22 Status: Ordered aspirin 81 mg oral tablet, chewable 1 tablet, By Mouth, Daily, for 90 days, CHEW., # 90 tablet, 3 Refills, Physician Stop 03/11/23 14:39:00 EST, 03/16/22 14:39:00 EST, [facility], 175, cm, 03/16/22 14:06:00 EST, Height, 72, kg, 11/26/21 18:42:00 EDT, Dry Weight Start Date: 03/16/22 Stop Date: 03/11/23 Status: Ordered atorvastatin 10 mg oral tablet 1 tablet = 10 mg, By Mouth, Daily, # 90 tablet, 3 Refills, Maintenance, 03/16/22 14:39:00 EST, [facility], Partial fill upon patient request if the prescription is for a schedule II opioid drug., 175, cm, 03/16/22 14:06:00 EST, Hei... Start Date: 03/16/22 Status: Ordered Freestyle Lite Lancets See Instructions, # 180 each, Refills 3, Tot. Refills 3, Maintenance, use as directed for Type 2 Diabetes Mellitus. Checking POC 1-2 times daily (fasting and two hours dhnu-arnorfof-pmjbdpo meal of day), 03/18/21 12:40:00 EST, Supply, 171, cm, ... Start Date: 03/18/21 Status: Ordered Freestyle Lite Test Strips See Instructions, # 180 each, Refills 3, Tot. Refills 3, Maintenance, use as directed for Type 2 Diabetes Mellitus. Checking POC 1-2 times daily (fasting and two hours pkbd-guszcdqb-nlbzeru meal of day), 03/18/21 12:38:00 EST, 3 month supply if cover... Start Date: 03/18/21 Stop Date: 07/16/21 Status: Ordered Jardiance 10 mg oral tablet 1 tablet, By Mouth, Daily in AM, for 90 days, # 90 tablet, 3 Refills, Physician Stop 03/11/23 14:39:00 EST, 03/16/22 14:39:00 EST, [facility], 175, cm, 03/16/22 14:06:00 EST, Height, 72, kg, 11/26/21 18:42:00 EDT, Dry Weight Start Date: 03/16/22 Stop Date: 03/11/23 Status: Ordered losartan 25 mg oral tablet 1 tablet, By Mouth, Daily, for 90 days, # 90 tablet, 3 Refills, Physician Stop 03/11/23 14:39:00 EST, 03/16/22 14:39:00 EST, [facility], 175, cm, 03/16/22 14:06:00 EST, Height, 72, kg, 11/26/21 18:42:00 EDT, Dry Weight Start Date: 03/16/22 Stop Date: 03/11/23 Status: Ordered metFORMIN 500 mg oral tablet, extended release 1 tablet = 500 mg, By Mouth, 2 times a day, for 90 days, # 180 tablet, 3 Refills, Hard Stop 11/28/22 8:56:00 EDT, 12/03/21 8:56:00 [facility], [facility], cm, 12/02/21 19:43:00 EDT, Height, 72, kg, 11/26/21 18:42:00 EDT, Dry Weight Start Date: 12/03/21 Stop Date: 11/28/22 Status: Ordered metoprolol 50 mg oral tablet, extended release 50 mg, 1, tablet, By Mouth, Daily, # 90 tablet, Refills 3, Tot. Refills 3, Maintenance, 03/16/22 14:39:00 EST, Route to Pharmacy Electronically, [facility], Partial fill upon patient request if [...] Stop 12/17/22 16:20:00 EDT, 12/22/21 16:20:00EST, Solution, [facility], Part... Start Date: 12/22/21 Stop Date: 12/17/22 Status: Ordered Trulicity Pen 3 mg/0.5 mL subcutaneous solution 0.5 mL = 3 mg, Subcutaneous Injection, Every week, rotate injection sites. 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 therapist Shravan [...] Team Personnel Name: Basilia Holland RN Position: [facility] RN Member Role: Primary Care Nurse Name: Kristine Valdivia MD Position: [facility] Primary Care Physician Member Role: PCP Address: Address: [address] [place] [address]- Name: Maddison Avila RN Position: [facility] RN Member Role: Primary Care Nurse Name: Mackenzie Salinas RN Position: [facility] RN Member Role: Primary Care Nurse Name: Holley Negron RN Position: [facility] RN Member Role: Primary Care Nurse Name: Vandana Ly RN Position: [facility] RN Member Role: Primary Care Nurse Care Team Related Persons Name: CARLOS FLOYD Address: [address] [place] [address] Name: IAN WHITE Address: [address] [place] [address] Name: JE KIRKPATRICK Name: EVE GOMEZ Address: [address] [place] [address]
--- OUTSIDE RECORDS SUMMARY | 2022-09-09 09:14 | XMS_ITS | Continuity of Care Document ---
Author Name Unknown Organization [facility] Address Unknown Care Team Providers Care Linotype Mechanic Name Role Phone Kristine Valdivia MD Primary Care Physician [phone] Encounter [facility] Date(s): 06/06/21 - 07/06/21 [facility] Allergies, Adverse Reactions, Alerts Substance Reaction Severity Status doxycycline rash Active Immunizations Given and Recorded Vaccine Date Status Refusal Reason SARS-CoV-2 mRNA (iryvxot-wzum-ymnxu) vax 03/18/21 Given pneumococcal 23-valent vaccine 03/18/21 [...] Stop, 02/21/2013:20:00 EST, Route to Pharmacy Electronically, [id number], [facility] #[id number], 175.26, cm, 01/09/19 14:57:00 EST, H... Start Date: 02/21/19 Status: Ordered ammonium lactate 12% topical cream 1 application, Topically, 2 times a day, apply and rub in well to soles of feet, # 280 Gm, 5 Refills, Maintenance, 03/18/21 12:42:00 EST, Cream, [facility] #[id number], Partial fill upon patientrequest if the prescription is for a schedule II op... Start Date: 03/18/21 Status: Ordered aspirin 81 mg oral tablet, chewable 1 tablet, By Mouth, Daily, CHEW., # 90 tablet, 3 Refills, 03/18/21 12:33:00 EST, [facility] #[id number], 171, cm, 03/18/21 11:26:00 EST, Height, 95.6, kg, 03/05/21 17:48:00 EST, Dry Weight Start Date: 03/18/21 Status: Ordered atorvastatin 40 mg oral tablet 1 tablet, By Mouth, Daily at bedtime, # 90 tablet, 3 Refills, [facility] #[id number], 171, cm,03/18/21 11:26:00 EST, Height, 95.6, kg, 03/05/21 17:48:00 EST, Dry Weight Start Date: 03/19/21 Status: Ordered clotrimazole 1% topical cream 1 application, Topically, 2 times a day, apply to rash on penis, # 30 Gm, 1 Refills, Maintenance, 03/18/21 12:43:00 EST, Cream, [facility] #[id number], Partial fill upon patient request if the prescription is for a schedule II opioid drug., 1 erasmo... Start Date: 03/18/21 Status: Ordered Freestyle Lite Lancets See Instructions, # 180 each, Refills 3, Tot. Refills 3, Maintenance, use as directed for Type 2 Diabetes Mellitus. Checking POC 1-2 times daily (fasting and two hours thfx-xslulybh-qubvtst meal of day), 03/18/21 12:40:00 EST, Supply, 171, cm, ... Start Date: 03/18/21 Status: Ordered Freestyle Lite Test Strips See Instructions, # 180 each, Refills 3, Tot. Refills 3, Maintenance, use as directed for Type 2 Diabetes Mellitus. Checking POC 1-2 times daily (fasting and two hours ednr-pmdhschf-qwikffv meal of day), 03/18/21 12:38:00 EST, 3 month supply if cover... Start Date: 03/18/21 Stop Date: 07/16/21 Status: Ordered hydrOXYzine hydrochloride 25 mg oral tablet 1 tablet, By Mouth, 4 times a day, PRN NEEDED FOR ACUTE ANXIETY, MAY CAUSE DROWSINESS, # 25 tablet, 1 Refills, [facility][id number], 171, cm, 03/05/21 17:48:00 EST, Height, 95.6, kg, 03/05/21 17:48:00 EST, Dry Weight Start Date: 03/17/21 Status: Ordered Jardiance 10 mg oral tablet 1 tablet, By Mouth, Daily in AM, # 90 tablet, 3 Refills, [facility][id number], 171, cm, 05/02/21 8:35:00 EDT, Height, 95.6, kg, 03/05/21 17:48:00 EST, Dry Weight Start Date: 06/06/21 Status: Ordered losartan 25 mg oral tablet 1 tablet, By Mouth, Daily, # 90 tablet, 0 Refills, [facility][id number], 171, cm, 05/02/21 8:35:00 EDT, Height, 95.6, kg, 03/05/21 17:48:00 EST, Dry Weight Start Date: 06/06/21 Status: Ordered metFORMIN 500 mg oral tablet, extended release 1 tablet = 500 mg, By Mouth, 2 times a day, # 180 tablet, 3 Refills, Maintenance, 07/06/21 17:27:00EDT, [facility] #[id number], 171, cm, 03/18/21 11:26:00 EST, Height, 95.6, kg, 03/05/21 17:48:00 EST, Dry Weight Start Date: 07/06/21 Stop Date: 07/01/22 Status: Ordered metoprolol 50 mg oral tablet, extended release 50 mg, 1, tablet, By Mouth, Daily, # 90 tablet, Refills 3, Tot. Refills 3, Maintenance, 03/18/21 12:33:00 EST, Route to Pharmacy Electronically, [facility] #[id number], Partial fill upon patientrequest if the prescription is for a schedule II op... Start Date: 03/18/21 Status: Ordered nicotine 21 mg/24 hr transdermal film, extended release 1 patch, Topically, Daily, plan to change to 14 mg patch after 2 months, # 30 patch, 1 Refills, Maintenance, 05/08/21 14:59:00 EDT, Patch, [facility] #[id number], Partial fill upon patient request if the [...] 3 Refills, Maintenance, 03/18/21 12:33:00 EST, Tablet, [facility] #[id number], Partial fill upon patient request if the prescription is for a schedule II opioid drug., 171, cm, 03/18/21 11:... Start Date: 03/18/21 Stop Date: 03/13/22 Status: Ordered Trulicity Pen 3 mg/0.5 mL subcutaneous solution 0.5 mL = 3 mg, Subcutaneous Injection, Every week, rotate injection sites. 3 month supply if covered by insurance, # 6.5 mL, 3 Refills, Maintenance, 03/18/21 12:34:00 EST, Solution, [facility] #[id number], Partial fill upon patient request if the... 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 therapist [...]
--- OUTSIDE RECORDS SUMMARY | 2022-09-09 09:14 | XMS_ITS | Continuity of Care Document ---
Author Name Unknown Organization [facility] Address Unknown Care Team Providers Care Inside Sales Representative Name Role Phone Kristine Valdivia MD Primary Care Physician [place] [facility] [place]/10/21 [facility] Attending Physician: Kristine Valdivia MD Admitting Physician: [...] Stop, 02/21/2013:20:00 EST, Route to Pharmacy Electronically, [id number], [facility] #[id number], 175.26, cm, 01/09/19 14:57:00 EST, H... Start Date: 02/21/19 Status: Ordered aspirin 81 mg oral tablet, chewable 1 tablet, By Mouth, Daily, CHEW., # 90 tablet, 3 Refills, [facility] #[id number], 173, cm, 10/09/20 16:52:00 EDT, Height, 103.45, kg, 03/20/20 17:23:00 EST, Dry Weight Start Date: 01/07/21 Status: Ordered atorvastatin 40 mg oral tablet 1 tablet = 40 mg, By Mouth, Daily at bedtime, # 30 tablet, 0 Refills, Maintenance, 02/28/20 9:38:00EST, Tablet, [facility] #[id number], Partial fill upon patient request if the prescription is for a schedule II opioid drug., 173, cm, 02/28/20 7:... Start Date: 02/28/20 Status: Ordered clotrimazole 1% topical cream 1 application, Topically, 2 times a day, apply to rash on penis, # 30 Gm, 1 Refills, Maintenance, 10/09/20 17:27:00 EDT, Cream, [facility] #[id number], Partial fill upon patient request if the prescription is for a schedule II opioid drug., 1 erasmo... Start Date: 10/09/20 Status: Ordered hydrOXYzine hydrochloride 25 mg oral tablet 1 tablet, By Mouth, 4 times a day, PRN NEEDED FOR ACUTE ANXIETY, MAY CAUSE DROWSINESS, # 25 tablet, 1 Refills, Acute, 07/08/20 10:46:00 EDT, [facility] #[id number], 173, cm, 05/28/20 10:07:00EDT, Height, 103.45, kg, 03/20/20 17:23:00 EST, Dry... Start Date: 07/08/20 Status: Ordered Jardiance 10 mg oral tablet 1 tablet, By Mouth, Daily in AM, # 90 tablet, 0 Refills, [facility] #[id number], 173, cm, 10/09/20 16:52:00 EDT, Height, 103.45, kg, 03/20/20 17:23:00 EST, Dry Weight Start Date: 01/07/21 Status: Ordered metFORMIN 500 mg oral tablet, extended release 1 tablet = 500 mg, By Mouth, 2 times a day, # 180 tablet, 3 Refills, Maintenance, 05/16/20 13:07:00EDT, [facility] #[id number], 173, cm, 04/19/20 10:59:00 EST, Height, 103.45, kg, 03/20/20 17:23:00 EST, Dry Weight Start Date: 05/16/20 Stop Date: 07/06/21 Status: Ordered metoprolol 50 mg oral tablet, extended release 50 mg, 1, tablet, By Mouth, Daily, # 90 tablet, Refills 3, Tot. Refills 3, Maintenance, 03/27/20 13:28:00 EST, Route to Pharmacy Electronically, [facility] #[id number], Partial fill upon patientrequest if the prescription is for a schedule II op... Start Date: 03/27/20 Status: Ordered nicotine 21 mg/24 hr transdermal film, extended release 1 patch, Topically, Daily, plan to change to 14 mg patch after 2 months, # 30 patch, 1 Refills, Maintenance, 10/10/20 9:30:00 EDT, Patch, [facility] #[id number], Partial fill upon patient request if the [...] 1 Refills, Maintenance, 03/27/20 14:18:00 EST, Tablet, [facility] #[id number], Partial fill upon patient request if the [...] 3 Refills, Maintenance, 10/10/20 9:31:00 EDT, [place], [facility] #[id number], Partial fill up... 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
--- OUTSIDE RECORDS SUMMARY | 2022-09-09 09:14 | XMS_ITS | Continuity of Care Document ---
Author Name Unknown Organization [facility] Address [address] [place] [address]- Care Team Providers Care Braider Operator Name Role Phone Shea JIMÉNEZ, Kristine Marie Primary Care Physician Encounter [facility] Date(s): 03/05/20 - 04/04/20 [facility]/[address] [address]- Allergies, Adverse Reactions, Alerts Substance Reaction Severity [...] Stop, 02/21/2013:20:00 EST, Route to Pharmacy Electronically, [id number], [facility] #[id number], 175.26, cm, 01/09/19 14:57:00 EST, H... Start Date: 02/21/19 Status: Ordered aspirin 81 mg oral tablet, chewable 81 mg, 1, tablet, By Mouth, Daily, # 90 tablet, Refills 3, Tot. Refills 3, Maintenance, 12/29/19 10:51:00 EST, Route to Pharmacy Electronically, [facility] #[id number], 175.26, cm, 12/29/19 10:13:00 EST, Height, 104.3, kg, 10/21/18 10:49:00 EDT,... Start Date: 12/29/19 Status: Ordered atorvastatin 40 mg oral tablet 1 tablet = 40 mg, By Mouth, Daily at bedtime, # 30 tablet, 0 Refills, Maintenance, 02/28/20 9:38:00EST, Tablet, [facility] #[id number], Partial fill upon patient request if the prescription is for a schedule II opioid drug., 173, cm, 02/28/20 7:... Start Date: 02/28/20 Status: Ordered clotrimazole 1% topical cream 1 application, Topically, 2 times a day, # 30 Gm, 1 Refills, Maintenance, 02/13/20 17:16:00 EST, Cream, [facility] #[id number], Partial fill upon patient request if the prescription is for a schedule II opioid drug., 1 application Topically 2 rajiv... Start Date: 02/13/20 Status: Ordered empagliflozin 10 mg oral tablet 1 tablet = 10 mg, By Mouth, Daily in AM, Please go to any [facility] Reference lab and have fasting bloodwork done within the next 3-4 weeks., # 90 tablet, 1 Refills, Maintenance, 12/29/19 10:48:00 EST, Tablet, [facility] #[id number], Partial fill... Start Date: 12/29/19 Stop Date: 06/26/20 Status: Ordered hydrOXYzine hydrochloride 25 mg oral tablet 1 tablet = 25 mg, By Mouth, 4 times a day, PRN for acute anxiety, may cause drowsiness, # 25 tablet, 1 Refills, Maintenance, 01/08/20 11:44:00 EST, Tablet, [facility] #[id number], Partial fill upon patient request, 175.26, cm, 12/29/19 10:13:00 E... Start Date: 01/08/20 Status: Ordered Januvia 50 mg oral tablet 1 tablet = 50 mg, By Mouth, Daily, # 90 tablet, 3 Refills, Maintenance, 12/29/19 10:52:00 EST, Tablet, [facility] #[id number], 175.26, cm, 12/29/19 10:13:00 EST, Height, 104.3, kg, 10/21/18 10:49:00 EDT, Dry Weight Start Date: 12/29/19 Status: Ordered metoprolol 50 mg oral tablet, extended release 50 mg, 1, tablet, By Mouth, Daily, # 90 tablet, Refills 3, Tot. Refills 3, Maintenance, 03/27/20 13:28:00 EST, Route to Pharmacy Electronically, [facility] #[id number], Partial fill upon patientrequest if the prescription [...] 0 Refills, Maintenance, 02/28/20 9:39:00 EST, Tablet, [facility] #[id number], Partial fill upon patient request if the prescription is fora schedule II opioid drug., 173, cm, 02/28/20 7:44:... 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 [...]
--- OUTSIDE RECORDS SUMMARY | 2022-09-09 09:14 | XMS_ITS | Continuity of Care Document ---
Author Name Unknown Organization [facility] Address [address] [place] [address]- Care Team Providers Care Bleach Plant Operator Name Role Phone Kristine Valdivia MD Primary Care Physician Encounter [facility] [place] Date(s): 11/17/19 - 12/17/19 [facility]/[address] [address] [place] Allergies, Adverse Reactions, Alerts Substance Reaction Severity [...] Stop, 02/21/2013:20:00 EST, Route to Pharmacy Electronically, [id number], [facility] #[id number], 175.26, cm, 01/09/19 14:57:00 EST, H... Start [...] 01/10/19 12:32:20 EST, Route to Pharmacy Electronically, [id number], [facility] #[id number] Start Date: 01/10/19 Status: Ordered Flovent HFA [...] I10. Goal SBP <130 and DBP <90, 05/27/16 8:28:24, Compound Start Date: 07/12/15 Status: Ordered Januvia 50 mg oral tablet 1 tablet = 50 mg, By Mouth, Daily, # 90 tablet, 0 Refills, Maintenance, 10/10/19 8:29:00 EDT, Tablet, [facility] #[id number], 175.26, cm, 01/09/19 14:57:00 EST, Height, 104.3, kg, 10/21/18 10:49:00 EDT, Dry Weight Start Date: 10/10/19 Status: Ordered losartan 100 mg oral tablet 1 tablet = 100 mg, By Mouth, Daily, labs and follow up due. orders are in system. please go to any [facility] lab., # 30 tablet, 2 Refills, Maintenance, 12/14/19 14:28:00 EDT, Tablet, [facility] #98015, dose increase. Stop 50 mg dose, 175.26,... 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 therapist Shravan [...]
--- OUTSIDE RECORDS SUMMARY | 2022-09-09 09:14 | XMS_ITS | Continuity of Care Document ---
Author Name Unknown Organization [facility] Address [address] [place] [address]- Care Team Providers Care Insulator Tester Name Role Phone Shea JIMÉNEZ, Kristine Marie Primary Care Physician Encounter [facility] [place] Date(s): 08/05/22 - 09/04/22 [facility] [address]- [place] Allergies, Adverse Reactions, Alerts Substance Reaction Severity Status doxycycline rash Active Immunizations Given and Recorded Vaccine Date Status Refusal Reason SARS-CoV-2 mRNA (iiexgmx-pzck-tqzsh) vax 03/18/21 Given pneumococcal 23-valent vaccine 03/18/21 [...] 5 Refills, Maintenance, 03/16/22 14:40:00 EST, Cream, [facility], Partial fill upon patient request if the prescription is for a schedule II... Start Date: 03/16/22 Status: Ordered aspirin 81 mg oral tablet, chewable 1 tablet, By Mouth, Daily, for 90 days, CHEW., # 90 tablet, 3 Refills, Physician Stop 03/11/23 14:39:00 EST, 03/16/22 14:39:00 EST, [facility], 175, cm, 03/16/22 14:06:00 EST, Height, 72, kg, 11/26/21 18:42:00 EDT, Dry Weight Start Date: 03/16/22 Stop Date: 03/11/23 Status: Ordered atorvastatin 20 mg oral tablet 1 tablet = 20 mg, By Mouth, Daily, Stop simvastatin. Go for labs (to any [facility] reference lab) for fasting cholesterol and liver tests 4 weeks after restarting atorvastatin, # 90 tablet, 1 Refills,Maintenance, 07/22/22 18:33:00 EDT, Tablet, [facility]... Start Date: 07/22/22 Status: Ordered Jardiance 10 mg oral tablet 1 tablet, By Mouth, Daily in AM, for 90 days, # 90 tablet, 1 Refills, Physician Stop 12/23/22 11:29:00 EST, 06/26/22 11:29:00 EDT, [facility] #[id number], 175, cm, 03/16/22 14:06:00 EST, Height,72, kg, 11/26/21 18:42:00 EDT, Dry Weight Start Date: 06/26/22 Stop Date: 12/23/22 Status: Ordered losartan 50 mg oral tablet 1 tablet = 50 mg, By Mouth, Daily, dose increase from 25 to 50 mg as of 08/07/22, # 90 tablet, 3 Refills, Maintenance, 08/07/22 10:56:00 EDT, Tablet, [facility], Partial fill upon patient request if the prescription is for a schedul... Start Date: 08/07/22 Status: Ordered metFORMIN 500 mg oral tablet, extended release 2 tablet = 1,000 mg, By Mouth, 2 times a day, for 90 days, # 360 tablet, 1 Refills, Hard Stop 01/18/23 18:36:00 EST, 07/22/22 18:36:00 EDT, [facility] #[id number], 175, cm, 07/22/22 17:27:00 EDT, Height, 72, kg, 11/26/21 18:42:00 EDT, Dry Weight Start Date: 07/22/22 Stop Date: 01/18/23 Status: Ordered metoprolol 50 mg oral tablet, extended release 50 mg, 1, tablet, By Mouth, Daily, # 90 tablet, Refills 3, Tot. Refills 3, Maintenance, 03/16/22 14:39:00 EST, Route to Pharmacy Electronically, [facility], Partial fill upon patient request if [...] each, 0 Refills, Maintenance, 08/06/22 9:57:00 EDT, [facility], ok to sub for any gallon prep, as directed, 175, cm, 08/06/22 9:20:00 EDT, Height, 72, kg, 11/26/21 18:42:00 EDT, Dry Weight Start Date: 08/06/22 Status: Ordered Trulicity Pen 3 mg/0.5 mL subcutaneous solution 0.5 mL = 3 mg, Subcutaneous Injection, Every week, rotate injection sites. 3 month supply if covered by insurance, # 6.5 mL, 3 Refills, Maintenance, 07/22/22 18:34:00 EDT, Solution, [facility] #[id number], Partial fill upon patient request if the... 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 therapist Shravan [...] Care Nurse Name: Kristine Valdivia MD Position: S Physician - Primary Care Member Role: PCP Address: Address: [address] [place] [address]- Name: Maddison Avila RN Position: S RN Member Role: Primary Care Nurse Name: Mackenzie Salinas RN Position: S RN Member Role: Primary Care Nurse Name: Vandana Ly RN Position: S RN Member Role: Primary Care Nurse Care Team Related Persons Name: CARLOS FLOYD Address: [address] [place] [id number] Name: IAN WHITE Address: [address] [address] Name: JE KIRKPATRICK Name: EVE GOMEZ Address: home [address] [place] [address]
--- OUTSIDE RECORDS SUMMARY | 2022-09-09 09:14 | XMS_ITS | Continuity of Care Document ---
Author Name Unknown Organization [facility] Address [address] [place] [address]- Care Team Providers Care Health Information Management Director Name Role Phone Kristine Valdivia MD Primary Care Physician [phone] [place] [facility] [place] Date(s): 01/11/19 - 05/19/19 [facility] [address] [place] [address]- [facility] Attending Physician: Kristine Valdivia MD Admitting [...] Stop, 02/21/2013:20:00 EST, Route to Pharmacy Electronically, [id number], [facility] #[id number], 175.26, cm, 01/09/19 14:57:00 EST, H... Start [...] 01/10/19 12:32:20 EST, Route to Pharmacy Electronically, [id number], [facility] #[id number] Start Date: 01/10/19 Status: Ordered Flovent HFA [...] Daily, # 30 tablet, 2 Refills, Maintenance, 04/22/19 21:08:00 EST, Tablet, [facility] #[id number], 175.26, cm, 01/09/19 14:57:00 EST, Height, 104.3, kg, 10/21/18 10:49:00 EDT, Dry Weight Start Date: 04/22/19 Stop Date: 07/21/19 Status: Ordered losartan 100 mg oral tablet 1 tablet = 100 mg, By Mouth, Daily, # 30 tablet, 5 Refills, Maintenance, 04/07/19 21:41:00 EST, Tablet, [facility] #[id number], dose increase. 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 therapist Shravan Chester 4Hepatitis serology 2008-negative [...]
--- OUTSIDE RECORDS SUMMARY | 2022-09-09 09:14 | XMS_ITS | Continuity of Care Document ---
Author Name Unknown Organization [facility] Address Unknown Care Team Providers Care Flue Lining Dipper Name Role Phone Kristine Valdivia MD Primary Care Physician [phone] [facility] Date(s): 05/02/21 - 06/01/21 [facility] Attending Physician: AdmtrArron Allergies, Adverse Reactions, Alerts Substance Reaction Severity Status doxycycline rash Active Immunizations Given and Recorded Vaccine Date Status Refusal Reason SARS-CoV-2 mRNA (ubkxozs-ngkg-axdaf) vax 03/18/21 Given pneumococcal 23-valent vaccine 03/18/21 [...] Stop, 02/21/2013:20:00 EST, Route to Pharmacy Electronically, [id number], [facility] #[id number], 175.26, cm, 01/09/19 14:57:00 EST, H... Start Date: 02/21/19 Status: Ordered ammonium lactate 12% topical cream 1 application, Topically, 2 times a day, apply and rub in well to soles of feet, # 280 Gm, 5 Refills, Maintenance, 03/18/21 12:42:00 EST, Cream, [facility] #[id number], Partial fill upon patientrequest if the prescription is for a schedule II op... Start Date: 03/18/21 Status: Ordered aspirin 81 mg oral tablet, chewable 1 tablet, By Mouth, Daily, CHEW., # 90 tablet, 3 Refills, 03/18/21 12:33:00 EST, [facility] #[id number], 171, cm, 03/18/21 11:26:00 EST, Height, 95.6, kg, 03/05/21 17:48:00 EST, Dry Weight Start Date: 03/18/21 Status: Ordered atorvastatin 40 mg oral tablet 1 tablet, By Mouth, Daily at bedtime, # 90 tablet, 3 Refills, [facility] #[id number], 171, cm,03/18/21 11:26:00 EST, Height, 95.6, kg, 03/05/21 17:48:00 EST, Dry Weight Start Date: 03/19/21 Status: Ordered clotrimazole 1% topical cream 1 application, Topically, 2 times a day, apply to rash on penis, # 30 Gm, 1 Refills, Maintenance, 03/18/21 12:43:00 EST, Cream, [facility] #[id number], Partial fill upon patient request if the prescription is for a schedule II opioid drug., 1 erasmo... Start Date: 03/18/21 Status: Ordered Freestyle Lite Lancets See Instructions, # 180 each, Refills 3, Tot. Refills 3, Maintenance, use as directed for Type 2 Diabetes Mellitus. Checking POC 1-2 times daily (fasting and two hours lidd-ppbpkkpv-wquzeoo meal of day), 03/18/21 12:40:00 EST, Supply, 171, cm, ... Start Date: 03/18/21 Status: Ordered Freestyle Lite Test Strips See Instructions, # 180 each, Refills 3, Tot. Refills 3, Maintenance, use as directed for Type 2 Diabetes Mellitus. Checking POC 1-2 times daily (fasting and two hours wyqg-ietzyiem-fhkqebe meal of day), 03/18/21 12:38:00 EST, 3 month supply if cover... Start Date: 03/18/21 Stop Date: 07/16/21 Status: Ordered hydrOXYzine hydrochloride 25 mg oral tablet 1 tablet, By Mouth, 4 times a day, PRN NEEDED FOR ACUTE ANXIETY, MAY CAUSE DROWSINESS, # 25 tablet, 1 Refills, [facility] #[id number], 171, cm, 03/05/21 17:48:00 EST, Height, 95.6, kg, 03/05/21 17:48:00 EST, Dry Weight Start Date: 03/17/21 Status: Ordered Jardiance 10 mg oral tablet 1 tablet, By Mouth, Daily in AM, # 90 tablet, 0 Refills, 03/18/21 12:33:00 EST, [facility] #[id number], 171, cm, 03/18/21 11:26:00 EST, Height, 95.6, kg, 03/05/21 17:48:00 EST, Dry Weight Start Date: 03/18/21 Status: Ordered losartan 25 mg oral tablet 25 mg, 1, tablet, By Mouth, Daily, # 90 tablet, Refills 0, Tot. Refills 0, Maintenance, 03/20/21 14:40:00 EST, Route to Pharmacy Electronically, [facility] #[id number], Partial fill upon patientrequest if the prescription is for a schedule II op... Start Date: 03/20/21 Status: Ordered metFORMIN 500 mg oral tablet, extended release 1 tablet = 500 mg, By Mouth, 2 times a day, for 90 days, # 180 tablet, 3 Refills, Hard Stop 07/06/21 17:27:34 EDT, 05/16/20 13:07:00 EDT, [facility] #[id number], 173, cm, 04/19/20 10:59:00 EST, Height, 103.45, kg, 03/20/20 17:23:00 EST, Dry Weight Start Date: 05/16/20 Stop Date: 07/06/21 Status: Ordered metFORMIN 500 mg oral tablet, extended release 1 tablet = 500 mg, By Mouth, 2 times a day, # 180 tablet, 3 Refills, Maintenance, 07/06/21 17:27:00EDT, [facility] #[id number], 171, cm, 03/18/21 11:26:00 EST, Height, 95.6, kg, 03/05/21 17:48:00 EST, Dry Weight Start Date: 07/06/21 Stop Date: 07/01/22 Status: Ordered metoprolol 50 mg oral tablet, extended release 50 mg, 1, tablet, By Mouth, Daily, # 90 tablet, Refills 3, Tot. Refills 3, Maintenance, 03/18/21 12:33:00 EST, Route to Pharmacy Electronically, [facility] #[id number], Partial fill upon patientrequest if the prescription is for a schedule II op... Start Date: 03/18/21 Status: Ordered nicotine 21 mg/24 hr transdermal film, extended release 1 patch, Topically, Daily, plan to change to 14 mg patch after 2 months, # 30 patch, 1 Refills, Maintenance, 05/08/21 14:59:00 EDT, Patch, [facility] #[id number], Partial fill upon patient request if the [...] 3 Refills, Maintenance, 03/18/21 12:33:00 EST, Tablet, [facility] #46995, Partial fill upon patient request if the prescription is for a schedule II opioid drug., 171, cm, 03/18/21 11:... Start Date: 03/18/21 Stop Date: 1/27/23 Status: Ordered Trulicity Pen 3 mg/0.5 mL subcutaneous solution 0.5 mL = 3 mg, Subcutaneous Injection, Every week, rotate injection sites. 3 month supply if covered by insurance, # 6.5 mL, 3 Refills, Maintenance, 03/18/21 12:34:00 EST, Solution, [facility] #[id number], Partial fill upon patient request if the... 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 therapist [...]
== END 2022-09-09 09:30 | disposition home or self-care (01) ==
LOC: HO.HCSM 09:11
PROVIDERS: PCP Internal Medicine; Visit Provider Internal Medicine Cardiovascular Disease
DX: I20.8 Other forms of angina pectoris (principal); I10 Essential (primary) hypertension; E78.00 Pure hypercholesterolemia, unspecified
CPT/HCPCS: 99214

== ENCOUNTER → 2022-09-09 09:11 | Outpatient (BNVA) | payer OTHER, SELFPAY | PROVIDERS: PCP Internal Medicine; Visit Provider Internal Medicine Cardiovascular Disease | DX: I20.8 Other forms of angina pectoris (principal); I10 Essential (primary) hypertension; E78.00 Pure hypercholesterolemia, unspecified | CPT/HCPCS: 99212 ==

== ENCOUNTER → 2022-10-08 09:45 | Outpatient (REF) | payer OTHER, SELFPAY ==
--- NOTE | 2022-10-08 09:47 | CA_ITS ---
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 The calculated ejection fraction is 45% by biplane method. - The inferolateral wall is hypokinetic. - The basal inferior segment is akinetic. - No obvious valvular pathology seen on this study. Findings Left Ventricle Normal left ventricular cavity size. The left ventricular systolic function is mildly decreased. The calculated ejection fraction is 45% by biplane method. There is evidence of regional wall motion abnormalities. There is mild global hypokinesis. Evidence suggests grade I (mild) diastolic dysfunction. There is moderate septal asymmetric hypertrophy. LV peak GLS 11.4%. Wall Motion Rest Echo Findings The inferolateral wall is hypokinetic. The basal inferior segment is akinetic. Right Ventricle Normal right ventricular cavity size and systolic function. Atria Both atria are normal in size. Aortic Valve There is a normal trileaflet aortic valve. There is no aortic valve stenosis. There is no aortic valve regurgitation. Mitral Valve The mitral valve appears normal. There is no mitral valve regurgitation. There is no mitral valve stenosis. Pulmonic Valve The pulmonic valve is likely normal. Tricuspid Valve Normal tricuspid valve structure. There is trace tricuspid valve regurgitation. There is no evidence of pulmonary hypertension. Great Vessels The asc aorta is normal in size. Venous The inferior vena cava is normal in size and collapses greater than 50% with inspiration. Pericardium/Pleural There is no evidence of pericardial effusion. Prior Study Comparison No prior study available for comparison. Recommendations, Care & Conclusions No obvious valvular pathology seen on this study. Measurements 2D Linear Measurements IVSd: 1.30 0.6-0.9/0.6-1.0 cm LVIDd: 4.59 3.9-5.3/4.2-5.9 cm LVIDd Index: 2.17 2.4-3.2/2.2-3.1 cm/m2 LVIDs: 3.27 2.0-3.6 cm LVPWd: 0.98 0.7-1.1 cm LA Diam: 3.10 2.7-3.8/3.0-4.0 cm LAIDs Index: 1.46 1.5-2.3 cm/m2 LV Mass: 235.91 67-162/88-224 g LV Mass Index: 111.28 43-95/49-115 g/m2 LVOT Diam: 2.10 3.0+(-)1.3 cm 2D Systolic Function EF 4C: 43.90 >55% EF 2C: 45.60 >55% EF BiP: 45.00 >55% Mitral Valve MV Pk E: 0.44 MV PK A: 0.78 MV Decel Time: 123.00 E/A: 0.60 E'Lateral: 5.33 E'Medial: 3.92 E/E' Med: 11.10 E/E' Lat: 8.20 PHT: 36.00 MVA PHT: 6.11 Decel [place]: 3.55 Aortic Valve AoV Pk Shabbir: 1.16 AoV Mn Shabbir: 0.86 AoV VTI: 0.23 AoV Pk Grad: 5.00 Aov Mn Grad: 3.00 LOUIE Cont.VTI: 2.22 LVOT LVOT Pk Shabbir: 0.75 LVOT Mn Shabbir: 0.47 LVOT VTI: 0.15 LVOT Pk Grad: 2.00 LVOT Mn Grad: 1.00 LVOT Diam: 2.10 LVOT Area: 3.46 Diastolic Function MV Pk E: 0.44 MV Pk A: 0.78 E/A: 0.60 E'Medial: 3.92 E/E' Med: 11.10 E' Laterial: 5.33 E/E' Lat: 8.20 Right Ventricle TAPSE (mm): 20.00 TVS' Shabbir: 11.50 Tricuspid Valve RA Press: 3.00 Great Vessels Aorta Sinus of Valsalva: 3.65 2.0-3.5 cm Ao Asc: 3.70 2.1-3.4 cm Updated in Other Vendor System with Status of Final Walt Hyaes MD electronically signed on 10/10/2022 10:14:50 AM with status of Final
== END ==
LOC: HO.CARD 09:45
PROVIDERS: Visit Provider Internal Medicine Cardiovascular Disease
DX: I20.8 Other forms of angina pectoris (principal)
CPT/HCPCS: 93306; 93356

== ENCOUNTER → 2022-10-08 09:47 | Outpatient (BNV) | payer OTHER, SELFPAY | PROVIDERS: Visit Provider Internal Medicine | DX: I20.8 Other forms of angina pectoris (principal) | CPT/HCPCS: 93306 ==

== ENCOUNTER 2022-11-18 14:13 | Outpatient (AMB) | payer OTHER, SELFPAY ==
--- NOTE | 2022-11-18 14:17 | A.OFFVIS_ITS ---
Intake Vital Signs 11/18/22 14:18 Height 5 ft 8 in Weight 220 lb 7.396 oz BMI 33.5 BP 138/88 Blood Pressure Location Lt brachial Position Sitting Pulse 82 Pulse Source Pulse Oximeter Pulse Oximetry (%) 98 Oxygen Delivery Method Room Air Intake Visit Reasons: 3 month follow up after echo Intake Note: 3 mo follow up s/p echo, pt has no complaints. STates he is exercising and wants to quit smoking Accompanied by: Self / Same As Patient Allergies doxycycline Allergy (Unknown, Verified 11/18/22 14:21) Unknown Medication List - Last Reconciled 11/18/22 by Richie Aldridge MD albuterol sulfate 90 mcg/actuation 2 puffs inhalation Q6H PRN aspirin 1 tab PO DAILY atorvastatin 20 mg PO DAILY carvedilol 3.125 mg PO BID clotrimazole 1% 1 appl topical BID dulaglutide (Trulicity) 3 mg (0.5 mL) subcut QWEEK hydroxyzine HCl 1 tab PO QID PRN losartan 50 mg PO DAILY metformin 1,000 mg PO BIDWMEAL nicotine apply 1-21 mg NICOTINE PATCH daily for 28 days; follow with 1-14 mg PATCH daily for 14 days, then 1-7mg PATCH daily for 14 days transdermal pantoprazole 1 tab PO DAILY HPI HPI Comments History of Present Illness Details Pleasant 57-year-old gentleman who is here for follow-up. He was taken for cardiac catheterization in 2020 for NSTEMI. He had mild disease in the LAD circumflex artery and severe proximal and mid RCA stenosis which was treated with drug-eluting stents. He did fine after that. He is an active smoker. On July 06 he was in the emergency department with chest discomfort. He said he had central chest tightness lasting for 15 minutes at rest. With these symptoms he came to emergency department. He was ruled out and discharged home. He is saying since then he has not had any significant discomfort in his chest. He is not physically active but does stretching exercises for his shoulders due to rotator cuff injury in the past. Does not exercise on treadmill or do any regular workup. He is smoking 10 cigarettes per day. 09/09/22: Returns for follow-up who your joint resume her been exercising regul theo. He has no exertional symptoms. He underwent stress testing where he was able to exercise to 10.1 metabolic equivalents without any EKG changes or chest discomfort. Interestingly his nuclear perfusion imaging showed a nontransmural infarct of the basal and mid inferior wall with no reversible ischemia and gated LVEF was 51%. He has been doing well and has no exertional symptoms. He had chest tightness originally when he presented with NSTEMI in 2020. 11/18/22: He returns for follow-up. He had echocardiography which showed EF of 45%. Basal inferior segment was akinetic. Inferolateral wall was hypokinetic. I reviewed his echocardiogram from 2020 performed at [facility] which showed EF of 45-50% with inferior wall motion abnormalities. Nuclear stress test has shown transmural infarction of the inferior wall. He has been exercising regularly at the gym and has no exertional symptoms. He works out regularly and has no issues. Taking medications regularly. He was previously on Jardiance but this has been discontinued and he has been changed to Trulicity at this point. [facility] Medical History Smoking Family history of coronary arteriosclerosis Anxiety HTN (hypertension) High cholesterol Diabetes Surgical History H/O vascular surgery H/O lateral meniscus repair of left knee S/P cardiac catheterization History of appendectomy H/O hernia repair Family History Mother Heart attack Diabetes Social History Household Members: Significant Other Housing: House Alcohol intake: never Patient Tobacco Use Status: Current everyday Tobacco user Tobacco use type: Cigarette Cigarette Packs Per Day: 0.5 Cigarettes Per Day: 10 Years Smoked: 30 +/- e-Cigarette/Vaping Use: Never Used service: No Current occupational status: employed Review [employer] Denies chills, Denies fatigue, Denies fever(s), Denies frequent falls, Denies weakness, Denies weight gain and Denies weight loss ENT Denies dizziness Card Denies chest pain, Denies leg edema, Denies lightheadedness, Denies palpitations, Denies dyspnea, Denies dyspnea on exertion, Denies orthopnea and Denies other (loss of consciousness) Resp Denies cough, Denies dyspnea and Denies dyspnea on exertion GI Denies hematochezia and Denies change in stool character Musc Denies abnormal gait, Denies muscle weakness, Denies numbness, Denies radiating pain into limb and Denies tingling Neuro Denies abnormal gait, Denies dizziness, Denies frequent falls, Denies numbness, Denies tingling and Denies weakness Endo Denies fatigue and Denies palpitations Physical Exam Vital Signs: Last Vital Signs Pulse 82 11/18/22 14:18 BP 138/88 11/18/22 14:18 Pulse Ox 98 11/18/22 14:18 Oxygen Delivery Method Room Air 11/18/22 14:18 BMI result Body Mass Index 33.5 GENERAL APPEARANCE: in no acute distress, pleasant. NECK: no carotid bruit, no jugular venous distention. SKIN: no suspicious lesions, warm and dry. HEART: no murmurs, regular rate and rhythm. LUNGS: clear to auscultation bilaterally. ABDOMEN: soft, nontender. EXTREMITIES: no edema. PERIPHERAL PULSES: equal. NEUROLOGIC: No gross deficits, AAO X 3 Assessment & Plan Assessment & Plan (1) Ischemic cardiomyopathy: Code(s): I25.5 - Ischemic cardiomyopathy (2) Stable angina: Code(s): I20.8 - Other forms of angina pectoris (3) HTN (hypertension): Code(s): I10 - Essential (primary) hypertension Plan Pleasant 57 year gentleman who is here for follow-up. He has known history of coronary artery disease with previous right coronary artery PCI performed in 2020. At that time his ejection fraction was 45% to 50% with inferior wall motion abnormality based on echocardiography performed at [facility]. Recent echocardiogram has shown inferior and inferolateral wall motion with EF of 45%. He has not had any significant symptoms and has been active. Stress testing has shown nontransmural infarct to the basal and mid inferior wall with no reversibility. He is on losartan 50 mg daily. I am adding carvedilol 3.125 mg twice a day. He will continue the baby aspirin and atorvastatin 20 mg daily. He is on metformin and Trulicity for diabetes. He continues to smoke half pack per day. I am giving him some nicotine patches. Follow-up with us in few months. Thank you for allowing me to participate in the care of your patient. Please feel free to contact me if you have any questions. Medications: New nicotine apply 1-21 mg NICOTINE PATCH daily for 28 days; follow with 1-14 mg PATCH daily for 14 days, then 1-7mg PATCH daily for 14 days transdermal 56 patches 0RF I25.5 - Ischemic cardiomyopathy carvedilol must administer with a meal/food 3.125 mg PO BID 60 tabs 3RF I25.5 - Ischemic cardiomyopathy Coding Level of Care Code Est Pt Level 4 (55239) Diagnoses Ischemic cardiomyopathy I25.5 Stable angina I20.8 HTN (hypertension) I10
[2022-11-18 14:18] VITALS: BP 138/88; PULSE 82; O2SAT 98; BMI 33.5
== END 2022-11-18 14:50 | disposition home or self-care (01) ==
PROVIDERS: Visit Provider Internal Medicine Cardiovascular Disease
DX: I25.5 Ischemic cardiomyopathy (principal); I20.8 Other forms of angina pectoris; I10 Essential (primary) hypertension
CPT/HCPCS: 99214

== ENCOUNTER → 2022-11-18 14:13 | Outpatient (BNVA) | payer OTHER, SELFPAY | PROVIDERS: Visit Provider Internal Medicine Cardiovascular Disease | DX: I25.5 Ischemic cardiomyopathy (principal); I20.89 Other forms of angina pectoris; I10 Essential (primary) hypertension; I25.2 Old myocardial infarction; Z79.82 Long term (current) use of aspirin; Z79.899 Other long term (current) drug therapy | CPT/HCPCS: 99212 ==

== ENCOUNTER 2023-02-24 12:56 | Outpatient (AMB) | payer OTHER, SELFPAY ==
[2023-02-24 12:58] VITALS: BP 130/80; PULSE 95; BMI 35.5
--- NOTE | 2023-02-24 12:58 | A.OFFVIS_ITS ---
Intake Vital Signs 02/24/23 12:58 Height 5 ft 8 in Weight 233 lb 11.04 oz BMI 35.5 BP 130/80 Blood Pressure Location Lt brachial Position Sitting Pulse 95 Pulse Source Pulse Oximeter Intake Visit Reasons: 3 mth f/up Intake Note: 3 mnth f/up pt been having some chest discomfort since this morning but it comes and go, he thinks it could be something he eat. 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 He was taken for cardiac catheterization in 2020 for NSTEMI. He had mild disease in the LAD circumflex artery and severe proximal and mid RCA stenosis which was treated with drug-eluting stents. He did fine after that. He is an active smoker. On July 06 he was in the emergency department with chest discomfort. He said he had central chest tightness lasting for 15 minutes at rest. With these symptoms he came to emergency department. He was ruled out and discharged home. He is saying since then he has not had any significant discomfort in his chest. He is not physically active but does stretching exercises for his shoulders due to rotator cuff injury in the past. Does not exercise on treadmill or do any regular workup. He is smoking 10 cigarettes per day. 09/09/22: Returns for follow-up who your joint resume her been exercising regularly. He has no exertional symptoms. He underwent stress testing where he was able to exercise to 10.1 metabolic equivalents without any EKG changes or chest discomfort. Interestingly his nuclear perfusion imaging showed a nontransmural infarct of the basal and mid inferior wall with no reversible ischemia and gated LVEF was 51%. He has been doing well and has no exertional symptoms. He had chest tightness originally when he presented with NSTEMI in 2020. 11/18/22: He returns for follow-up. He had echocardiography which showed EF of 45%. Basal inferior segment was akinetic. Inferolateral wall was hypokinetic. I reviewed his echocardiogram from 2020 performed at [facility] which showed EF of 45-50% with inferior wall motion abnormalities. Nuclear stress test has shown transmural infarction of the inferior wall. He has been exercising regularly at the gym and has no exertional symptoms. He works out regularly and has no issues. Taking medications regularly. He was previously on Jardiance but this has been discontinued and he has been changed to Trulicity at this point. 02/24/2023: He returns for follow-up. He has been doing well. No chest discomfort or shortness of breath. He ate outside and has been experiencing some GI upset and diarrhea. Taking medications regularly. [facility] Medical History Smoking Family history of coronary arteriosclerosis Anxiety HTN (hypertension) High cholesterol Diabetes Surgical History H/O vascular surgery H/O lateral meniscus repair of left knee S/P cardiac catheterization History of appendectomy H/O hernia repair Family History Mother Heart attack Diabetes Social History Household Members: Significant Other Housing: House Alcohol intake: never Patient Tobacco Use Status: Current everyday Tobacco user Tobacco use type: Cigarette Cigarette Packs Per Day: 0.5 Cigarettes Per Day: 10 Years Smoked: 30 +/- e-Cigarette/Vaping Use: Never Used service: No Current occupational status: employed Review [employer] Reports chills, Reports fatigue, Reports fever(s), Reports frequent falls, Reports weakness, Reports weight gain and Reports weight loss ENT Reports dizziness Card Reports chest pain, Reports leg edema, Reports lightheadedness, Reports palpitations, Reports dyspnea and Reports dyspnea on exertion Resp Reports cough, Reports dyspnea and Reports dyspnea on exertion GI Reports hematochezia Musc Reports abnormal gait, Reports muscle weakness, Reports numbness, Reports radiating pain into limb and Reports tingling Neuro Reports abnormal gait, Reports dizziness, Reports frequent falls, Reports numbness, Reports tingling and Reports weakness Endo Reports fatigue and Reports palpitations Physical Exam Vital Signs: Last Vital Signs Pulse 95 02/24/23 12:58 BP 130/80 02/24/23 12:58 BMI result Body Mass Index 35.5 GENERAL APPEARANCE: in no acute distress, pleasant. NECK: no carotid bruit, no jugular venous distention. SKIN: no suspicious lesions, warm and dry. HEART: no murmurs, regular rate and rhythm. LUNGS: clear to auscultation bilaterally. ABDOMEN: soft, nontender. EXTREMITIES: no edema. PERIPHERAL PULSES: equal. NEUROLOGIC: No gross deficits, AAO X 3 Assessment & Plan Assessment & Plan (1) Ischemic cardiomyopathy: Code(s): I25.5 - Ischemic cardiomyopathy (2) Stable angina: Code(s): I20.8 - Other forms of angina pectoris Plan Pleasant 58-year-old gentleman who is here for follow-up. He has mild cardiomyopathy and had PCI in the past to the right coronary artery. It appears his ejection fraction did not improve after the PCI. He is on losartan 50 mg. Increasing carvedilol to 6.25 mg twice a day. Given the fact that he has mild cardiomyopathy he should be on an SGLT2 inhibitor. Given the fact that he is already on metformin and Trulicity-I will defer this decision to the primary care physician to see if changing to Jardiance or Farxiga is a possibility in him. He will see us back in 3-4 months. Thank you for allowing me to participate in the care of your patient. Please feel free to contact me if you have any questions. Medications: New 2 carvedilol must administer with a meal/food 6.25 mg PO BID 120 tabs 4RF I25.5 - Ischemic cardiomyopathy Discontinued carvedilol must administer with a meal/food Discontinued Reason: None 3.125 mg PO BID 60 tabs 5RF I25.5 - Ischemic cardiomyopathy Coding Level of Care Code Est Pt Level 4 (45026) Diagnoses Ischemic cardiomyopathy I25.5 Stable angina I20.8
== END 2023-02-24 13:18 | disposition home or self-care (01) ==
PROVIDERS: Visit Provider Internal Medicine Cardiovascular Disease
DX: I25.5 Ischemic cardiomyopathy (principal); I20.8 Other forms of angina pectoris
CPT/HCPCS: 99214

== ENCOUNTER → 2023-02-24 12:56 | Outpatient (BNVA) | payer OTHER, SELFPAY | PROVIDERS: Visit Provider Internal Medicine Cardiovascular Disease | DX: I25.5 Ischemic cardiomyopathy (principal); I20.89 Other forms of angina pectoris | CPT/HCPCS: 99212 ==

== ENCOUNTER 2023-09-15 09:42 | Outpatient (REF) | payer OTHER, SELFPAY ==
--- NOTE | ~2023-09-15 | XR_ITS ---
EXAMINATION: XR ELBOW, LEFT CLINICAL INFORMATION: Osteoarthritis COMPARISON: None available. TECHNIQUE: AP, lateral, and oblique views of the left elbow. FINDINGS: No fracture or joint effusion. Alignment is anatomic. Joint spaces are maintained. Mild bony hypertrophy/spurring of the medial humeral epicondyle. No abnormal soft tissue calcification. XR/XR elbow LT min 3V IMPRESSION: No acute osseous abnormality. Study is assigned for dictation on October 04, 2023
== END 2023-09-15 09:43 | disposition home or self-care (01) ==
LOC: HO.XRAY 09:42
PROVIDERS: PCP Internal Medicine; Visit Provider Registered Nurse Emergency
DX: M19.021 Primary osteoarthritis, right elbow (principal); M19.022 Primary osteoarthritis, left elbow; M25.561 Pain in right knee; M25.562 Pain in left knee
CPT/HCPCS: 73080; 99202

== ENCOUNTER 2023-09-15 09:42 | Outpatient (AMB) | payer OTHER, SELFPAY ==
--- NOTE | 2023-09-15 09:45 | A.OFFVIS_ITS ---
Vital Signs 09/15/23 09:46 Height 5 ft 8 in Weight 210 lb BMI 31.9 BP 138/88 Blood Pressure Location Rt brachial Position Sitting Pulse 90 Pulse Source Pulse Oximeter Pulse Oximetry (%) 96 Oxygen Delivery Method Room Air Intake Visit Reasons: Bilateral Knee OA Allergies doxycycline Allergy (Unknown, Verified 09/15/23 09:48) Unknown Medication List - Last Reconciled 09/15/23 by Mackenzie García albuterol sulfate 90 mcg/actuation 2 puffs inhalation Q6H PRN atorvastatin 20 mg PO DAILY carvedilol 6.25 mg PO BID dulaglutide (Trulicity) 3 mg (0.5 mL) subcut QWEEK empagliflozin (Jardiance) 10 mg PO DAILY losartan 50 mg PO DAILY metformin 1,000 mg PO BIDWMEAL pantoprazole 1 tab PO DAILY HPI Comments Details: Elton is a very pleasant 58-year-old male who presents the office today for evaluation and management of his chronic bilateral knee pain and left elbow pain. Patient was referred here by PCP for evaluation and management of his bilateral knee pain. Patient states his most concerning pain is of the left elbow and he would like to focus on that today. He is currently under the care of orthopedics for his knees and is currently not interested in proceeding with treatment in our office for that. Patient complains of left elbow pain and left shoulder/upper back for last 1 month. Reports he has been working out at the gym and thinks he overuse the arm Pain today is rated an 8/10, worse with movement and tender to palpation. Patient has not attempted PT, chiropractor, acupuncture, massage or injections for this pain. No relief with NSAIDs or Tylenol. Has been using lidocaine patches in compression sleeve with minimal improvement He is currently receiving steroid injections for his knees, most recent was approximately 6 months ago. Patient is diabetic, most recent A1c was 9.2. He takes metformin, Trulicity and Jardiance. He is working on improving his A1c. In terms of muscle damage condition is described as aching, spasming, hot, burning. Pain is negatively impacting patient's enjoyment of life, general activity, mood, normal work, recreational activities, relationships with people, sleep walking Denies current use of anticoagulants. Denies implantable devices, pacemaker defibrillator [facility] Medical History Smoking Family history of coronary arteriosclerosis Anxiety HTN (hypertension) High cholesterol Diabetes Surgical History H/O vascular surgery H/O lateral meniscus repair of left knee S/P cardiac catheterization History of appendectomy H/O hernia repair Family History Mother Heart attack Diabetes Social History Household Members: Significant Other Housing: House Alcohol intake: never Patient Tobacco Use Status: Current everyday Tobacco user Tobacco use type: Cigarette Cigarette Packs Per Day: 0.5 Cigarettes Per Day: 10 Years Smoked: 30 +/- e-Cigarette/Vaping Use: Never Used service: No Current occupational status: employed Review of Systems [employer] All systems reviewed & are unremarkable except as noted in HPI and below Physical Exam Vital Signs: Last Vital Signs Pulse 90 09/15/23 09:46 BP 138/88 09/15/23 09:46 Pulse Ox 96 09/15/23 09:46 Oxygen Delivery Method Room Air 09/15/23 09:46 BMI result Body Mass Index 31.9 General: awake, alert, oriented. Answers questions appropriately. Fully engaged in examination. Skin: warm, dry, intact HEENT: Normocephalic. Hearing intact. Cardiac: External chest normal in appearance. Respiratory: No cough, audible wheezing or stridor. Abdomen: without gross distension. MS: No obvious swelling or deformities. Limited range of motion left elbow, tenderness to palpation. Tenderness to palpation left middle trapezius. Left shoulder full range of motion. Neurological: Oriented to person, place, time and situation. Thought process intact. No gait abnormalities appreciated. Psychiatric: Appropriate mood and affect. Good judgment and insight. 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 Patient requesting to move forward with treatment for his left elbow pain. X-ray left elbow ordered Order placed for physical therapy, eval and treat Diclofenac topical, apply to most painful area twice daily as needed TENS unit ordered, pamphlet provided, patient advised on use. All questions and concerns were answered, patient agrees with the plan. Follow up after PT, sooner if needed. Orders: Orders PT Evaluation and Treatment Today M19.029 - Primary osteoarthritis, unspecified elbow, M25.561 - Pain in right knee, M25.562 - Pain in left knee, S46.819A - Strain of other muscles, fascia and tendons at shoulder and upper arm level, unspecified arm, initial encounter XR elbow LT min 3V Today M19.029 - Primary osteoarthritis, unspecified elbow, M25.561 - Pain in right knee, M25.562 - Pain in left knee Medications: New diclofenac sodium 3% apply to most painful area twice daily as needed for pain 1 appl topical BID 100 grams 0RF Coding Level of Care Code New Pt Level 4 (95850) Diagnoses Elbow arthritis M19.029 Bilateral knee pain M25.561; M25.562 Trapezius muscle strain S46.819A
[2023-09-15 09:46] VITALS: BP 138/88; PULSE 90; O2SAT 96; BMI 31.9
== END 2023-09-15 11:04 | disposition home or self-care (01) ==
PROVIDERS: PCP Internal Medicine; Visit Provider Registered Nurse Emergency
DX: M19.029 Primary osteoarthritis, unspecified elbow (principal); M25.561 Pain in right knee; M25.562 Pain in left knee; S46.819A Strain of other muscles, fascia and tendons at shoulder and upper arm level, unspecified arm, initial encounter
CPT/HCPCS: 99204